=== PATIENT | female | born 1955 | race Caucasian/White ===

== ENCOUNTER → 2020-04-18 13:49 | Outpatient (BNVA) | payer MEDICAID, SELFPAY | PROVIDERS: PCP Internal Medicine Geriatric Medicine; Referring Provider Internal Medicine Geriatric Medicine; Visit Provider Nurse Practitioner | DX: Z76.89 Persons encountering health services in other specified circumstances (principal) ==

== ENCOUNTER 2020-09-25 16:34 | Emergency (ER) | payer MEDICAID, SELFPAY ==
--- NOTE | 2020-09-25 | ECG_ITS ---
Test Reason : CP Blood Pressure : / mmHG Vent. Rate : 057 BPM Atrial Rate : 057 BPM P-R Int : 170 ms QRS Dur : 088 ms QT Int : 450 ms P-R-T Axes : 049 022 041 degrees QTc Int : 438 ms Sinus bradycardia with Premature atrial complexes with Aberrant conduction vs PVC Otherwise normal ECG When compared with ECG of 22-MAY-2019 15:00, Aberrant conduction is now Present Referred By: Generic ED Physician Electronically Signed By:MARIA DE JESUS CORDOVA
--- NOTE | ~2020-09-25 | XR_ITS ---
EXAMINATION: XR CHEST CLINICAL INFORMATION: Right-sided chest pain COMPARISON: Chest x-ray 05/22/2019 TECHNIQUE: Frontal portable view of the chest was obtained. 11:14 PM FINDINGS: No significant abnormality is noted involving the heart, lungs, mediastinum, bony thorax or soft tissues. There are surgical clips over the left breast. XR/XR chest 1V IMPRESSION: Unremarkable examination.
--- NOTE | ~2020-09-25 | US_ITS ---
EXAMINATION: US VENOUS ULTRASOUND WITH DOPPLER LOWER EXTREMITY, BILATERAL CLINICAL INFORMATION: Bilateral calf pain. COMPARISON: None TECHNIQUE: Ultrasound of the deep veins is performed from the hip to the calf with compression sonography and color and pulse Doppler assessment. Spectral analysis with color-flow imaging is performed. FINDINGS: RIGHT: There is normal venous compression and respiratory variation and augmented flow. The visualized common femoral vein, superficial femoral vein, profunda femoral vein, popliteal vein, and the trifurcation region shows no evidence of deep venous thrombosis. There is no significant popliteal fossa cyst. LEFT: There is normal venous compression and respiratory variation and augmented flow. The visualized common femoral vein, superficial femoral vein, profunda femoral vein, popliteal vein, and the trifurcation region shows no evidence of deep venous thrombosis. There is no significant popliteal fossa cyst. A small Crowe's cyst is noted measuring 4.8 x 0.7 x 1.6 cm. If the patient's symptoms persist, followup ultrasound in 5 days 7 days might be of value to exclude proximal propagation from a non-visualized calf vein. US/US venous duplex LE BI IMPRESSION: No DVT demonstrated in the bilateral lower extremity. Small left Crowe's cyst is noted.
--- NOTE | ~2020-09-25 | CT_ITS ---
EXAMINATION: CT HEAD WITHOUT CONTRAST CLINICAL INFORMATION: Headache for one week. COMPARISON: CT brain 05/22/2019 TECHNIQUE: Contiguous axial imaging was performed from the skull base to vertex without intravenous administration of contrast. This CT examination was performed using dose optimization techniques as appropriate, variously including the following: *Automated exposure control *Adjustment of mA and/or kV according to patient size (this includes techniques or standardized protocols for targeted exams where dose is matched to indication/reason for exam; i.e. extremities or head) *Use of iterative reconstruction technique DLP: 589 mGy-cm FINDINGS: There is no evidence of acute intracranial hemorrhage or territorial infarction. No abnormal mass effect or midline shift is seen. Alejandra to white matter differentiation is well preserved. No extra-axial fluid collections are identified. The ventricles are normal in size. There is no abnormal attenuation within the brain parenchyma. The osseous structures and soft tissues are normal. The mastoid air cells and visualized portions of the paranasal sinuses are well aerated. CT/CT head/brain wo con IMPRESSION: No acute intracranial process seen. No change from previous study 05/22/2019
[2020-09-25 16:44] VITALS: BP 163/91; PULSE 64; RESP 18; TEMP 37.1; O2SAT 99; BMI 28.3
[2020-09-25 17:17] LABS: MANUAL DIFF FLAG NO
[2020-09-25 17:18] LABS: Basophils Percent Auto 0.1 % (0-2); Eosinophils Absolute Auto 0.1 X10*3/uL (0.0-0.4); Eosinophils Percent Auto 0.8 % (0-4); Hematocrit 39.1 % (37-47); Hemoglobin 12.7 g/dl (12.0-16.0); Imm Gran Abs Auto 0.01 X10*3/uL (0.00-0.03); Imm Gran Pct Auto 0.1 % (0.0-0.4); Lymphocytes Absolute Auto 2.3 X10*3/uL (1.2-4.9); Lymphocytes Percent Auto 31.1 % (20-40); Mean Corpuscular HGB Conc 32.5 g/dl (31.0-35.0); Mean Corpuscular Hemoglobin 31.9 pg (27.0-33.0); Mean Corpuscular Volume 98.2 fL (80-98); Mean Platelet Volume 10.8 fL (9.4-12.3); Monocytes Percent Auto 13.1 % (2-11); Neutrophils Percent Auto 54.8 % (45-73); Platelet Count 239 X10*3/uL (160-400); Red Blood Count 3.98 X10*6/uL (4.20-5.50); Red Cell Distribution Width 13.4 % (11.0-16.0); White Blood Count 7.3 X10*3/uL (4.8-10.8)
[2020-09-25 17:27] LABS: Glucose Urine UA NEG (NEG); Leukocyte Esterase Urine NEG (NEG); Nitrite Urine NEG (NEG); PH 7.5 (5.0-8.0); Specific Gravity - Urine 1.015 (1.005-1.025); Urine Blood NEG (NEG); Urine Ketones NEG (NEG); Urine Protein NEG (NEG-TRACE)
[2020-09-25 17:35] LABS: COVID-19 Test Negative (Negative); IDNOW Serial# 9DD0AD1C
[2020-09-25 17:42] LABS: RBC Urine 0-2 /HPF (0); Squamous Epithelial Cell Urine TRACE /LPF; WBC Urine 0-2 /HPF (0-4)
[2020-09-25 17:45] LABS: Appearance Urine CLEAR; Color Urine YELLOW
[2020-09-25 17:47] LABS: Anion Gap 14 (12-20); Blood Urea Nitrogen 10 mg/dL (9-16); Calcium 9.5 mg/dL (8.4-10.2); Carbon Dioxide 31 mmol/L (22-29); Chloride 100 mmol/L (96-108); Creatinine Clr Calc Pharmacy 58.8; Estimated Glomerular Filt Rate > 60; Glucose Random 109 mg/dL (60-115); Potassium 4.1 mmol/L (3.3-5.1); Sodium 141 mmol/L (135-145)
[2020-09-25 17:52] LABS: Troponin-I High Sensitivity 5.6 ng/L (<3.5-17.0)
--- NOTE | 2020-09-25 18:11 | ED.CHESTPAIN ---
HPI - Chest Pain General Chief Complaint: Chest Pain Stated Complaint: CP,RT ARM PAIN,HEADACHE Time Seen by Provider: 09/25/20 17:47 Source: patient Mode of arrival: ambulatory Limitations: no limitations History of Present Illness HPI narrative: Patient presents to ED for right-sided chest pain going down the arm, headache, and bilateral calf pain for 1 week. Patient denies any shortness of breath on inspiration or shortness of breath/chest pain on exertion. Patient denies any recent trauma, fever, chills. Patient denies any neck stiffness. Patient denies any swelling of legs or any recent trauma to the body. MD complaint: chest pain Related Data Home Medications Medication Instructions Recorded Confirmed dicyclomine 20 mg tablet 20 mg PO QID 04/18/20 04/18/20 docusate calcium 240 mg capsule 240 mg PO BEDTIME 04/18/20 04/18/20 simethicone 180 mg capsule 180 mg PO BID PRN 04/18/20 04/18/20 Allergies Allergy/AdvReac Type Severity Reaction Status Date / Time ciprofloxacin [Ciprofloxacin] Allergy Mild HIVES Unverified 02/29/20 16:16 lisinopril [LISINOPRIL] Allergy Unknown tongue Unverified 02/29/20 16:16 swelling ,itching gema ciproflaxcine Allergy Unknown Uncoded 12/22/18 00:00 clonezapam Allergy Unknown Uncoded 12/22/18 00:00 lisinopine Allergy Unknown Uncoded 12/22/18 00:00 Review of Systems Review of Systems: Yes all other systems are reviewed and are negative Constitutional: Constitutional: Reports as per HPI, Reports no additional constitutional complaints and Reports headache(s) Eyes: Eyes: Reports as per HPI and Reports no additional eye complaints ENT: Reports system reviewed and no additional complaints, except as documented, Reports as per HPI and Reports headache(s) Cardiovascular: Cardiovascular: Reports as per HPI, Reports no additional cardiovascular complaints and Reports chest pain (Right sided chest pain radiating down right arm) Respiratory: Respiratory: Reports as per HPI and Reports no additional respiratory complaints Gastrointestinal: Gastrointestinal: Reports as per HPI and Reports no additional gastrointestinal complaints Genitourinary: Genitourinary: Reports no additional female genitourinary complaints and Reports as per HPI Musculoskeletal: Musculoskeletal: Reports no additional musculoskeletal complaints and Reports as per HPI Neurologic: Reports system reviewed and no additional complaints, except as documented, Reports as per HPI and Reports headache(s) FOR[facility]LY [facility] Past Medical History Surgical History (Updated 04/18/20 @ 13:52 by Kym Palomino CMA) History of appendectomy History of colonoscopy History of hysterectomy Hx of endoscopy Family History Family History (Updated 04/18/20 @ 13:54 by Kym Palomino CMA) Father No problems noted. Mother No problems noted. Social History Social History (Updated 04/18/20 @ 13:54 by Kym Palomino CMA) Alcohol intake: never Smoking Status: Never smoker Use of substances other than those prescribed or required for medical reasons: No Advance Directives: No Advance Directives Information Provided: No Physical Exam Vital Signs: Vital Signs: Last Vital Signs Temp 98.8 F 09/25/20 16:44 Pulse 67 09/25/20 19:56 Resp 14 09/25/20 19:56 BP 137/80 09/25/20 19:56 Pulse Ox 98 09/25/20 19:56 Body Mass Index 28.3 Const: General: cooperative, healthy appearing, comfortable, no acute distress, well developed, alert and awake Orientation/consciousness: patient oriented x3 HENMT: Head: Yes normal to inspection, Yes No palpable skull fracture present, Yes normocephalic, Yes atraumatic, No abrasion, No Acrocyanosis present, No Gaona's sign, No contusion, No cranial bruits, No hematoma, No laceration, No occipital foramen tenderness, No palpable skull fracture, No raccoon eyes, No scalp lesion, No scalp tenderness, No Temporal artery tenderness present and No periorbital ecchymosis Eyes: General: appearance normal, both eyes and all related structures Neck: Neck: Yes normal visual inspection, Yes full ROM, Yes no lymphadenopathy, Yes no meningeal signs, Yes trachea midline, Yes supple and No tender Chest: Chest palpation & inspection: normal inspection of the chest and normal palpation of entire chest wall Resp: Effort & Inspection: normal respiratory effort and able to speak in complete sentences Auscultation: clear to auscultation bilaterally Cardio: Jugular venous distension: no JVD Heart sounds: S1 normal heart sound present and S2 normal heart sound present GI: Inspection: Yes normal to inspection Palpation (GI): Soft to palpation, not firm, nontender, no guarding and not rigid : General: No CVA tenderness and Yes no CVA tenderness Back/Spine/Pelvis: Back: no CVA tenderness, No CVA tenderness and No back tenderness Skin: General skin exam: no rashes or lesions noted and elasticity normal Neuro: General: patient oriented x3, no meningeal signs and CN's II-XI intact bilaterally Cranial nerves: Yes CN's II-XII intact bilaterally Extrem: Other: Lower extremities negative for swelling, pitting edema, or redness. Both lower extremity positive for calf tenderness on palpation. Pulses intact. Psych: Appearance: grossly normal, well kempt and not disheveled Course Course Course Narrative: PTH patient will have a cardiac evaluation. Also will be sent for lower extremity ultrasound to rule out DVT. Patient also be sent D-dimer to see if she is at risk of having a blood clot in the chest. Patient presently is asymptomatic. Reevaluation(s) Reevaluation #1: Negative for signs of neuro deficit. But will send patient for head CT due to her stating headache for 1 week. Patient's COVID swab came back negative. Chest x-ray negative for pneumonia. First troponin is negative. Patient's D-dimer negative wells score 0. Patient's liver enzymes came back negative. Patient feel relief after medical intervention. Reevaluation #2: Repeat troponin came back negative. Head CT is normal. Patient informe to follow-up PCP to see if referral need for cardiology for outpatient workup. But presently patient is not having heart attack or risk of PE. Wells score 0. Patient's symptoms may be anxiety related, but due to age her and daughter informed to follow-up with PCP. Currently patient is not having SC. patient negative risk for PE. Patient is not having a DVT lower extremities. Patient does not have pneumonia. Patient's COVID swab negative . Patient and daughter given copy of labs and imaging or follow-up with PCP. They are also given copy of EKG MDM - Chest Pain MDM Narrative Medical decision making narrative: Atypical chest Lab Data Result diagrams: 09/25/20 17:07 09/25/20 17:07 Labs: Lab Results 09/25/20 09/25/20 09/25/20 Range/Units 17:07 17:07 17:07 WBC 7.3 (4.8-10.8) X10*3/uL RBC 3.98 L (4.20-5.50) X10*6/uL Hgb 12.7 (12.0-16.0) g/dl Hct 39.1 (37-47) % MCV 98.2 H (80-98) fL MCH 31.9 (27.0-33.0) pg MCHC 32.5 (31.0-35.0) g/dl RDW 13.4 (11.0-16.0) % Plt Count 239 (160-400) X10*3/uL MPV 10.8 (9.4-12.3) fL Immature Gran % (Auto) 0.1 (0.0-0.4) % Neut % (Auto) 54.8 (45-73) % Lymph % (Auto) 31.1 (20-40) % Benson % (Auto) 13.1 H (2-11) % Eos % (Auto) 0.8 (0-4) % Baso % (Auto) 0.1 (0-2) % Lymph # (Auto) 2.3 (1.2-4.9) X10*3/uL Benson # (Auto) 1.0 (0.1-1.2) X10*3/uL Eos # (Auto) 0.1 (0.0-0.4) X10*3/uL Baso # (Auto) 0.0 (0.0-0.2) X10*3/uL Abs Immat Gran (auto) 0.01 (0.00-0.03) X10*3/uL Absolute Neuts (auto) 4.0 (2.0-8.3) X10*3/uL Absolute Nucleated RBC 0.000 (0.0-0.012) X10*3/uL Nucleated RBC % (auto) 0.0 (0.0-0.2) /100WBC PT 12.2 (10.8-13.0) SEC INR 1.0 (0.9-1.1) APTT 37.3 (24.1-38.0) SEC D-Dimer < 200 NG/ML Hold Blue Top SEE NOTE Sodium 141 (135-145) mmol/L Potassium 4.1 (3.3-5.1) mmol/L Chloride 100 (96-108) mmol/L Carbon Dioxide 31 H (22-29) mmol/L Anion Gap 14 (12-20) BUN 10 (9-16) mg/dL Creatinine 0.92 (0.5-1.4) mg/dL Estim Creat Clear Calc 58.8 Estimated GFR > 60 Random Glucose 109 (60-115) mg/dL Calcium 9.5 (8.4-10.2) mg/dL Total Bilirubin 0.6 (0.0-1.0) mg/dL Direct Bilirubin 0.2 (0.0-0.5) mg/dL AST 33 H (5-31) U/L ALT 14 (0-31) U/L Alkaline Phosphatase 61 (39-117) U/L Troponin I High Sens (<3.5-17.0) ng/L B-Natriuretic Peptide (<100) pg/mL Total Protein 7.2 (6.5-8.0) g/dL Albumin 4.6 (3.5-5.0) g/dL Lipase 46 (8-78) U/L Urine Color Urine Appearance Urine pH (5.0-8.0) Ur Specific [place] (1.005-1.025) Urine Protein (NEG-TRACE) MG/DL Urine Glucose (UA) (NEG) MG/DL Urine Ketones (NEG) MG/DL Urine Blood (NEG) Urine Nitrite (NEG) Ur Leukocyte Esterase (NEG) Urine RBC (0) /HPF Urine WBC (0-4) /HPF Ur Squamous Epith Cells /LPF Urine Bacteria /LPF COVID-19 (VAN) (Negative) COVID-19 Clin Com 09/25/20 09/25/20 09/25/20 Range/Units 17:07 17:07 17:13 WBC (4.8-10.8) X10*3/uL RBC (4.20-5.50) X10*6/uL Hgb (12.0-16.0) g/dl Hct (37-47) % MCV (80-98) fL MCH (27.0-33.0) pg MCHC (31.0-35.0) g/dl RDW (11.0-16.0) % Plt Count (160-400) X10*3/uL MPV (9.4-12.3) fL Immature Gran % (Auto) (0.0-0.4) % Neut % (Auto) (45-73) % Lymph % (Auto) (20-40) % Benson % (Auto) (2-11) % Eos % (Auto) (0-4) % Baso % (Auto) (0-2) % Lymph # (Auto) (1.2-4.9) X10*3/uL Benson # (Auto) (0.1-1.2) X10*3/uL Eos # (Auto) (0.0-0.4) X10*3/uL Baso # (Auto) (0.0-0.2) X10*3/uL Abs Immat Gran (auto) (0.00-0.03) X10*3/uL Absolute Neuts (auto) (2.0-8.3) X10*3/uL Absolute Nucleated RBC (0.0-0.012) X10*3/uL Nucleated RBC % (auto) (0.0-0.2) /100WBC PT (10.8-13.0) SEC INR (0.9-1.1) APTT (24.1-38.0) SEC D-Dimer NG/ML Hold Blue Top Sodium (135-145) mmol/L Potassium (3.3-5.1) mmol/L Chloride (96-108) mmol/L Carbon Dioxide (22-29) mmol/L Anion Gap (12-20) BUN (9-16) mg/dL Creatinine (0.5-1.4) mg/dL Estim Creat Clear Calc Estimated GFR Random Glucose (60-115) mg/dL Calcium (8.4-10.2) mg/dL Total Bilirubin (0.0-1.0) mg/dL Direct Bilirubin (0.0-0.5) mg/dL AST (5-31) U/L ALT (0-31) U/L Alkaline Phosphatase (39-117) U/L Troponin I High Sens 5.6 (<3.5-17.0) ng/L B-Natriuretic Peptide 163 H (<100) pg/mL Total Protein (6.5-8.0) g/dL Albumin (3.5-5.0) g/dL Lipase (8-78) U/L Urine Color YELLOW Urine Appearance CLEAR Urine pH 7.5 (5.0-8.0) Ur Specific [place] 1.015 (1.005-1.025) Urine Protein NEG (NEG-TRACE) MG/DL Urine Glucose (UA) NEG (NEG) MG/DL Urine Ketones NEG (NEG) MG/DL Urine Blood NEG (NEG) Urine Nitrite NEG (NEG) Ur Leukocyte Esterase NEG (NEG) Urine RBC 0-2 (0) /HPF Urine WBC 0-2 (0-4) /HPF Ur Squamous Epith Cells TRACE /LPF Urine Bacteria NONE /LPF COVID-19 (VAN) Negative (Negative) COVID-19 Clin Com See Note 09/25/20 Range/Units 20:02 WBC (4.8-10.8) X10*3/uL RBC (4.20-5.50) X10*6/uL Hgb (12.0-16.0) g/dl Hct (37-47) % MCV (80-98) fL MCH (27.0-33.0) pg MCHC (31.0-35.0) g/dl RDW (11.0-16.0) % Plt Count (160-400) X10*3/uL MPV (9.4-12.3) fL Immature Gran % (Auto) (0.0-0.4) % Neut % (Auto) (45-73) % Lymph % (Auto) (20-40) % Benson % (Auto) (2-11) % Eos % (Auto) (0-4) % Baso % (Auto) (0-2) % Lymph # (Auto) (1.2-4.9) X10*3/uL Benson # (Auto) (0.1-1.2) X10*3/uL Eos # (Auto) (0.0-0.4) X10*3/uL Baso # (Auto) (0.0-0.2) X10*3/uL Abs Immat Gran (auto) (0.00-0.03) X10*3/uL Absolute Neuts (auto) (2.0-8.3) X10*3/uL Absolute Nucleated RBC (0.0-0.012) X10*3/uL Nucleated RBC % (auto) (0.0-0.2) /100WBC PT (10.8-13.0) SEC INR (0.9-1.1) APTT (24.1-38.0) SEC D-Dimer NG/ML Hold Blue Top Sodium (135-145) mmol/L Potassium (3.3-5.1) mmol/L Chloride (96-108) mmol/L Carbon Dioxide (22-29) mmol/L Anion Gap (12-20) BUN (9-16) mg/dL Creatinine (0.5-1.4) mg/dL Estim Creat Clear Calc Estimated GFR Random Glucose (60-115) mg/dL Calcium (8.4-10.2) mg/dL Total Bilirubin (0.0-1.0) mg/dL Direct Bilirubin (0.0-0.5) mg/dL AST (5-31) U/L ALT (0-31) U/L Alkaline Phosphatase (39-117) U/L Troponin I High Sens 6.6 (<3.5-17.0) ng/L B-Natriuretic Peptide (<100) pg/mL Total Protein (6.5-8.0) g/dL Albumin (3.5-5.0) g/dL Lipase (8-78) U/L Urine Color Urine Appearance Urine pH (5.0-8.0) Ur Specific [place] (1.005-1.025) Urine Protein (NEG-TRACE) MG/DL Urine Glucose (UA) (NEG) MG/DL Urine Ketones (NEG) MG/DL Urine Blood (NEG) Urine Nitrite (NEG) Ur Leukocyte Esterase (NEG) Urine RBC (0) /HPF Urine WBC (0-4) /HPF Ur Squamous Epith Cells /LPF Urine Bacteria /LPF COVID-19 (VAN) (Negative) COVID-19 Clin Com ECG Data ECG #1: Interpretation: Sinus bradycardia with premature atrial complexes. Ventricular rate 57. VT interval 170. QRS 88. QTC 438. Negative STEMI. Discharge Plan Discharge Clinical Impression: Atypical chest pain Patient Disposition: Home, Self-Care Instructions: Chest Pain (ED) Additional Instructions: Regrese al servicio de urgencias si empeora el dolor en el pecho, falta de aire, hinchaz?n de las extremidades inferiores, dolor en la pantorrilla, tos con theodore, fiebre, escalofr?os, debilidad, dolor abdominal, n?useas, v?mitos, tos con theodore o cualquier otro s?ntoma preocupante. Prescriptions: No Action dicyclomine 20 mg tablet 20 mg PO QID RF: 0 simethicone [Gas Relief (simethicone)] 180 mg capsule 180 mg PO BID PRNRF: 0 docusate calcium 240 mg capsule 240 mg PO BEDTIME RF: 0 Referrals: Name,MD Teofilo [Primary Care Provider] - 2 days (Atypical right-sided chest pain. ) Interventions: ED Discharge Assessment Last Done: 09/26/20 00:44 Discharge Date/Time: 09/26/20 00:56 Print Language: Montserratian
[2020-09-25 18:29] LABS: Prothrombin Time 12.2 SEC (10.8-13.0)
[2020-09-25 18:32] LABS: D Dimer < 200 NG/ML; Partial Thromboplastin Time 37.3 SEC (24.1-38.0)
[2020-09-25 18:41] LABS: B Type Natriuretic Peptide 163 pg/mL (<100)
--- NOTE | 2020-09-25 19:47 | PC.NURSE ---
ASSUMED CARE OF PT. PT RESTING IN STRETCHER RETURNING FROM U/S. FAMILY UPDATE. PT REQUESTING PAIN MEDS FROM HEADACHE. PA AWARE. VS OBTAINED. PT EATING SANDWICH AND OJ. WILL CONTINUE TO MONITOR PT.
[2020-09-25 19:48] VITALS: BP 137/80; PULSE 68; RESP 16
[2020-09-25 19:56] VITALS: BP 137/80; PULSE 67; RESP 14; O2SAT 98
[2020-09-25] MEDS: Acetaminophen 325 MG TABLET 650 MG PO (20:03)
--- NOTE | 2020-09-25 20:06 | PC.NURSE ---
PT MEDICATED FOR HEAD PAIN.
[2020-09-25 20:43] LABS: Troponin-I High Sensitivity 6.6 ng/L (<3.5-17.0)
--- NOTE | 2020-09-25 21:12 | PC.NURSE ---
PT UP TO RESTROOM WITH STEADY GEOFFREY GAIT TO RESTROOM. PT DENIES COMPLAINTS AT THIS TIME AND REMAINS ON MONITOR.
[2020-09-25] MEDS: Lidocaine HCl Viscous 2 % 15 ML SOLUTION MUCOUS MEM (22:08)
[2020-09-25] MEDS: Magnesium Hydrox/Alum Hydrox 30 ML ORAL.SUSP PO (22:08)
[2020-09-25] MEDS: Famotidine 20 MG TABLET PO (22:08)
--- NOTE | 2020-09-25 23:24 | PC.NURSE ---
X-RAY IN ROOM FOR A PORTABLE CXR. DAUGHTER AT BEDSIDE C/O WAITING MORE FOR THE X-RAY .
[2020-09-25 23:40] LABS: Alanine Aminotransferase 14 U/L (0-31); Albumin Level 4.6 g/dL (3.5-5.0); Alkaline Phosphatase 61 U/L (39-117); Aspartate Amino Transferase 33 U/L (5-31); Bilirubin Direct 0.2 mg/dL (0.0-0.5); Bilirubin Total 0.6 mg/dL (0.0-1.0); Lipase 46 U/L (8-78); Total Protein 7.2 g/dL (6.5-8.0)
== END 2020-09-26 00:56 | disposition home or self-care (01) ==
PROVIDERS: Physician Assistant; Emergency Provider Emergency Medicine; PCP Internal Medicine Geriatric Medicine
DX: R07.89 Other chest pain (principal); R51.9 Headache, unspecified; M79.662 Pain in left lower leg; M79.661 Pain in right lower leg; Z20.822 Contact with and (suspected) exposure to COVID-19
CPT/HCPCS: 36415; 70450; 71045; 80048; 80076; 81001; 83690; 83880; 84484; 85025; 85379; 85610; 85730; 87635; 93005; 93970; 99284; 99285

== ENCOUNTER 2020-12-18 13:15 | Outpatient (REF) | payer MEDICAID, SELFPAY ==
--- NOTE | ~2020-12-18 | MM_ITS ---
EXAMINATION: MM SCREENING DIGITAL BREAST TOMOSYNTHESIS, BILATERAL CLINICAL INFORMATION: Left lumpectomy for breast cancer 2002. Due for yearly exam. COMPARISON: Mammography: 07/12/2018, 2017, 06/01/2016 TECHNIQUE: Digital breast tomosynthesis is performed in both the craniocaudal and mediolateral oblique views along with computer-aided detection (CAD). Synthesized 2D images are generated from the tomosynthesis. Additional left CC view is provided. FINDINGS: There are scattered areas of fibroglandular density (ACR BI-RADS breast composition Category b). Breast tissue composition borders on heterogeneously dense in the anterior breasts. There are post therapy changes left breast with mild reduced breast size, surgical clips, and old scarring. Neither breast shows interval mass or architectural abnormality or developing density. There are no abnormal calcifications. No significant changes. MM/MM tomosynthesis screening BI IMPRESSION: No significant changes from prior studies. ASSESSMENT: BI-RADS 2: Benign RECOMMENDATION: Routine annual mammography screening. This patient's information was entered into a reminder system with a target due date for their next mammogram.
== END 2020-12-18 13:16 | disposition home or self-care (01) ==
LOC: HO.MAMMO 13:15
PROVIDERS: PCP Internal Medicine Geriatric Medicine; Visit Provider Internal Medicine Geriatric Medicine
DX: Z12.31 Encounter for screening mammogram for malignant neoplasm of breast (principal)
CPT/HCPCS: 77063; 77067

== ENCOUNTER 2021-01-08 08:48 | Outpatient (REF) | payer MEDICAID, SELFPAY ==
--- NOTE | ~2021-01-08 | XR_ITS ---
EXAMINATION: XR RIGHT KNEE XR RIGHT SHOULDER CLINICAL INFORMATION: Pain COMPARISON: None TECHNIQUE: 4 views of the right knee and 4 views of the right shoulder FINDINGS: Right Knee: 4 views of the right knee do not demonstrate any evidence of acute fracture or dislocation. There is a small suprapatellar effusion present. There is prominent spurring about the patellofemoral joint. There is minimal spurring about the medial and lateral joint space compartments without significant narrowing. Right Shoulder: 4 views of the right shoulder do not demonstrate any evidence of acute fracture or dislocation. No calcific tendinitis identified. There is some narrowing of the acromioclavicular joint with some mild spurring. No widening of the coracoclavicular space is seen. XR/XR knee RT 4V IMPRESSION: Degenerative change of the right knee involving the patellofemoral joint with small effusion. No significant bony abnormality of the right shoulder identified.
--- NOTE | ~2021-01-08 | XR_ITS ---
EXAMINATION: XR RIGHT KNEE XR RIGHT SHOULDER CLINICAL INFORMATION: Pain COMPARISON: None TECHNIQUE: 4 views of the right knee and 4 views of the right shoulder FINDINGS: Right Knee: 4 views of the right knee do not demonstrate any evidence of acute fracture or dislocation. There is a small suprapatellar effusion present. There is prominent spurring about the patellofemoral joint. There is minimal spurring about the medial and lateral joint space compartments without significant narrowing. Right Shoulder: 4 views of the right shoulder do not demonstrate any evidence of acute fracture or dislocation. No calcific tendinitis identified. There is some narrowing of the acromioclavicular joint with some mild spurring. No widening of the coracoclavicular space is seen. XR/XR shoulder RT min 2V IMPRESSION: Degenerative change of the right knee involving the patellofemoral joint with small effusion. No significant bony abnormality of the right shoulder identified.
== END 2021-01-08 08:49 | disposition home or self-care (01) ==
LOC: HO.XRAY 08:48
PROVIDERS: PCP Internal Medicine Geriatric Medicine; Visit Provider Internal Medicine Geriatric Medicine
DX: M25.511 Pain in right shoulder (principal); M25.561 Pain in right knee
CPT/HCPCS: 73030; 73564

== ENCOUNTER → 2021-02-12 10:59 | Outpatient (BNVA) | payer MEDICAID, SELFPAY | PROVIDERS: PCP Internal Medicine Geriatric Medicine; Visit Provider Physician Assistant | DX: M17.11 Unilateral primary osteoarthritis, right knee (principal) | CPT/HCPCS: 20610; 99202; J1020 ==

== ENCOUNTER → 2021-02-27 10:15 | Outpatient (REF) | payer MEDICAID, SELFPAY ==
--- NOTE | ~2021-02-27 | NM_ITS ---
Lexiscan Myocardial perfusion study Indication: Chest pain, assess for coronary disease and ischemia Technique: The patient was brought in for a Lexiscan perfusion study on 02/27/2021 and was injected 0.4 mg of Lexiscan intravenously. Within a minute of this injection 35 mCi of sestamibi was given intravenously. Images were obtained using the SPECT gamma camera interlaced with the gating device. Images were obtained in supine position. Resting perfusion study was performed on 03/03/2021. Patient was administered 25 mCi of sestamibi intravenously at rest. Images were then obtained in supine position. Total DLP 84mGy-cm. Images were processed with the software and compared side to side in short axis, horizontal long axis and vertical long axis views. Findings: Raw acquisition was reviewed. The stress perfusion study showed no significant perfusion abnormality. Both uncorrected as well as CT attenuation corrected images were reviewed. The gated study shows normal LV systolic function with calculated LVEF of 51%. LV cavity is normal in size. The gated study shows normal wall thickening and contraction of segments. Resting study shows no significant perfusion abnormality. Gating at rest reveals normal wall motion with ejection fraction at 55%. The findings are consistent with no reversible or fixed perfusion abnormality. NM/NM carolynn perf SPECT rest & str Impression: 1. Myocardial perfusion imaging study shows likely normal myocardial perfusion. No evidence of any ischemia or infarction. 2. Gated LVEF is 51% during stress and 55% during rest. Correlate with echocardiogram. 3. Transient ischemic dilatation not present. EKG component of the test reported separately.
--- NOTE | 2021-02-27 10:20 | CA_ITS ---
Acquisition Time: 2021-02-27 10:41:20 Total Exercise Time: 00:02:00 Test Indications: Chest Pain Medications: SEE H Protocol: LEXISCAN Max HR: 085 BPM 54% of Pred: 156 BPM Max BP: 152/074 mmHG Max Work Load: 1.0 METS Pharmacological stress test with Lexiscan injection, while sitting and kicking her legs, without anginal symptoms, with isolated PVC and sinus arrythmia, with normotensive response to injection, with nondiagnostic EKG for ischemia. Nuclear images pending. Test reviewed with Dr Eckert. Referred By: Brian Dewitt Overread By: NATE CHAN
== END ==
LOC: HO.CARD 10:15
PROVIDERS: Visit Provider Internal Medicine Cardiovascular Disease
DX: R07.9 Chest pain, unspecified (principal)
CPT/HCPCS: 78452; 93017; A9500; J0280; J2785

== ENCOUNTER 2021-02-28 08:14 | Outpatient (REF) | payer MEDICAID, SELFPAY ==
--- NOTE | ~2021-02-28 | US_ITS ---
EXAMINATION: US ABDOMEN COMPLETE CLINICAL INFORMATION: Epigastric pain. Renal insufficiency. COMPARISON: Ultrasound abdomen 10/14/2016 and 08/28/2010. CT abdomen and pelvis 07/03/2013. TECHNIQUE: Real-time imaging of the abdominal viscera. FINDINGS: PANCREAS: The pancreas is obscured by overlying gas. ABDOMINAL AORTA: The proximal, mid, and distal segments are normal in caliber. INFERIOR VENA CAVA: Visualized portions are normal. LIVER: Normal. The liver is normal in size. The liver contour is normal. Parenchymal echogenicity is normal. No focal hepatic lesion. There is no intrahepatic biliary duct dilatation seen. GALLBLADDER: Normal. The gallbladder is physiologically distended without evidence of stones, sludge, polyps, wall thickening or pericholecystic fluid. COMMON BILE DUCT: Normal in caliber measuring 0.34 cm in diameter. RIGHT KIDNEY: No hydronephrosis. No renal calculi or focal parenchymal lesions. The kidney measures 9.8 cm in maximum dimension. There are prominent pyramid seen. LEFT KIDNEY: No hydronephrosis or renal calculi. The kidney measures 10.2 cm in maximum dimension. There is anechoic cyst in midpole measuring 1.6 x 1.6 x 1.5 cm SPLEEN: Normal. The spleen measures 7.0 cm in maximum dimension. FREE FLUID: None. US/US abdomen complete IMPRESSION: Prominent pyramid right kidney. Anechoic cyst upper pole left kidney. No caliectasis or hydronephrosis seen in either kidney. Rest of the abdominal ultrasound is unremarkable.
== END 2021-02-28 08:15 | disposition home or self-care (01) ==
LOC: HO.US 08:14
PROVIDERS: Visit Provider Family Medicine
DX: E11.65 Type 2 diabetes mellitus with hyperglycemia (principal); R10.13 Epigastric pain; E87.8 Other disorders of electrolyte and fluid balance, not elsewhere classified; N28.9 Disorder of kidney and ureter, unspecified
CPT/HCPCS: 76700

== ENCOUNTER → 2021-11-25 14:37 | Outpatient (BNVA) | payer OTHER, SELFPAY | PROVIDERS: PCP Internal Medicine Geriatric Medicine; Visit Provider Surgery Vascular Surgery | DX: I83.11 Varicose veins of right lower extremity with inflammation (principal) | CPT/HCPCS: 99202 ==

== ENCOUNTER → 2021-12-01 13:04 | Outpatient (BNVA) | payer OTHER, SELFPAY | PROVIDERS: PCP Internal Medicine Geriatric Medicine; Visit Provider Surgery | DX: K64.8 Other hemorrhoids (principal); K64.4 Residual hemorrhoidal skin tags | CPT/HCPCS: 46600; 99212 ==

== ENCOUNTER 2021-12-23 10:00 | Outpatient (REF) | payer OTHER, SELFPAY ==
--- NOTE | ~2021-12-23 | MM_ITS ---
EXAMINATION: MM SCREENING DIGITAL BREAST TOMOSYNTHESIS, BILATERAL CLINICAL INFORMATION: Screening. Asymptomatic. Left lumpectomy for breast cancer, 2002 COMPARISON: Mammography: 12/18/2020, 07/12/2018, 06/21/2017 TECHNIQUE: Digital breast tomosynthesis is performed in both the craniocaudal and mediolateral oblique views along with computer-aided detection (CAD). Synthesized 2D images are generated from the tomosynthesis. FINDINGS: The breasts are heterogeneously dense, which may obscure small masses (ACR BI-RADS breast composition Category c). Denser breast tissue composition is predominantly at the anterior breasts. The remainder of the breasts are average fibroglandular tissue composition. There is no interval mass or architectural abnormality or abnormal calcifications. Post therapy changes left breast are stable. There are surgical clips in mild reduced breast size and scarring as before. No significant changes either breast. MM/MM tomosynthesis screening BI IMPRESSION: No mammographic evidence of malignancy. ASSESSMENT: BI-RADS 2: Benign RECOMMENDATION: Routine annual mammography screening. This patient's information was entered into a reminder system with a target due date for their next mammogram.
== END 2021-12-23 10:01 | disposition home or self-care (01) ==
LOC: HO.MAMMO 10:00
PROVIDERS: PCP Internal Medicine Geriatric Medicine; Visit Provider Internal Medicine Geriatric Medicine
DX: Z12.31 Encounter for screening mammogram for malignant neoplasm of breast (principal)
CPT/HCPCS: 77063; 77067

== ENCOUNTER 2022-02-26 10:03 | Outpatient (REF) | payer OTHER, SELFPAY ==
--- NOTE | ~2022-02-26 | US_ITS ---
EXAMINATION: US LOWER EXTREMITY VENOUS (REFLUX EXAM), BILATERAL CLINICAL INDICATION: Chronic venous insufficiency with the lower extremity varicose veins COMPARISON: None. TECHNIQUE: Color flow triplex imaging and compression Doppler was performed to evaluate both the deep and the superficial systems bilaterally. To evaluate the superficial system, the examination was performed in the upright position. Color-flow Doppler ultrasound and compression ultrasound were utilized. In addition, maneuvers were utilized to demonstrate reflux. FINDINGS: 1. DEEP VENOUS ULTRASOUND OF THE RIGHT LOWER EXTREMITY: Common Femoral Vein: Compressible, normal respiratory variation and augmented flow. Femoral Vein: Compressible, normal color flow and augmentation. Popliteal Vein: Compressible, normal augmentation. Deep Reflux: There is no evidence of reflux in the deep system in either the common femoral vein or the popliteal vein. There is no evidence of a Crowe's cyst. 2. SUPERFICIAL ULTRASOUND WITH DOPPLER OF RIGHT LOWER EXTREMITY: GREAT SAPHENOUS VEIN: Saphenofemoral Junction: 0.6 cm; Reflux: 0 ms Proximal Thigh: 0.3 cm; Reflux: 0 ms Mid Thigh: 0.2 cm; Reflux: 0 ms Above Knee: 0.2 cm; Reflux: 0 ms At Knee: 0.1 cm; Reflux: 0 ms Below Knee: 0.1 cm; Reflux: 0 ms Mid Calf: 0.1 cm; Reflux: 0 ms Ankle: 0.2 cm; Reflux: 0 ms DUPLICATED MEDIAL GREAT SAPHENOUS VEIN: Diameter: None Imaged Reflux: NA DUPLICATED LATERAL GREAT SAPHENOUS VEIN: Diameter: 0.4 cm Reflux: None SMALL SAPHENOUS VEIN: Proximal: 0.4 cm; Reflux: 0 ms Distal: 0.1 cm; Reflux: 0 ms VEIN OF GIACOMINI: None Imaged. PERFORATORS: Location: None Imaged Size: NA Reflux: NA VARICOSITIES: Location: None Imaged Size: NA Reflux: NA 3. DEEP VENOUS ULTRASOUND OF THE LEFT LOWER EXTREMITY: Common Femoral Vein: Compressible, normal respiratory variation and augmented flow. Femoral Vein: Compressible, normal color flow and augmentation. Popliteal Vein: Compressible, normal augmentation. Deep Reflux: There is no evidence of reflux in the deep system in either the common femoral vein or the popliteal vein. There is no evidence of a Crowe's cyst. Incidental note is made of a subcutaneous lipoma within the right thigh measuring 2.4 x 1.0 cm 4. SUPERFICIAL ULTRASOUND WITH DOPPLER OF LEFT LOWER EXTREMITY: GREAT SAPHENOUS VEIN: Saphenofemoral Junction: 0.5 cm; Reflux: 0 ms Proximal Thigh: 0.3 cm; Reflux: 0 ms Mid Thigh: 0.1 cm; Reflux: 0 ms Above Knee: 0.1 cm; Reflux: 0 ms At Knee: 0.1 cm; Reflux: 0 ms Below Knee: 0.1 cm; Reflux: 0 ms Mid Calf: 0.2 cm; Reflux: 0 ms Ankle: 0.1 cm; Reflux: 0 ms DUPLICATED MEDIAL GREAT SAPHENOUS VEIN: Diameter: None Imaged Reflux: NA DUPLICATED LATERAL GREAT SAPHENOUS VEIN: Diameter: 0.6 cm Reflux: 880 ms in the mid segment SMALL SAPHENOUS VEIN: Proximal: 0.2 cm; Reflux: 0 ms Distal: 0.2 cm; Reflux: 0 ms VEIN OF GIACOMINI: None Imaged. PERFORATORS: Location: None Imaged Size: NA Reflux: NA VARICOSITIES: Location: None Imaged Size: NA Reflux: NA US/US venous duplex LE BI IMPRESSION: Right: No significant venous insufficiency or varicose veins Left: No significant venous insufficiency or varicose veins. There is one focal area of mild reflux in the lateral duplicated great saphenous vein in the mid thigh
== END 2022-02-26 10:04 | disposition home or self-care (01) ==
LOC: HO.US 10:03
PROVIDERS: Visit Provider Surgery Vascular Surgery
DX: I83.11 Varicose veins of right lower extremity with inflammation (principal); K64.4 Residual hemorrhoidal skin tags; K64.8 Other hemorrhoids
CPT/HCPCS: 93970; 99212

== ENCOUNTER → 2022-03-05 12:19 | Outpatient (BNVA) | payer OTHER, SELFPAY | PROVIDERS: PCP Internal Medicine Geriatric Medicine; Visit Provider Surgery Vascular Surgery | DX: I83.11 Varicose veins of right lower extremity with inflammation (principal) | CPT/HCPCS: 99212 ==

== ENCOUNTER 2022-06-09 14:13 | Outpatient (REF) | payer OTHER, SELFPAY ==
--- NOTE | ~2022-06-09 | MM_ITS ---
EXAMINATION: BONE DENSITOMETRY CLINICAL INDICATION: Menopause. COMPARISON: Previous BD dated 12/26/2009 and baseline BD dated 01/03/2008. TECHNIQUE: Using a [employer] DXA System (software version: 13.1) manufactured by [employer], dual-energy x-ray absorptiometry was performed of the lumbar spine and left hip. The images are of good technical quality. Summary results are attached. FINDINGS: AP SPINE L1-L4: Current: BMD 0.973 g/cm2, Z-score -0.1, T-score -1.7, osteopenia, 4.1% decrease from previous, 7.3% increase from baseline (<5% change is not significant). Prior: BMD 1.015 g/cm2. Baseline: BMD 0.907 g/cm2. LEFT FEMUR, NECK: Current: BMD 0.776 g/cm2, Z-score -0.4, T-score -1.9, osteopenia. Prior: BMD 0.838 g/cm2. Baseline: BMD 0.783 g/cm2. LEFT FEMUR, TOTAL: Current: BMD 0.827 g/cm2, Z-score 0.2, T-score -1.4, osteopenia, 5.7% decrease from previous, 0.5% decrease from baseline (<5% change is not significant). Prior: BMD 0.877 g/cm2. Baseline: BMD 0.831 g/cm2. IDENTIFIED RISK FACTORS: Bilateral oophorectomy, early menopause, height loss, hysterectomy, secondary osteoporosis. HISTORY OF FRACTURE: None listed. MEDICATIONS: Calcium. MM/XR DEXA axial skeleton IMPRESSION: 1. DIAGNOSIS: Osteopenia based on the lowest T-score value of -1.9 in the femoral neck applying World Health Organization criteria. 2. 10-YEAR FRACTURE RISK PREDICTION, FRAX: Major osteoporotic fracture (clinical spine, forearm, hip or shoulder) 5.9%. Hip fracture 0.9%. 3. Treatment Recommendations: NOF guidelines recommend consideration for treatment in postmenopausal women and men age 50 and older presenting with the following: -A hip or vertebral (clinical or morphometric) fracture. -T-score less than or equal to -2.5 at the femoral neck or spine after appropriate evaluation to exclude secondary causes. -Low bone mass at the hip or spine and a 10-year fracture probability by FRAX of greater than or equal to 3% for hip fracture or greater than or equal to 20% for major osteoporotic fracture based on the [place] adapted WHO algorithm. 4. Other Recommendations: All treatment decisions require clinical judgment and consideration of individual patient factors, including patient preferences, comorbidities, previous drug use, risk factors not captured in the FRAX model (e.g. frailty, falls, vitamin D deficiency, increased bone turnover, interval significant decline in bone density) and possible under or overestimation of fracture risk by FRAX. Additional medical evaluation for secondary cause of low bone mineral density may be appropriate. FUTURE SCAN RECOMMENDATION: People with diagnosed cases of osteoporosis or at high risk for fracture should have regular bone mineral density tests. For patients eligible for Medicare, routine testing is allowed once every 2 years. The testing frequency can be increased to one year for patients who have rapidly progressing disease, those who are receiving or discontinuing medical therapy to restore bone mass, or have additional risk factors.
== END 2022-06-09 14:14 | disposition home or self-care (01) ==
LOC: HO.MAMMO 14:13
PROVIDERS: PCP Internal Medicine Geriatric Medicine; Visit Provider Internal Medicine Geriatric Medicine
DX: Z13.820 Encounter for screening for osteoporosis (principal); Z78.0 Asymptomatic menopausal state
CPT/HCPCS: 77080

== ENCOUNTER 2023-01-04 12:11 | Outpatient (REF) | payer OTHER, SELFPAY ==
--- NOTE | ~2023-01-04 | XR_ITS ---
EXAMINATION: XR KNEE, RIGHT CLINICAL INFORMATION: Right knee pain for years (chronic pain). COMPARISON: 12/31/2020 TECHNIQUE: Four views of the right knee. FINDINGS: Bones have normal alignment. No fracture or subluxation. Small joint effusion is evident. There is tricompartmental osteophyte formation and chronic mild narrowing of medial tibiofemoral joint space. Also, there appears to be narrowing of the lateral patellofemoral joint space. Small 0.3 cm ossific body is present in the posterior knee joint. No significant change in the osteoarthritis compared to 01/08/2021. XR/XR knee RT 4V IMPRESSION: Tricompartmental osteoarthritis and small effusion of the right knee. The joint degeneration is mild at the lateral tibiofemoral compartment and moderate at the patellofemoral and medial tibial femoral compartments.
== END 2023-01-04 12:12 | disposition home or self-care (01) ==
LOC: HO.HHCX 12:11
PROVIDERS: Visit Provider Internal Medicine Geriatric Medicine
DX: M25.561 Pain in right knee (principal); G89.29 Other chronic pain
CPT/HCPCS: 73564

== ENCOUNTER 2023-01-04 12:40 | Outpatient (REF) | payer OTHER, SELFPAY ==
[2023-01-04 16:59] LABS: Creatinine Urine 131.06 mg/dL; Microalbum/Creatinine Ratio Ur 6.1 ug/mg cr
== END 2023-01-04 12:41 | disposition home or self-care (01) ==
LOC: HO.HHCL 12:40
PROVIDERS: Visit Provider Internal Medicine Geriatric Medicine
DX: E11.65 Type 2 diabetes mellitus with hyperglycemia (principal)
CPT/HCPCS: 82043

== ENCOUNTER 2023-01-04 14:47 | Outpatient (REF) | payer OTHER, SELFPAY ==
[2023-01-04 16:18] LABS: MANUAL DIFF FLAG NO
[2023-01-04 16:34] LABS: Basophils Percent Auto 0.3 % (0-2); Eosinophils Absolute Auto 0.1 X10*3/uL (0.0-0.4); Eosinophils Percent Auto 1.4 % (0-4); Hematocrit 42.4 % (37.0-47.0); Hemoglobin 13.7 g/dl (12.0-16.0); Imm Gran Abs Auto 0.01 X10*3/uL (0.00-0.03); Imm Gran Pct Auto 0.2 % (0.0-0.4); Lymphocytes Percent Auto 31.4 % (20-40); Mean Corpuscular HGB Conc 32.3 g/dl (31.0-35.0); Mean Corpuscular Hemoglobin 32.6 pg (27.0-33.0); Mean Platelet Volume 11.3 fL (9.4-12.3); Monocytes Absolute Auto 0.9 X10*3/uL (0.1-1.2); Monocytes Percent Auto 13.4 % (2-11); Neutrophils Absolute Auto 3.4 x10*3/uL (2.0-8.3); Neutrophils Percent Auto 53.3 % (45-73); Platelet Count 230 X10*3/uL (160-400); Red Cell Distribution Width 13.5 % (11.0-16.0); White Blood Count 6.3 X10*3/uL (4.8-10.8)
[2023-01-04 17:04] LABS: Alanine Aminotransferase 12 U/L (0-31); Albumin Level 4.5 g/dL (3.5-5.0); Alkaline Phosphatase 65 U/L (39-117); Anion Gap 12 (12-20); Aspartate Amino Transferase 31 U/L (5-31); Bilirubin Total 0.2 mg/dL (0.0-1.0); Blood Urea Nitrogen 20 mg/dL (9-16); Calcium 9.9 mg/dL (8.4-10.2); Carbon Dioxide 28 mmol/L (22-29); Chloride 104 mmol/L (96-108); Estimated Glomerular Filt Rate 55; Glucose Random 103 mg/dL (60-115); Potassium 4.8 mmol/L (3.3-5.1); Sodium 139 mmol/L (135-145); Total Protein 7.5 g/dL (6.5-8.0)
[2023-01-04 17:15] LABS: TSH reflex Free T4 3.33 uIU/mL (0.32-4.0)
== END 2023-01-04 14:48 | disposition home or self-care (01) ==
LOC: HO.HHCL 14:47
PROVIDERS: Visit Provider Family Medicine
DX: R10.32 Left lower quadrant pain (principal); K64.9 Unspecified hemorrhoids; E03.9 Hypothyroidism, unspecified
CPT/HCPCS: 36415; 80053; 84443; 85025

== ENCOUNTER 2023-01-18 11:13 | Outpatient (AMB) | payer OTHER, SELFPAY ==
[2023-01-18 11:31] VITALS: BP 144/73; PULSE 56; BMI 26.4
--- NOTE | 2023-01-18 11:31 | MHC.OFFVIS ---
Intake Vital Signs 01/18/23 11:31 Height 5 ft 3 in Weight 149 lb BMI 26.4 BP 144/73 H Blood Pressure Location Rt brachial Position Sitting Pulse 56 Intake Visit Reasons: hemorrhoids Intake Note: This patient presents for an assessment for hemorrhoids. Patient c/o; reports pain and rectal bleeding, reports having bleeding x3 times last week, denies constipation or diarrhea. Support Service Tech Required: Yes Support Service Tech Language: [employer] Sales Engineer Name: Mk Information Interpreted: non-clinical & clinical Accompanied by: Self / Same As Patient Allergies ciprofloxacin [Ciprofloxacin] Allergy (Mild, Verified 01/18/23 11:32) HIVES lisinopril [LISINOPRIL] Allergy (Unknown, Verified 01/18/23 11:32) tongue swelling ,itching gema ciproflaxcine Allergy (Unknown, Uncoded 01/18/23 11:32) Unknown clonezapam Allergy (Unknown, Uncoded 01/18/23 11:32) unk lisinopine Allergy (Unknown, Uncoded 01/18/23 11:32) unk HPI hemorrhoids HPI Details 67-year-old female with a long history of symptomatic hemorrhoids. She describes frequent prolapse along with pain and bleeding as well with bowel movements. She denies being chronically constipated She has been seen in the office previously for this and she feels that her symptoms have been worsening over the years. She says she has had this for more than 20 years and feels that these have become more painful. [facility] Surgical History History of appendectomy History of colonoscopy History of hysterectomy Hx of endoscopy Family History Father No problems noted. Mother No problems noted. Social History Alcohol intake: never Review of Systems Const Denies chills and Denies fever(s) Card Denies chest pain, Denies dyspnea and Denies dyspnea on exertion Resp Denies cough, Denies dyspnea and Denies dyspnea on exertion GI Reports hematochezia and Denies change in bowel habits Denies hematuria Musc Denies back pain and Denies limited range of motion Neuro Denies focal weakness and Denies convulsions Psych Denies depression and Denies mood swings Physical Exam Vital Signs: Last Vital Signs Pulse 56 01/18/23 11:31 BP 144/73 H 01/18/23 11:31 BMI result Body Mass Index 26.4 Const General: comfortable and no acute distress Orientation/consciousness: patient oriented x3 Neck Neck: Yes no lymphadenopathy Resp Auscultation: clear to auscultation bilaterally Cardio Rhythm: regular rhythm GI Other: External hemorrhoids, left, anoscopy as described Palpation (GI): Soft to palpation, nontender and no guarding Neuro General: patient oriented x3 Office Procedures Anoscopy She was in davina-knife position. The anoscope was gently inserted. A full examination of the anal canal was done. There was note of this mixed internal hemorrhoidal column, larger on the left, that seems to easily prolapse. There were no other lesions. There were smaller hemorrhoidal columns on the right. There was no fissure. There was no induration digital exam. There was no bleeding. [id number] Assessment & Plan Assessment & Plan (1) Internal and external bleeding hemorrhoids: Code(s): K64.4 - Residual hemorrhoidal skin tags; K64.8 - Other hemorrhoids Plan: She states that she continues to have periodic bleeding especially with bowel movements from her hemorrhoids. She also says that these often prolapse and causes a lot of pain after bowel movements. She wants to proceed with hemorrhoidectomy because of these symptoms. I explained to her the technique of the planned procedure. I reviewed the risks including but not limited to bleeding infections and postop pain, as well as the benefits and alternatives and she wants to proceed. She understands to expect postoperatively as well. Coding Level of Care Code New Pt Level 3 (40718) Diagnoses Internal and external bleeding hemorrhoids K64.4; K64.8 CPT Codes Details - CPT: 15563-[id number] ([id number])
== END 2023-01-18 11:56 | disposition home or self-care (01) ==
PROVIDERS: PCP Internal Medicine Geriatric Medicine; Referring Provider Family Medicine; Visit Provider Surgery
DX: K64.4 Residual hemorrhoidal skin tags (principal); K64.8 Other hemorrhoids
CPT/HCPCS: 46600; 99213; 99214

== ENCOUNTER → 2023-01-18 11:13 | Outpatient (BNVA) | payer OTHER, SELFPAY | PROVIDERS: PCP Internal Medicine Geriatric Medicine; Referring Provider Family Medicine; Visit Provider Surgery | DX: K64.4 Residual hemorrhoidal skin tags (principal); K64.8 Other hemorrhoids | CPT/HCPCS: 46600; 99212 ==

== ENCOUNTER 2023-01-20 11:12 | Outpatient (REF) | payer OTHER, SELFPAY ==
--- NOTE | ~2023-01-20 | MM_ITS ---
EXAMINATION: MM SCREENING DIGITAL BREAST TOMOSYNTHESIS, BILATERAL CLINICAL INFORMATION: Screening. Asymptomatic. Lumpectomy left breast for breast cancer in 2002. COMPARISON: Mammography: 12/23/2021, 12/18/2020, and studies dating back to 2009. TECHNIQUE: Digital breast tomosynthesis is performed in both the craniocaudal and mediolateral oblique views along with computer-aided detection (CAD). Synthesized 2D images are generated from the tomosynthesis. FINDINGS: There are scattered areas of fibroglandular density (ACR BI-RADS breast composition Category b). There are stable post therapy changes in the lower slightly inner left breast, posterior one third without significant change. No concerning developing abnormalities. Otherwise, stable parenchymal pattern without significant change. No developing mass, suspicious grouped calcifications, or areas of architectural distortion. Stable examination. MM/MM tomosynthesis screening BI IMPRESSION: No mammographic evidence of malignancy. Stable benign findings. ASSESSMENT: BI-RADS BI-RADS 2 - Benign Findings RECOMMENDATION: Routine annual mammography screening. 1 year F/U This examination should not preclude the clinical evaluation of a suspicious palpable abnormality. This patient's information was entered into a reminder system with a target due date for their next mammogram.
== END 2023-01-20 11:13 | disposition home or self-care (01) ==
LOC: HO.MAMMO 11:12
PROVIDERS: PCP Internal Medicine Geriatric Medicine; Visit Provider Internal Medicine Geriatric Medicine
DX: Z12.31 Encounter for screening mammogram for malignant neoplasm of breast (principal)
CPT/HCPCS: 77063; 77067

== ENCOUNTER → 2023-01-20 11:30 | Outpatient (BNV) | payer OTHER, SELFPAY | PROVIDERS: PCP Internal Medicine Geriatric Medicine; Visit Provider Radiology Diagnostic Radiology | DX: Z12.31 Encounter for screening mammogram for malignant neoplasm of breast (principal) | CPT/HCPCS: 77063; 77067 ==

== ENCOUNTER 2023-02-12 06:21 | Day surgery (SDC) | payer OTHER, SELFPAY ==
[2023-02-09 13:51] VITALS: BMI 26.4
--- NOTE | 2023-02-09 14:49 | HO.ANESPROP2 ---
Documented by User: Matilde Gerard NP 02/09/23 14:52 HPI - Anesthesia Eval Consult details Narrative: 67yo F for Exam Under Anesthesia, Hemorrhoidectomy Follows cardiology for hx htn, palps, CP, cardiomyopathy (EF 07/2022 45-50%). Last office visit 10/2022. All stable. [facility] Active Problems Active Problems: All Active Problems (Updated 02/09/23 @ 13:55 by Edelmira Dawn RN) Irritable bowel syndrome with both constipation and diarrhea (Acute) MINE (obstructive sleep apnea) (Acute) Hypertension affecting (Acute) High cholesterol (Acute) Sessile colonic polyp (Acute) Osteoarthritis of right knee (Acute) Varicose veins of right lower extremity with inflammation (Acute) Hypertension (Acute) IBS (irritable bowel syndrome) (Acute) MINE (obstructive sleep apnea) (Acute) Internal and external bleeding hemorrhoids (Acute) Past Medical History Medical History (Updated 02/09/23 @ 13:55 by Edelmira Dawn RN) Cardiomyopathy Chronic renal insufficiency Elevated cholesterol GERD (gastroesophageal reflux disease) HTN (hypertension) Hypothyroid IBS (irritable bowel syndrome) Sleep apnea Type 2 diabetes mellitus Family History Family History Father No problems noted. Mother No problems noted. Surgical History Surgical History (Updated 02/09/23 @ 13:49 by Edelmira Dawn RN) History of appendectomy History of colonoscopy History of hysterectomy Hx of endoscopy Hx of hemorrhoidectomy Social History Social History Alcohol intake: never Patient Tobacco Use Status: Never used Tobacco Use of substances other than those prescribed or required for medical reasons: No Are you DNR?: No Advance Directives: No Advance Directives Information Provided: Yes Meds Allergies Allergy/AdvReac Type Severity Reaction Status Date / Time clonazepam Allergy Intermediate GI pain Verified 02/09/23 13:50 lisinopril [LISINOPRIL] Allergy Intermediate tongue Verified 02/09/23 13:35 swelling, itching ciprofloxacin [Ciprofloxacin] Allergy Mild HIVES Verified 01/18/23 11:32 Home Medications Medication Instructions Recorded Confirmed Last Taken Type docusate calcium 240 mg capsule 240 mg PO BEDTIME 04/18/20 02/09/23 Unknown History simethicone 180 mg capsule (Gas 180 mg PO BID PRN Gastrointestinal 04/18/20 02/12/23 Unknown History Relief (simethicone)) Spasms Or Cramping amitriptyline 10 mg tablet 10 mg PO BEDTIME 11/25/21 02/09/23 Unknown History amlodipine 10 mg tablet 10 mg PO DAILY 11/25/21 02/09/23 Unknown History atorvastatin 40 mg tablet 40 mg PO DAILY 11/25/21 02/09/23 Unknown History blood sugar diagnostic (FreeStyle #10 ea 11/25/21 02/26/22 Unknown History Lite Strips) blood-glucose meter (FreeStyle #1 ea 11/25/21 02/26/22 Unknown History [place] Lite kit) carbamazepine 100 mg 100 mg PO Q12H 11/25/21 02/09/23 Unknown History tablet,extended release,12 hr dapagliflozin propanediol 10 mg 10 mg PO DAILY 11/25/21 02/09/23 Unknown History tablet (Far[place]) diclofenac sodium 1 % topical gel 2 g topical BID 11/25/21 02/09/23 Unknown History duloxetine 60 mg capsule,delayed 60 mg PO DAILY 11/25/21 02/09/23 Unknown History release furosemide 20 mg tablet 20 mg PO DAILY 11/25/21 02/09/23 Unknown History hydrochlorothiazide 25 mg tablet 25 mg PO QAM 11/25/21 02/09/23 Unknown History lancets 28 gauge (FreeStyle #100 ea 11/25/21 02/26/22 Unknown History Lancets) levothyroxine 50 mcg capsule 50 mcg PO DAILY 11/25/21 02/09/23 Unknown History metformin 500 mg tablet 500 mg PO BID 11/25/21 02/12/23 Unknown History methocarbamol 500 mg tablet 500 mg PO BID 11/25/21 02/09/23 Unknown History metoprolol tartrate 100 mg tablet 100 mg PO BID 11/25/21 02/09/23 02/12/23 History oxycodone-acetaminophen 5 mg-325 1 tab PO TID PRN Pain 11/25/21 02/09/23 Unknown History mg tablet sacubitril 49 mg-valsartan 51 mg 1 tab PO BID 11/25/21 02/09/23 Unknown History tablet (Entresto) zolpidem 10 mg tablet 10 mg PO BEDTIME 11/25/21 02/09/23 Unknown History omeprazole 20 mg capsule,delayed 20 mg PO QAM 01/18/23 02/09/23 Unknown History release hydroxyzine HCl 25 mg tablet 25 mg PO TID PRN Anxiety 02/09/23 02/09/23 Unknown History potassium chloride 20 mEq 20 meq PO DAILY 02/09/23 02/09/23 Unknown History tablet,extended release topiramate 50 mg capsule,extended 50 mg PO DAILY 02/09/23 02/09/23 Unknown History release 24 hr (Trokendi XR) Exam Exam Date and Time: February 09, 2023 1449 Height,Weight and Vital Signs: Height 5 ft 3 in Weight 67.585 kg Pertinent Lab Results Pertinent Lab Results: Laboratory Tests 01/04/23 01/04/23 14:52 14:52 WBC 6.3 Hgb 13.7 Hct 42.4 Plt Count 230 Sodium 139 Potassium 4.8 Chloride 104 Carbon Dioxide 28 BUN 20 H Creatinine 1.01 Narrative Narrative: ECHO 07/2022 Overall LV systolic funtion mildly impaired with EF 45-50% Indeterminate diastolic function NM carolynn perf SPECT rest & str 2020 Impression: ? 1.? Myocardial perfusion imaging study shows likely normal myocardial perfusion. No evidence of any ischemia or infarction. 2.? Gated LVEF is 51% during stress and 55% during rest. Correlate with echocardiogram. 3. Transient ischemic dilatation not present. ? EKG component of the test reported separately. Assessment and Plan Assessment Anesthesia Assessment: Chart Reviewed Documented by User: Matthew Valencia MD 02/12/23 09:34 [facility] Past Medical History Medical History (Updated 02/09/23 @ 13:55 by Edelmira Dawn RN) Cardiomyopathy Chronic renal insufficiency Elevated cholesterol GERD (gastroesophageal reflux disease) HTN (hypertension) Hypothyroid IBS (irritable bowel syndrome) Sleep apnea Type 2 diabetes mellitus Family History Family History Father No problems noted. Mother No problems noted. Family history of problems with anesthesia: No Surgical History Surgical History (Updated 02/09/23 @ 13:49 by Edelmira Dawn RN) History of appendectomy History of colonoscopy History of hysterectomy Hx of endoscopy Hx of hemorrhoidectomy History of Problems with Anesthesia: No Social History Social History Alcohol intake: never Patient Tobacco Use Status: Never used Tobacco Use of substances other than those prescribed or required for medical reasons: No Are you DNR?: No Advance Directives: No Advance Directives Information Provided: Yes Meds Allergies Allergy/AdvReac Type Severity Reaction Status Date / Time clonazepam Allergy Intermediate GI pain Verified 02/09/23 13:50 lisinopril [LISINOPRIL] Allergy Intermediate tongue Verified 02/09/23 13:35 swelling, itching ciprofloxacin [Ciprofloxacin] Allergy Mild HIVES Verified 01/18/23 11:32 Home Medications Medication Instructions Recorded Confirmed Last Taken Type docusate calcium 240 mg capsule 240 mg PO BEDTIME 04/18/20 02/09/23 Unknown History simethicone 180 mg capsule (Gas 180 mg PO BID PRN Gastrointestinal 04/18/20 02/12/23 Unknown History Relief (simethicone)) Spasms Or Cramping amitriptyline 10 mg tablet 10 mg PO BEDTIME 11/25/21 02/09/23 Unknown History amlodipine 10 mg tablet 10 mg PO DAILY 11/25/21 02/09/23 Unknown History atorvastatin 40 mg tablet 40 mg PO DAILY 11/25/21 02/09/23 Unknown History blood sugar diagnostic (FreeStyle #10 ea 11/25/21 02/26/22 Unknown History Lite Strips) blood-glucose meter (FreeStyle #1 ea 11/25/21 02/26/22 Unknown History [place] Lite kit) carbamazepine 100 mg 100 mg PO Q12H 11/25/21 02/09/23 Unknown History tablet,extended release,12 hr dapagliflozin propanediol 10 mg 10 mg PO DAILY 11/25/21 02/09/23 Unknown History tablet (Farxiga) diclofenac sodium 1 % topical gel 2 g topical BID 11/25/21 02/09/23 Unknown History duloxetine 60 mg capsule,delayed 60 mg PO DAILY 11/25/21 02/09/23 Unknown History release furosemide 20 mg tablet 20 mg PO DAILY 11/25/21 02/09/23 Unknown History hydrochlorothiazide 25 mg tablet 25 mg PO QAM 11/25/21 02/09/23 Unknown History lancets 28 gauge (FreeStyle #100 ea 11/25/21 02/26/22 Unknown History Lancets) levothyroxine 50 mcg capsule 50 mcg PO DAILY 11/25/21 02/09/23 Unknown History metformin 500 mg tablet 500 mg PO BID 11/25/21 02/12/23 Unknown History methocarbamol 500 mg tablet 500 mg PO BID 11/25/21 02/09/23 Unknown History metoprolol tartrate 100 mg tablet 100 mg PO BID 11/25/21 02/09/23 02/12/23 History oxycodone-acetaminophen 5 mg-325 1 tab PO TID PRN Pain 11/25/21 02/09/23 Unknown History mg tablet sacubitril 49 mg-valsartan 51 mg 1 tab PO BID 11/25/21 02/09/23 Unknown History tablet (Entresto) zolpidem 10 mg tablet 10 mg PO BEDTIME 11/25/21 02/09/23 Unknown History omeprazole 20 mg capsule,delayed 20 mg PO QAM 01/18/23 02/09/23 Unknown History release hydroxyzine HCl 25 mg tablet 25 mg PO TID PRN Anxiety 02/09/23 02/09/23 Unknown History potassium chloride 20 mEq 20 meq PO DAILY 02/09/23 02/09/23 Unknown History tablet,extended release topiramate 50 mg capsule,extended 50 mg PO DAILY 02/09/23 02/09/23 Unknown History release 24 hr (Trokendi XR) Exam Airway Mallampati Class: II TM Dist: <=3cm Neck ROM: Full Denture: Upper Heart: ok. see above. Lungs: ok Assessment and Plan Assessment Anesthesia Assessment: Anesthesia Plan Discussed and Chart Reviewed Final Anesthetic Review Family History of Problems with Anesthesia: No History of Problems with Anesthesia: No NPO: Yes ASA Class: III Final Preanesthetic Review: No Changes in Pt Med Stat, Meds/Allgs Chart Reviewed, Consent Obtained/Reviewed and Anes Risks/Benef Reviewed Patient Risk: High Procedure Risk: Intermediate Anesthetic Plan Anesthetic Plan: GA and Agree w/ Assess. and Plan Disposition: Standard PACU
[2023-02-12] VITALS (11 sets, daily range): BP systolic 152–187; BP diastolic 62–84; PULSE 52–64; RESP 12–20; TEMP 36.1–36.3; O2SAT 92–100; BMI 26.6
--- NOTE | 2023-02-12 | ECG_ITS ---
Test Reason : PREOP Blood Pressure : / mmHG Vent. Rate : 047 BPM Atrial Rate : 047 BPM P-R Int : 190 ms QRS Dur : 094 ms QT Int : 456 ms P-R-T Axes : 040 -04 038 degrees QTc Int : 403 ms Sinus bradycardia with marked sinus arrhythmia Left ventricular hypertrophy with repolarization abnormality ( R in aVL , Whitt[place]ore product , Romhilt-Acharya ) Abnormal ECG When compared with ECG of 25-SEP-2020 16:51, Aberrant conduction is no longer Present Referred By: Matilde Gerard Electronically Signed By:ALONZO DE
[2023-02-12 06:44] LABS: Glucose, Whole Blood 113 mg/dL (60-115)
[2023-02-12] MEDS: Lactated Ringers 1,000 ML 100 ML IVCONT (07:12)
--- NOTE | 2023-02-12 08:30 | MHC.SHP ---
Pre-Procedural Eval Section A Date of Service: 02/12/23 The patient is an INPATIENT: No Changes since office visit: No Cold of Flu in the past 2 weeks, No New Medical Problems, No Changes in Medication and No Patient answered all questions The History & Physical has been completed within 30 days and I have reviewed it.: Yes Section B Chief Complaint: Other hemorrhoids Allergies: Allergies Allergy/AdvReac Type Severity Reaction Status Date / Time clonazepam Allergy Intermediate GI pain Verified 02/09/23 13:50 lisinopril [LISINOPRIL] Allergy Intermediate tongue Verified 02/09/23 13:35 swelling, itching ciprofloxacin [Ciprofloxacin] Allergy Mild HIVES Verified 01/18/23 11:32 Plan I have reviewed the history and physical and performed a pertinent physical examination on my patient. No changes have occurred unless specified. Time Spent With Patient Time: Total time managing care of this patient today ____ minutes.
--- NOTE | 2023-02-12 09:43 | W.PM.OPN ---
Operative Note Operative Note Date of Service: 02/12/23 Narrative: Preop diagnosis: Internal external hemorrhoids with bleeding Postop diagnosis: The same Procedure: Exam under anesthesia, hemorrhoidectomy x1 column Surgeon: Petar Horowitz MD Outside Event Sales Specialist: KAEL Pederson student The patient is a 67 year female with hemorrhoids, with complaints of frequent bleeding. She wanted to proceed with hemorrhoidectomy. She understood the technique of the procedure as well as the risks, benefits, and alternatives. She was brought to the operating room placed in prone davina-knife position under general anesthesia via LMA. The buttocks were retracted with wide tape laterally. The perianal area was prepped and draped this was sterile fashion. A surgical time-out was done. The patient received Cefotan 2 g IV preoperatively I infiltrated the perianal area with lidocaine 1%. Examination of the anal orifice revealed the hemorrhoidal column on the left which was most external. I inserted a Tyrone Lopez retractor. I examined the anal canal circumferentially. There were no lesions seen. The hemorrhoidal column the left was a mix of internal external. I applied a Hines grasper on this hemorrhoidal column to retract this out in the field. I made a [id number] stitch at this pedicle using a chromic 3-0. I made an incision around this hemorrhoidal column to the perianal skin using blade 15. I excised this hemorrhoidal column above the plane of the sphincters along this incision using Metzenbaum scissors. I closed this incision with a running chromic 3-0 stitch. Additional [id number]-[id number] hemostatic sutures were placed for oozing areas Once hemostasis was confirmed, I infiltrated the perianal area with Marcaine 0.5% for postop WOODY. I placed a Gelfoam packing into the anal canal for further hemostasis The procedure was then completed. She tolerated procedure well. There were no immediate complications. Initial and final counts sponges and instruments were correct. Estimated blood loss was about 20 cc. She was extubated without difficulty and transferred to the recovery room with stable vital signs.
[2023-02-12] MEDS: Acetaminophen 325 MG TABLET 650 MG PO (10:11)
[2023-02-12] MEDS: fentaNYL citrate/PF 100 MCG/2 ML VIAL 50 MCG IVPUSH ×4 (10:11→10:31)
[2023-02-12] MEDS: oxyCODONE HCl Immed Release 5 MG TABLET PO (10:12)
== END 2023-02-12 11:17 | disposition home or self-care (01) ==
PROVIDERS: PCP Internal Medicine Geriatric Medicine; Visit Provider Surgery
PROC: (CPT 46255; principal; 2023-02-12 08:40)
PROC: (CPT 46255; 2023-02-12 08:40)
DX: K64.8 Other hemorrhoids (principal); K64.4 Residual hemorrhoidal skin tags; K58.2 Mixed irritable bowel syndrome; E11.22 Type 2 diabetes mellitus with diabetic chronic kidney disease; I12.9 Hypertensive chronic kidney disease with stage 1 through stage 4 chronic kidney disease, or unspecified chronic kidney disease; N18.30 Chronic kidney disease, stage 3 unspecified; I42.9 Cardiomyopathy, unspecified; E78.00 Pure hypercholesterolemia, unspecified; G47.33 Obstructive sleep apnea (adult) (pediatric); Z79.84 Long term (current) use of oral hypoglycemic drugs; Z79.899 Other long term (current) drug therapy; Z88.1 Allergy status to other antibiotic agents; Z88.8 Allergy status to other drugs, medicaments and biological substances; Z98.890 Other specified postprocedural states
CPT/HCPCS: 46255; 82947; 88304; 93005; J3010

== ENCOUNTER → 2023-02-12 06:21 | Outpatient (BNV) | payer OTHER, SELFPAY | PROVIDERS: PCP Internal Medicine Geriatric Medicine; Visit Provider Surgery | DX: K64.8 Other hemorrhoids (principal) | CPT/HCPCS: 45990; 46255 ==

== ENCOUNTER 2023-03-03 11:08 | Outpatient (AMB) | payer OTHER, SELFPAY ==
--- NOTE | 2023-03-03 11:20 | A.OFFVIS_ITS ---
Intake Vital Signs 03/03/23 11:27 Weight 148 lb Intake Visit Reasons: s/p hemorrhoidectomy Intake Note: This patient presents for a post-op assessment status post hemorrhoidectomy. Patient c/o; reports pain, reports hard stools, report taking Colace daily but is not effective. Completion Engineer Required: Yes Completion Engineer Language: Senior Research Consultant Name: Mk Information Interpreted: non-clinical & clinical Accompanied by: Self / Same As Patient Allergies clonazepam Allergy (Intermediate, Verified 03/03/23 11:28) GI pain lisinopril [LISINOPRIL] Allergy (Intermediate, Verified 03/03/23 11:28) tongue swelling, itching ciprofloxacin [Ciprofloxacin] Allergy (Mild, Verified 03/03/23 11:28) HIVES HPI s/p hemorrhoidectomy HPI Details She underwent hemorrhoidectomy last 02/12/2023. She tolerated procedure well. She currently denies significant complaints. He admits to pain on her incision but says that this is getting better. [facility] Medical History Hypothyroid GERD (gastroesophageal reflux disease) Type 2 diabetes mellitus Chronic renal insufficiency Cardiomyopathy IBS (irritable bowel syndrome) Elevated cholesterol HTN (hypertension) Sleep apnea Surgical History History of hemorrhoidectomy (~02/12/23) Hx of hemorrhoidectomy History of hysterectomy History of appendectomy Hx of endoscopy History of colonoscopy Family History Father No problems noted. Mother No problems noted. Social History Alcohol intake: never Patient Tobacco Use Status: Never used Tobacco Review of Systems Const Denies chills and Denies fever(s) Card Denies chest pain, Denies dyspnea and Denies dyspnea on exertion Resp Denies cough, Denies dyspnea and Denies dyspnea on exertion GI Denies hematochezia and Denies change in bowel habits Denies hematuria Musc Denies back pain and Denies limited range of motion Neuro Denies focal weakness and Denies convulsions Psych Denies depression and Denies mood swings Physical Exam Const General: comfortable and no acute distress GI Other: Rectal exam shows her hemorrhoidectomy site to be well healed, not infected, no discharge, no induration Assessment & Plan Assessment & Plan (1) Internal and external bleeding hemorrhoids: Code(s): K64.4 - Residual hemorrhoidal skin tags; K64.8 - Other hemorrhoids Plan: Status post hemorrhoidectomy. She says she is doing well. Her incision is well healing. She can follow up on a p.r.n. basis. She was advised on avoiding straining and constipation. Coding Level of Care Code Global (02547) Diagnoses Internal and external bleeding hemorrhoids K64.4; K64.8
== END 2023-03-03 11:42 | disposition home or self-care (01) ==
PROVIDERS: PCP Internal Medicine Geriatric Medicine; Visit Provider Surgery
DX: K64.4 Residual hemorrhoidal skin tags (principal); K64.8 Other hemorrhoids
CPT/HCPCS: 99024

== ENCOUNTER → 2023-03-03 11:08 | Outpatient (BNVA) | payer OTHER, SELFPAY | PROVIDERS: PCP Internal Medicine Geriatric Medicine; Visit Provider Surgery ==

== ENCOUNTER 2023-04-14 10:39 | Outpatient (REF) | payer OTHER, SELFPAY ==
[2023-04-14 11:55] LABS: Estimated Average Glucose 131 mg/dL; Hemoglobin A1c % 6.2 % (<6.0)
[2023-04-14 12:20] LABS: Anion Gap 13 (12-20); Blood Urea Nitrogen 20 mg/dL (9-16); Calcium 10.3 mg/dL (8.4-10.2); Carbon Dioxide 27 mmol/L (22-29); Chloride 106 mmol/L (96-108); Estimated Glomerular Filt Rate 59; Glucose Random 130 mg/dL (60-115); Potassium 3.8 mmol/L (3.3-5.1); Sodium 142 mmol/L (135-145)
[2023-04-14 12:57] LABS: Folate 14.9 ng/mL (> or = 4.0); Vitamin B12 512 pg/mL (200-900)
[2023-04-18 08:23] LABS: Methylmalonic Acid 148 nmol/L (87-318)
== END 2023-04-14 10:40 | disposition home or self-care (01) ==
LOC: HO.HHCL 10:39
PROVIDERS: Visit Provider Internal Medicine Geriatric Medicine
DX: D75.89 Other specified diseases of blood and blood-forming organs (principal); M79.2 Neuralgia and neuritis, unspecified; E11.69 Type 2 diabetes mellitus with other specified complication
CPT/HCPCS: 36415; 80048; 82607; 82746; 83036; 83921

== ENCOUNTER 2023-04-20 09:05 | Outpatient (REF) | payer OTHER, SELFPAY ==
[2023-04-22 16:28] LABS: Homocysteine 12.1 umol/L (<10.4)
== END 2023-04-20 09:06 | disposition home or self-care (01) ==
LOC: HO.LAB 09:05
PROVIDERS: PCP Internal Medicine Geriatric Medicine; Visit Provider Internal Medicine Geriatric Medicine
DX: D75.89 Other specified diseases of blood and blood-forming organs (principal); M79.2 Neuralgia and neuritis, unspecified
CPT/HCPCS: 36415; 83090

== ENCOUNTER 2023-05-05 14:57 | Outpatient (AMB) | payer OTHER, SELFPAY ==
--- NOTE | 2023-05-05 15:14 | A.OFFVIS_ITS ---
Intake Intake Visit Reasons: DJD right knee Intake Note: Beatriz morgan 67 year old female presents today for a follow up of right knee, last injection 02/19/21. Patient reports last injection provided her relief for about 3-4 months. She is requesting to repeat injection. Allergies clonazepam Allergy (Intermediate, Verified 05/05/23 15:22) GI pain lisinopril [LISINOPRIL] Allergy (Intermediate, Verified 05/05/23 15:22) tongue swelling, itching ciprofloxacin [Ciprofloxacin] Allergy (Mild, Verified 05/05/23 15:22) HIVES HPI DJD right knee HPI Details 67-year-old female who returns to the [facility] today with an editorial assistant for a follow-up of right knee pain. She continues to have pain in her right knee which makes her difficult to walk long distances and perform activities like daily chores and shopping. She also c/o her knee giving out and she had fell 3 times due to it. She had her last injection on 02/19/23 which provided her relief for more than 3 months. She is interested in repeating the injection. She has a history of diabetes. Her sugar level is well controlled. [facility] Medical History Hypothyroid GERD (gastroesophageal reflux disease) Type 2 diabetes mellitus Chronic renal insufficiency Cardiomyopathy IBS (irritable bowel syndrome) Elevated cholesterol HTN (hypertension) Sleep apnea Surgical History History of hemorrhoidectomy (~02/12/23) Hx of hemorrhoidectomy History of hysterectomy History of appendectomy Hx of endoscopy History of colonoscopy Family History Father No problems noted. Mother No problems noted. Alcohol intake: never Patient Tobacco Use Status: Never used Tobacco Review of Systems Const All systems reviewed & are unremarkable except as noted in HPI and below Physical Exam Extrem Other: Right knee: Skin intact, no erythema or joint effusion. Tenderness along the medial and lateral joint line. Full ROM with crepitus. Negative Faiza?s. No ligamentous laxity. NVI. Office Procedures Joint Injection/Drain Joint Injection/Drain Primary Site: right knee Prep: site was prepped using aseptic technique, ethochloride spray was applied and injection warnings given Injected: 40 mg of, DepoMedrol, with 8 mL of, 1% plain lidocaine and in the joint Approach Used: anterolateral Procedure: The patient tolerated the procedure well and there was some relief with the local anesthesia Coding 41484 - Glenohumeral/Tronchanteric Bursa/Intraarticular Procedure code (CPT) selection complete Assessment & Plan Assessment & Plan (1) Osteoarthritis of right knee: Code(s): M17.11 - Unilateral primary osteoarthritis, right knee Qualifiers: Osteoarthritis type: primary Qualified Code(s): M17.11 - Unilateral primary osteoarthritis, right knee Plan We discussed options today which include steroid injection. They did consent to move forward with the right knee injection, which was tolerated well. I recommended rest, ice and elevation and OTC anti-inflammatories PRN for discomfort. We also discussed their diabetes and the effect the steroid can have on their blood glucose levels; therefore, they will continue to monitor these very closely over the next 72 hours. If there are any concerns, they should report to the ED immediately. Orders: Orders XR knee RT 2V 05/05/23 M25.569 - Pain in unspecified knee XR knee standing BI 05/05/23 M25.561 - Pain in right knee, M25.562 - Pain in left knee Patient Instructions: Scribed for Kaleigh Lewis PA-C, by Kole Stokes medical photographer, on 05/05/2023 at 3:30 PM EST. Kaleigh Meeks PA-C, have personally reviewed and agree with the information entered by the scribe. Coding Level of Care Code Est Pt Level 3 (52222) Diagnoses Primary osteoarthritis of right knee M17.11 Osteoarthritis type: primary CPT Codes Coding - Joint 7: 49284 - Glenohumeral/Tronchanteric Bursa/Intraarticular ([id number])
== END 2023-05-05 15:55 | disposition home or self-care (01) ==
PROVIDERS: PCP Internal Medicine Geriatric Medicine; Visit Provider Physician Assistant
DX: M17.11 Unilateral primary osteoarthritis, right knee (principal)
CPT/HCPCS: 20610; 99213

== ENCOUNTER 2023-05-05 15:08 | Outpatient (REF) | payer OTHER, SELFPAY ==
--- NOTE | ~2023-05-05 | XR_ITS ---
EXAMINATION: XR KNEE, RIGHT XR KNEE STANDING, BILATERAL CLINICAL INFORMATION: Pain COMPARISON: Right knee radiograph from 12/31/2020 TECHNIQUE: Single view of the bilateral standing knees, 2 views of the right knee FINDINGS: No acute visible fracture or dislocation. Narrowing of the bilateral medial femorotibial compartment. Multicompartment arthritic changes of the right knee. Narrowing of the right knee lateral patellofemoral compartment. Periarticular aspect along the superior and inferior margins of the right patella. Joint space alignment are otherwise maintained. Small fabella posterior compartment of the right knee. Small right knee joint effusion. Joint space alignment are otherwise maintained. Soft tissues are unremarkable. XR/XR knee standing BI IMPRESSION: 1. No acute visible fracture or dislocation. 2. Multicompartment arthritic changes of the right knee. 3. Small right knee joint effusion.
--- NOTE | ~2023-05-05 | XR_ITS ---
EXAMINATION: XR KNEE, RIGHT XR KNEE STANDING, BILATERAL CLINICAL INFORMATION: Pain COMPARISON: Right knee radiograph from 12/31/2020 TECHNIQUE: Single view of the bilateral standing knees, 2 views of the right knee FINDINGS: No acute visible fracture or dislocation. Narrowing of the bilateral medial femorotibial compartment. Multicompartment arthritic changes of the right knee. Narrowing of the right knee lateral patellofemoral compartment. Periarticular aspect along the superior and inferior margins of the right patella. Joint space alignment are otherwise maintained. Small fabella posterior compartment of the right knee. Small right knee joint effusion. Joint space alignment are otherwise maintained. Soft tissues are unremarkable. XR/XR knee RT 2V IMPRESSION: 1. No acute visible fracture or dislocation. 2. Multicompartment arthritic changes of the right knee. 3. Small right knee joint effusion.
== END 2023-05-05 15:09 | disposition home or self-care (01) ==
LOC: HO.HOSX 15:08
PROVIDERS: Visit Provider Physician Assistant
DX: M17.11 Unilateral primary osteoarthritis, right knee (principal); M25.562 Pain in left knee
CPT/HCPCS: 20610; 73560; 73565; 99212; J1020

== ENCOUNTER 2023-06-21 12:44 | Outpatient (AMB) | payer OTHER, SELFPAY ==
--- NOTE | 2023-06-21 12:58 | MHC.OFFVIS ---
Intake Vital Signs 06/21/23 13:09 Height 5 ft 3 in Weight 147 lb 11.355 oz BMI 26.2 BP 122/82 Blood Pressure Location Lt brachial Position Sitting Intake Visit Reasons: Abscess LT axilla - HX breast CA Intake Note: Patient is seen in office for evaluation of an abscess LT axilla - HX breast CA. 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 Required: No Accompanied by: Self / Same As Patient Allergies clonazepam Allergy (Intermediate, Verified 06/21/23 13:03) GI pain lisinopril [LISINOPRIL] Allergy (Intermediate, Verified 06/21/23 13:03) tongue swelling, itching ciprofloxacin [Ciprofloxacin] Allergy (Mild, Verified 06/21/23 13:03) HIVES Medication List - Last Reconciled 06/21/23 by Julio Harrell MD amitriptyline 10 mg PO BEDTIME amlodipine 10 mg PO DAILY atorvastatin 40 mg PO DAILY blood sugar diagnostic (FreeStyle Lite Strips) As directed blood-glucose meter (FreeStyle Pace Lite kit) As directed carbamazepine ER 100 mg PO Q12H dapagliflozin propanediol (Farxiga) 10 mg PO DAILY diclofenac sodium 1% 2 grams topical BID docusate calcium 240 mg PO BEDTIME docusate sodium (Colace) 100 mg PO BID duloxetine 60 mg PO DAILY furosemide 20 mg PO DAILY hydrochlorothiazide 25 mg PO QAM hydrocortisone 2.5% 1 appl topical DAILY PRN hydrocortisone acetate (Anucort-HC) 25 mg [place] BID PRN hydrocortisone acetate (Anucort-HC) 25 mg [place] BID PRN hydroxyzine HCl 25 mg PO TID PRN ibuprofen 600 mg PO Q6H PRN lancets (FreeStyle Lancets) As directed levothyroxine 50 mcg PO DAILY menthol-zinc oxide 0.44-20.6 % (Calmoseptine) 1 appl topical QID PRN metformin 500 mg PO BID methocarbamol 500 mg PO BID metoprolol tartrate 100 mg PO BID omeprazole 20 mg PO QAM oxycodone-acetaminophen 5-325 mg (Percocet) 1 tab PO Q4-6H PRN potassium chloride ER 20 mEq PO DAILY psyllium husk (with sugar) 3 gram/7 gram (Metamucil (with sugar)) 1 tbsp PO BID sacubitril-valsartan 49-51 mg (Entresto) 1 tab PO BID simethicone (Gas Relief (simethicone)) 180 mg PO BID PRN topiramate (Trokendi XR) 50 mg PO DAILY zolpidem 10 mg PO BEDTIME HPI HPI Comments History of Present Illness Details Patient presents with a several-day history of left axillary swelling, pain, redness. She was seen by her medical physician who prescribed antibiotics and sent here for further evaluation of a left axillary abscess. She has never had these before. Chart was reviewed and patient evaluated [facility] Medical History Hypothyroid GERD (gastroesophageal reflux disease) Type 2 diabetes mellitus Chronic renal insufficiency Cardiomyopathy IBS (irritable bowel syndrome) Elevated cholesterol HTN (hypertension) Sleep apnea Surgical History History of hemorrhoidectomy (~02/12/23) Hx of hemorrhoidectomy History of hysterectomy History of appendectomy Hx of endoscopy History of colonoscopy Family History Father No problems noted. Mother No problems noted. Social History Alcohol intake: never Patient Tobacco Use Status: Never used Tobacco Physical Exam Vital Signs: Last Vital Signs BP 122/82 06/21/23 13:09 BMI result Body Mass Index 26.2 Extrem Other: Patient has approximately 3 x 2 cm left axillary infected sebaceous cyst abscess. Office Procedures I&D Drain Details: Risks, benefits, alternatives of incision and drainage of left complex axillary abscess were reviewed with the patient included but not limited to bleeding, infection, recurrence, numbness, pain, scarring the patient wished to proceed. All questions answered. After appropriate positioning, patient underwent 1% lidocaine and Betadine prep and uneventful incision and drainage of a large approximately 3 x 2 cm complex infected sebaceous cyst/abscess. Copious amount per material were retrieved. Cultures were obtained. Wounds irrigated, secured hemostasis, and excision of the cyst was actually accomplished and sent to pathology. Packing was placed. Dressing applied. Patient tolerated procedure well. [id number] of Skin Abscess, complex All charges added?: Procedure code (CPT) selection complete Assessment & Plan Assessment & Plan (1) Abscess of left axilla: Code(s): L02.412 - Cutaneous abscess of left axilla Plan: Patient has pain meds at home. She was prescribed antibiotics by her medical doctor. Patient will annual any office for wound packing changes q.o.d., and patient will see me as directed or p.r.n.. All questions answered. Orders: Orders AMB Incision & Drainage Today L02.412 - Cutaneous abscess of left axilla Coding Level of Care Code New Pt Level 5 (07811) Diagnoses Abscess of left axilla L02.412 CPT Codes I&D Drain - Drain 2: [id number] of Skin Abscess, complex ([id number])
[2023-06-21 13:09] VITALS: BP 122/82; BMI 26.2
== END 2023-06-21 13:22 | disposition home or self-care (01) ==
PROVIDERS: PCP Internal Medicine Geriatric Medicine; Referring Provider Emergency Medicine; Visit Provider Surgery
DX: L02.412 Cutaneous abscess of left axilla (principal)
CPT/HCPCS: 10061; 99203

== ENCOUNTER 2023-06-21 12:44 | Outpatient (REF) | payer OTHER, SELFPAY | END 2023-06-21 12:45 | disposition home or self-care (01) | LOC: HO.LNP 12:44 | PROVIDERS: PCP Internal Medicine Geriatric Medicine; Referring Provider Emergency Medicine; Visit Provider Surgery | DX: L02.412 Cutaneous abscess of left axilla (principal) | CPT/HCPCS: 10061; 87070; 87077; 87186; 87205; 88304; 88307; 99202 ==

== ENCOUNTER → 2023-06-22 12:33 | Outpatient (BNVA) | payer OTHER, SELFPAY | PROVIDERS: PCP Internal Medicine Geriatric Medicine; Visit Provider Surgery ==

== ENCOUNTER 2023-06-30 13:19 | Outpatient (AMB) | payer OTHER, SELFPAY ==
[2023-06-30 13:22] VITALS: BP 121/71; PULSE 148; BMI 26.2
--- NOTE | 2023-06-30 13:22 | MHC.OFFVIS ---
Intake Vital Signs 06/30/23 13:22 Height 5 ft 3 in Weight 148 lb BMI 26.2 BP 121/71 Blood Pressure Location Rt brachial Position Sitting Pulse 148 H Intake Visit Reasons: Follow Up Abscess LT axilla - HX breast CA Intake Note: Patient here to f/u abscess on Lt axilla. Finished abx. Patient c/o: lesion healing well. 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 She has had marked improvement of her symptoms. No wound issues. [facility] Medical History Hypothyroid GERD (gastroesophageal reflux disease) Type 2 diabetes mellitus Chronic renal insufficiency Cardiomyopathy IBS (irritable bowel syndrome) Elevated cholesterol HTN (hypertension) Sleep apnea Surgical History History of hemorrhoidectomy (~02/12/23) Hx of hemorrhoidectomy History of hysterectomy History of appendectomy Hx of endoscopy History of colonoscopy Family History Father No problems noted. Mother No problems noted. Social History Alcohol intake: never Patient Tobacco Use Status: Never used Tobacco Physical Exam Vital Signs: Last Vital Signs Pulse 148 H 06/30/23 13:22 BP 121/71 06/30/23 13:22 BMI result Body Mass Index 26.2 Extrem Other: Complete healing of left axillary abscess. Assessment & Plan Assessment & Plan (1) Abscess of left axilla: Code(s): L02.412 - Cutaneous abscess of left axilla Plan Patient has been given local instructions, and will follow-up p.r.n.. Should this process recur, she has been instructed to return to the office. All questions answered. Coding Level of Care Code Global (62309) Diagnoses Abscess of left axilla L02.412
== END 2023-06-30 13:28 | disposition home or self-care (01) ==
PROVIDERS: PCP Internal Medicine Geriatric Medicine; Visit Provider Surgery
DX: L02.412 Cutaneous abscess of left axilla (principal)
CPT/HCPCS: 99024

== ENCOUNTER → 2023-06-30 13:19 | Outpatient (BNVA) | payer OTHER, SELFPAY | PROVIDERS: PCP Internal Medicine Geriatric Medicine; Visit Provider Surgery | DX: L02.412 Cutaneous abscess of left axilla (principal); Z98.890 Other specified postprocedural states | CPT/HCPCS: 99212 ==

== ENCOUNTER 2023-07-07 14:43 | Outpatient (REF) | payer OTHER, SELFPAY ==
--- NOTE | ~2023-07-07 | US_ITS ---
EXAMINATION: MM DIAGNOSTIC DIGITAL BREAST TOMOSYNTHESIS, LEFT US BREAST LIMITED, LEFT MAMMOGRAPHY: CLINICAL INFORMATION: 68-year-old female with recent history of left axillary subcutaneous therapy, returns complaining of a palpable lump in the left axillary region, with mild tenderness. Patient has history of lumpectomy left breast for IDC 2002. COMPARISON: Mammography: 01/20/2023, 12/23/2021, 12/18/2020, 07/12/2018, and exams dating back to 2013. TECHNIQUE: Digital left breast tomosynthesis is performed in both the craniocaudal and mediolateral oblique views along with computer-aided detection (CAD). Synthesized 2D images are generated from the tomosynthesis. In addition a left exaggerated CC 3-D full-field view was obtained. FINDINGS: There are scattered areas of fibroglandular density (ACR BI-RADS breast composition Category b). There are stable post therapy changes in the lower slightly inner left breast, posterior one third, without significant change. No concerning developing abnormalities. Otherwise, stable parenchymal pattern without significant change. No developing mass, suspicious grouped calcifications, or areas of architectural distortion. In the area marked in the low left axilla, indicating the palpable foci, only 2 small subcentimeter reactive appearing lymph nodes are identified. Mild skin thickening is seen in the left high axilla. No masses or other abnormal opacities. ULTRASOUND: CLINICAL INFORMATION: As above. Palpable lump left low axilla, with mild tenderness. Recent left axillary abscess. COMPARISON: No prior. TECHNIQUE: Targeted sonographic evaluation left lower axilla in the region of palpable concern was performed using a high frequency linear transducer. Selected archived documentation. FINDINGS: LEFT AXILLA: In the low axilla, area of palpable concern, there is no abnormality detected. No mass, skin thickening, cystic abnormality, abnormal shadowing, or edema within the soft tissue planes. Only the edge of the pectoralis is noted. Slightly higher in the left axilla there is hazy very subtle focus of lentiform skin thickening measuring approximately 7 mm in diameter by 3 mm in thickness. This is likely the residua of the previously treated abscess. US/US breast LT limited mamm only IMPRESSION: There are no concerning findings in the left axilla to indicate recurrent abscess or infection. Palpable focus left low axilla shows no underlying abnormality or imaging correlate. Clinical management recommended. Stable benign post treatment related changes left breast. OVERALL ASSESSMENT: Mammography: BI-RADS 2 - Benign Findings Ultrasound: BI-RADS 2 - Benign Findings RECOMMENDATION: 1. Patient should be managed based on the clinical impression. 2. Otherwise, routine annual screening mammography. This patient's information was entered into a reminder system with a target due date for their next mammogram.
== END 2023-07-07 14:44 | disposition home or self-care (01) ==
LOC: HO.MAMMO 14:43
PROVIDERS: PCP Internal Medicine Geriatric Medicine; Visit Provider Emergency Medicine
DX: Z85.3 Personal history of malignant neoplasm of breast (principal); L02.412 Cutaneous abscess of left axilla
CPT/HCPCS: 76642; 77061; 77065

== ENCOUNTER → 2023-07-07 15:30 | Outpatient (BNV) | payer OTHER, SELFPAY | PROVIDERS: PCP Internal Medicine Geriatric Medicine; Visit Provider Radiology Diagnostic Radiology | DX: N63.20 Unspecified lump in the left breast, unspecified quadrant (principal) | CPT/HCPCS: 76642; 77061; 77065 ==

== ENCOUNTER 2023-11-12 10:37 | Outpatient (REF) | payer OTHER, SELFPAY ==
[2023-11-12 12:05] LABS: HBsAGNum1 0.31 S/CO (0.00-0.99); HIV AB/AG Nonreactive (Nonreactive); HIV Num 1 0.05 S/CO (0.00-0.99); Hepatitis B Surface Antigen Negative (Negative); ~HepC Num1 0.19 S/CO (0.00-0.79); ~Hepatitis C Antibody Nonreactive (Nonreactive)
== END 2023-11-12 10:38 | disposition home or self-care (01) ==
LOC: HO.HHCL 10:37
PROVIDERS: Visit Provider Internal Medicine Geriatric Medicine
DX: Z20.2 Contact with and (suspected) exposure to infections with a predominantly sexual mode of transmission (principal); F41.8 Other specified anxiety disorders
CPT/HCPCS: 36415; 86803; 87340; 87389

== ENCOUNTER 2024-01-26 10:44 | Outpatient (REF) | payer OTHER, SELFPAY ==
--- NOTE | ~2024-01-26 | MM_ITS ---
EXAMINATION: MM SCREENING DIGITAL BREAST TOMOSYNTHESIS, BILATERAL CLINICAL INFORMATION: Screening. Asymptomatic. The patient is status post breast conservation therapy for a left breast cancer diagnosed in 2002. COMPARISON: Mammography: This study is compared with prior exams dating back to 2020. TECHNIQUE: Digital breast tomosynthesis is performed in both the craniocaudal and mediolateral oblique views along with computer-aided detection (CAD). Synthesized 2D images are generated from the tomosynthesis. FINDINGS: There are scattered areas of fibroglandular density (ACR BI-RADS breast composition Category b). There are no significant masses, abnormal calcifications, or other abnormalities. There are postsurgical changes in the left breast. MM/MM tomosynthesis screening BI IMPRESSION: No mammographic evidence of malignancy. ASSESSMENT: BI-RADS BI-RADS 2 - Benign Findings RECOMMENDATION: Routine annual mammography screening. 1 year F/U This examination should not preclude the clinical evaluation of a suspicious palpable abnormality. This patient's information was entered into a reminder system with a target due date for their next mammogram.
== END 2024-01-26 10:45 | disposition home or self-care (01) ==
LOC: HO.MAMMO 10:44
PROVIDERS: PCP Internal Medicine Geriatric Medicine; Visit Provider Internal Medicine Geriatric Medicine
DX: Z12.31 Encounter for screening mammogram for malignant neoplasm of breast (principal)
CPT/HCPCS: 77063; 77067

== ENCOUNTER → 2024-01-26 11:30 | Outpatient (BNV) | payer OTHER, SELFPAY | PROVIDERS: PCP Internal Medicine Geriatric Medicine; Visit Provider Radiology Diagnostic Radiology | DX: Z12.31 Encounter for screening mammogram for malignant neoplasm of breast (principal) | CPT/HCPCS: 77063; 77067 ==

== ENCOUNTER 2024-03-06 10:06 | Emergency (ER) | payer OTHER, SELFPAY ==
--- NOTE | 2024-03-06 | ECG_ITS ---
Test Reason : CP/RAMONA Blood Pressure : / mmHG Vent. Rate : 044 BPM Atrial Rate : 044 BPM P-R Int : 166 ms QRS Dur : 092 ms QT Int : 464 ms P-R-T Axes : -06 006 044 degrees QTc Int : 396 ms Marked sinus bradycardia with sinus arrhythmia Moderate voltage criteria for LVH, may be normal variant ( R in aVL , [place] product ) Nonspecific ST and T wave abnormality Abnormal ECG When compared with ECG of 12-FEB-2023 06:48, No significant change was found Referred By: Generic ED Physician Electronically Signed By:ALONZO DE
--- NOTE | ~2024-03-06 | XR_ITS ---
EXAMINATION: XR CHEST CLINICAL INFORMATION: Chest pain COMPARISON: 09/25/2020 TECHNIQUE: 2 views of the chest were obtained. FINDINGS: The lungs are hypoexpanded. Heart size appears slightly larger when compared to prior but this may be secondary to expiratory technique. There is no evidence of CHF. Some mild atelectasis is seen at the left lung base. No gross consolidations, infiltrates or lung masses. Surgical clips are present in the left breast. XR/XR chest 2V IMPRESSION: Hypoexpanded lungs with left basilar atelectasis. Electronically signed by: Damion Lees MD 03/06/2024 02:46 PM EDT
[2024-03-06 10:10] VITALS: BP 137/84; BP 167/84; PULSE 48; PULSE 56; RESP 16; TEMP 36.8; O2SAT 99; BMI 28.1
[2024-03-06 10:51] LABS: Baso%MD 0.3 %; Eos%MD 1.1 %; Hematocrit 39.5 % (37.0-47.0); Hemoglobin 13.2 g/dl (12.0-16.0); IG%MD 0.3 %; Mean Corpuscular HGB Conc 33.4 g/dl (31.0-35.0); Mean Corpuscular Hemoglobin 33.4 pg (27.0-33.0); Mean Platelet Volume 10.6 fL (9.4-12.3); Mono%MD 13.4 %; Neut%MD 53.9 %; Platelet Count 219 X10*3/uL (160-400); Red Blood Count 3.95 X10*6/uL (4.20-5.50); Red Cell Distribution Width 13.3 % (11.0-16.0); White Blood Count 6.5 X10*3/uL (4.8-10.8)
[2024-03-06 11:00] VITALS: PULSE 46
[2024-03-06 11:02] LABS: Alanine Aminotransferase 12 U/L (0-31); Albumin Level 4.3 g/dL (3.5-5.0); Alkaline Phosphatase 54 U/L (39-117); Anion Gap 13 (12-20); Aspartate Amino Transferase 30 U/L (5-31); Bilirubin Total 0.3 mg/dL (0.0-1.0); Blood Urea Nitrogen 16 mg/dL (9-16); Calcium 9.4 mg/dL (8.4-10.2); Carbon Dioxide 27 mmol/L (22-29); Chloride 103 mmol/L (96-108); Creatinine Clr Calc Pharmacy 50.8; Estimated Glomerular Filt Rate 54; Glucose Random 125 mg/dL (60-115); Potassium 3.3 mmol/L (3.3-5.1); Sodium 140 mmol/L (135-145); Total Protein 7.1 g/dL (6.5-8.0)
[2024-03-06 11:12] LABS: Troponin-I High Sensitivity < 2.7 ng/L (<3.5-17.0)
--- NOTE | 2024-03-06 11:14 | PC.NURSE ---
Pt BIBA from walk-in clinic, reports substernal CP radiating to left arm X3 days along with intermittent dizziness. EMS gave ASA and 1 nitro with some relief. Alert and oriented, breathing even and unlabored. Skin warm and dry. Sinus ewelina on bedside cafeteria monitor. IV placed by EMS, 20G in left AC
[2024-03-06 11:26] LABS: Influenza A PCR NEGATIVE (Negative); Influenza B PCR NEGATIVE (Negative); Resp Syncy Virus RNA Qual PCR NEGATIVE (Negative); SARS COV2 PCR INHOUSE NEGATIVE (Negative)
[2024-03-06 11:44] LABS: Eosinophils Absolute Manual 0.1 X10*3/uL (0.0-0.4); Eosinophils Percent Manual 2 % (0-4); Lymphocytes Percent Manual 31 % (20-40); Monocytes Absolute Manual 0.3 X10*3/uL (0.1-1.2); Monocytes Percent Manual 5 % (2-11); Neutrophils Percent Manual 62 % (45-73)
[2024-03-06 11:48] LABS: Platelet Estimate NORMAL (NORMAL); RBC Morphology NORMAL
[2024-03-06 11:49] LABS: Large Platelet PRESENT; Platelet Morphology Comment NOTED
[2024-03-06 12:10] VITALS: BP 195/80; PULSE 47; RESP 13; TEMP 36.4; O2SAT 99
--- NOTE | 2024-03-06 12:14 | ED.CHESTPAIN ---
HPI - Chest Pain General Chief Complaint: Chest Pain Stated Complaint: CP,DIZZY,FROM URGENT CARE PER EMS Time Seen by Provider: 03/06/24 12:07 Source: patient Mode of arrival: ambulatory Limitations: no limitations History of Present Illness ED Provider: DR. Matthews HPI narrative: 68-year-old female with history of hypertension high cholesterol presented with 3 days of mid chest pain, pain is intermittent comes and goes with no clear aggravating or relieving factors patient can be sitting resting when the pain exacerbate, patient feel it like heaviness on the mid chest with no radiation, no other associated symptoms no nausea, no vomiting , no shortness of breath. no recent travel or prolonged immobilization, no lower extremity swelling or tenderness, no trauma to chest. Currently patient has no chest pain patient feels hungry and asking for food. Related Data Home Medications ?Medication ?Instructions ?Recorded ?Confirmed docusate calcium 240 mg capsule 240 mg PO BEDTIME 04/18/20 06/21/23 simethicone 180 mg capsule (Gas 180 mg PO BID PRN Gastrointestinal 04/18/20 02/12/23 Relief (simethicone)) Spasms Or Cramping amitriptyline 10 mg tablet 10 mg PO BEDTIME 11/25/21 06/21/23 amlodipine 10 mg tablet 10 mg PO DAILY 11/25/21 06/21/23 atorvastatin 40 mg tablet 40 mg PO DAILY 11/25/21 06/21/23 blood sugar diagnostic (FreeStyle #10 ea 11/25/21 02/26/22 Lite Strips) blood-glucose meter (FreeStyle #1 ea 11/25/21 02/26/22 Trona Lite kit) carbamazepine 100 mg 100 mg PO Q12H 11/25/21 06/21/23 tablet,extended release,12 hr dapagliflozin propanediol 10 mg 10 mg PO DAILY 11/25/21 02/09/23 tablet (Farxiga) diclofenac sodium 1 % topical gel 2 g topical BID 11/25/21 06/21/23 duloxetine 60 mg capsule,delayed 60 mg PO DAILY 11/25/21 06/21/23 release furosemide 20 mg tablet 20 mg PO DAILY 11/25/21 06/21/23 hydrochlorothiazide 25 mg tablet 25 mg PO QAM 11/25/21 06/21/23 lancets 28 gauge (FreeStyle #100 ea 11/25/21 02/26/22 Lancets) levothyroxine 50 mcg capsule 50 mcg PO DAILY 11/25/21 06/21/23 metformin 500 mg tablet 500 mg PO BID 11/25/21 02/12/23 methocarbamol 500 mg tablet 500 mg PO BID 11/25/21 02/09/23 metoprolol tartrate 100 mg tablet 100 mg PO BID 11/25/21 06/21/23 sacubitril 49 mg-valsartan 51 mg 1 tab PO BID 11/25/21 02/09/23 tablet (Entresto) zolpidem 10 mg tablet 10 mg PO BEDTIME 11/25/21 06/21/23 omeprazole 20 mg capsule,delayed 20 mg PO QAM 01/18/23 06/21/23 release hydroxyzine HCl 25 mg tablet 25 mg PO TID PRN Anxiety 02/09/23 06/21/23 potassium chloride 20 mEq 20 meq PO DAILY 02/09/23 02/09/23 tablet,extended release topiramate 50 mg capsule,extended 50 mg PO DAILY 02/09/23 02/09/23 release 24 hr (Trokendi XR) Previous Rx's ?Medication ?Instructions ?Recorded hydrocortisone acetate 25 mg 25 mg IA BID PRN hemorrhoid pain 12/01/21 rectal suppository (Anucort-HC) #24 ea psyllium husk (with sugar) 3 1 tbsp PO BID #798 grams 12/01/21 gram/7 gram oral powder (Metamucil (with sugar)) menthol 0.44 %-zinc oxide 20.6 % 1 appl topical QID PRN hemorroids 12/02/21 topical ointment (Calmoseptine) #113 grams hydrocortisone acetate 25 mg 25 mg IA BID PRN hemorrhoids #24 ea 02/26/22 rectal suppository (Anucort-HC) hydrocortisone 2.5 % topical cream 1 appl topical DAILY PRN 03/16/22 with perineal applicator hemorrhoids #30 grams docusate sodium 100 mg capsule 100 mg PO BID #60 caps 02/12/23 (Colace) oxycodone-acetaminophen 5 mg-325 1 tab PO Q4-6H PRN pain #30 tabs 02/12/23 mg tablet (Percocet) ibuprofen 600 mg tablet 600 mg PO Q6H PRN pain #30 tabs 03/09/23 Allergies Allergy/AdvReac Type Severity Reaction Status Date / Time clonazepam Allergy Intermediate GI pain Verified 03/06/24 10:17 lisinopril [LISINOPRIL] Allergy Intermediate tongue Verified 06/30/23 13:23 swelling, itching ciprofloxacin [Ciprofloxacin] Allergy Mild HIVES Verified 06/30/23 13:23 Review of Systems Review of Systems: All other systems are reviewed and are negative Constitutional: Reports as per HPI and Reports no additional constitutional complaints Eyes: Reports as per HPI and Reports no additional eye complaints Reports system reviewed and no additional complaints, except as documented Cardiovascular: Reports as per HPI and Reports no additional cardiovascular complaints Respiratory: Reports as per HPI and Reports no additional respiratory complaints Gastrointestinal: Reports as per HPI and Reports no additional gastrointestinal complaints Genitourinary: Reports no additional female genitourinary complaints Musculoskeletal: Reports no additional musculoskeletal complaints Skin/Breast: Reports system reviewed and no additional complaints, except as docu Psychiatric: Reports no additional psychiatric complaints Endocrine: Reports no additional endocrine complaints Hematologic/Lymphatic: Reports no additional hematologic/lymphatic complaints Allergic/Immunologic: Reports no additional allergic/immunologic complaints Reports system reviewed and no additional complaints, except as documented and Reports Abnormal speech present [facility] Past Medical History Medical History Hypothyroid GERD (gastroesophageal reflux disease) Type 2 diabetes mellitus Chronic renal insufficiency Cardiomyopathy IBS (irritable bowel syndrome) Elevated cholesterol HTN (hypertension) Sleep apnea Surgical History History of hemorrhoidectomy (~02/12/23) Hx of hemorrhoidectomy History of hysterectomy History of appendectomy Hx of endoscopy History of colonoscopy Family History Family History Father No problems noted. Mother No problems noted. Social History Social History Alcohol intake: never Patient Tobacco Use Status: Never used Tobacco Smoked in Last 30 Days: No Use of substances other than those prescribed or required for medical reasons: No Advance Directives: No Advance Directives Information Provided: Yes Physical Exam Vital Signs: Vital Signs: Last Vital Signs Temp 97.6 F 03/06/24 12:10 Pulse 50 03/06/24 12:40 Resp 16 03/06/24 12:40 BP 146/71 H 03/06/24 13:45 Pulse Ox 99 03/06/24 12:40 O2 Del Method Room Air 03/06/24 12:40 BMI result Body Mass Index 28.1 Vital signs have been reviewed and appear to be correct. Blood pressure elevated. Heart rate normal. Respiratory rate normal. Temperature normal. Oxygen saturation normal. Appearance: Alert. Oriented X3. No acute distress. Head: Normal external exam. Normocephalic. Atraumatic. No Gaona signs noted. No raccoon eyes noted Eyes: PERRLA. EOMI. Conjunctiva and sclera normal. Eyelids normal. ENT: TM's Normal. Pharynx normal. Uvula midline. Moist mucous membranes. No trismus noted. No drooling noted. No muffled voice noted. Neck: Normal inspection. Neck supple. FROM. No adenopathy. Thyroid Normal. No meningeal signs. No neck mass noted. CVS: Normal heart rate and rhythm. Heart sound normal. No murmurs noted. Pulses normal throughout. Respiratory: No respiratory distress. Painless inspiration. Breath sounds normal. No wheezes/rales/rhonchi noted. Chest nontender. No accessory muscle usage noted or decreased air movement noted. Abdomen: Soft and nontender. Bowel sounds normal in all 4 quadrants. No distention noted. No organomegaly noted. No visible injury noted. Back: No CVA tenderness. Full range of motion noted. Skin: Skin warm and dry. Normal skin color. Normal skin turgor. No rashes/lesions/lacerations noted. Extremities: No lower extremity edema. Extremities exhibit normal range of motion. Extremities nontender. Neuro: Oriented X 3. Cranial nerve exam: II-XII are grossly intact No motor deficit. No sensory deficit. Reflexes normal. Course Reevaluation(s) Reevaluation #1: Three days of chest pain pain not necessarily exertional, EKG is unchanged with sinus bradycardia which unchanged from previous, troponin is unremarkable x2, takes metoprolol 100 mg b.i.d. found to be bradycardic, will recommend to decrease metoprolol to 50 mg b.i.d. and follow-up with technician helper instrument for further evaluation. Time: 14:00 Medications Administered Discontinued Medications Generic Name Dose Route Start Last Admin Trade Name Domingoq PRN Reason Stop Dose Admin Amlodipine Besylate 5 mg 03/06/24 13:23 03/06/24 13:45 Amlodipine Besylate 5 Mg Tablet PO 03/06/24 13:24 5 mg ONCE ONE Administration Protocol Metoprolol Tartrate 25 mg 03/06/24 12:18 03/06/24 12:42 Metoprolol Tartrate 25 Mg Tablet PO 03/06/24 12:19 Not Given ONCE ONE Protocol Medical Decision Making Differential Diagnosis Differential Diagnoses: The differential diagnosis associated with the presentation includes ( ACS, pneumonia, pneumothorax, pleural effusion, pulmonary embolism, electrolyte derangement, severe anemia.) Admission/Observation Consideration of admission/observation: Escalation of care including admission/observation considered Lab Data MDM Lab Attestation statement: I reviewed the patient's lab results. 03/06/24 10:39 03/06/24 10:39 Labs: Lab Results 03/06/24 03/06/24 03/06/24 Range/Units 10:39 12:06 13:17 WBC 6.5 (4.8-10.8) X10*3/uL RBC 3.95 L (4.20-5.50) X10*6/uL Hgb 13.2 (12.0-16.0) g/dl Hct 39.5 (37.0-47.0) % MCV 100.0 H (80.0-98.0) fL MCH 33.4 H (27.0-33.0) pg MCHC 33.4 (31.0-35.0) g/dl RDW 13.3 (11.0-16.0) % Plt Count 219 (160-400) X10*3/uL MPV 10.6 (9.4-12.3) fL Absolute Nucleated RBC 0.000 (0.0-0.012) X10*3/uL Nucleated RBC % (auto) 0.0 (0.0-0.2) /100WBC Neutrophils % (Manual) 62 (45-73) % Band Neutrophils % 0 L (3-5) % Lymphocytes % (Manual) 31 (20-40) % Monocytes % (Manual) 5 (2-11) % Eosinophils % (Manual) 2 (0-4) % Abs Neuts (Manual) 4.0 (2.0-8.3) X10*3/uL Lymphocytes # (Manual) 2.0 (1.2-4.9) X10*3/uL Monocytes # (Manual) 0.3 (0.1-1.2) X10*3/uL Eosinophils # (Manual) 0.1 (0.0-0.4) X10*3/uL Platelet Estimate NORMAL (NORMAL) Large Platelets PRESENT Plt Morphology Comment NOTED RBC Morphology NORMAL D-Dimer High Sensitivty < 150 NG/ML Sodium 140 (135-145) mmol/L Potassium 3.3 (3.3-5.1) mmol/L Chloride 103 (96-108) mmol/L Carbon Dioxide 27 (22-29) mmol/L Anion Gap 13 (12-20) BUN 16 (9-16) mg/dL Creatinine 1.02 (0.5-1.4) mg/dL Estim Creat Clear Calc 50.8 Estimated GFR 54 Random Glucose 125 H (60-115) mg/dL Calcium 9.4 D (8.4-10.2) mg/dL Total Bilirubin 0.3 (0.0-1.0) mg/dL AST 30 (5-31) U/L ALT 12 (0-31) U/L Alkaline Phosphatase 54 (39-117) U/L Troponin I High Sens < 2.7 (<3.5-17.0) ng/L Total Protein 7.1 (6.5-8.0) g/dL Albumin 4.3 (3.5-5.0) g/dL Urine Color Yellow Urine Appearance Clear Urine pH 7.0 (5.0-9.0) Ur Specific [place] <= 1.005 (1.005-1.025) Urine Protein Negative (Neg-Trace) mg/dL Urine Glucose (UA) 500 H (Negative) mg/dL Urine Ketones Negative (Negative) mg/dL Urine Blood Negative (Negative) Urine Nitrite Negative (Negative) Ur Leukocyte Esterase Negative (Negative) Urine RBC 0-2 (0-2) /HPF Urine WBC 0-5 (0-5) /HPF Ur Squamous Epith Cells 0-2 (0-2) /HPF Urine Bacteria None Seen (None Seen) Hyaline Casts 0-2 (0-2) /LPF Influenza Type A (PCR) NEGATIVE (Negative) Influenza Type B (PCR) NEGATIVE (Negative) RSV RNA Qual (PCR) NEGATIVE (Negative) SARS-CoV-2 RNA (RT-PCR) NEGATIVE (Negative) Independent Interpretation I performed an independent interpretation of an: EKG ( Sinus bradycardia at 44 beats per minutes, LVH, no change from previous EKG.) and Plain X-Ray ( Chest: No acute intrathoracic pathology.) Radiology Impression Discussion of test interpretation with radiology: I have reviewed the radiologist's reading. External Record Review External record reviewed: Inpatient record Discharge Plan Discharge Clinical Impression: Chest pain, Bradycardia Patient Disposition: Home, Self-Care Instructions: Bradycardia (ED) Additional Instructions: A take metoprolol the medication for the blood pressure only once a day instead of twice a day because your heart rate is slow. Prescriptions: No Action hydrocortisone 2.5 % cream with perineal applicator 1 appl topical DAILY PRN (Reason: hemorrhoids) Qty: 30 1RF ibuprofen 600 mg tablet 600 mg PO Q6H PRN (Reason: pain) Qty: 30 0RF hydroxyzine HCl 25 mg Tablet 25 mg PO TID PRN (Reason: Anxiety) topiramate [Trokendi XR] 50 mg Capsule,Extended Release 24hr 50 mg PO DAILY potassium chloride 20 mEq Tablet Extended Release 20 meq PO DAILY docusate sodium [Colace] 100 mg capsule 100 mg PO BID Qty: 60 2RF oxycodone-acetaminophen [Percocet] 5-325 mg tablet 1 tab PO Q4-6H PRN (Reason: pain) Qty: 30 0RF Rx Instructions: Partial Fill upon patient request. simethicone [Gas Relief (simethicone)] 180 mg capsule 180 mg PO BID PRN (Reason: Gastrointestinal Spasms Or Cramping) docusate calcium 240 mg capsule 240 mg PO BEDTIME Farxiga 10 mg tablet 10 mg PO DAILY Entresto 49-51 mg tablet 1 tab PO BID furosemide 20 mg tablet 20 mg PO DAILY (DME) lancets [FreeStyle Lancets] 28 gauge misc See Rx Instructions topical TID-QID Qty: 100 Rx Instructions: As directed (DME) FreeStyle Lite Strips Strip See Rx Instructions Not Applicable .MEDSUPPLY Qty: 10 Rx Instructions: As directed zolpidem 10 mg tablet 10 mg PO BEDTIME duloxetine 60 mg capsule,delayed release(DR/EC) 60 mg PO DAILY hydrochlorothiazide 25 mg tablet 25 mg PO QAM metoprolol tartrate 100 mg tablet 100 mg PO BID carbamazepine 100 mg tablet extended release 12 hr 100 mg PO Q12H diclofenac sodium 1 % gel 2 g topical BID methocarbamol 500 mg tablet 500 mg PO BID levothyroxine 50 mcg capsule 50 mcg PO DAILY atorvastatin 40 mg tablet 40 mg PO DAILY amlodipine 10 mg tablet 10 mg PO DAILY metformin 500 mg tablet 500 mg PO BID amitriptyline 10 mg tablet 10 mg PO BEDTIME (DME) blood-glucose meter [[employer] Trona Lite] Kit See Rx Instructions .ROUTE TID-QID Qty: 1 Rx Instructions: As directed hydrocortisone acetate [Anucort-HC] 25 mg suppository 25 mg IA BID PRN (Reason: hemorrhoid pain) Qty: 24 3RF Metamucil (with sugar) 3 gram/7 gram powder 1 tbsp PO BID Qty: 798 2RF menthol-zinc oxide [Calmoseptine] 0.44-20.6 % ointment 1 appl topical QID PRN (Reason: hemorroids) Qty: 113 0RF hydrocortisone acetate [Anucort-HC] 25 mg suppository 25 mg IA BID PRN (Reason: hemorrhoids) Qty: 24 0RF omeprazole 20 mg capsule,delayed release(DR/EC) 20 mg PO QAM Referrals: Name,MD Teofilo [Primary Care Provider] - Doug Banuelos MD [Physician] - Print Language: Malawian
[2024-03-06 12:21] LABS: Appearance Urine Clear; Color Urine Yellow; Glucose Urine UA 500 mg/dL (Negative); Leukocyte Esterase Urine Negative (Negative); Nitrite Urine Negative (Negative); Specific Gravity - Urine <= 1.005 (1.005-1.025); Urine Blood Negative (Negative); Urine Ketones Negative (Negative); Urine Protein Negative (Neg-Trace)
[2024-03-06 12:40] VITALS: BP 174/73; PULSE 50; RESP 16; O2SAT 99
[2024-03-06 12:48] LABS: Bacteria Urine None Seen (None Seen); Hyaline Casts Urine 0-2 /LPF (0-2); RBC Urine 0-2 /HPF (0-2); Squamous Epithelial Cell Urine 0-2 /HPF (0-2); WBC Urine 0-5 /HPF (0-5)
[2024-03-06 12:50] LABS: Band Neutrophils Percent 0 % (3-5)
[2024-03-06 13:44] LABS: D Dimer High Sensitivity < 150 NG/ML
[2024-03-06 13:45] VITALS: BP 146/71
[2024-03-06] MEDS: amLODIPine Besylate 5 MG TABLET PO (13:45)
[2024-03-06 14:02] LABS: Troponin-I High Sensitivity < 2.7 ng/L (<3.5-17.0)
[2024-03-06 15:22] VITALS: BP 164/79; PULSE 55; RESP 16; TEMP 36.6; O2SAT 96
== END 2024-03-06 15:23 | disposition home or self-care (01) ==
PROVIDERS: Emergency Provider Emergency Medicine; PCP Internal Medicine Geriatric Medicine
DX: R07.9 Chest pain, unspecified (principal); R00.1 Bradycardia, unspecified; I10 Essential (primary) hypertension; Z03.818 Encounter for observation for suspected exposure to other biological agents ruled out; Z79.899 Other long term (current) drug therapy
CPT/HCPCS: 0241U; 36415; 71046; 80053; 81001; 84484; 85007; 85027; 85379; 93005; 99283; 99285

== ENCOUNTER 2024-07-17 11:18 | Outpatient (REF) | payer OTHER, SELFPAY ==
--- OUTSIDE RECORDS SUMMARY | 2024-07-17 12:34 | XMS_ITS | Encounter Summary ---
Author Organization [employer] Address [address] [place] [address] Care Team Providers Care Timber Girdler Name Role Phone Name, Teofilo WHALEN Primary Care Provider [phone] Reason for Visit * Reason Onset Date Comments Med Refill 05/10/2024 Encounter Details Date Type Department Care Team ([facility] st Contact Info) Description 05/10/2024 Telephone [facility] MEDICINE [address] [place], [place] [phone] Name, MD Teofilo [address] [place] [address] Med Refill Social History Tobacco Use Types Packs/Day Years Used Date Smoking Tobacco: Never Passive Smoke Exposure: Never Smokeless Tobacco: Never Alcohol Use Standard Drinks/Week Comments Never 0 (1 standard drink = 0.6 oz pur e alcohol) Alcohol Answer Date Recorded Frequency of Alcohol Consumption Not on file 11/12/2023 Average Number of Drinks Not on file 024 Frequency of Binge Drinking Not on file 10/14 Score 0 11/12/2023 Depression Answer Date Recorded Patient Health Questionnaire-9 Score 12 08/27/2023 Patient Health Questionnaire-9 Score 12 08/27/2023 Last PHQ-9: Questionnaire Data Not on file 0 08/27/2023 Housing Stability Answer Date Recorded What is your housing situation today? I have joaquim murguia 08/27/[address] you li ve. Do you have problems with any of the following? None of the above 08/27/2023 Food Insecurity Answer Date Recorded Within the past 12 months, y ou worried that your food would run out before you got money to buy more: Never True 08/27/2023 Within the past 12 months,th e food you bought just didn't last and you didn't have enough money to get more: Never True Transportation Answer Date Recorded In the past 12 months, has l ack of transportation kept you from medical appts, meetings, work or from getting things needed for daily living? No 08/27/2023 Utilities Answer Date Recorded In the past 12 months, has t he [employer], gas, oil or water company threatened to shut off services in your home? No 08/27/2023 Depression Answer Date Recorded Patient Health Questionnaire-2 Score 4 08/27/2023 Comments Unknown Sex and Gender Information Value Date Recorded Sex Assigned at Female 04/13/2022 10:14 AM EDT Legal Sex Female 10:14 AM EDT Gender Identity Female 04/13/2022 10:14 AM EDT Sexual Orientation Straight 04/13/2022 10 :14 AM EDT documented as of this encounter Miscellaneous Notes * Telephone Encounter - Macho Desai - 05/10/2024 9:16 AM EST TC from pt requesting medication refill. Medications needing refill : oxyCODONE-acetaminophen (Percocet) 5-325 MG tablet To be sent to: [facility]/pharmacy #[id number] documented in this encounter Plan of Treatment Upcoming Encounters Date Type Department Care Team (Late st Contact Info) Description 08/10/2024 9:15 AM EST Office Visit [facility] MEDICINE [address] [place] [phone] Name, MD Teofilo [address] [place] [id number] 09/12/2024 10:30 AM EDT Clinical Support [facility] MEDICINE [address] [place] [address] Aurora Sabillon RN 09/20/2024 10:00 AM EDT Office Visit [facility] OPTOMETRY [address] [place] [address] Elli Ortiz OD [address] [place] [address] documented as of this encounter Visit Diagnoses Not on filedocumented in this encounter Additional Health Concerns Assessment Noted Time PHQ-9 Depression Total Score: 12 08/26/ 024 9:22 AM EDT documented as of this encounter Care Teams Timber Girdler Relationship Specialty Start Date End Date Name, MD Teofilo [address] [place] [address] PCP - General Family Medicine 08/19/15 documented as of this encounter
--- OUTSIDE RECORDS SUMMARY | 2024-07-17 12:34 | XMS_ITS | Encounter Summary ---
Author Organization [employer] Address [address] [place] [address] Care Team Providers Care Senior Compensation Analyst Name Role Phone Name, Teofilo WHALEN Primary Care Provider [phone] Reason for Visit * Reason Comments Med Refill Encounter Details Date Type Department Care Team ([facility] st Contact Info) Description 06/24/2024 Refill [facility] WALK-IN CENTER [address] [place], [place] [phone] Name, MD Teofilo [address] [place] [address] Left lower quadrant abdominal pain Social History Tobacco Use Types Packs/Day Years [...] the past 12 months, has t he [employer], gas, oil or water company threatened to [...] AM EDT documented as of this encounter Plan of Treatment Upcoming Encounters Date Type Department Care Team (Late st Contact Info) Description 08/10/2024 9:15 AM EST Office Visit [facility] MEDICINE [address] [place] [address] Teofilo Dave MD [address] [place] [address] 09/12/2024 10:30 AM EDT Clinical Support [facility] MEDICINE [address] [place] [address] Aurora Sabillon, ALICIA 09/20/2024 10:00 AM EDT Office Visit [facility] OPTOMETRY [address] [place] [address] Elli Ortiz, OD [address] [place] [address] documented as of this encounter Visit Diagnoses Diagnosis Left lower quadrant abdominal pain documented in this encounter Additional Health Concerns Assessment Noted Time PHQ-9 Depression Total Score: 12 024 9:22 AM EDT documented as of this encounter Care Teams Senior Compensation Analyst Relationship Specialty Start Date End Date NameTeofilo MD [address] [place] [address] PCP - General Family Medicine 08/19/15 documented as of this encounter
--- OUTSIDE RECORDS SUMMARY | 2024-07-17 12:34 | XMS_ITS | Encounter Summary ---
Author Organization [employer] Address [address] [place] [address] Care Team Providers Care Laborer Name Role Phone Name, Teofilo WHALEN Primary Care Provider [phone] Reason for Visit * Reason Onset Date Comments Med Refill 07/04/2024 Encounter Details Date Type Department Care Team ([facility] st Contact Info) Description 07/04/2024 Telephone [facility] MEDICINE [address] [place], [place] [phone] Name, MD Teofilo [address] [place] [address] Med Refill Social History Tobacco Use Types [...] the past 12 months, has t he [employer], gas, oil or water company threatened to [...] encounter Miscellaneous Notes * Telephone Encounter - Heavenly Medina LPN - 07/04/2024 11:32 AM EST done * Telephone Encounter - Rosemary Clifford - 07/04/2024 11:18 AM EST TC from pt requesting medication refill. Medications needing refill : zolpidem (Ambien) 10 MG tablet To be sent to: [facility]/pharmacy #[address] [place] [address] documented in this encounter Plan of Treatment Upcoming Encounters Date Type Department Care Team (Late st Contact Info) Description 08/10/2024 9:15 AM EST Office Visit [facility] MEDICINE [address] [place], [place] [phone] Name, MD Teofilo [address] [place] [address] 09/12/2024 10:30 AM EDT Clinical Support [facility] MEDICINE [address] [place] [address] Aurora Sabillon, RN 09/20/2024 10:00 AM EDT Office Visit [facility] OPTOMETRY [address] [place] [address] Elli Ortiz, OD [address] [place] [address] documented as of this encounter Visit Diagnoses Not on filedocumented in this encounter Additional Health Concerns Assessment Noted Time PHQ-9 Depression Total Score: 12 08/26/ 024 9:22 AM EDT documented as of this encounter Care Teams Laborer Relationship Specialty Start Date End Date Name, MD Teofilo [address] [place] [address] PCP - General Family Medicine 08/19/15 documented as of this encounter
--- OUTSIDE RECORDS SUMMARY | 2024-07-17 12:34 | XMS_ITS | Encounter Summary ---
Author Organization [employer] Address [address] 7t [place] [address] Care Team Providers Care Tack Puller Machine Name Role Phone Name, Teofilo WHALEN Primary Care Provider [phone] Reason for Visit * Reason Onset Date Comments Med Refill 07/06/2024 Encounter Details Date Type Department Care Team ([facility] st Contact Info) Description 07/06/2024 Refill [facility] MED[facility]INE [address] [place], [place] [phone] Name, MD Teofilo 230 [place], [place] [phone] Chronic pain syndrome Social History Tobacco Use Types Packs/Day Years [...] housing situation today? I have joaquim murguia 07/06/[address] you li ve. Do you have problems with any of the following? Lead [place] or Pipes 07/06/2024 Food Insecurity Answer Date Recorded Within the past 12 months, y ou worried that your food would run out before you got money to buy more: Sometimes True 2024 Within the past 12 months,th e food you bought just didn't last and you didn't have enough money to get more: Sometimes True 07/06/2024 Transportation Answer Date Recorded In the past 12 months, has l ack of transportation kept you from medical appts, meetings, work or from getting things needed for daily living? No 08/27/2023 Utilities Answer Date Recorded In the past 12 months, has t he electric, gas, oil or water company threatened to shut off services in your home? No 08/27/2023 Depression Answer Date Recorded Patient Health Questionnaire-2 Score 4 08/27/2023 Internet Access Answer Date Recorded Internet Access Q1 Yes 07/06/2024 Internet Access Q2 Not on file 07/06/2024 Comments Unknown Sex and Gender Information Value [...] Description 08/10/2024 9:15 AM EST Office Visit [facility] MEDICINE [address] [place] [address] Name, MD Teofilo [address] [place] [address] 09/12/2024 10:30 AM EDT Clinical Support [facility] MEDICINE 230 [place] [address] Aurora Sabillon RN 09/20/2024 10:00 AM EDT Office Visit [facility] OPTOMETRY [address] [place], [place] [phone] Elli Ortiz, BINH 230 [place] [address] documented as of this encounter Visit Diagnoses Diagnosis Chronic pain syndrome documented in this encounter Additional Health Concerns Assessment Noted Time PHQ-9 Depression Total Score: 12 024 9:22 AM EDT documented as of this encounter Care Teams Tack Puller Machine Relationship Specialty Start Date End Date Name, MD Teofilo [address] [place] [address] PCP - General Family Medicine 08/19/15 documented as of this encounter
--- OUTSIDE RECORDS SUMMARY | 2024-07-17 12:34 | XMS_ITS | Encounter Summary ---
Author Organization [employer] Address [address] [place] [address] Care Team Providers Care Golf Cart Mechanic Name Role Phone Name, Teofilo WHALEN Primary Care Provider [phone] Reason for Visit * Reason Comments Med Refill Encounter Details Date Type Department Care Team ([facility] st Contact Info) Description 11/28/2023 Refill [facility] MEDICINE [address] [place], [place] [phone] Name, MD Teofilo 230 [place] [address] Fibromyositis Social History Tobacco Use Types Packs/Day Years [...] the past 12 months, has t he [employer], gas, oil or water company threatened to [...] Description 08/10/2024 9:15 AM EST Office Visit [facility] MEDICINE [address] [place] [address] Teofilo Dave MD 230 [place] [address] 09/12/2024 10:30 AM EDT Clinical Support [facility] MEDICINE [address] [place] [address] Aurora Sabillon, ALICIA 09/20/2024 10:00 AM EDT Office Visit [facility] OPTOMETRY [address] [place] [address] Elli Ortiz, OD 230 [place] [address] documented as of this encounter Visit Diagnoses Diagnosis Fibromyositis Unspecified myalgia and myositis documented in this encounter Additional Health Concerns Assessment Noted Time PHQ-9 Depression Total Score: 12 024 9:22 AM EDT documented as of this encounter Care Teams Golf Cart Mechanic Relationship Specialty Start Date End Date Teofilo Dave MD 230 [place] [address] PCP - General Family Medicine 08/19/15 documented as of this encounter
--- OUTSIDE RECORDS SUMMARY | 2024-07-17 12:34 | XMS_ITS | Encounter Summary ---
Author Organization [employer] Address [address] 7[address] [place] [address] Care Team Providers Care Artificial Stone Setter Name Role Phone Name, Teofilo WHALEN Primary Care Provider [phone] Encounter Details Date Type Department Care Team (Late st Contact Info) Description 11/25/2022 Abstract [facility] MEDICINE [address] [place], [place] [phone] Name, MD Teofilo 230 [place] [address] Social History Tobacco Use Types Packs/Day Years Used Date Smoking Tobacco: Never Passive Smoke Exposure: Never Smokeless Tobacco: Never PHQ-2 Answer Date Recorded Patient Health Questionnaire-2 Score 0 08/19/2022 Depression Answer Date Recorded Patient Health Questionnaire-9 Score 0 05/27/2022 Depression Answer Date Recorded Patient Health Questionnaire-2 Score 0 08/19/2022 Comments Unknown Sex and Gender Information Value Date Recorded Sex Assigned at Female 04/13/2022 10:14 AM EDT Legal Sex Female 10:14 AM EDT Gender Identity Female 04/13/2022 10:14 AM EDT Sexual Orientation Straight 04/13/2022 10 :14 AM EDT COVID-19 Exposure Response Date Recorded In the last 10 days, have yo u been in contact with someone who was confirmed or suspected to have Coronavirus/COVID-19? No / Unsure 11/25/2022 9:11 AM EDT documented as of this encounter Plan of Treatment Upcoming Encounters Date Type Department Care Team (Late st Contact Info) Description 08/10/2024 9:15 AM EST Office Visit [facility] MEDICINE 230 [place] [address] Name, MD Teofilo 230 [place] [address] 09/12/2024 10:30 AM EDT Clinical Support [facility] MED[facility] [address] [place] [address] Aurora Sabillon, RN 09/20/2024 10:00 AM EDT Office Visit [facility] OPTOMETRY [address] [place] [address] Angel, Elli, OD 230 [place] [address] documented as of this encounter Visit Diagnoses Not on filedocumented in this encounter Additional Health Concerns Assessment Noted Time PHQ-9 Depression Total Score: 0 05/27/20 22 10:40 AM EST documented as of this encounter Care Teams Artificial Stone Setter Relationship Specialty Start Date End Date Name, MD Teofilo [address] [place] [address] PCP - General Family Medicine 08/19/15 documented as of this encounter
--- OUTSIDE RECORDS SUMMARY | 2024-07-17 12:34 | XMS_ITS | Encounter Summary ---
Author Organization [employer] Address [address] [place] [address] Care Team Providers Care Brushing Operator Name Role Phone Name, Teofilo WHALEN Primary Care Provider Reason for Visit * Reason Onset Date Comments Med Refill 06/10/2023 Encounter Details Date Type Department Care Team ([facility] st Contact Info) Description 06/10/2023 Telephone [facility] MEDICINE 230 [place], [place] [phone] Name, MD Teofilo 230 [place], [place] [phone] Med Refill Social History Tobacco Use Types Packs/Day Years Used Date Smoking Tobacco: Never Passive Smoke Exposure: Never Smokeless Tobacco: Never Alcohol Use Standard Drinks/Week Comments Never 0 (1 standard drink = 0.6 oz pur e alcohol) PHQ-2 Answer Date Recorded Patient Health Questionnaire-2 Score 0 08/19/2022 Depression Answer Date Recorded Patient Health Questionnaire-9 Score 0 05/27/2022 Housing Stability Answer Date Recorded What is your housing situation today? I have joaquim murguia 03/29/[address] you li ve. Do you have problems with any of the following? None of the above 03/29/2023 Food Insecurity Answer Date Recorded Within the past 12 months, y ou worried that your food would run out before you got money to buy more: Never True 03/29/2023 Within the past 12 months,th e food you bought just didn't last and you didn't have enough money to get more: Never True 10/ Transportation Answer Date Recorded In the past 12 months, has l ack of transportation kept you from medical appts, meetings, work or from getting things needed for daily living? No 03/29/2023 Utilities Answer Date Recorded In the past 12 months, has t he electric, gas, oil or water company threatened to shut off services in your home? No 03/29/2023 Depression Answer Date Recorded Patient Health Questionnaire-2 Score 0 08/19/2022 Comments Unknown Sex and Gender Information Value Date Recorded Sex Assigned at Female 04/13/2022 10:14 AM EDT Legal Sex Female 10:14 AM EDT Gender Identity Female 04/13/2022 10:14 AM EDT Sexual Orientation Straight 04/13/2022 10 :14 AM EDT documented as of this encounter Miscellaneous Notes * Telephone Encounter - Marcelo Vega RN - 06/10/2023 10:35 AM EST Medication que for approval, PCP is not in office, [place] pat checked on 06/10/2023.Last time meds fill on 05/17/2023 for 28 days supply at [facility]. [place]. Please review. * Telephone Encounter - Lori Palomino - 06/10/2023 9:34 AM EST TC from pt requesting medication refill. Medications needing refill : oxyCODONE-acetaminophen (Percocet) 5-325 MG tablet To be sent to: [facility]/pharmacy #[id number] - [place], [place] - [address] documented in this encounter Plan of Treatment Upcoming Encounters Date Type Department Care Team (Late st Contact Info) Description 08/10/2024 9:15 AM EST Office Visit [facility] MEDICINE [address] [place] [address] Name, MD Teofilo [address] [place] [address] 09/12/2024 10:30 AM EDT Clinical Support [facility] MEDICINE 230 [place] [address] Aurora Sabillon, ALICIA 09/20/2024 10:00 AM EDT Office Visit [facility] OPTOMETRY [address] [place] [address] Elli Ortiz, OD 230 [place] [address] documented as of this encounter Visit Diagnoses Not on filedocumented in this encounter Additional Health Concerns Assessment Noted Time PHQ-9 Depression Total Score: 0 05/27/20 22 10:40 AM EST documented as of this encounter Care Teams Brushing Operator Relationship Specialty Start Date End Date Name, MD Teofilo 230 [place] [address] PCP - General Family Medicine 08/19/15 documented as of this encounter
--- OUTSIDE RECORDS SUMMARY | 2024-07-17 12:34 | XMS_ITS | Encounter Summary ---
Author Organization [employer] Address [address] 7t [place] [address] Care Team Providers Care Recruitment Internship Name Role Phone NameTeofilo MD Primary Care Provider [phone] Encounter Details Date Type Department Care Team (Latest Contact Info) Description 04/25/2021 Abstract [facility] CONVERSION[facility] Dental, Provider, DDS Social History Tobacco Use Types Packs/Day Years Used Date Smoking Tobacco: Never Assessed Comments Unknown Sex and Gender Information Value [...] Description 08/10/2024 9:15 AM EST Office Visit [facility] MEDICINE [address] [place] [address] Name, MD Teofilo 230 [place] [address] 09/12/2024 10:30 AM EDT Clinical Support [facility] MEDICINE [address] [place] [address] Aurora Sabillon, ALICIA 09/20/2024 10:00 AM EDT Office Visit [facility] OPTOMETRY [address] [place] [address] Elli Ortiz, OD 230 [place] [address] documented as of this encounter Visit Diagnoses Not on filedocumented in this encounter Care Teams Recruitment Internship Relationship Specialty Start Date End Date Name, MD Teofilo 230 [place] [address] PCP - General Family Medicine 08/19/15 documented as of this encounter
--- OUTSIDE RECORDS SUMMARY | 2024-07-17 12:34 | XMS_ITS | Encounter Summary ---
Author Organization [employer] Address [address] 7[address] [place] [address] Care Team Providers Care Clay Miller Name Role Phone Name, Teofilo WHALEN Primary Care Provider Reason for Visit * Reason Comments Med Change Request Encounter Details Date Type Department Care Team ([facility] st Contact Info) Description 06/05/2023 Refill [facility] 230 [place], [place] [phone] Name, MD Teofilo 230 [place] [address] Left lower quadrant abdominal pain Social History [...] Description 08/10/2024 9:15 AM EST Office Visit [facility] MEDICINE [address] [place] [address] Name, MD Teofilo 230 [place] [address] 09/12/2024 10:30 AM EDT Clinical Support [facility] MED[facility] [address] [place] [address] Aurora Sabillon, ALICIA 09/20/2024 10:00 AM EDT Office Visit [facility] OPTOMETRY [address] [place] [address] Angel, Elli, OD 230 [place] [address] documented as of this encounter Visit Diagnoses Diagnosis Left lower quadrant abdominal pain documented in this encounter Additional Health Concerns Assessment Noted Time PHQ-9 Depression Total Score: 0 05/27/20 22 10:40 AM EST documented as of this encounter Care Teams Clay Miller Relationship Specialty Start Date End Date Teofilo Dave MD [address] [place] [address] PCP - General Family Medicine 08/19/15 documented as of this encounter
--- OUTSIDE RECORDS SUMMARY | 2024-07-17 12:34 | XMS_ITS | Encounter Summary ---
Author Organization [employer] Address [address] [facility] 7t [place] [address] Care Team Providers Care Kettle Loader Name Role Phone Name, Teofilo WHALEN Primary Care Provider [phone] Reason for Visit * Reason Comments Med Refill Encounter Details Date Type Department Care Team (Late st Contact Info) Description 02/22/2023 Refill [facility] MEDICINE [address] [place] [address] Name, MD Teofilo [address] [place] [address] Chronic pain syndrome Social History Tobacco Use [...] Office Visit [facility] MEDICINE [address] [place] [address] Name, MD Teofilo 230 [place] [address] 09/12/2024 10:30 AM EDT Clinical Support [facility] MEDICINE 230 [place] [address] Aurora Sabillon, RN 09/20/2024 10:00 AM EDT Office Visit [facility] OPTOMETRY [address] [place] [address] Elli Ortiz, OD 230 [place] [address] documented as of this encounter Visit Diagnoses Diagnosis Chronic pain syndrome documented in this encounter Additional Health Concerns Assessment Noted Time PHQ-9 Depression Total Score: 0 05/27/20 22 10:40 AM EST documented as of this encounter Care Teams Kettle Loader Relationship Specialty Start Date End Date Name, MD Teofilo [address] [place] [address] PCP - General Family Medicine 08/19/15 documented as of this encounter
--- OUTSIDE RECORDS SUMMARY | 2024-07-17 12:34 | XMS_ITS | Encounter Summary ---
Author Organization [facility] [facility] Address [address] [facility] 7t [place] [address] Care Team Providers Care Director Of Direct Marketing Name Role Phone NameTeofilo MD Primary Care Provider [phone] Reason for Visit * Reason Comments Med Refill Encounter Details Date Type Department Care Team (Late st Contact Info) Description 11/20/2022 Refill [facility] MEDICINE [address] [place] [phone] Teofilo Dave MD [address] [place] [address] Fibromyositis Social History Tobacco Use Types Packs/Day [...] Description 08/10/2024 9:15 AM EST Office Visit [facility] MEDICINE [address] [place] [phone] Teofilo Dave MD [address] [place] [address] 09/12/2024 10:30 AM EDT Clinical Support [facility] MEDIC[facility] 230 [place] [address] Aurora Sabillon, RN 09/20/2024 10:00 AM EDT Office Visit [facility] OPTOMETRY [address] [place] [address] Elli Ortiz, OD 230 [place] [address] documented as of this encounter Visit Diagnoses Diagnosis Fibromyositis Unspecified myalgia and myositis documented in this encounter Additional Health Concerns Assessment Noted Time PHQ-9 Depression Total Score: 0 05/27/20 22 10:40 AM EST documented as of this encounter Care Teams Director Of Direct Marketing Relationship Specialty Start Date End Date Name, MD Teofilo 230 [place] [address] PCP - General Family Medicine 08/19/15 documented as of this encounter
--- OUTSIDE RECORDS SUMMARY | 2024-07-17 12:34 | XMS_ITS | Encounter Summary ---
Author Organization [employer] Address [address] 7t [place] [address] Care Team Providers Care Ferry Boat Captain Name Role Phone Name, Teofilo WHALEN Primary Care Provider [phone] Reason for Visit * Reason Comments Med Refill Encounter Details Date Type Department Care Team ([facility] st Contact Info) Description 03/19/2023 Refill [facility] 230 [place] [address] Zuri Thacker MD 230 [place] [address] Social History Tobacco Use Types Packs/Day Years [...] housing situation today? I have joaquim murguia 03/22/[address] you li ve. Do you have problems with any of the following? None of the above 03/22/2023 Food Insecurity Answer Date Recorded Within the past 12 months, y ou worried that your food would run out before you got money to buy more: Never True 03/22/2023 Within the past 12 months,th e food you bought just didn't last and you didn't have enough money to get more: Never True 02/2023 Transportation Answer Date Recorded In the past 12 months, has l ack of transportation kept you from medical appts, meetings, work or from getting things needed for daily living? No 03/22/2023 Utilities Answer Date Recorded In the past 12 months, has t he electric, gas, oil or water company threatened to shut off services in your home? No 03/22/2023 Depression Answer Date Recorded Patient Health Questionnaire-2 [...] Description 08/10/2024 9:15 AM EST Office Visit [facility] MEDICINE [address] [place] [address] Name, MD Teofilo 230 [place] [address] 09/12/2024 10:30 AM EDT Clinical Support [facility] MED[facility] 230 [place] [address] Aurora Sabillon, ALICIA 09/20/2024 10:00 AM EDT Office Visit [facility] OPTOMETRY [address] [place] [address] Angel, Elli, OD 230 [place] [address] documented as of this encounter Visit Diagnoses Not on filedocumented in this encounter Additional Health Concerns Assessment Noted Time PHQ-9 Depression Total Score: 0 05/27/20 22 10:40 AM EST documented as of this encounter Care Teams Ferry Boat Captain Relationship Specialty Start Date End Date NameTeofilo MD [address] [place] [address] PCP - General Family Medicine 08/19/15 documented as of this encounter
--- OUTSIDE RECORDS SUMMARY | 2024-07-17 12:34 | XMS_ITS | Encounter Summary ---
Author Organization [employer] Address [address] 7[address] [place] [address] Care Team Providers Care Front Office Specialist Name Role Phone Name, Teofilo WHALEN Primary Care Provider [phone] Reason for Visit * Reason Comments Pre-visit Planning SDOH screening posit karl and Tobacco screening negative Encounter Details Date Type Department Care Team ([facility] st Contact Info) Description 07/06/2024 Patient Outreach [facility] MEDICINE 230 [place] [address] Name, MD Teofilo 230 [place] [address] Pre-visit Planning (SDOH screening positive and Tobacco screening negative) Social History Tobacco Use Types Packs/Day Years [...] your housing situation today? I have joaquim sing 07/06/[address] you li ve. Do you have problems with any of the following? Lead [place] or Pipes 07/06/2024 Food Insecurity Answer Date [...] AM EDT documented as of this encounter Progress Notes * Hasmukh Allen - 07/06/2024 10:19 AM EST CC Hasmukh Cooper placed successful outbound call to patient for pre-visit planning. Patient name and confirmed. Patient confirms appt date and time, and has transportation arrangements. Biggest concern for appointment at this time is no concerns. Patient advised to bring to appointment a photo id and insurance card. Appropriate screenings completed in anticipation of appointment. SDOH positive. Patient looking for assistance with paint peeling on the craig and food insecurities. Referral will be placed. documented in this encounter Plan of Treatment Upcoming Encounters Date Type Department Care Team ([facility] st Contact Info) Description 08/10/2024 9:15 AM EST Office Visit [facility] MEDICINE [address] [place] [address] Name, MD Teofilo 230 [place] [address] 09/12/2024 10:30 AM EDT Clinical Support [facility] MEDICINE 230 [place] [address] Aurora Sabillon, RN 09/20/2024 10:00 AM EDT Office Visit [facility] OPTOMETRY [address] [place] [address] Elli Ortiz, OD 230 [place] [address] documented as of this encounter Visit Diagnoses Not on filedocumented in this encounter Additional Health Concerns Assessment Noted Time PHQ-9 Depression Total Score: 12 08/26/ 024 9:22 AM EDT documented as of this encounter Care Teams Front Office Specialist Relationship Specialty Start Date End Date Name, MD Teofilo 230 [place] [address] PCP - General Family Medicine 08/19/15 documented as of this encounter
--- OUTSIDE RECORDS SUMMARY | 2024-07-17 12:34 | XMS_ITS | Encounter Summary ---
Author Organization [employer] Address [address] [place] [address] Care Team Providers Care Naphtha Washing System Operator Name Role Phone Name, Teofilo WHALEN Primary Care Provider [phone] Reason for Visit * Reason Comments Follow-up Encounter Details Date Type Department Care Team ([facility] st Contact Info) Description 07/17/2024 11:00 AM EST Office Visit [facility] [address] [place], [place] [phone] Name, MD Teofilo [address] [place] [address] Hypothyroidism, unspecified type (Primary Dx); Essential hypertension; Type 2 diabetes mellitus with other specified complication, without long-term current use of insulin ([facility]); Vaccination refused by patient Social History Tobacco Use Types Packs/Day Years [...] problems with any of the following? Lead [place] or [place] 07/06/2024 Food Insecurity Answer Date [...] AM EDT documented as of this encounter Last Filed Vital Signs Vital Sign Reading Time Taken Comments Blood Pressure 135/79 07/17/2024 11:12 AM EST Pulse 51 07/17/2024 10:59 AM EST Temperature 35.6 ??C (96 ??F) 07/17/2024 10:59 AM EST Respiratory Rate 16 07/17/2024 10:59 AM EST Oxygen Saturation 96% 07/17/2024 10:59 AM EST Inhaled Oxygen Concentration - - Weight 64 kg (141 lb) 07/17/2024 10:59 AM EST Height 160 cm (5' 3 ) 07/17/2024 10:59 AM EST Body Mass Index 24.98 07/17/2024 10:59 AM EST documented in this encounter Progress Notes * Teofilo Dave, - 07/17/2024 11:00 AM EST Subjective Patient ID: Beatriz Roper Boris is a 69 y.o. female who presents for Follow-up. Patient comes for a follow-up visit. She feels well. She denies any chest pains, no shortness of breath, no dyspnea on exertion, no recent falls. Blood sugar is well-controlled based on the hemoglobin A1c. She is using her medications regularly. Today initial blood pressure was elevated but repeat was normal. She refuses any vaccination today. Review of Systems Constitutional: Negative for chills and fever. HENT: Negative for sore throat. Respiratory: Negative for cough, shortness of breath and wheezing. Cardiovascular: Negative for chest pain, palpitations and leg swelling. Gastrointestinal: Negative for abdominal pain. Visit Vitals BP 135/79 Pulse 51 Temp 96 ??F (35.6 ??C) (Temporal) Resp 16 Ht 5' 3 (1.6 m) Wt 141 lb (64 kg) SpO2 96% BMI 24.98 kg/m?? Smoking Status Never BSA 1.69 m?? Objective Physical Exam Constitutional: Appearance: Normal appearance. Cardiovascular: Rate and Rhythm: Normal rate and regular rhythm. Pulses: Dorsalis pedis pulses are 2+ on the right side and 2+ on the left side. Posterior tibial pulses are 2+ on the right side and 2+ on the left side. Heart sounds: No murmur heard. No gallop. Pulmonary: Effort: Pulmonary effort is normal. No respiratory distress. Breath sounds: Normal breath sounds. No wheezing. Musculoskeletal: Right lower leg: No edema. Left lower leg: No edema. Right foot: Normal range of motion. Left foot: Normal range of motion. Feet: Right foot: Protective Sensation: 5 sites tested. 5 sites sensed. Skin integrity: Skin integrity normal. Toenail Condition: Right toenails are normal. Left foot: Protective Sensation: 5 sites tested. 5 sites sensed. Skin integrity: Skin integrity normal. Toenail Condition: Left toenails are normal. Neurological: Mental Status: She is alert. 03/06/24 03/06/24 03/06/24 Range/Units 10:39 12:06 13:17 WBC 6.5 (4.8-10.8) X10*3/uL RBC 3.95 L (4.20-5.50) X10*6/uL Hgb 13.2 (12.0-16.0) g/dl Hct 39.5 (37.0-47.0) % MCV 100.0 H (80.0-98.0) fL MCH 33.4 H (27.0-33.0) pg MCHC 33.4 (31.0-35.0) g/dl RDW 13.3 (11.0-16.0) % Plt Count 219 (160-400) X10*3/uL MPV 10.6 (9.4-12.3) fL Absolute Nucleated RBC 0.000 (0.0-0.012) X10*3/uL Nucleated RBC % (auto) 0.0 (0.0-0.2) /100WBC Neutrophils % (Manual) 62 (45-73) % Band Neutrophils % 0 L (3-5) % Lymphocytes % (Manual) 31 (20-40) % Monocytes % (Manual) 5 (2-11) % Eosinophils % (Manual) 2 (0-4) % Abs Neuts (Manual) 4.0 (2.0-8.3) X10*3/uL Lymphocytes # (Manual) 2.0 (1.2-4.9) X10*3/uL Monocytes # (Manual) 0.3 (0.1-1.2) X10*3/uL Eosinophils # (Manual) 0.1 (0.0-0.4) X10*3/uL Platelet Estimate NORMAL (NORMAL) Large Platelets PRESENT Plt Morphology Comment NOTED RBC Morphology NORMAL D-Dimer High Sensitivty < 150 NG/ML Sodium 140 (135-145) mmol/L Potassium 3.3 (3.3-5.1) mmol/L Chloride 103 (96-108) mmol/L Carbon Dioxide 27 (22-29) mmol/L Anion Gap 13 (12-20) BUN 16 (9-16) mg/dL Creatinine 1.02 (0.5-1.4) mg/dL Estim Creat Clear Calc 50.8 Estimated GFR 54 Random Glucose 125 H (60-115) mg/dL Calcium 9.4 D (8.4-10.2) mg/dL Total Bilirubin 0.3 (0.0-1.0) mg/dL AST 30 (5-31) U/L ALT 12 (0-31) U/L Alkaline Phosphatase 54 (39-117) U/L Troponin I High Sens < 2.7 (<3.5-17.0) ng/L Total Protein 7.1 (6.5-8.0) g/dL Albumin 4.3 (3.5-5.0) g/dL Urine Color Yellow Urine Appearance Clear Urine pH 7.0 (5.0-9.0) Ur Specific Whick <= 1.005 (1.005-1.025) Urine Protein Negative (Neg-Trace) mg/dL Urine Glucose (UA) 500 H (Negative) mg/dL Urine Ketones Negative (Negative) mg/dL Urine Blood Negative (Negative) Urine Nitrite Negative (Negative) Ur Leukocyte Esterase Negative (Negative) Urine RBC 0-2 (0-2) /HPF Urine WBC 0-5 (0-5) /HPF Ur Squamous Epith Cells 0-2 (0-2) /HPF Urine Bacteria None Seen (None Seen) Hyaline Casts 0-2 (0-2) /LPF Influenza Type A (PCR) NEGATIVE (Negative) Influenza Type B (PCR) NEGATIVE (Negative) RSV RNA Qual (PCR) NEGATIVE (Negative) SARS-CoV-2 RNA (RT-PCR) NEGATIVE (Negative) Assessment/Plan Diagnoses and all orders for this visit: Hypothyroidism, unspecified type Comments: Continue levothyroxine, check TSH Orders: - TSH W/Reflex to FT4; Future Essential hypertension Comments: Repeat BP is better. Continue current meds Orders: - Basic Metabolic Panel; Future - Albumin, Random Urine W/Creatinine; Future Type 2 diabetes mellitus with other specified complication, without long-term current use of insulin ([facility]) Comments: Continue Farxiga for DM and CHF Orders: - POCT Glucose - POCT HGB A1C - Basic Metabolic Panel; Future - Albumin, Random Urine W/Creatinine; Future Vaccination refused by patient documented in this encounter Plan of Treatment Upcoming Encounters Date Type Department Care Team (Late st Contact Info) Description 08/10/2024 9:15 AM EST Office Visit [facility] [address] [place] [id number] Tenzin, MD Teofilo [address] [place] [address] 09/12/2024 10:30 AM EDT Clinical Support [facility] [address] [place] [address] Aurora Sabillon RN 09/20/2024 10:00 AM EDT Office Visit [facility] [address] [place] [address] Elli Ortiz, OD [address] [place] [address] Scheduled Orders Name Type Priority Associated Diagnoses Orde r Schedule Basic Metabolic Panel Lab Routine Essential hypertension Type 2 diabetes mellitus with other specified complication, without long-term current use of insulin ([facility]) Expected: 07/17/2024 (Approximate), Expires: 07/17/2025 Albumin, Random Urine W/Creatinine Lab Routine Essential hypertension Type 2 diabetes mellitus with other specified complication, without long-term current use of insulin (CMS/HCC) Expected: 07/17/2024 (Approximate), Expires: 07/17/2025 TSH W/Reflex to FT4 Lab Routine Hypothyroidism, unspecified type Expected: 07/17/2024 (Approximate), Expires: 07/17/2025 documented as of this encounter Procedures Procedure Name Priority Date/Time Associated Diagnosis Comments POCT GLUCOSE Routine 07/17/2024 11:04 AM EST Type 2 diabetes mellitus with other specified complication, without long-term current use of insulin ([facility]) POCT GLYCATED HEMOGLOBIN, TOTAL Routine 07/17/2024 11:03 AM EST Type 2 diabetes mellitus with other specified complication, without long-term current use of insulin ([facility]) documented in this encounter Results * POCT Glucose (07/17/2024 11:04 AM EST) Glucose Blood, POC 170 60 - 200 mg/dL QC Media Lot # [id number] Lot# Expiration Date Blood Capillary blood specimen / Unknown 07/17/2024 11:04 AM EST us Teofilo Dave MD POINT OF CARE TEST ENTER/EDIT OR DERABLES Final Result * (ABNORMAL) POCT HGB A1C (07/17/2024 11:03 AM EST) Hemoglobin A1C 6.3(A) 4.0 - 6.0 % QC Media Lot # [id number] Lot# Expiration Date Blood 07/17/2024 11:0 3 AM EST Teofilo Dave MD POINT OF CARE TEST ENTER/EDIT OR DERABLES Final Result documented in this encounter Visit Diagnoses Diagnosis Hypothyroidism, unspecified type- Primary Essential hypertension Unspecified essential hypertension Type 2 diabetes mellitus with other specified complication, without long-term current use of insulin ([facility]) Vaccination refused by patient documented in this encounter Additional Health Concerns Assessment Noted Time PHQ-9 Depression Total Score: 12 08/26/ 024 9:22 AM EDT documented as of this encounter Care Teams Naphtha Washing System Operator Relationship Specialty Start Date End Date Name, MD Teofilo [address] [place] [address] PCP - General Family Medicine 08/19/15 documented as of this encounter
--- OUTSIDE RECORDS SUMMARY | 2024-07-17 12:34 | XMS_ITS | Encounter Summary ---
Author Organization [employer] Address [address] [place] [address] Care Team Providers Care Purchasing Specialist Name Role Phone Name, Teofilo WHALEN Primary Care Provider [phone] Reason for Visit * Reason Onset Date Comments Med Refill 06/30/2024 Encounter Details Date Type Department Care Team ([facility] st Contact Info) Description 06/30/2024 Refill [facility] [address] [place], [place] [phone] Name, MD Teofilo [address] [place] [address] Social History Tobacco Use Types Packs/Day Years [...] the past 12 months, has t he [employer], gas, oil or water company threatened to [...] Description 08/10/2024 9:15 AM EST Office Visit [facility] [address] [place] [address] Teofilo Dave MD [address] [place] [address] 09/12/2024 10:30 AM EDT Clinical Support [facility] [address] [place] [address] Aurora Sabillon, ALICIA 09/20/2024 10:00 AM EDT Office Visit [facility] [address] [place] [address] Elli Ortiz, OD [address] [place] [address] documented as of this encounter Visit Diagnoses Not on filedocumented in this encounter Additional Health Concerns Assessment Noted Time PHQ-9 Depression Total Score: 12 024 9:22 AM EDT documented as of this encounter Care Teams Purchasing Specialist Relationship Specialty Start Date End Date Teofilo Dave MD [address] [place] [address] PCP - General Family Medicine 08/19/15 documented as of this encounter
--- OUTSIDE RECORDS SUMMARY | 2024-07-17 12:34 | XMS_ITS | Encounter Summary ---
Author Organization [employer] Address [address] [place] [address] Care Team Providers Care Certified Emergency Vehicle Technician Name Role Phone Name, Teofilo WHALEN Primary Care Provider [phone] Reason for Visit * Reason Comments Care Coordination CHW outreach SDOH pe st control & food - referral completed Encounter Details Date Type Department Care Team (Latest Contact Info) Description 07/06/2024 Patient Outreach [facility] [address] [place] [address] Name, MD Teofilo [address] [place] [address] Care Coordination (CHW outreach SDOH pest control & food - referral completed ) Social History Tobacco Use Types Packs/Day Years [...] problems with any of the following? Lead [place] or [place] 07/06/2024 Food Insecurity Answer Date [...] as of this encounter Progress Notes * Abdirashid Aparicio - 07/06/2024 1:35 PM EST CHW Abdirashid Aparicio, placed outbound call to patient for assistance with SDOH as a referral was received by the provider. Patient's name and were confirmed. Patient screened positive for the following SDOH pet's control & food insecurities. CHW referral patient to the local list of pantriesin the area for help and advice family to connect with [employer] and pet's control offices in [place] for more resources. Patient verbalizes understanding, and able to agree with plan to follow up. Patient educated on extended clinic hours on Mondays through Wednesdays, and Walk-In Urgent Care Located in [facility] of [facility]. Patient provided with after-hours line for [facility], , which offer night time triage service and option to transfer to recruiting consultant provider if needed. documented in this encounter Plan of Treatment Upcoming Encounters Date Type Department Care Team (Late st Contact Info) Description 08/10/2024 9:15 AM EST Office Visit [facility] [address] [place] [phone] Name, MD Teofilo [address] [place] [address] 09/12/2024 10:30 AM EDT Clinical Support [facility] [address] [place] [address] Aurora Sabillon, ALICIA 09/20/2024 10:00 AM EDT Office Visit [facility] [address] [place], [place] [phone] Elli Ortiz, OD [address] [place] [address] documented as of this encounter Visit Diagnoses Not on filedocumented in this encounter Additional Health Concerns Assessment Noted Time PHQ-9 Depression Total Score: 12 08/26/ 024 9:22 AM EDT documented as of this encounter Care Teams Certified Emergency Vehicle Technician Relationship Specialty Start Date End Date Name, MD Teofilo [address] [place] [address] PCP - General Family Medicine 08/19/15 documented as of this encounter
--- OUTSIDE RECORDS SUMMARY | 2024-07-17 12:34 | XMS_ITS | Encounter Summary ---
Author Organization [employer] Address [address] [place] [address] Care Team Providers Care Fur Puller Name Role Phone Name, Teofilo WHALEN Primary Care Provider [phone] Encounter Details Date Type Department Care Team ([facility] st Contact Info) Description 01/21/2024 Telephone [facility] [address] [place], [place] [phone] Name, MD Teofilo [address] [place] [address] Social History Tobacco Use Types Packs/Day Years [...] Description 08/10/2024 9:15 AM EST Office Visit [facility] [address] [place] [address] Name, MD Teofilo [address] [place] [address] 09/12/2024 10:30 AM EDT Clinical Support [facility] [address] [place] [address] Aurora Sabillon RN 09/20/2024 10:00 AM EDT Office Visit [facility] [address] [place] [address] Elli Ortiz, OD [address] [place] [address] documented as of this encounter Visit Diagnoses Not on filedocumented in this encounter Additional Health Concerns Assessment Noted Time PHQ-9 Depression Total Score: 12 024 9:22 AM EDT documented as of this encounter Care Teams Fur Puller Relationship Specialty Start Date End Date Name, MD Teofilo [address] [place] [address] PCP - General Family Medicine 08/19/15 documented as of this encounter
--- OUTSIDE RECORDS SUMMARY | 2024-07-17 12:34 | XMS_ITS | Encounter Summary ---
Author Organization [employer] Address [address] [place] [address] Care Team Providers Care Lobby Concierge Name Role Phone Name, Teofilo WHALEN Primary Care Provider [phone] Reason for Visit * Reason Onset Date Comments requesting call 08/18/2022 Encounter Details Date Type Department Care Team ([facility] st Contact Info) Description 08/18/2022 Telephone [facility] [address] [place], [place] [phone] Name, MD Teofilo [address] [place], [place] [phone] requesting call Social History Tobacco Use Types Packs/Day Years Used Date Smoking Tobacco: Never Smokeless Tobacco: Never PHQ-2 Answer Date [...] suspected to have Coronavirus/COVID-19? No / Unsure 08/19/2022 9:28 AM EST documented as of this encounter Miscellaneous Notes * Telephone Encounter - Josy Desai - 08/18/2022 10:33 AM EST TC to patient and patients daughter Iris and they are going to call back with information regardingof where current CPAP is from. * Telephone Encounter - Mally Paniagua - 08/18/2022 10:00 AM EST Tc from [facility] with [facility] requesting a call back regarding pt CPAP machine. Janneth explained that she got in contact with pt insurance and the insurance informed that pt already had an authorization for a CPAP machine from a different provider since May to September. Please contact Janneth at [phone] Ext: [phone] documented in this encounter Plan of Treatment Upcoming Encounters Date Type Department Care Team (Late st Contact Info) Description 08/10/2024 9:15 AM EST Office Visit [facility] [address] [place] [address] Name, MD Teofilo [address] [place] [address] 09/12/2024 10:30 AM EDT Clinical Support [facility] [address] [place] [address] Aurora Sabillon, ALICIA 09/20/2024 10:00 AM EDT Office Visit [facility] [address] [place] [address] Elli Ortiz, OD [address] [place] [address] documented as of this encounter Visit Diagnoses Not on filedocumented in this encounter Additional Health Concerns Assessment Noted Time PHQ-9 Depression Total Score: 0 05/27/20 22 10:40 AM EST documented as of this encounter Care Teams Lobby Concierge Relationship Specialty Start Date End Date NameTeofilo MD [address] [place] [address] PCP - General Family Medicine 08/19/15 documented as of this encounter
--- OUTSIDE RECORDS SUMMARY | 2024-07-17 12:34 | XMS_ITS | Encounter Summary ---
Author Organization [employer] Address [address] [place] [address] Care Team Providers Care Craft Demonstrator Name Role Phone Name, Teofilo WHALEN Primary Care Provider [phone] Reason for Visit * Reason Onset Date Comments Med Refill 04/03/2024 Encounter Details Date Type Department Care Team ([facility] st Contact Info) Description 04/03/2024 Refill [facility] [address] [place], [place] [phone] Name, MD Teofilo [address] [place] [address] Social History Tobacco Use Types Packs/Day Years [...] the past 12 months, has t he [employer], gas, oil or water company threatened to [...] Description 08/10/2024 9:15 AM EST Office Visit [facility] [address] [place] [address] Teofilo Dave MD [address] [place] [address] 09/12/2024 10:30 AM EDT Clinical Support [facility] [address] [place] [address] Aurora Sabillon, ALICIA 09/20/2024 10:00 AM EDT Office Visit [facility] [address] [place] [address] Elli Ortiz, OD [address] [place] [address] documented as of this encounter Visit Diagnoses Not on filedocumented in this encounter Additional Health Concerns Assessment Noted Time PHQ-9 Depression Total Score: 12 024 9:22 AM EDT documented as of this encounter Care Teams Craft Demonstrator Relationship Specialty Start Date End Date Teofilo Dave MD [address] [place] [address] PCP - General Family Medicine 08/19/15 documented as of this encounter
--- OUTSIDE RECORDS SUMMARY | 2024-07-17 12:34 | XMS_ITS | Clinical Summary ---
Author Organization [employer] Address [address] [place] [address] Care Team Providers Care Examination Supervisor Name Role Phone Name, Teofilo WHALEN Primary Care Provider [phone] Allergies Active Allergy Reactions Criticality Noted Date Comments Ciprofloxacin 11/26/2011 Other reaction(s): Rash Clonazepam 06/10/2010 Other reaction(s): stomach pain Lisinopril 08/19/2015 Trazodone Shortness of breath,Palpitations High 09/09/2023 Medications polyvinyl alcohol (Liquifilm Tears) 1.4 % ophthalmic solution one drop in both eyes 3 to 4 times per day. Refrigerate for comfort. 021 Active sacubitril-valsar sanchez (Entresto) 49-51 MG tablet Take 1 tablet by mouth in the morning and at bedtime. Active SUMAtriptan (Imitrex) 50 MG tablet Take 1 tablet by mouth if needed. Take 1 tablet by oral route after onset of migraine; may repeat after 2 hours if headache returns, not to exceed 200 mg in 24 hours 020 Active FreeStyle lancetsIndication s:Type 2 diabetes mellitus with hyperglycemia (CMS/HCC) CHECK BG 3-4 TIMES A DAY DIRECTED 100 each 5 023 Active Acetaminophen Extra Strength 500 MG tabletIndications :Benign hypertension TOME OVIDIO TABLETA CADA SEIS HORAS CUANDO SEA NECESARIO 60 tablet 1 023 Active naloxone (Narcan) 4 mg/0.1 mL nasal sprayIndications: Chronic pain syndrome Administer 1 spray (4 mg) into affected nostril(s) if needed for opioid reversal. [place] 0.1 mL by intranasal route in 1 nostril may repeat dose every 2-3 minutes as needed alternating nostrils with each dose. 2 each 2 023 Active docusate sodium (Colace) 100 MG capsule TOME OVIDIO C PSULA DOS VECES AL D A Active levothyroxine (Synthroid, Levoxyl) 50 MCG tabletIndications :Benign hypertension TAKE 1 TABLET BY MOUTH EVERY DAY 90 tablet 3 024 Active furosemide (Lasix) 20 MG tablet Take 20 mg by mouth in the morning. 024 Active metoprolol tartrate (Lopressor) 100 MG tabletIndications :Benign hypertension TAKE 1 TABLET BY MOUTH TWICE A DAY WITH MEALS 180 tablet 3 024 Active famotidine (Pepcid) 20 MG tablet Take 1 tablet (20 mg) by mouth 2 times daily. 60 tablet 11 024 2024 Active atorvastatin (Lipitor) 40 MG tabletIndications :Benign hypertension TOME OVIDIO TABLETA TODOS [place] GARAY 90 tablet 3 024 Active carBAMazepine XR (TEGretol XR) 100 MG 12 hr tabletIndications :Benign hypertension TOME OVIDIO TABLETA CADA 12 HORAS 180 tablet 3 024 Active lidocaine (Lidoderm) 5 % patch APPLY 1 PATCH ONCE DAILY. MAY WEAR UP TO 12 HOURS 30 patch 1 024 Active Farxiga 10 MG TOME OVIDIO TABLETA TODOS LOS GARAY EN LA MANANA 90 tablet 3 024 Active DULoxetine (Cymbalta) [address] capsuleIndication s:Fibromyositis TOME OVIDIO CAPSULA TODOS [place] 90 capsule 1 024 Active FREESTYLE LITE test stripIndications: Elevated blood sugar CHECK BLOOD SUGAR 3 TO 4 TIMES A DAY DIRECTED 100 strip 5 024 Active Diclofenac Sodium 1 % gelIndications:Os teoarthritis of right knee, unspecified osteoarthritis type APPLY 2 GRAMS TOPICALLY TO AFFECTED AREAS IN THE MORNING AND AT BEDTIME 100 g 3 024 Active simethicone (Gas Relief Extra Strength) 125 MG chewable tabletIndications :Left lower quadrant abdominal pain CHEW 1 TABLET BY MOUTH EVERY 8 HOURS NEEDED FOR GAS PAIN 90 tablet 1 025 Active zolpidem (Ambien) 10 MG tablet TAKE 1 TABLET BY MOUTH AT BEDTIME IF NEEDED FOR SLEEP 30 tablet 025 Active oxyCODONE-acetami nophen (Percocet) 5-325 MG tabletIndications :Chronic pain syndrome Take 1 tablet by mouth every 8 (eight) hours if needed for severe pain for up to 28 days. Do not start before July 09, 2024. 84 tablet 025 2024 Active simethicone (Gas Relief Extra Strength) 125 MG chewable tabletIndications :Left lower quadrant abdominal pain CHEW 1 TABLET BY MOUTH EVERY 8 HOURS NEEDED FOR GAS PAIN 90 tablet 1 024 2024 Discontinued zolpidem (Ambien) 10 MG tablet TAKE 1 TABLET BY MOUTH AT BEDTIME IF NEEDED FOR SLEEP 30 tablet 024 2024 Discontinued(R eorder (will not trigger notification to Pharmacy)) oxyCODONE-acetami nophen (Percocet) 5-325 MG tabletIndications :Chronic pain syndrome Take 1 tablet by mouth every 8 (eight) hours if needed for severe pain for up to 28 days. Do not start before June 11, 2024. 84 tablet 024 2024 Discontinued(R eorder (will not trigger notification to Pharmacy)) Active Problems Problem Noted Date Diagnosed Date Missing teeth, acquired 05/20/2023 Type 2 diabetes mellitus, [facility] long-term current use of insulin 04/14/2023 Dental calculus 11/25/2022 Minimal localized gingival recession 11/25/2022 Dermatitis 09/03/2022 Overview (09/03/2022): Trigger unknown. Short burst of prednisone giving followed by hydrocortisone cream for a week. RTC if symptoms worsen or do not improve. Assessment & Plan (09/03/2022 2:48 PM EDT): Trigger unknown. Short burst of prednisone giving followed by hydrocortisone cream for a week. RTC if symptoms worsen or do not improve. Osteopenia 08/19/2022 Overview (08/19/2022): [place] [facility] [place] Essential hypertension 05/27/2022 Adenomatous polyp of colon 05/18/2022 Cardiomyopathy 05/18/2022 Hemorrhoids 05/18/2022 Obstructive sleep apnea syndrome 05/18/2022 Stage 3 chronic kidney disease 05/18/2022 Vertigo 05/18/2022 Trigeminal neuralgia 09/17/2017 Injury of conjunctiva 12/08/2016 Irritable bowel syndrome 10/19/2016 Memory impairment 06/19/2016 Hypothyroidism 02/07/2016 Swelling of lower limb 12/09/2015 Chronic low back pain 08/19/2015 Chronic narcotic use 08/19/2015 Fibromyositis 08/19/2015 Hypercholesterolemia 08/19/2015 Migraine 08/19/2015 Vitamin D deficiency 08/19/2015 Abdominal pain 11/05/2011 Depressive disorder 11/05/2011 Disorder of skeletal muscle 11/04/2011 Localized osteoarthrosis 11/04/2011 Arthropathy 10/22/2011 Primary insomnia 10/05/2009 Benign hypertension 11/03/2008 Anxiety 10/06/2007 Resolved Problems Problem Noted Date Diagnosed Date Resolved Date Hypercalcemia 09/03/2022 04/14/2023 Systolic heart failure 05/18/202204/14 Diarrhea 05/06/2016 04/14/2023 Anal pain 12/09/2015 04/14/2023 Rectal hemorrhage 12/09/2015 04/14/2023 Encounters Date Type Department Care Team Description 07/17/2024 11:00 AM EST Office Visit [facility] [address] [place] [phone] Teofilo Dave MD Hypothyroidism, unspecified type (Primary Dx); Essential hypertension; Type 2 diabetes mellitus with other specified complication, without long-term current use of insulin ([facility]); Vaccination refused by patient 07/17/2024 Travel 07/06/2024 Patient Outreach [facility] [address] [place] [phone] Teofilo Dave MD Care Coordination ([facility] outreach [facility] pest control & food - referral completed ) 07/06/2024 Refill [facility] [address] [place] [address] Teofilo Dave MD Chronic pain syndrome 07/06/2024 Patient Outreach [facility] [address] [facility] [place] [address] NameTeofilo MD Pre-visit Planning (SDOH screening positive and Tobacco screening negative) 07/04/2024 Telephone [facility] [address] [facility] [place] [address] Teofilo Dave MD Med Refill 06/30/2024 Refill [facility] [address] [facility] [place] [address] Teofilo Dave MD 06/24/2024 Refill [facility] [address] [facility] [place] [address] Teofilo Dave MD Left lower quadrant abdominal pain 06/06/2024 Refill [facility] [address] [facility] [place] [address] Teofilo Dave MD Chronic pain syndrome 06/01/2024 Refill [facility] [address] [place], [place] [phone] [address] Teofilo Dave MD 05/18/2024 Telephone [facility] [address] [place] [phone] Shimon Rogers [place] july05/16/2024 10:00 AM EST Clinical Support [facility] [address] [place], [place] [phone] [address] Aurora Sabillon RN Chronic low back pain, unspecified back pain laterality, unspecified whether sciatica present (Primary Dx) 05/16/2024 Telephone [facility] [address] [place] [address] [place], [place] [phone] Aurora Sabillon RN [employer] Tier 3 05/16/2024 Travel 05/10/2024 Refill [facility] [address] [facility] [place] [address] Teofilo Dave MD Chronic pain syndrome 05/10/2024 Telephone [facility] [address] [place] [phone] Teofilo Dave MD Med Refill 05/03/2024 Refill [facility] [address] [place], [place] [phone] Teofilo Dave MD 05/02/2024 Refill [facility] [address] [place] [address] Name, MD Teofilo Left lower quadrant abdominal pain from Last 3 Months Immunizations Name Administration Dates Next Due Influenza High-dose Quadriva lent Preservative Free 04/14/2023 Influenza Injectable Quadriv alant Preservative Free IIV4 MDCK 02/28/2019,03/19/2017 Influenza injectable quadriv alent IIV4 with preservative 04/21/2018,05/25/2017,05/06/2016 Influenza injectable quadriv alent preservative free 04/21/2021,03/06/2020,03/26/2015 Influenza, IIV3, injectable 03/26/2014, 3,03/03/2012 Influenza, seasonal, injecta ble, preservative free 05/27/2022 Pfizer Covid-19 Vaccine 12+ 04/21/2021 Pneumococcal Conjugate PCV 13 10/17/2021 Tdap 09/14/2022,04/15/2012 Zoster, Recombinant 09/14/2022,02/26/2022 Social History Tobacco Use Types Packs/Day Years Used Date Smoking Tobacco: Never Passive Smoke Exposure: Never Smokeless Tobacco: Never Tobacco Cessation:Counseling Given: Not Answered Alcohol Use Standard Drinks/Week Comments Never 0 [...] your housing situation today? I have joaquim blade 07/06/[address] you li ve. Do you have problems with any of the following? Lead [place] or [place] 07/06/2024 Food Insecurity Answer Date [...] Orientation Straight 04/13/2022 10 :14 AM EDT Last Filed Vital Signs Vital Sign Reading [...] Mass Index 24.98 07/17/2024 10:59 AM EST Plan of Treatment Upcoming Encounters Date Type Department Care Team (Late st Contact Info) Description 08/10/2024 9:15 AM EST Office Visit [facility] [address] [place] [phone] Name, MD Teofilo [address] [place] [phone] 09/12/2024 10:30 AM EDT Clinical Support [facility] [address] [place] [phone] Aurora Sabillon RN 09/20/2024 10:00 AM EDT Office Visit [facility] [address] [place] [address] Elli Ortiz, OD [address] [place] [address] Health Maintenance Due Date Last Done Comments CT Colonography 1955 Dental X-Ray: Full Mouth 1955 FIT DNA/Cologuard 1955 FIT 1955 FOBT 1955 Sigmoidoscopy 1955 Pneumococcal Vaccine: 50+ Years (2 of 2 - PPSV23) 12/12/2021 10/17/2021 Dental Oral Exam 05/28/2023 11/25/2022 Dental Prophylaxis 05/28/2023 11/25/2022 Colonoscopy 06/03/2023 06/03/2018 Colorectal Cancer Screening 06/03/2023 Lipid Panel 08/20/2023 08/19/2022, 07/0 11/2021, 07/21/2021, Additional history exists Dental X-Ray: Bitewings 11/27/2023 11/25/2022, 09/16 Diabetes: Urine Protein Screening 01/05/2024 01/04/2023, 12/17/2021, 07/21/2021, Additional history exists COVID-19 Vaccine ( season) 2024 04/21/2021, 10/29/2020, 10/08/2020 Influenza Vaccine (#1) 2024 , 05/27/2022, 04/21/2021, Additional history exists Depression Monitoring (PHQ-9) 02/27/2024 08/27/2023, 08/27/2023 Diabetes: Foot Exam 04/14/2024 07/17/2024, 07/17/2024, 07/17/2024, Additional history exists Depression Screening 08/26/2024 08/27/2023, 08/27/19 Alcohol/Substance Use Screening 11/11/2024 11/12/2023 Diabetes: Hemoglobin A1C 01/14/202507/17/2 025, 03/06/2024, 11/12/2023, Additional history exists Eye Exam 04/12/2025 04/12/2023, 03/16, 04/12/2023, Additional history exists SDOH Screening 07/06/2025 07/06/2024 Tobacco Screening 07/17/2025 07/17/2024 Mammogram 01/25/2026 01/26/2024, 06/15, 07/07/2023, Additional history exists RSV Patients and Patients Aged 60 years or older (1 - 1-dose 75+ series) 2031 DTaP/Tdap/Td Vaccines (3 - Td or Tdap) 09/14/2032 09/14/2022, 04/15/2012 Zoster Vaccines Completed 09/14/2022, 02/26/2022 Hepatitis C Screening Completed 11/12/2023 HIB Vaccines Aged Out No longer eligi ble based on patient's age to complete this topic HPV Vaccines Aged Out No longer eligi ble based on patient's age to complete this topic Hepatitis A Vaccines Aged Out No long er eligible based on patient's age to complete this topic Hepatitis B Vaccines Aged Out No long er eligible based on patient's age to complete this topic IPV Vaccines Aged Out No longer eligi ble based on patient's age to complete this topic Meningococcal Vaccine Aged Out No navneet aster eligible based on patient's age to complete this topic RSV under 20 months Aged Out No longe r eligible based on patient's age to complete this topic Rotavirus Vaccines Aged Out No longer eligible based on patient's age to complete this topic Procedures Procedure Name Priority Date/Time Associated Diagnosis Comments POCT GLUCOSE Routine 07/17/2024 11:04 AM EST Type 2 diabetes mellitus with other specified complication, without long-term current use of insulin (CMS/HCC) POCT GLYCATED HEMOGLOBIN, TOTAL Routine 07/17/2024 11:03 AM EST Type 2 diabetes mellitus with other specified complication, without long-term current use of insulin (CMS/HCC) ECG 12-LEAD Routine 05/23/2024 7:12 AM EST Chest pain, unspecified type POCT SCOUT-14 URINE DRUG SCREEN Routine 05/16/2024 10:15 AM EST Chronic low back pain, unspecified back pain laterality, unspecified whether sciatica present BI MAMMOGRAM SCREENING TOMOSYNTHESIS BILATERAL Routine 01/26/2024 11:23 AM EDT HEPATITIS C AB W/REFL TO HCV RNA, QN, PCR Routine 11/12/2023 10:40 AM EDT Situational anxiety Possible exposure to STD ALBUMIN, RANDOM URINE W/CREATININE Routine 01/04/2023 12:58 PM EDT Type 2 diabetes mellitus with hyperglycemia, without long-term current use of insulin (CMS/HCC) PROPHYLAXIS - ADULT Routine 11/25/2022 1 0:00 AM EDT Dental calculus BITEWINGS - 3 RADIOGRAPHIC IMAGES Routine 11/25/2022 10:00 AM EDT Minimal localized gingival recession Dental calculus PERIODIC ORAL EVALUATION - ESTABLISHED PATIENT Routine 11/25/2022 10:00 AM EDT LIPID PANEL, STANDARD Routine 08/19/2022 9:17 AM EST Type 2 diabetes mellitus with hyperglycemia, without long-term current use of insulin (CMS/HCC) Cardiomyopathy, unspecified type (CMS/HCC) HM COLONOSCOPY Routine 06/03/2018 from Last 3 Months or Most Recently Relevant to Health Maintenance Results * POCT Glucose (07/17/2024 11:04 AM EST) Glucose Blood, POC 170 60 - 200 mg/dL QC Media Lot # [id number] Lot# Expiration Date 53 Blood Capillary blood specimen / Unknown 07/17/2024 11:04 AM EST us Teofilo Dave MD POINT OF CARE TEST ENTER/EDIT OR DERABLES Final Result * (ABNORMAL) POCT HGB A1C (07/17/2024 11:03 AM EST) Hemoglobin A1C 6.3(A) 4.0 - 6.0 % QC Media Lot # [id number] Lot# Expiration Date Blood 07/17/2024 11:0 3 AM EST us Teofilo Dave MD POINT OF CARE TEST ENTER/EDIT OR DERABLES Final Result * ECG 12 lead (05/23/2024 7:12 AM EST) Teofilo Fletcher MD - 05/23/2024 7:12 AM EST Sinus bradycardia, HR of 51, Generalized repolarization abnormality, possible ischemia vs LV overload. Patient was transferred to ER by ambulance due to chest pain symptoms and EKG changes. us Teofilo Dave MD ECG ORDERABLES Final Result * POCT SCOUT-14 Urine Drug Screen (05/16/2024 10:15 AM EST) Oxycodone Screen, Urine Positive Urine Urine specimen obtained by clean catch procedure / Unknown 05/16/2024 10:15 AM EST Narrative Aurora Sabillon RN - 05/16/2024 10:15 AM EST UTOX cup Lot#[id number] Exp. 01/31/26 Internal Pass Control us Teofilo Dave MD POINT OF CARE TEST ENTER/EDIT OR DERABLES Final Result * BI Mammogram Screening Tomosynthesis Bilateral (01/26/2024 11:23 AM EDT) Anatomical Region Laterality Modality Breast Bilateral Mammography 01/26/2024 11:2 3 AM EDT Narrative 01/28/2024 4:23 PM EDT ? [facility] ? [address] ?[place] [address] ? Mammography Report ? Signed ? Patient: Beatriz Talbot ?MR#: [id number] ?? [id number] ? : 1955 ?Acct:[id number] ? Age/Sex: 68 / F ?ADM Date: 08/14/24 ? Loc: HO.MAMMO ? Attending Dr: Teofilo Dave MD ? Ordering Physician: Teofilo Dave MD ?Results: 2Benign Fi ?? ndings ? Date of Service: 01/26/24 ?Follow Up: 1 Year From Orig ?? inal Mammogram ? Procedure(s): MM tomosynthesis screening BI ?? Accession Number(s): [id number] ? cc: Tenzin,Teofilo WHALEN ? EXAMINATION: ?? MM SCREENING DIGITAL BREAST TOMOSYNTHESIS, BILATERAL ? CLINICAL INFORMATION: ? Screening. Asymptomatic. ? The patient is status post breast conservation therapy for a left ?? breast cancer diagnosed in 2002. ? COMPARISON: ?? Mammography: This study is compared with prior exams dating back to ?? 2020. ? TECHNIQUE: ?? Digital breast tomosynthesis is performed in both the craniocaudal and ?? mediolateral oblique views along with computer-aided detection (CAD). ?? Synthesized 2D images are generated from the tomosynthesis. ? FINDINGS: ?? There are scattered areas of fibroglandular density (ACR BI-RADS breast ?? composition Category b). ? There are no significant masses, abnormal calcifications, or other ?? abnormalities. ? There are postsurgical changes in the left breast. ? MM/MM tomosynthesis screening BI ?? IMPRESSION: ?? No mammographic evidence of malignancy. ? ASSESSMENT: ? BI-RADS BI-RADS 2 - Benign Findings ? RECOMMENDATION: ?? Routine annual mammography screening. ? 1 year F/U ? This examination should not preclude the clinical evaluation of a ?? suspicious palpable abnormality. ? This patient's information was entered into a reminder system with a ?? target due date for their next mammogram. ? Dictated By: ?Farzana Kauffman MD ? Signed By: ?<Electronically signed by Farzana Kauffman MD in OV> ? 01/28/24 1619 ? DD/ 1123 ? TD/TT: ? Life Insurance Sales: ? Procedure Note Donkinjal, Image - 01/28/2024 [facility] [address] [place] [address] Mammography Report Signed Patient: Harsha TalbotnMR#: [id number] : 7Acct:[id number] Age/Sex: 68 / FADM Date: 01/26/24 Loc: HO.MAMMO Attending Dr: Teofilo Dave MD Ordering Physician: Teofilo Dave MDResults: 2Benign ndings Date of Service: 01/26/24Follow Up: 1 Year From Orig ina Mammogram Procedure(s): MM tomosynthesis screening BI Accession Number(s): [id number] cc: Teofilo Dave MD EXAMINATION: MM SCREENING DIGITAL BREAST TOMOSYNTHESIS, BILATERAL CLINICAL INFORMATION: Screening. Asymptomatic. The patient is status post breast conservation therapy for a left breast cancer diagnosed in 2002. COMPARISON: Mammography: This study is compared with prior exams dating back to 2020. TECHNIQUE: Digital breast tomosynthesis is performed in both the craniocaudal and mediolateral oblique views along with computer-aided detection (CAD). Synthesized 2D images are generated from the tomosynthesis. FINDINGS: There are scattered areas of fibroglandular density (ACR BI-RADS breast composition Category b). There are no significant masses, abnormal calcifications, or other abnormalities. There are postsurgical changes in the left breast. MM/MM tomosynthesis screening BI IMPRESSION: No mammographic evidence of malignancy. ASSESSMENT: BI-RADS BI-RADS 2 - Benign Findings RECOMMENDATION: Routine annual mammography screening. 1 year F/U This examination should not preclude the clinical evaluation of a suspicious palpable abnormality. This patient's information was entered into a reminder system with a target due date for their next mammogram. Dictated By: Farzana Kauffman MD Signed By: <Electronically signed by Farzana Kauffman MD in OV> 01/28/24 1619 DD/ 1123 TD/TT: Life Insurance Sales: us Teofilo Dave MD IMG BI PROCEDURES Final Result * Hepatitis C Antibody with Reflex to HCV, RNA, Quantitative, Real-Time PCR (11/12/2023 10:40 AM EDT) Hepatitis C Antibody Nonreactive Nonreactive [facility] Comment:Antibodies to HCV no t detected; does not exclude early acuteHCV infection. Blood Venous blood specimen / Unknown 11/12/2023 10:40 AM EDT 11/12/2023 11:12 AM EDT us Teofilo Dave MD LAB BLOOD ORDERABLES Final Resul t Performing Organization Address [facility] Co de Phone Number [facility] [address] [place] [address] [phone] * Albumin, Random Urine W/Creatinine (01/04/2023 12:58 PM EDT) Creatinine, Urine 131.06 mg/dL [facility] Microalbumin Urine 8.0 mg/L [facility] Microalbum Creatinine Ratio Ur 6.1 ug/mg cr [facility] Comment:Albumin/Creatinine R atio Reference Ranges: Normal: < 30 ug/mg creatinine Microalbuminuria: 30 - 300 ug/mg creatinineClinical Albuminuria: > 300 ug/mg creatinine 01/04/2023 12:5 8 PM EDT 01/04/2023 4:00 PM EDT us Teofilo Dave MD LAB URINE ORDERABLES Final Resul t Performing Organization Address [facility] Co de Phone Number [facility] [address] [place] [address] [phone] * Lipid Panel, Standard (08/19/2022 9:17 AM EST) Cholesterol, Total 180 <200 mg/dL [email or web address] HDL Cholesterol 61 > OR = 50 mg/dL [email or web address] Triglycerides 119 <150 mg/dL [email or web address] LDL Cholesterol 97 mg/dL (calc) [email or web address] Comment: Reference range: <100 Desirable range <100 mg/dL for primary prevention; ?? <70 mg/dL for patients with CHD or diabetic patients with > or = 2 CHD risk factors. LDL-C is now calculated using the Kwame calculation, which is a validated novel method providing better accuracy than the Friedewald equation in the estimation of LDL-C. Alexandre SS et al. AZUL. 2013;310(19): 4730-0229 (http://education.Target Software/faq/DXY965) Chol/HDLC Ratio 3.0 <5.0 (calc) [email or web address] Non-HDL Cholesterol 119 <130 mg/dL (calc) [email or web address] Comment: For patients with diabetes plus 1 major ASCVD risk factor, treating to a non-HDL-C goal of <100 mg/dL (LDL-C of <70 mg/dL) is considered a therapeutic option. Blood Venous blood specimen / Unknown 08/19/2022 9:17 AM EST 08/19/2022 9:18 AM EST Narrative [facility] - 08/19/2022 9:39 PM EST FASTING:YES FASTING: YES Teofilo Dave MD LAB BLOOD ORDERABLES Final Resul t [facility] [address] [facility], [facility], [place] [address] [email or web address] [address] [facility], ([address]) [place] [address] * Colonoscopy (06/03/2018) Colonoscopy performed Historical Provider HEALTH MAINTENANCE Final Result from Last 3 Months or Most Recently Relevant to Health Maintenance Insurance [facility] - [facility] [address] [place] [phone] Care Teams Examination Supervisor Relationship Specialty Start Date End Date Name, MD Teofilo [address] [place] [address] PCP - General Family Medicine 08/19/15
--- OUTSIDE RECORDS SUMMARY | 2024-07-17 12:34 | XMS_ITS | Encounter Summary ---
Author Organization [employer] Address [address] [facility] [address] [facility] [address] [facility] [address] [place] [address] Care Team Providers Care Snaker Driving Horses Name Role Phone Name, Teofilo WHALEN Primary Care Provider [phone] Reason for Visit * Reason Onset Date Comments new Apnea machine 07/31/2022 Encounter Details Date Type Department Care Team ([facility] st Contact Info) Description 07/31/2022 Telephone [facility] MEDICINE [address] [place], [place] [phone] Name, MD Teofilo [address] [place], [place] [phone] new Apnea machine Social History Tobacco Use Types Packs/Day Years Used Date Smoking Tobacco: Never Smokeless Tobacco: Never Depression Answer Date Recorded Patient Health Questionnaire-9 Score 0 05/27/2022 Comments Unknown Sex and Gender Information Value [...] suspected to have Coronavirus/COVID-19? No / Unsure 07/15/2022 8:31 AM EST documented as of this encounter Miscellaneous Notes * Telephone Encounter - Josy Desai - 07/31/2022 1:10 PM EST Script for Auto CPAP as recommended on sleep study generated for providers signature * Telephone Encounter - Inge Hernandez - 07/31/2022 12:21 PM EST Tc from Griselda from [facility] requesting a new apnea machine. States pt old one broke . Best contact # [phone] documented in this encounter Plan of Treatment Upcoming Encounters Date Type Department Care Team (Late st Contact Info) Description 08/10/2024 9:15 AM EST Office Visit [facility] MEDICINE [address] [place] [address] Name, MD Teofilo [address] [place] [address] 09/12/2024 10:30 AM EDT Clinical Support [facility] MEDICINE [address] [place] [address] Aurora Sabillon, RN 09/20/2024 10:00 AM EDT Office Visit [facility] OPTOMETRY [address] [place] [address] Elli Ortiz, OD [address] [place] [address] documented as of this encounter Visit Diagnoses Not on filedocumented in this encounter Additional Health Concerns Assessment Noted Time PHQ-9 Depression Total Score: 0 05/27/20 22 10:40 AM EST documented as of this encounter Care Teams Snaker Driving Horses Relationship Specialty Start Date End Date Teofilo Dave MD [address] [place] [address] PCP - General Family Medicine 08/19/15 documented as of this encounter
--- OUTSIDE RECORDS SUMMARY | 2024-07-17 12:34 | XMS_ITS | Encounter Summary ---
Author Organization [employer] Address [address] [place] [address] Care Team Providers Care Central Supply Aide Name Role Phone Name, Teofilo WHALEN Primary Care Provider [phone] Reason for Visit * Reason Comments Med Refill Encounter Details Date Type Department Care Team ([facility] st Contact Info) Description 06/12/2022 Refill [facility] [address] [place], [place] [phone] Name, MD Teofilo [address] [place] [address] Chronic pain syndrome Social History Tobacco Use [...] suspected to have Coronavirus/COVID-19? No / Unsure 05/27/2022 10:06 AM EST documented as of this encounter Miscellaneous Notes * Telephone Encounter - Aurora Sabillon RN - 06/16/2022 2:53 PM EST Duplicate request, Ambien was filled on 06/14/22 documented in this encounter Plan of Treatment Upcoming Encounters Date Type Department Care Team (Late st Contact Info) Description 08/10/2024 9:15 AM EST Office Visit [facility] MEDICINE [address] [place] [address] NameTeofilo MD [address] [place] [address] 09/12/2024 10:30 AM EDT Clinical Support [facility] MEDICINE [address] [place] [address] Aurora Sabillon, ALICIA 09/20/2024 10:00 AM EDT Office Visit [facility] OPTOMETRY [address] [place] [address] Angel, Elli, OD [address] [place] [address] documented as of this encounter Visit Diagnoses Diagnosis Chronic pain syndrome documented in this encounter Additional Health Concerns Assessment Noted Time PHQ-9 Depression Total Score: 0 05/27/20 22 10:40 AM EST documented as of this encounter Care Teams Central Supply Aide Relationship Specialty Start Date End Date Teofilo Dave MD [address] [place] [address] PCP - General Family Medicine 08/19/15 documented as of this encounter
--- OUTSIDE RECORDS SUMMARY | 2024-07-17 12:34 | XMS_ITS | Encounter Summary ---
Author Organization [employer] Address [address] [facility] [address] [place] [address] Care Team Providers Care Inspector Plug Seam Name Role Phone Name, Teofilo WHALEN Primary Care Provider [phone] Reason for Visit * Reason Onset Date Comments new script 08/21/2022 Encounter Details Date Type Department Care Team ([facility] st Contact Info) Description 08/21/2022 Telephone [facility] MEDICINE [address] [place], [place] [phone] Name, MD Teofilo [address] [place] [address] new script Social History Tobacco Use Types Packs/Day Years [...] encounter Miscellaneous Notes * Telephone Encounter - Janneth Huerta - 08/21/2022 11:12 AM EST TC from pt stated Lidocaine 4% cream its not covered due to is a OTC med. Pt requesting a alternatemed and please to be sent to [facility]. PCP Dr. Dave documented in this encounter Plan of Treatment Upcoming Encounters Date Type Department Care Team (Late st Contact Info) Description 08/10/2024 9:15 AM EST Office Visit [facility] MEDICINE [address] [place] [address] Name, MD Teofilo [address] [place] [address] 09/12/2024 10:30 AM EDT Clinical Support [facility] MEDICINE [address] [place], [place] [phone] Aurora Sabillon, RN 09/20/2024 10:00 AM EDT Office Visit [facility] OPTOMETRY [address] [place] [address] Angel, Elli, OD [address] [place] [address] documented as of this encounter Visit Diagnoses Not on filedocumented in this encounter Additional Health Concerns Assessment Noted Time PHQ-9 Depression Total Score: 0 05/27/20 22 10:40 AM EST documented as of this encounter Care Teams Inspector Plug Seam Relationship Specialty Start Date End Date Teofilo Dave MD [address] [place] [address] PCP - General Family Medicine 08/19/15 documented as of this encounter
--- OUTSIDE RECORDS SUMMARY | 2024-07-17 12:34 | XMS_ITS | Encounter Summary ---
Author Organization [employer] Address [address] [place] [address] Care Team Providers Care Spinning Frame Cleaner Name Role Phone Name, Teofilo WHALEN Primary Care Provider [phone] Reason for Visit * Reason Comments Med Refill Encounter Details Date Type Department Care Team ([facility] st Contact Info) Description 03/19/2023 Refill [facility] MEDICINE [address] [place] [address] Susan Brown, ROSELYN [address] [place] [address] Chronic pain syndrome Social History Tobacco Use [...] Description 08/10/2024 9:15 AM EST Office Visit [facility] MEDICINE [address] [place] [address] Name, MD Teofilo [address] [place] [address] 09/12/2024 10:30 AM EDT Clinical Support [facility] MEDICINE [address] [place] [address] Aurora Sabillon, ALICIA 09/20/2024 10:00 AM EDT Office Visit [facility] OPTOMETRY [address] [place] [address] Angel, Elli, OD [address] [place] [address] documented as of this encounter Visit Diagnoses Diagnosis Chronic pain syndrome documented in this encounter Additional Health Concerns Assessment Noted Time PHQ-9 Depression Total Score: 0 05/27/20 22 10:40 AM EST documented as of this encounter Care Teams Spinning Frame Cleaner Relationship Specialty Start Date End Date Teofilo Dave MD [address] [place] [address] PCP - General Family Medicine 08/19/15 documented as of this encounter
--- OUTSIDE RECORDS SUMMARY | 2024-07-17 12:34 | XMS_ITS | Encounter Summary ---
Author Organization [employer] Address [address] [place] [address] Care Team Providers Care Commercial Portfolio Manager Name Role Phone Name, Teofilo WHALEN Primary Care Provider [phone] Encounter Details Date Type Department Care Team (Latest Contact Info) Description 07/17/2024 Travel Social History Tobacco Use Types Packs/Day Years [...] problems with any of the following? Lead [place] or P[employer] 07/06/2024 Food Insecurity Answer Date [...] Description 08/10/2024 9:15 AM EST Office Visit [facility] MEDICINE [address] [place] [address] NameTeofilo MD [address] [place] [address] 09/12/2024 10:30 AM EDT Clinical Support [facility] MEDICINE [address] [place] [address] Aurora Sabillon, RN 09/20/2024 10:00 AM EDT Office Visit [facility] OPTOMETRY [address] [place] [address] Elli Ortiz, OD [address] [place] [address] documented as of this encounter Visit Diagnoses Not on filedocumented in this encounter Additional Health Concerns Assessment Noted Time PHQ-9 Depression Total Score: 12 024 9:22 AM EDT documented as of this encounter Care Teams Commercial Portfolio Manager Relationship Specialty Start Date End Date Teofilo Dave MD [address] [place] [address] PCP - General Family Medicine 08/19/15 documented as of this encounter
--- OUTSIDE RECORDS SUMMARY | 2024-07-17 12:35 | XMS_ITS | Encounter Summary ---
Author Organization [employer] Address [address] [place] [address] Care Team Providers Care Fabrication And Layout Craftsman Name Role Phone Name, Teofilo WHALEN Primary Care Provider [phone] Reason for Visit * Reason Onset Date Comments Back Pain 05/18/2022 Encounter Details Date Type Department Care Team ([facility] st Contact Info) Description 05/18/2022 Telephone [facility] MEDICINE [address] [place], [place] [phone] Name, MD Teofilo [address] [place], [place] [phone] Back Pain Social History Tobacco Use Types Packs/Day Years Used Date Smoking Tobacco: Never Assessed Comments Unknown Sex and Gender Information Value Date Recorded Sex Assigned at Female 04/13/2022 10:14 AM EDT Legal Sex Female 10:14 AM EDT Gender Identity Female 04/13/2022 10:14 AM EDT Sexual Orientation Straight 04/13/2022 10 :14 AM EDT documented as of this encounter Miscellaneous Notes * Telephone Encounter - Zully Cameron RN - 05/18/2022 3:08 PM EST Call returned, pt reports had a fall 1 week ago at home. Per pt was going down the stairs, missed stepped and landed on right side. Per pt since then has had low back pain and right leg pain. Per pt did not seek ER or UC. Pt is walking with a limp. No bruising currently. Pt advised of disposition, agrees to visit tomorrow with PCP for evaluation. Dr. Dave 05/19 at 1:15pm . Pt advised to seek ER ifsevere pain, difficulty walking. Pt agrees. Protocol Used: Back Injury (Adult) Protocol-Based Disposition: See in Office or Video Visit within 3 Days Video visit offer not recorded Positive Triage Question: * Injury and pain has not improved after 3 days * All higher-acuity triage questions were negative Care Advice Discussed: * Reassurance and Education - Direct Blow (Contusion, Bruise) * Use a Cold Pack for Pain, Swelling, or Bruising * Use Heat on Area After 48 Hours * Avoid Heavy Lifting and Sports * Reasons To Call Back - Severe pain lasts over 2 hours after pain medicine and ice - You become worse * Telephone Encounter - Judith Dior - 05/18/2022 1:49 PM EST Symptom: Back Pain - Not From Injury Outcome: Schedule an appointment to be seen within 3 days Reason: No high acuity concerns reported by caller The caller accepted this outcome Please contact in Japanese at [phone] * Telephone Encounter - Inge Hernandez - 05/18/2022 9:32 AM EST Tc from pt request med refill on medication Ambien and Percocet . documented in this encounter Plan of Treatment Upcoming Encounters Date Type Department Care Team (Late st Contact Info) Description 08/10/2024 9:15 AM EST Office Visit [facility] MEDICINE [address] [place] [address] Name, MD Teofilo [address] [place] [address] 09/12/2024 10:30 AM EDT Clinical Support [facility] MEDICINE [address] [place] [address] Aurora Sabillon, ALICIA 09/20/2024 10:00 AM EDT Office Visit [facility] OPTOMETRY [address] [place] [address] Elli Ortiz, OD [address] [place] [address] documented as of this encounter Visit Diagnoses Not on filedocumented in this encounter Care Teams Fabrication And Layout Craftsman Relationship Specialty Start Date End Date Name, MD Teofilo [address] [place] [address] PCP - General Family Medicine 08/19/15 documented as of this encounter
--- OUTSIDE RECORDS SUMMARY | 2024-07-17 12:35 | XMS_ITS | Encounter Summary ---
Author Organization [employer] Address [address] [facility] [address] [place] [address] Care Team Providers Care Behavioral Health Associate Name Role Phone Name, Teofilo WHALEN Primary Care Provider [phone] Encounter Details Date Type Department Care Team ([facility] st Contact Info) Description 07/16/2023 Abstract [facility] MEDICINE [address] [place], [place] [phone] Name, MD Teofilo [address] [place] [address] Social History Tobacco Use Types Packs/Day Years [...] Description 08/10/2024 9:15 AM EST Office Visit [facility] MEDICINE [address] [place] [address] Name, MD Teofilo [address] [place] [address] 09/12/2024 10:30 AM EDT Clinical Support [facility] MEDICINE [address] [place] [address] Aurora Sabillon, ALICIA 09/20/2024 10:00 AM EDT Office Visit [facility] OPTOMETRY [address] [place] [address] Angel, Elli, OD [address] [place] [address] documented as of this encounter Visit Diagnoses Not on filedocumented in this encounter Additional Health Concerns Assessment Noted Time PHQ-9 Depression Total Score: 0 05/27/20 22 10:40 AM EST documented as of this encounter Care Teams Behavioral Health Associate Relationship Specialty Start Date End Date Name, MD Teofilo [address] [place] [address] PCP - General Family Medicine 08/19/15 documented as of this encounter
[2024-07-17 14:51] LABS: Anion Gap 12 (12-20); Blood Urea Nitrogen 13 mg/dL (9-16); Carbon Dioxide 27 mmol/L (22-29); Chloride 107 mmol/L (96-108); Cholesterol 178 mg/dL (<200); Estimated Glomerular Filt Rate 52; Glucose Random 148 mg/dL (60-115); HDL Cholesterol 57 mg/dL (>40); LDL Cholesterol Calculated 102 mg/dL (<100); Potassium 4.1 mmol/L (3.3-5.1); Sodium 142 mmol/L (135-145); TSH reflex Free T4 5.22 uIU/mL (0.32-4.0); Triglycerides 99 mg/dL (<150)
[2024-07-17 15:16] LABS: Creatinine Urine 218.42 mg/dL; Microalbum/Creatinine Ratio Ur 9.1 ug/mg cr (<30)
[2024-07-17 16:00] LABS: Free T4 (Free Thyroxine) 0.77 ng/dL (0.71-1.85)
== END 2024-07-17 11:19 | disposition home or self-care (01) ==
LOC: HO.HHCL 11:18
PROVIDERS: Visit Provider Internal Medicine Geriatric Medicine
DX: I10 Essential (primary) hypertension (principal); E11.69 Type 2 diabetes mellitus with other specified complication; E78.00 Pure hypercholesterolemia, unspecified; E03.9 Hypothyroidism, unspecified; M17.11 Unilateral primary osteoarthritis, right knee
CPT/HCPCS: 36415; 80048; 80061; 82043; 82570; 84439; 84443

== ENCOUNTER 2025-01-31 10:45 | Outpatient (REF) | payer OTHER, SELFPAY ==
--- NOTE | ~2025-01-31 | MM_ITS ---
EXAMINATION: MM SCREENING DIGITAL BREAST TOMOSYNTHESIS, BILATERAL CLINICAL INFORMATION: Screening. Asymptomatic. History of left breast cancer post lumpectomy 2002. COMPARISON: Mammography: Comparison is made with available priors TECHNIQUE: Digital breast mammography with tomosynthesis is performed in both the craniocaudal and mediolateral oblique views along with computer-aided detection (CAD). FINDINGS: There are scattered areas of fibroglandular density (ACR BI-RADS breast composition Category b). Left lumpectomy changes are stable. There are no significant masses, abnormal calcifications, or other abnormalities. MM/MM tomosynthesis screening BI IMPRESSION: No mammographic evidence of malignancy. ASSESSMENT: BI-RADS BI-RADS 2 - Benign Findings RECOMMENDATION: Routine annual mammography screening. 1 year F/U This examination should not preclude the clinical evaluation of a suspicious palpable abnormality. This patient's information was entered into a reminder system with a target due date for their next mammogram. Electronically signed by: Ernestina Lewis DO 02/01/2025 04:55 PM EDT
== END 2025-01-31 10:46 | disposition home or self-care (01) ==
LOC: HO.MAMMO 10:45
PROVIDERS: PCP Internal Medicine Geriatric Medicine; Visit Provider Internal Medicine Geriatric Medicine
DX: Z12.31 Encounter for screening mammogram for malignant neoplasm of breast (principal)
CPT/HCPCS: 77063; 77067

== ENCOUNTER → 2025-01-31 11:15 | Outpatient (BNV) | payer OTHER, SELFPAY | PROVIDERS: PCP Internal Medicine Geriatric Medicine; Visit Provider Internal Medicine | DX: Z12.31 Encounter for screening mammogram for malignant neoplasm of breast (principal) | CPT/HCPCS: 77063; 77067 ==

== ENCOUNTER 2025-02-22 02:10 | Emergency (ER) | payer OTHER, SELFPAY ==
--- NOTE | ~2025-02-22 | CT_ITS ---
CLINICAL HISTORY: episode of AMS, ? seizure. Also CEJA CT head without contrast Comparison: None provided. Findings: No intracranial mass, midline shift, hydrocephalus, or acute hemorrhage. Mild nonspecific periventricular and subcortical white matter changes are identified, which may be seen in the setting of chronic small vessel ischemic disease. Visualized paranasal sinuses and mastoid air cells appear clear. No acute skull fracture. Impression: 1. No acute intracranial abnormality. No acute intracranial hemorrhage. This document has been electronically signed by: Jc Barker MD on 02/22/2025 04:44:48
[2025-02-22 02:18] VITALS: BP 108/54; BP 96/58; PULSE 67; PULSE 75; RESP 14; TEMP 36.4; O2SAT 95; O2SAT 96; BMI 24.3
--- NOTE | 2025-02-22 02:27 | ECG_ITS ---
Test Reason : WEAKNESS Blood Pressure : */* mmHG Vent. Rate : 63 BPM Atrial Rate : 63 BPM P-R Int : 176 ms QRS Dur : 90 ms QT Int : 472 ms P-R-T Axes : 62 19 58 degrees QTcB Int : 483 ms Normal sinus rhythm Normal ECG When compared with ECG of 06-Mar-2024 10:18, QT has lengthened Referred By: Generic ED Physician Electronically Signed By: FREDO KENNEDY MD
--- NOTE | 2025-02-22 02:32 | ED.GENADULT ---
HPI - General Adult General Chief complaint: Weakness Stated complaint: Dizziness Time Seen by Provider: 02/22/25 02:32 History of Present Illness ED Provider: Pati CODY narrative: The patient is a 69-year-old female. She has a history of hypertension high cholesterol. She lives alone in her own house. The patient says that her grandson was going to stay at her house tonight because he got off late from work. She says that she sleeps on the 2nd floor. She says that she was in bed when she hurt her grandson come home tonight. She woke up and thought she would get up and go to the bathroom to urinate. She got up and made it to the head of the stairs. According to the grandson who had just come home he saw her at the top of the stairs when suddenly she seemed somewhat dazed. She apparently sat down and slumped against the railing of the stairs. She urinated. She seemed confused. The grandson called his sister who called 911. According to the grandson when paramedics arrived the patient was still at the top of the stairs. She was apparently still dazed and confused and was not really able to give the paramedics any history. By the time she arrived here she was more alert. The patient tells me she has not felt well for about 2 days. She has had episodes of chest pain. She has a bit of a headache. Also nausea. She also says that she has had some burning with urination. No tongue biting. I called the patient's daughter. The daughter tells me that the patient takes Ambien at bedtime. Related Data Home Medications ?Medication ?Instructions ?Recorded ?Confirmed docusate calcium 240 mg capsule 240 mg PO BEDTIME 04/18/20 06/21/23 simethicone 180 mg capsule (Gas 180 mg PO BID PRN Gastrointestinal 04/18/20 02/12/23 Relief (simethicone)) Spasms Or Cramping amitriptyline 10 mg tablet 10 mg PO BEDTIME 11/25/21 06/21/23 amlodipine 10 mg tablet 10 mg PO DAILY 11/25/21 06/21/23 atorvastatin 40 mg tablet 40 mg PO DAILY 11/25/21 06/21/23 blood sugar diagnostic ([place]ory #10 ea 11/25/21 02/26/22 Lite Strips) blood-glucose meter (FreeStyle #1 ea 11/25/21 02/26/22 [place] Lite kit) carbamazepine 100 mg 100 mg PO Q12H 11/25/21 06/21/23 tablet,extended release,12 hr dapagliflozin propanediol 10 mg 10 mg PO DAILY 11/25/21 02/09/23 tablet (Farxiga) diclofenac sodium 1 % topical gel 2 g topical BID 11/25/21 06/21/23 duloxetine 60 mg capsule,delayed 60 mg PO DAILY 11/25/21 06/21/23 release furosemide 20 mg tablet 20 mg PO DAILY 11/25/21 06/21/23 hydrochlorothiazide 25 mg tablet 25 mg PO QAM 11/25/21 06/21/23 lancets 28 gauge (FreeStyle #100 ea 11/25/21 02/26/22 Lancets) levothyroxine 50 mcg capsule 50 mcg PO DAILY 11/25/21 06/21/23 metformin 500 mg tablet 500 mg PO BID 11/25/21 02/12/23 methocarbamol 500 mg tablet 500 mg PO BID 11/25/21 02/09/23 metoprolol tartrate 100 mg tablet 100 mg PO BID 11/25/21 06/21/23 sacubitril 49 mg-valsartan 51 mg 1 tab PO BID 11/25/21 02/09/23 tablet (Entresto) zolpidem 10 mg tablet 10 mg PO BEDTIME 11/25/21 06/21/23 omeprazole 20 mg capsule,delayed 20 mg PO QAM 01/18/23 06/21/23 release hydroxyzine HCl 25 mg tablet 25 mg PO TID PRN Anxiety 02/09/23 06/21/23 potassium chloride 20 mEq 20 meq PO DAILY 02/09/23 02/09/23 tablet,extended release topiramate 50 mg capsule,extended 50 mg PO DAILY 02/09/23 02/09/23 release 24 hr (Trokendi XR) Previous Rx's ?Medication ?Instructions ?Recorded hydrocortisone acetate 25 mg 25 mg CO BID PRN hemorrhoid pain 12/01/21 rectal suppository (Anucort-HC) #24 ea psyllium husk (with sugar) 3 1 tbsp PO BID #798 grams 12/01/21 gram/7 gram oral powder (Metamucil (with sugar)) menthol 0.44 %-zinc oxide 20.6 % 1 appl topical QID PRN hemorroids 12/02/21 topical ointment (Calmoseptine) #113 grams hydrocortisone acetate 25 mg 25 mg CO BID PRN hemorrhoids #24 ea 02/26/22 rectal suppository (Anucort-HC) hydrocortisone 2.5 % topical cream 1 appl topical DAILY PRN 03/16/22 with perineal applicator hemorrhoids #30 grams docusate sodium 100 mg capsule 100 mg PO BID #60 caps 02/12/23 (Colace) oxycodone-acetaminophen 5 mg-325 1 tab PO Q4-6H PRN pain #30 tabs 02/12/23 mg tablet (Percocet) ibuprofen 600 mg tablet 600 mg PO Q6H PRN pain #30 tabs 03/09/23 Allergies Allergy/AdvReac Type Severity Reaction Status Date / Time clonazepam Allergy Intermediate GI pain Verified 02/22/25 02:27 lisinopril (LISINOPRIL) Allergy Intermediate tongue Verified 02/22/25 02:27 swelling, itching ciprofloxacin (Ciprofloxacin) Allergy Mild HIVES Verified 02/22/25 02:27 Review of Systems Review of Systems: Yes all other systems are reviewed and are negative PMFSH Past Medical History Medical History Hypothyroid GERD (gastroesophageal reflux disease) Type 2 diabetes mellitus Chronic renal insufficiency Cardiomyopathy IBS (irritable bowel syndrome) Elevated cholesterol HTN (hypertension) Sleep apnea Surgical History History of hemorrhoidectomy (~02/12/23) Hx of hemorrhoidectomy History of hysterectomy History of appendectomy Hx of endoscopy History of colonoscopy Family History Family History Father No problems noted. Mother No problems noted. Social History Social History Alcohol intake: never Patient Tobacco Use Status: Never used Tobacco Advance Directives: No Advance Directives Information Provided: Yes Do you have a plan to hurt others: No Plan Physical Exam ED Vital Signs: Vital Signs - 24 hr 02/22/25 02:18 02/22/25 04:32 02/22/25 05:22 Temperature 97.6 F 97.6 F Pulse Rate 67 70 67 Respiratory Rate 14 16 16 Blood Pressure 108/54 L 120/64 145/71 H Pulse Oximetry 95 99 99 Oxygen Delivery Method Room Air Room Air Room Air 02/22/25 07:11 02/22/25 07:11 Temperature 97.5 F 97.5 F Pulse Rate 69 69 Respiratory Rate 18 18 Blood Pressure 129/62 129/62 Pulse Oximetry 99 99 Oxygen Delivery Method Room Air Room Air BMI result Body Mass Index 24.3 Const Other: The patient is a 69-year-old woman who was awake and alert, pleasant and cooperative. She does not appear in obvious distress. HENMT Other: Face is symmetrical. Mucous membranes moist. Eyes Other: Pupils are round equal, conjunctivae are clear, extraocular movements intact Neck Other: No posterior midline C-spine tenderness. She moves her neck easily without pain. C-spine is clinically clear. No JVD. Resp Effort & Inspection: normal respiratory effort Auscultation: clear to auscultation bilaterally Cardio Rate: regular rate Rhythm: regular rhythm Heart sounds: S1 normal heart sound present and S2 normal heart sound present GI Other: Abdomen is soft and nontender Skin Other: The skin is dry and unremarkable General skin exam: no rashes or lesions noted Neuro Other: The patient is awake and alert with a normal mental status. Cranial nerves 2-12 are intact. She moves her extremities symmetrically and appropriately. She seems grossly neurologically intact. Extrem Other: No peripheral edema. No calf swelling or tenderness. Medications Administered Discontinued Medications Generic Name Dose Route Start Last Admin Trade Name Domingoq PRN Reason Stop Dose Admin Sodium Chloride 1,000 mls @ 999 mls/hr 02/22/25 03:30 02/22/25 05:20 Ns IV 02/22/25 04:30 Infused .Q1H1M AMAN Infusion Acetaminophen 1,000 mg in 100 mls @ 400 mls/hr 02/22/25 03:30 02/22/25 04:32 Ofirmev IV 02/22/25 03:44 Infused ONCE ONE Infusion Metoclopramide HCl 10 mg 02/22/25 02:59 02/22/25 03:35 Metoclopramide Hcl 10 Mg/2 Ml Vial IVPUSH 02/22/25 03:00 10 mg ONCE ONE Administration Medical Decision Making Medical Decision Making [facility] Narrative: The patient is a 69-year-old woman who was brought to the hospital after she had some kind of an episode at home. She had awoken when her grandson came home. She had felt an urge to urinate and had gotten out of bed to go to the bathroom. She then walked to the head of some stairs where she felt weak and sat down and was incontinent of urine. As far as I can tell she was never truly unconscious. I do not think she sustained any significant trauma as a result of this episode. The episode is unusual and somewhat puzzling however. She takes Ambien at bedtime and she had taken Ambien earlier in the evening. Perhaps this was some kind of an orthostatic episode prompted by getting out of bed with a need to urinate and being under the influence of Ambien. She did not bite her tongue. There was no description of seizure activity. My suspicion for a seizure is not very high. She had a negative head CT. She has a normal white count of 6.4 with an unremarkable differential. Her EKG was unremarkable. She has flat troponins. Her CRP is normal. Her urinalysis shows glucosuria but no sign of infection. No ketones. Normal specific gravity. The patient's CBC showed a hemoglobin of 11.1. This is a 2 point drop from when her last CBC was done almost exactly 1 year ago in February of 2024. Also her BUN was slightly higher than previous. This raised the consideration of a possible GI bleed. However the patient denies any black stools. I repeated her CBC and in fact her repeat hemoglobin was 12.3. Also, when I went to perform a rectal exam, there was some stool at the rectum that was pale brown and non melenic and my bedside Hemoccult testing was negative. The patient was treated symptomatically with IV metoclopramide and IV acetaminophen. She was given IV fluids. Her nausea resolved, all of her symptoms resolved and she felt considerably better. She seemed eager to go home. I contacted her daughter on the phone. I also contacted her grandson who will be coming to pick her up. Lab Data 02/22/25 05:22 02/22/25 02:39 Labs: Lab Results 02/22/25 02/22/25 Range/Units 02:39 05:22 WBC 6.4 6.9 (4.8-10.8) X10*3/uL RBC 3.33 L 3.74 L (4.20-5.50) X10*6/uL Hgb 11.1 L 12.3 (12.0-16.0) g/dl Hct 31.9 L 36.4 L (37.0-47.0) % MCV 95.8 97.3 (80.0-98.0) fL MCH 33.3 H 32.9 (27.0-33.0) pg MCHC 34.8 33.8 (31.0-35.0) g/dl RDW 13.5 13.4 (11.0-16.0) % Plt Count 198 193 (160-400) X10*3/uL MPV 10.6 10.2 (9.4-12.3) fL Immature Gran % (Auto) 0.3 (0.0-0.4) % Neut % (Auto) 52.5 (45-73) % Lymph % (Auto) 34.4 (20-40) % [place] % (Auto) 11.7 H (2-11) % Eos % (Auto) 0.9 (0-4) % Baso % (Auto) 0.2 (0-2) % Lymph # (Auto) 2.2 (1.2-4.9) X10*3/uL [place] # (Auto) 0.8 (0.1-1.2) X10*3/uL Eos # (Auto) 0.1 (0.0-0.4) X10*3/uL Baso # (Auto) 0.0 (0.0-0.2) X10*3/uL Abs Immat Gran (auto) 0.02 (0.00-0.03) X10*3/uL Absolute Neuts (auto) 3.4 (2.0-8.3) x10*3/uL Absolute Nucleated RBC 0.000 0.000 (0.0-0.012) X10*3/uL Nucleated RBC % (auto) 0.0 0.0 (0.0-0.2) /100WBC Sodium 139 (135-145) mmol/L Potassium 4.0 (3.3-5.1) mmol/L Chloride 106 (96-108) mmol/L Carbon Dioxide 23 (22-29) mmol/L Anion Gap 14 (12-20) BUN 24 H (9-16) mg/dL Creatinine 0.94 (0.5-1.4) mg/dL Estim Creat Clear Calc 49.4 Estimated GFR 59 Random Glucose 164 H (60-115) mg/dL Calcium 8.7 D (8.4-10.2) mg/dL Magnesium 2.3 (1.6-2.6) mg/dL Total Bilirubin 0.2 (0.0-1.0) mg/dL AST 51 H (5-31) U/L ALT 11 (0-31) U/L Alkaline Phosphatase 51 (39-117) U/L Troponin I High Sens 15.7 D 15.2 (<3.5-17.0) ng/L C-Reactive Protein 0.30 (< or = 0.50) mg/dL B-Natriuretic Peptide 42 (<100) pg/mL Total Protein 6.3 L (6.5-8.0) g/dL Albumin 3.7 (3.5-5.0) g/dL Lipase 30 (8-78) U/L Urine Color Yellow Urine Appearance Clear Urine pH 6.5 (5.0-9.0) Ur Specific [place] 1.015 (1.005-1.025) Urine Protein Negative (Neg-Trace) mg/dL Urine Glucose (UA) >=1000 H (Negative) mg/dL Urine Ketones Negative (Negative) mg/dL Urine Blood Negative (Negative) Urine Nitrite Negative (Negative) Ur Leukocyte Esterase Negative (Negative) Urine RBC 0-2 (0-2) /HPF Urine WBC 0-5 (0-5) /HPF Ur Squamous Epith Cells 0-2 (0-2) /HPF Urine Bacteria None Seen (None Seen) Hyaline Casts 0-2 (0-2) /LPF COVID-19 (VAN) Negative (Negative) COVID-19 Clin Com See Note Influenza Type A (DREW) Negative (Negative) Influenza Type B (DREW) Negative (Negative) Influenza A & B Note See Note Independent Interpretation I performed an independent interpretation of an: EKG Interpretation: EKG at 02:28 shows normal sinus rhythm at 63 beats per minute. No acute ischemic changes. Discharge Plan Discharge Clinical Impression: Near syncope Patient Disposition: Home, Self-Care Additional Instructions: Please rest and take it easy today. Please continue your regular medications. Please contact your regular doctor's office today to make a follow up appointment soon to discuss this episode further. Return to the emergency room if significantly worse. Prescriptions: No Action hydrocortisone 2.5 % cream with perineal applicator 1 appl topical DAILY PRN (Reason: hemorrhoids) Qty: 30 1RF ibuprofen 600 mg tablet 600 mg PO Q6H PRN (Reason: pain) Qty: 30 0RF hydroxyzine HCl 25 mg Tablet 25 mg PO TID PRN (Reason: Anxiety) topiramate [Trokendi XR] 50 mg Capsule,Extended Release 24hr 50 mg PO DAILY potassium chloride 20 mEq Tablet Extended Release 20 meq PO DAILY docusate sodium [Colace] 100 mg capsule 100 mg PO BID Qty: 60 2RF oxycodone-acetaminophen [Percocet] 5-325 mg tablet 1 tab PO Q4-6H PRN (Reason: pain) Qty: 30 0RF Rx Instructions: Partial Fill upon patient request. simethicone [Gas Relief (simethicone)] 180 mg capsule 180 mg PO BID PRN (Reason: Gastrointestinal Spasms Or Cramping) docusate calcium 240 mg capsule 240 mg PO BEDTIME Farxiga 10 mg tablet 10 mg PO DAILY Entresto 49-51 mg tablet 1 tab PO BID furosemide 20 mg tablet 20 mg PO DAILY (DME) lancets [FreeStyle Lancets] 28 gauge misc See Rx Instructions topical TID-QID Qty: 100 Rx Instructions: As directed (DME) FreeStyle Lite Strips Strip See Rx Instructions Not Applicable .MEDSUPPLY Qty: 10 Rx Instructions: As directed zolpidem 10 mg tablet 10 mg PO BEDTIME duloxetine 60 mg capsule,delayed release(DR/EC) 60 mg PO DAILY hydrochlorothiazide 25 mg tablet 25 mg PO QAM metoprolol tartrate 100 mg tablet 100 mg PO BID carbamazepine 100 mg tablet extended release 12 hr 100 mg PO Q12H diclofenac sodium 1 % gel 2 g topical BID methocarbamol 500 mg tablet 500 mg PO BID levothyroxine 50 mcg capsule 50 mcg PO DAILY atorvastatin 40 mg tablet 40 mg PO DAILY amlodipine 10 mg tablet 10 mg PO DAILY metformin 500 mg tablet 500 mg PO BID amitriptyline 10 mg tablet 10 mg PO BEDTIME (DME) blood-glucose meter [FreeStyle [place] Lite] Kit See Rx Instructions .ROUTE TID-QID Qty: 1 Rx Instructions: As directed hydrocortisone acetate [Anucort-HC] 25 mg suppository 25 mg CO BID PRN (Reason: hemorrhoid pain) Qty: 24 3RF Metamucil (with sugar) 3 gram/7 gram powder 1 tbsp PO BID Qty: 798 2RF menthol-zinc oxide [Calmoseptine] 0.44-20.6 % ointment 1 appl topical QID PRN (Reason: hemorroids) Qty: 113 0RF hydrocortisone acetate [Anucort-HC] 25 mg suppository 25 mg CO BID PRN (Reason: hemorrhoids) Qty: 24 0RF omeprazole 20 mg capsule,delayed release(DR/EC) 20 mg PO QAM Referrals: Teofilo Dave MD [Physician, Internal Medicine] Interventions: ED Discharge Assessment Last Done: 02/22/25 07:11 Discharge Date/Time: 02/22/25 07:14 Print Language: Djiboutian
[2025-02-22 02:45] LABS: MANUAL DIFF FLAG NO
[2025-02-22 02:48] LABS: Hematocrit 31.9 % (37.0-47.0); Hemoglobin 11.1 g/dl (12.0-16.0); Imm Gran Abs Auto 0.02 X10*3/uL (0.00-0.03); Imm Gran Pct Auto 0.3 % (0.0-0.4); Lymphocytes Absolute Auto 2.2 X10*3/uL (1.2-4.9); Mean Corpuscular HGB Conc 34.8 g/dl (31.0-35.0); Mean Corpuscular Hemoglobin 33.3 pg (27.0-33.0); Mean Corpuscular Volume 95.8 fL (80.0-98.0); NRBC Abs Auto 0.000 X10*3/uL (0.0-0.012); NRBC Pct Auto 0.0 /100WBC (0.0-0.2); Platelet Count 198 X10*3/uL (160-400); Red Blood Count 3.33 X10*6/uL (4.20-5.50); White Blood Count 6.4 X10*3/uL (4.8-10.8)
[2025-02-22 03:04] LABS: Anion Gap 14 (12-20); COVID-19 Test Negative (Negative); IDNOW Serial# 58CA691E
[2025-02-22 03:07] LABS: Alanine Aminotransferase 11 U/L (0-31); Albumin Level 3.7 g/dL (3.5-5.0); Alkaline Phosphatase 51 U/L (39-117); Aspartate Amino Transferase 51 U/L (5-31); Blood Urea Nitrogen 24 mg/dL (9-16); Calcium 8.7 mg/dL (8.4-10.2); Carbon Dioxide 23 mmol/L (22-29); Chloride 106 mmol/L (96-108); Creatinine Clr Calc Pharmacy 49.4; Estimated Glomerular Filt Rate 59; Lipase 30 U/L (8-78); Magnesium 2.3 mg/dL (1.6-2.6); Potassium 4.0 mmol/L (3.3-5.1); Sodium 139 mmol/L (135-145); Total Protein 6.3 g/dL (6.5-8.0)
[2025-02-22 03:08] LABS: B Type Natriuretic Peptide 42 pg/mL (<100)
--- OUTSIDE RECORDS SUMMARY | 2025-02-22 03:08 | XMS_ITS | Encounter Summary ---
Author Organization [employer] Address [address] [facility] [address] [place] [address] Care Team Providers Care Rodeo Clown Name Role Phone Name, Teofilo WHALEN Primary Care Provider [phone] Reason for Visit * Reason Comments Med Refill Encounter Details Date Type Department Care Team ([facility] st Contact Info) Description 11/28/2023 Refill [facility] [address] [place], [place] [phone] Name, MD Teofilo [address] [place] [address] Fibromyositis Social History Tobacco Use Types Packs/Day [...] Care Team (Late st Contact Info) Description 05/28/2025 9:00 AM EST Clinical Support [facility] [address] [place] [address] Aurora Sabillon RN 07/31/2025 10:00 AM EST Office Visit [facility] ADULT DENTAL [address] [place] [address] Kadi Heaton [address] [place] [address] documented as of this encounter Visit Diagnoses Diagnosis Fibromyositis Unspecified myalgia and myositis documented in this encounter Additional Health Concerns Assessment Noted Time PHQ-9 Depression Total Score: 12 024 9:22 AM EDT documented as of this encounter Care Teams Rodeo Clown Relationship Specialty Start Date End Date Name, MD Teofilo [address] [place] [address] PCP - General Family Medicine 08/19/15 documented as of this encounter
--- OUTSIDE RECORDS SUMMARY | 2025-02-22 03:08 | XMS_ITS | Encounter Summary ---
Author Organization [employer] Address [address] [facility] [address] [place] [address] Care Team Providers Care Pigment Grinder Name Role Phone Name, Teofilo WHALEN Primary Care Provider [phone] Reason for Visit * Reason Onset Date Comments new Apnea machine 07/31/2022 Encounter Details Date Type Department Care Team ([facility] st Contact Info) Description 07/31/2022 Telephone [facility] [address] [place] [address] Name, MD Teofilo [address] [place] [address] new Apnea machine Social History Tobacco Use [...] 12:21 PM EST Tc from Griselda from [facility] requesting a new apnea machine. States pt old one broke . Best contact # [phone] documented in this encounter Plan of Treatment Upcoming Encounters Date Type Department Care Team (Late st Contact Info) Description 05/28/2025 9:00 AM EST Clinical Support [facility] [address] [place] [address] Aurora Sabillon RN 07/31/2025 10:00 AM EST Office Visit [facility] ADULT [facility]ENT[facility] [address] [place] [address] Kadi Heaton [address] [place] [address] documented as of this encounter Visit Diagnoses Not on filedocumented in this encounter Additional Health Concerns Assessment Noted Time PHQ-9 Depression Total Score: 0 05/27/20 22 10:40 AM EST documented as of this encounter Care Teams Pigment Grinder Relationship Specialty Start Date End Date Name, MD Teofilo [address] [place] [address] PCP - General Family Medicine 08/19/15 documented as of this encounter
--- OUTSIDE RECORDS SUMMARY | 2025-02-22 03:08 | XMS_ITS | Encounter Summary ---
Author Organization [employer] Address [address] [facility] [address] [place] [address] Care Team Providers Care Granite Polisher Apprentice Name Role Phone Name, Teofilo WHALEN Primary Care Provider [phone] Reason for Visit * Reason Comments Med Refill Encounter Details Date Type Department Care Team ([facility] st Contact Info) Description 10/29/2024 Refill [facility] MED[facility]INE [address] [place], [place] [phone] Name, MD Teofilo [address] [place] [address] Fibromyositis Social History Tobacco Use Types Packs/Day [...] Answer Date Recorded Patient Health Questionnaire-9 Score 9 08/10/2024 Patient Health Questionnaire-9 Score 9 08/10/2024 Last PHQ-9: Questionnaire Data Not on file 0 08/10/2024 Housing Stability Answer Date Recorded What is your housing situation today? I have joaquim murguia 07/06/[address] you li ve. Do you have problems with any of the following? [employer] 07/06/2024 Food Insecurity Answer Date [...] Answer Date Recorded Patient Health Questionnaire-2 Score 2 08/10/2024 Internet Access Answer Date Recorded Internet Access [...] Description 05/28/2025 9:00 AM EST Clinical Support [facility] MED[facility]INE [address] [place] [address] Aurora Sabillon RN 07/31/2025 10:00 AM EST Office Visit [facility] ADULT DENTAL [address] [place] [address] Kadi Heaton [address] [place] [address] documented as of this encounter Visit Diagnoses Diagnosis Fibromyositis Unspecified myalgia and myositis documented in this encounter Additional Health Concerns Assessment Noted Time PHQ-9 Depression Total Score: 9 08/10/19 25 10:01 AM EST documented as of this encounter Care Teams Granite Polisher Apprentice Relationship Specialty Start Date End Date Name, MD Teofilo [address] [place] [address] PCP - General Family Medicine 08/19/15 documented as of this encounter
--- OUTSIDE RECORDS SUMMARY | 2025-02-22 03:08 | XMS_ITS | Encounter Summary ---
Author Organization [employer] Address [address] [facility] [address] [place] [address] Care Team Providers Care Outpatient Coder Name Role Phone Name, Teofilo WHALEN Primary Care Provider [phone] Reason for Visit * Reason Comments Med Refill Encounter Details Date Type Department Care Team ([facility] st Contact Info) Description 06/12/2022 Refill [facility] [address] [place] [address] Name, MD Teofilo [address] [place] [address] Chronic pain syndrome Social History Tobacco Use [...] Description 05/28/2025 9:00 AM EST Clinical Support [facility] [address] [place] [address] Aurora Sabillon RN 07/31/2025 10:00 AM EST Office Visit [facility] [address] [place] [address] Kadi Heaton [address] [place] [address] documented as of this encounter Visit Diagnoses Diagnosis Chronic pain syndrome documented in this encounter Additional Health Concerns Assessment Noted Time PHQ-9 Depression Total Score: 0 05/27/20 22 10:40 AM EST documented as of this encounter Care Teams Outpatient Coder Relationship Specialty Start Date End Date Name, MD Teofilo [address] [place] [id number] PCP - General Family Medicine 08/19/15 documented as of this encounter
--- OUTSIDE RECORDS SUMMARY | 2025-02-22 03:08 | XMS_ITS | Encounter Summary ---
Author Organization [employer] Address [address] [facility] [address] [place] [address] Care Team Providers Care Press Box Custodian Name Role Phone Name, Teofilo WHALEN Primary Care Provider Encounter Details Date Type Department Care Team (Late st Contact Info) Description 11/25/[address] [facility] MEDICINE [address] [place] [address] Name, MD Teofilo [address] [place] [address] Social History Tobacco Use Types Packs/Day Years [...] Description 05/28/2025 9:00 AM EST Clinical Support [facility] [address] [place] [address] Aurora Sabillon, RN 07/31/2025 10:00 AM EST Office Visit [facility] ADULT DENTAL [address] [place] [address] Kadi Heaton [address] [place] [address] documented as of this encounter Visit Diagnoses Not on filedocumented in this encounter Additional Health Concerns Assessment Noted Time PHQ-9 Depression Total Score: 0 05/27/20 10:40 AM EST documented as of this encounter Care Teams Press Box Custodian Relationship Specialty Start Date End Date Name, MD Teofilo [address] [place] [address] PCP - General Family Medicine 08/19/15 documented as of this encounter
--- OUTSIDE RECORDS SUMMARY | 2025-02-22 03:08 | XMS_ITS | Encounter Summary ---
Author Organization [employer] Address [address] [facility] [address] [place] [address] Care Team Providers Care Underground Repairer Name Role Phone Name, Teofilo WHALEN Primary Care Provider Reason for Visit * Reason Onset Date Comments Back Pain 05/18/2022 Encounter Details Date Type Department Care Team ([facility] st Contact Info) Description 05/18/2022 Telephone [facility] [address] [place] [address] Name, MD Teofilo [address] [place] [address] Back Pain Social History Tobacco Use Types [...] caller accepted this outcome Please contact in [place] at [phone] * Telephone Encounter - Inge Hernandez - 05/18/2022 9:32 AM EST Tc from pt request med refill on medication Ambien and Percocet . documented in this encounter Plan of Treatment Upcoming Encounters Date Type Department Care Team (Late st Contact Info) Description 05/28/2025 9:00 AM EST Clinical Support [facility] [address] [place] [address] Aurora Sabillon, ALICIA 07/31/2025 10:00 AM EST Office Visit [facility] ADULT D[facility] [address] [place] [address] Kadi Heaton [address] [place] [address] documented as of this encounter Visit Diagnoses Not on filedocumented in this encounter Care Teams Underground Repairer Relationship Specialty Start Date End Date Name, MD Teofilo [address] [place] [address] PCP - General Family Medicine 08/19/15 documented as of this encounter
--- OUTSIDE RECORDS SUMMARY | 2025-02-22 03:08 | XMS_ITS | Encounter Summary ---
Author Organization [employer] Address [address] [facility] [place] [address] Care Team Providers Care Sheriff Deputy Name Role Phone Name, Teofilo WHALEN Primary Care Provider [phone] Reason for Visit * Reason Comments Med Refill Encounter Details Date Type Department Care Team (Late st Contact Info) Description 11/20/2022 Refill [facility] [address] [place] [address] Name, MD Teofilo [address] [place] [phone] Fibromyositis Social History Tobacco Use Types Packs/Day [...] Description 05/28/2025 9:00 AM EST Clinical Support [facility] [address] [place] [address] Aurora Sabillon RN 07/31/2025 10:00 AM EST Office Visit [facility] [address] [place] [address] Kadi Heaton [address] [place] [address] documented as of this encounter Visit Diagnoses Diagnosis Fibromyositis Unspecified myalgia and myositis documented in this encounter Additional Health Concerns Assessment Noted Time PHQ-9 Depression Total Score: 0 05/27/20 10:40 AM EST documented as of this encounter Care Teams Sheriff Deputy Relationship Specialty Start Date End Date Name, MD Teofilo [address] [place] [address] PCP - General Family Medicine 08/19/15 documented as of this encounter
--- OUTSIDE RECORDS SUMMARY | 2025-02-22 03:08 | XMS_ITS | Encounter Summary ---
Author Organization [employer] Address [address] [facility] [address] [place] [address] Care Team Providers Care Glass Pulverizer Equipment Operator Name Role Phone NameTeofilo MD Primary Care Provider [phone] Reason for Visit * Reason Comments Med Change Request Encounter Details Date Type Department Care Team ([facility] st Contact Info) Description 06/05/2023 Refill [facility] [address] [place], [place] [phone] Name, MD Teofilo [address] [place] [address] Left lower quadrant abdominal pain Social History [...] Description 05/28/2025 9:00 AM EST Clinical Support [facility] [address] [place] [address] Aurora Sabillon RN 07/31/2025 10:00 AM EST Office Visit [facility] ADULT D[facility] [address] [place] [address] Kadi Heaton [address] [place] [address] documented as of this encounter Visit Diagnoses Diagnosis Left lower quadrant abdominal pain documented in this encounter Additional Health Concerns Assessment Noted Time PHQ-9 Depression Total Score: 0 05/27/20 22 10:40 AM EST documented as of this encounter Care Teams Glass Pulverizer Equipment Operator Relationship Specialty Start Date End Date Name, MD Teofilo [address] [place] [address] PCP - General Family Medicine 08/19/15 documented as of this encounter
--- OUTSIDE RECORDS SUMMARY | 2025-02-22 03:08 | XMS_ITS | Clinical Summary ---
Author Organization [employer] Address [address] [facility] 7t [place] [address] Care Team Providers Care Stained Glass Window Designer Name Role Phone Name, Teofilo WHALEN Primary Care Provider [phone] Allergies Active Allergy Reactions Criticality Noted Date [...] affected nostril(s) if needed for opioid reversal. [place] 0.1 mL by intranasal route in 1 nostril may repeat dose every 2-3 minutes as needed alternating nostrils with each dose. 2 each 2 023 Active docusate sodium (Colace) 100 MG capsule TOME OVIDIO C PSULA DOS VECES AL D A 023 Active furosemide (Lasix) 20 MG tablet Take 20 mg by mouth in the morning. 024 Active metoprolol tartrate (Lopressor) 100 MG tabletIndications :Benign hypertension TAKE 1 TABLET BY MOUTH TWICE A DAY WITH MEALS 180 tablet 3 024 Active famotidine (Pepcid) 20 MG tablet TOME 1 TABLETA POR VIA ORAL DOS VECES AL KAVEH 180 tablet 3 025 Active carBAMazepine XR (TEGretol XR) 100 MG 12 hr tabletIndications :Benign hypertension TOME 1 TABLETA POR VIA ORAL CADA 12 HORAS 180 tablet 3 025 Active lidocaine (Lidoderm) 5 % patch APPLY 1 PATCH ONCE DAILY. MAY WEAR UP TO 12 HOURS 30 patch 1 025 Active atorvastatin (Lipitor) 40 MG tabletIndications :Benign hypertension TAKE 1 TABLET BY MOUTH EVERY DAY 90 tablet 3 025 Active dapagliflozin (Farxiga) 10 MG TAKE 1 TABLET BY MOUTH EVERY MORNING 90 tablet 3 025 Active prazosin (Minipress) 5 MG capsule Take 5 mg by mouth in the morning. Dr Dewitt 025 Active zolpidem (Ambien) 10 MG tablet TAKE 1 TABLET BY MOUTH AT BEDTIME IF NEEDED FOR SLEEP 30 tablet 025 Active glucose blood (FREESTYLE LITE) test stripIndications: Elevated blood sugar Check blood sugar 3 to 4 times a day as directed 100 strip 5 025 Active levothyroxine (Synthroid, Levoxyl) 50 MCG tabletIndications :Benign hypertension TAKE 1 TABLET BY MOUTH EVERY DAY 90 tablet 025 Active DULoxetine (Cymbalta) [address] capsuleIndication s:Fibromyositis TAKE 1 CAPSULE BY MOUTH EVERY DAY 90 capsule 1 025 Active simethicone (Gas Relief Extra Strength) 125 MG chewable tabletIndications :Left lower quadrant abdominal pain CHEW 1 TABLET BY MOUTH EVERY 8 HOURS NEEDED FOR GAS PAIN 90 tablet 1 025 Active Diclofenac Sodium 1 % gelIndications:Os teoarthritis of right knee, unspecified osteoarthritis type APPLY 2 GRAMS TOPICALLY TO AFFECTED AREAS IN THE MORNING AND AT BEDTIME 100 g 3 025 Active oxyCODONE-acetami nophen (Percocet) 5-325 MG tabletIndications :Chronic pain syndrome Take 1 tablet by mouth every 8 (eight) hours if needed for severe pain for up to 28 days. Do not start before February 18, 2025. 84 tablet 025 2024 Active DULoxetine (Cymbalta) [address] capsuleIndication s:Fibromyositis TOME 1 CAPSULA POR VIA ORAL [place] 90 capsule 1 025 2024 Discontinued(R eorder (will not trigger notification to Pharmacy)) Diclofenac Sodium 1 % gelIndications:Os teoarthritis of right knee, unspecified osteoarthritis type APPLY 2 GRAMS TOPICALLY TO AFFECTED AREAS IN THE MORNING AND AT BEDTIME 100 g 3 025 2024 Discontinued levothyroxine (Synthroid, Levoxyl) 50 MCG tabletIndications :Benign hypertension TAKE 1 TABLET BY MOUTH EVERY DAY 90 tablet 025 2024 Discontinued simethicone (Gas Relief Extra Strength) 125 MG chewable tabletIndications :Left lower quadrant abdominal pain CHEW 1 TABLET BY MOUTH EVERY 8 HOURS NEEDED FOR GAS PAIN 90 tablet 1 025 2024 Discontinued oxyCODONE-acetami nophen (Percocet) 5-325 MG tabletIndications :Chronic pain syndrome Take 1 tablet by mouth every 8 (eight) hours if needed for severe pain for up to 28 days. Do not start before January 21, 2025. 84 tablet 025 2024 Discontinued(R eorder (will not trigger notification to Pharmacy)) Active Problems Problem Noted Date Diagnosed Date Long-term current use of opiate analgesic 2024 Ill-fitting dentures 10/25/2024 Oral frictional keratosis 08/09/2024 Missing teeth, acquired 05/20/2023 Type 2 diabetes mellitus, wi thout long-term current use of insulin 04/14/2023 Dental [...] Overview (08/19/2022): Last bone density test at [facility] 05/2022 Essential hypertension 05/27/2022 Adenomatous polyp of [...] Encounters Date Type Department Care Team Description 02/15/2025 Refill [facility] [address] [place] [address] Teofilo Dave MD Chronic pain syndrome 02/10/2025 Refill [facility] [address] [place] [address] Teofilo Dave MD Left lower quadrant abdominal pain; Osteoarthritis of right knee, unspecified osteoarthritis type 02/08/2025 Refill [facility] [address] [place] [address] Teofilo Dave MD 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 Orders Only [facility] [address] [place] [address] Teofilo Dave MD 01/26/2025 Refill [facility] [address] [place] [address] Teofilo Dave MD Benign hypertension 01/23/2025 3:00 PM EDT Office Visit [facility] [address] [place] [address] Florina, Kadi Missing teeth, acquired (Primary Dx); Dental plaque; Dental calculus 01/19/2025 Refill [facility] [address] [place] [address] Teofilo Dave MD Chronic pain syndrome 01/19/2025 Refill [facility] [address] [place] [address] Teofilo Dave MD Elevated blood sugar 01/01/2025 Refill [facility] [address] [place] [address] Teofilo Dave MD 12/25/2024 Telephone [facility] [address] [place] [address] Mery Madden [place] CHARTRPREP 12/21/2024 Refill [facility] [address] [place] [address] Teofilo Dave MD Chronic pain syndrome 12/21/2024 Telephone [facility] [address] [place] [address] Teofilo Dave MD Med Refill 12/17/2024 Refill [facility] [address] [place] [address] Teofilo Dave MD Left lower quadrant abdominal pain 12/14/2024 10:00 AM EDT Clinical Support [address] [address] Aurora Sabillon, RN Long-term current use of opiate analgesic (Primary Dx) 12/14/[address] [address] Aurora Sabillon, RN STRAP BUCKLER Renewal today 12/14/2024 Travel 11/29/[address] [address] Teofilo Dave MD Med Refill 11/28/[address] [address] NameTeofilo MD 11/26/2024 Refill [facility] [address] [place] [address] NameTeofilo MD 11/23/[address] [address] NameTeofilo MD Chronic pain syndrome 11/23/[address] [address] Teofilo Dave MD Med Refill from Last 3 Months Immunizations Immunization Administration Dates Next Due Influenza High-dose Quadriva lent Preservative Free 04/14/2023 Influenza Injectable Quadriv alant Preservative Free IIV4 MDCK 02/28/2019,03/19/2017 Influenza injectable quadriv alent IIV4 with preservative 04/21/2018,05/25/2017,05/06/2016 Influenza injectable quadriv alent preservative free 04/21/2021,03/06/2020,03/26/2015 Influenza, IIV3, injectable 03/26/2014, 3,03/03/2012 Influenza, seasonal, injecta ble, preservative free 08/10/2024,05/27/2022 Pfizer Covid-19 Vaccine 12+ 04/21/2021 Pneumococcal Conjugate PCV 13 10/17/2021 Pneumococcal Conjugate PCV 20 08/10/2024 Tdap 09/14/2022,04/15/2012 Zoster, Recombinant 09/14/2022,02/26/2022 Social History [...] problems with any of the following? Lead [place] or [place] 07/06/2024 Food Insecurity Answer Date [...] Sign Reading Time Taken Comments Blood Pressure 142/80 01/23/2025 3:04 PM EDT Pulse 66 10/25/2024 8:55 AM EDT Temperature 36.7 C (98 F) 08/10/2024 9:35 AM EST Respiratory Rate 15 08/10/2024 9:35 AM EST Oxygen Saturation 98% 08/10/2024 9:35 AM EST Inhaled Oxygen Concentration - - Weight 63.3 kg (139 lb 9.6 oz) 08/10/2024 9:35 A M EST Height 160 cm (5' 3 ) 08/10/2024 9:35 AM EST Body Mass Index 24.73 08/10/2024 9:35 AM EST Plan of Treatment Upcoming Encounters Date Type Department Care Team (Late st Contact Info) Description 05/28/2025 9:00 AM EST Clinical Support [facility] [address] [place] [address] Aurora Sabillon RN 07/31/2025 10:00 AM EST Office Visit [facility] [address] [place], [place] [phone] Kadi Heaton [address] [place] [address] Health Maintenance Due Date Last Done Comments CT Colonography 1955 FIT DNA/Cologuard 1955 FIT 1955 FOBT 1955 Sigmoidoscopy 1955 Alcohol/Substance Use Screening 1968 Colonoscopy 06/03/2023 06/03/2018 Colorectal Cancer Screening 06/03/2023 Diabetes: Hemoglobin A1C 01/14/2025 025, 03/06/2024, 11/12/2023, Additional history exists Dental Oral Exam 02/07/2025 08/09/2024, 11/25/2022 Depression Monitoring 02/07/2025 08/10/2024, 025 COVID-19 Vaccine ( season) 2025 04/21/2021, 10/29/2020, 10/08/2020 Influenza Vaccine (#1) 2025 , 04/14/2023, 05/27/2022, Additional history exists SDOH Screening 07/06/2025 07/06/2024 Diabetes: Foot Exam 07/17/2025 07/17/2024, 07/17/2024, 07/17/2024, Additional history exists Diabetes: Urine Protein Screening 07/17/2025 07/17/2024, 01/04/2023, 12/17/2021, Additional history exists Lipid Panel 07/17/2025 07/17/2024, 03/0 01/2023, 12/17/2021, Additional history exists Dental Prophylaxis 07/27/2025 01/23/2025, 11/25/2022 Dental X-Ray: Bitewings 08/10/2025 08/09/19, 11/25/2022, 09/16/2022 Tobacco Screening 01/23/2026 01/23/2025 Eye Exam 09/20/2026 09/20/2024, 040 02/2025, 09/20/2024, Additional history exists Mammogram 01/31/2027 01/31/2025, 01/12, 07/07/2023, Additional history exists Dental X-Ray: Full Mouth 08/10/2027 08/09/2024, 04/14 RSV Patients and Patients Aged 60 years or older (1 - 1-dose 75+ series) 2031 DTaP/Tdap/Td Vaccines (3 - Td or Tdap) 09/14/2032 09/14/2022, 04/15/2012 Zoster Vaccines Completed 09/14/2022, 02/26/2022 Hepatitis C Screening Completed 11/12/2023 Pneumococcal Vaccine: 50+ Years Completed 08/10/2024, 10/17/2021 HIB Vaccines Aged Out No longer eligi [...] patient's age to complete this topic Meningococcal B Vaccine Aged Out No l onger eligible based on patient's age to complete [...] Procedure Name Priority Date/Time Associated Diagnosis Comments BI MAMMOGRAM SCREENING TOMOSYNTHESIS BILATERAL Routine 01/31/2025 11:10 AM EDT TOPICAL APPLICATION OF FLUORIDE VARNISH Routine 01/23/2025 3:00 PM EDT Missing teeth, acquired Dental plaque Dental calculus CASE PRESENTATION, DETAILED AND EXTENSIVE TREATMENT PLANNING Routine 01/23/2025 3:00 PM EDT Missing teeth, acquired Dental plaque Dental calculus ORAL HYGIENE INSTRUCTIONS Routine 01/23/2025 3:00 PM EDT Missing teeth, acquired Dental plaque Dental calculus PROPHYLAXIS - ADULT Routine 01/23/2025 3 :00 PM EDT Missing teeth, acquired Dental plaque Dental calculus POCT SCOUT-14 URINE DRUG SCREEN Routine 12/14/2024 9:44 AM EDT Long-term current use of opiate analgesic INTRAORAL - COMPLETE SERIES OF RADIOGRAPHIC IMAGES Routine 08/09/2024 9:00 AM EST PERIODIC ORAL EVALUATION - ESTABLISHED PATIENT Routine 08/09/2024 9:00 AM EST ALBUMIN, RANDOM URINE W/CREATININE Routine 07/17/2024 11:20 AM EST Essential hypertension Type 2 diabetes mellitus with other specified complication, without long-term current use of insulin (CMS/HCC) LIPID PANEL, STANDARD Routine 07/17/2024 11:20 AM EST Type 2 diabetes mellitus with other specified complication, without long-term current use of insulin (CMS/HCC) Osteoarthritis of right knee, unspecified osteoarthritis type High cholesterol Hypothyroidism, unspecified type POCT GLYCATED HEMOGLOBIN, TOTAL Routine 07/17/2024 11:03 AM EST Type 2 diabetes mellitus with other specified complication, without long-term current use of insulin (CMS/HCC) HEPATITIS C AB W/REFL TO HCV RNA, QN, PCR Routine 11/12/2023 10:40 AM EDT Situational anxiety Possible exposure to STD HM COLONOSCOPY Routine 06/03/2018 from Last 3 Months or Most Recently Relevant to Health Maintenance Results * BI Mammogram Screening Tomosynthesis Bilateral (01/31/2025 11:10 AM EDT) Anatomical Region Laterality Modality Breast Bilateral Mammography 01/31/2025 11:1 0 AM EDT Narrative 02/01/2025 4:59 PM EDT [facility]'s [address] [place] [address] Mammography Report Signed Patient: Beatriz Talbot MR#: [id number] : 1955 Acct:[id number] Age/Sex: 69 / F ADM Date: 01/31/25 Loc: HO.MAMMO Attending Dr: Teofilo Dave MD Ordering Physician: Teofilo Dave MD Results: 2Benign Fi ndings Date of Service: 01/31/25 Follow Up: 1 Year From [facility] Mammogram Procedure(s): MM tomosynthesis screening BI Accession Number(s): [id number] cc: Teofilo Dave MD EXAMINATION: MM SCREENING DIGITAL BREAST TOMOSYNTHESIS, BILATERAL CLINICAL INFORMATION: Screening. Asymptomatic. History of left breast cancer post lumpectomy 2002. COMPARISON: Mammography: Comparison is made with available priors TECHNIQUE: Digital breast mammography with tomosynthesis is performed in both the craniocaudal and mediolateral oblique views along with computer-aided detection (CAD). FINDINGS: There are scattered areas of fibroglandular density (ACR BI-RADS breast composition Category b). Left lumpectomy changes are stable. There are no significant masses, abnormal calcifications, or other abnormalities. MM/MM tomosynthesis screening BI IMPRESSION: No mammographic evidence of malignancy. ASSESSMENT: BI-RADS BI-RADS 2 - Benign Findings RECOMMENDATION: Routine annual mammography screening. 1 year F/U This examination should not preclude the clinical evaluation of a suspicious palpable abnormality. This patient's information was entered into a reminder system with a target due date for their next mammogram. Electronically signed by: Ernestina Lewis DO 02/01/2025 04:55 PM EDT Dictated By: Ernestina Lewis DO Signed By: <Electronically signed by Ernestina eLwis DO in OV> 02/01/25 1655 DD/ 1110 TD/TT: 01/31/25 1128 Manager Integration: Procedure Note Donotjoninterpreter, Image - 02/01/2025 [facility] [address] [place] [address] Mammography Report Signed Patient: Terence Talbot#: [id number] : 1955cct:[id number] Age/Sex: 69 / FADM Date: 01/31/25 Loc: HO.MAMMO Attending Dr: Teofilo Dave MD Ordering Physician: Teofilo Dave MDResults: 2Benign Fi ndings Date of Service: 01/31/25Follow Up: 1 Year From Orig inal Mammogram Procedure(s): MM tomosynthesis screening BI Accession Number(s): [id number] cc: Teofilo Dave MD EXAMINATION: MM SCREENING DIGITAL BREAST TOMOSYNTHESIS, BILATERAL CLINICAL INFORMATION: Screening. Asymptomatic. History of left breast cancer post lumpectomy 2002. COMPARISON: Mammography: Comparison is made with available priors TECHNIQUE: Digital breast mammography with tomosynthesis is performed in both the craniocaudal and mediolateral oblique views along with computer-aided detection (CAD). FINDINGS: There are scattered areas of fibroglandular density (ACR BI-RADS breast composition Category b). Left lumpectomy changes are stable. There are no significant masses, abnormal calcifications, or other abnormalities. MM/MM tomosynthesis screening BI IMPRESSION: No mammographic evidence of malignancy. ASSESSMENT: BI-RADS BI-RADS 2 - Benign Findings RECOMMENDATION: Routine annual mammography screening. 1 year F/U This examination should not preclude the clinical evaluation of a suspicious palpable abnormality. This patient's information was entered into a reminder system with a target due date for their next mammogram. Electronically signed by: Ernestina Lewis DO 02/01/2025 04:55 PM EDT Dictated By: Ernestina Lewis DO Signed By: <Electronically signed by Ernestina Lewis DO in OV> 02/01/25 1655 DD/ 1110 TD/TT: 01/31/25 1128 Manager Integration: us Teofilo Dave MD IMG BI PROCEDURES Final Result * POCT SCOUT-14 Urine Drug Screen (12/14/2024 9:44 AM EDT) THC Negative Negative Cocaine Screen, Urine Negative Negative Opiate Screen, Urine Negative Negative Methamphetamine Screen Urine Negative Negative Amphetamine Screen, Urine Negative Negative Benzodiazepines Screen, Urine Negative Negative Barbiturate Screen, Urine Negative Negative Methadone Screen, Urine Negative Negative Buprenophine Screen, Urine Negative Negative TCA, Urine Negative Negative MDMA Urine Negative Negative ng/mL Oxycodone Screen, Urine Positive Negative Phencyclidine (PCP), Urine Negative Negative Propoxyphene, Urine Negative Negative Fentanyl, Urine Negative Negative Urine Urine specimen obtained by clean catch procedure / Unknown 12/14/2024 9:44 AM EDT Aurora Hilario RN - 12/14/2024 9:44 AM EDT UTOX cup Lot#[id number] Exp. 03/20/26 Internal Pass Control us Teofilo Dave MD POINT OF CARE TEST ENTER/EDIT OR DERABLES Final Result * Albumin, Random Urine W/Creatinine (07/17/2024 11:20 AM EST) Creatinine, Urine 218.42 mg/dL [facility] Microalbumin Urine 20.0 mg/L [facility] Microalbum Creatinine Ratio Ur 9.1 <30 ug/mg cr [facility] Comment:Albumin/Creatinine R atio Reference Ranges: Normal: < 30 ug/mg creatinine Microalbuminuria: 30 - 300 ug/mg creatinineClinical Albuminuria: > 300 ug/mg creatinine Urine (Urine, Random) 07/17/2024 11:20 AM EST 07/17/2024 1:10 PM EST us Teofilo Dave MD LAB URINE ORDERABLES Final Resul t [facility] [address] [place] [phone] * (ABNORMAL) Lipid Panel, Standard (07/17/2024 11:20 AM EST) Triglycerides 99 <150 mg/dL [facility] Comment:Desirable Triglyceri de: less than 150 mg/dLBorderline High Triglyceride 150-199 mg/dLHigh Triglyceride: 200-499 mg/dLVery High Triglyceride: greater than or equal to 5OO mg/dL Cholesterol 178 <200 mg/dL [facility] Comment:Desirable Cholestero l: less than 200 mg/dLBorderline High Cholesterol: 200-239 mg/dLHigh Cholesterol: greater than 239 mg/dL LDL Cholesterol Calculated 102(H) <100 mg/dL [facility] Comment:Desirable LDL: less than 100 mg/dLNear Optimal/Above Optimal LDL: 110- 129 mg/dLBorderline High LDL: 130-159 mg/dLHigh LDL: 160-189 mg/dLVery High LDL: greater than or equal to 190 mg/dL HDL Cholesterol 57 >40 mg/dL [facility] Comment:Desirable HDL: great er than 40 mg/dL Note: This HDL assay may give artificially low results in patients with liver disease. Blood Venous blood specimen / Unknown 07/17/2024 11:20 AM EST 07/17/2024 1:10 PM EST us Teofilo Dave MD LAB BLOOD ORDERABLES Final Resul t Performing Organization Address [facility] [[email or web address]] Co de Phone Number [facility] [address] [place] [phone] * (ABNORMAL) POCT HGB A1C (07/17/2024 11:03 AM EST) Hemoglobin A1C 6.3(A) 4.0 - 6.0 % QC Media Lot # [id number] Lot# Expiration Date Blood 07/17/2024 11:0 3 AM EST us Teofilo Name POINT OF CARE TEST ENTER/EDIT OR DERABLES Final Result * Hepatitis C Antibody with Reflex to HCV, RNA, Quantitative, Real-Time PCR (11/12/2023 10:40 AM EDT) Hepatitis C Antibody Nonreactive Nonreactive [facility] Comment:Antibodies to HCV no t detected; does not exclude early acuteHCV infection. Blood Venous blood specimen / Unknown 11/12/2023 10:40 AM EDT 11/12/2023 11:12 AM EDT us Teofilo Name LAB BLOOD ORDERABLES Final Resul t [facility] [address] [place] [address] [phone] * Colonoscopy (06/03/2018) Colonoscopy performed [facility] Provider HEALTH MAINTENANCE Final Result from Last 3 Months or Most Recently Relevant to Health Maintenance Insurance [facility] CUSTODIAL OPTIONS (O D-SNP) [place] [id number] [facility] Care Teams Stained Glass Window Designer Relationship Specialty Start Date End Date Name, MD Teofilo [address] [place] [phone] PCP - General Family Medicine 08/19/15
--- OUTSIDE RECORDS SUMMARY | 2025-02-22 03:08 | XMS_ITS | Encounter Summary ---
Author Organization [employer] Address [address] [facility] [address] [place] [address] Care Team Providers Care Collection Systems Administrator Name Role Phone Name, Teofilo WHALEN Primary Care Provider [phone] Reason for Visit * Reason Comments Med Refill Encounter Details Date Type Department Care Team (Late st Contact Info) Description 03/19/2023 Refill [facility] [address] [place] [address] Susan Brown, ROSELYN [address] [place] [address] Chronic pain syndrome Social History Tobacco Use [...] Description 05/28/2025 9:00 AM EST Clinical Support [facility] [address] [place] [address] Aurora Sabillon RN 07/31/2025 10:00 AM EST Office Visit [facility] [address] [place] [address] Kadi Heaton [address] [place] [address] documented as of this encounter Visit Diagnoses Diagnosis Chronic pain syndrome documented in this encounter Additional Health Concerns Assessment Noted Time PHQ-9 Depression Total Score: 0 05/27/20 22 10:40 AM EST documented as of this encounter Care Teams Collection Systems Administrator Relationship Specialty Start Date End Date Name, MD Teofilo [address] [place] [address] PCP - General Family Medicine 08/19/15 documented as of this encounter
--- OUTSIDE RECORDS SUMMARY | 2025-02-22 03:08 | XMS_ITS | Encounter Summary ---
Author Organization [employer] Address 75 [facility] 7t [place] [address] Care Team Providers Care Director Of Family Service Center Name Role Phone Name, Teofilo WHALEN Primary Care Provider [phone] Encounter Details Date Type Department Care Team ([facility] st Contact Info) Description 07/16/2023 Abstract [facility] MEDICINE [address] [place], [place] [phone] Name, MD Teofilo [address] [place] [address] Social History Tobacco Use Types Packs/Day Years [...] Description 05/28/2025 9:00 AM EST Clinical Support [facility] MEDICINE [address] [place] [address] Aurora Sabillon RN 07/31/2025 10:00 AM EST Office Visit [facility] ADULT DENTAL [address] [place] [address] Kadi Heaton [address] [place] [address] documented as of this encounter Visit Diagnoses Not on filedocumented in this encounter Additional Health Concerns Assessment Noted Time PHQ-9 Depression Total Score: 0 05/27/20 22 10:40 AM EST documented as of this encounter Care Teams Director Of Family Service Center Relationship Specialty Start Date End Date Name, MD Teofilo [address] [place] [address] PCP - General Family Medicine 08/19/15 documented as of this encounter
--- OUTSIDE RECORDS SUMMARY | 2025-02-22 03:08 | XMS_ITS | Encounter Summary ---
Author Organization [employer] Address 75 [facility] 7 [place] [address] Care Team Providers Care Fagoting Machine Operator Name Role Phone Name, Teofilo WHALEN Primary Care Provider Reason for Visit * Reason Onset Date Comments Med Refill 04/03/2024 Encounter Details Date Type Department Care Team ([facility] st Contact Info) Description 04/03/2024 Refill [facility] MEDICINE 230 [place] [address] Name, MD Teofilo [address] [place] [address] Social History Tobacco Use Types Packs/Day Years [...] Description 05/28/2025 9:00 AM EST Clinical Support [facility] MEDICINE [address] [place] [address] Aurora Sabillon RN 07/31/2025 10:00 AM EST Office Visit [facility] ADULT DENTAL [address] [place] [address] Kadi Heaton [address] [place] [address] documented as of this encounter Visit Diagnoses Not on filedocumented in this encounter Additional Health Concerns Assessment Noted Time PHQ-9 Depression Total Score: 12 024 9:22 AM EDT documented as of this encounter Care Teams Fagoting Machine Operator Relationship Specialty Start Date End Date Name, MD Teofilo [address] [place] [address] PCP - General Family Medicine 08/19/15 documented as of this encounter
--- OUTSIDE RECORDS SUMMARY | 2025-02-22 03:08 | XMS_ITS | Encounter Summary ---
Author Organization [employer] Address 75 [facility] [address] [address] Care Team Providers Care Exploration Manager Name Role Phone Name, Teofilo WHALEN Primary Care Provider [phone] Reason for Visit * Reason Comments Med Refill Encounter Details Date Type Department Care Team (Late st Contact Info) Description 02/22/[address] [facility] MEDICINE [address] [place] [address] Name, MD Teofilo [address] [place] [address] Chronic pain syndrome Social History Tobacco Use [...] Description 05/28/2025 9:00 AM EST Clinical Support [facility] MEDICINE [address] [place] [address] Aurora Sabillon RN 07/31/2025 10:00 AM EST Office Visit [facility] ADULT DENTAL [address] [place] [address] Kadi Heaton [address] [place] [address] documented as of this encounter Visit Diagnoses Diagnosis Chronic pain syndrome documented in this encounter Additional Health Concerns Assessment Noted Time PHQ-9 Depression Total Score: 0 05/27/20 10:40 AM EST documented as of this encounter Care Teams Exploration Manager Relationship Specialty Start Date End Date Name, MD Teofilo 230 [place] [address] PCP - General Family Medicine 08/19/15 documented as of this encounter
--- OUTSIDE RECORDS SUMMARY | 2025-02-22 03:08 | XMS_ITS | Encounter Summary ---
Author Organization [employer] Address 75 [facility] 7 [place] [address] Care Team Providers Care Lawn Service Worker Name Role Phone Name, Teofilo WHALEN Primary Care Provider [phone] Reason for Visit * Reason Onset Date Comments new script 08/21/2022 Encounter Details Date Type Department Care Team ([facility] st Contact Info) Description 08/21/2022 Telephone [facility] MEDICINE [address] [place] [address] Name, MD Teofilo [address] [place] [address] new script Social History Tobacco Use Types [...] alternatemed and please to be sent to [facility] Pharmacy. PCP Name documented in this encounter Plan of Treatment Upcoming Encounters Date Type Department Care Team (Late st Contact Info) Description 05/28/2025 9:00 AM EST Clinical Support [facility] MEDICINE [address] [place] [address] Aurora Sabillon RN 07/31/2025 10:00 AM EST Office Visit [facility] ADULT DENTAL 230 [place] [address] Kadi Heaton [address] [place] [address] documented as of this encounter Visit Diagnoses Not on filedocumented in this encounter Additional Health Concerns Assessment Noted Time PHQ-9 Depression Total Score: 0 05/27/20 22 10:40 AM EST documented as of this encounter Care Teams Lawn Service Worker Relationship Specialty Start Date End Date Name, MD Teofilo [address] [place] [address] PCP - General Family Medicine 08/19/15 documented as of this encounter
--- OUTSIDE RECORDS SUMMARY | 2025-02-22 03:08 | XMS_ITS | Encounter Summary ---
Author Organization [employer] Address 75 [facility] 7t [place] [address] Care Team Providers Care Ceramic Tile Mechanic Name Role Phone Name, Teofilo WHALEN Primary Care Provider [phone] Reason for Visit * Reason Onset Date Comments Med Refill 12/21/2024 Encounter Details Date Type Department Care Team ([facility] st Contact Info) Description 12/21/2024 Telephone [facility] MEDICINE 230 [place] [address] Name, MD Teofilo [address] [place] [address] Med Refill Social History Tobacco Use Types [...] problems with any of the following? Lead [place] or [employer] 07/06/2024 Food Insecurity Answer Date [...] encounter Miscellaneous Notes * Telephone Encounter - Dixie Dietrich LPN - 12/21/2024 9:44 AM EDT DIRECTOR TRANSLATION checked on 12/21/24 Ambien last sold on 12/01/24 #30 to soon for refill. * Telephone Encounter - Teofilo Francis - 12/21/2024 9:27 AM EDT TC from pt requesting medication refill. Medications needing refill : zolpidem (Ambien) 10 MG tablet To be sent to: [facility]/pharmacy #[id number] [place], [place] - [address] [place] [address] documented in this encounter Plan of Treatment Upcoming Encounters Date Type Department Care Team (Late st Contact Info) Description 05/28/2025 9:00 AM EST Clinical Support [facility] MEDICINE [address] [place] [address] Aurora Sabillon RN 07/31/2025 10:00 AM EST Office Visit [facility] ADULT DENTAL [address] [place] [address] Kadi Heaton [address] [place] [address] documented as of this encounter Visit Diagnoses Not on filedocumented in this encounter Additional Health Concerns Assessment Noted Time PHQ-9 Depression Total Score: 9 08/10/19 25 10:01 AM EST documented as of this encounter Care Teams Ceramic Tile Mechanic Relationship Specialty Start Date End Date Name, MD Teofilo [address] [place] [address] PCP - General Family Medicine 08/19/15 documented as of this encounter
--- OUTSIDE RECORDS SUMMARY | 2025-02-22 03:08 | XMS_ITS | Encounter Summary ---
Author Organization [employer] Address 75 [facility] 7t [place] [address] Care Team Providers Care Veneer Lathe Operator Name Role Phone Name, Teofilo WHALEN Primary Care Provider [phone] Reason for Visit * Reason Comments Med Refill Encounter Details Date Type Department Care Team ([facility] st Contact Info) Description 03/19/[address] [facility] [address] [place] [address] Zuri Thacker MD 230 [place] [address] Social History Tobacco Use Types Packs/Day Years [...] Description 05/28/2025 9:00 AM EST Clinical Support [facility] MEDICINE [address] [place] [address] Aurora Sabillon RN 07/31/2025 10:00 AM EST Office Visit [facility] ADULT DENTAL [address] [place] [address] Kadi Heaton [address] [place] [address] documented as of this encounter Visit Diagnoses Not on filedocumented in this encounter Additional Health Concerns Assessment Noted Time PHQ-9 Depression Total Score: 0 05/27/20 22 10:40 AM EST documented as of this encounter Care Teams Veneer Lathe Operator Relationship Specialty Start Date End Date Name, MD Teofilo [address] [place] [address] PCP - General Family Medicine 08/19/15 documented as of this encounter
--- OUTSIDE RECORDS SUMMARY | 2025-02-22 03:08 | XMS_ITS | Encounter Summary ---
Author Organization [employer] Address 75 [facility] 7t [place] [address] Care Team Providers Care Office Copy Selector Name Role Phone Name, Teofilo WHALEN Primary Care Provider [phone] Reason for Visit * Reason Onset Date Comments Med Refill 05/10/2024 Encounter Details Date Type Department Care Team ([facility] st Contact Info) Description 05/10/2024 Telephone [facility] MEDICINE [address] [place] [address] Name, MD Teofilo [address] [place] [address] Med Refill Social History Tobacco Use Types [...] the past 12 months, has t he Message [employer], gas, oil or water company threatened to [...] 5-325 MG tablet To be sent to: [facility]/pharmacy #[id number] documented in this encounter Plan of Treatment Upcoming Encounters Date Type Department Care Team (Late st Contact Info) Description 05/28/2025 9:00 AM EST Clinical Support [facility] MEDICINE [address] [place] [address] Aurora Sabillon RN 07/31/2025 10:00 AM EST Office Visit [facility] ADULT DENTAL [address] [place] [address] Kadi Heaton [address] [place] [address] documented as of this encounter Visit Diagnoses Not on filedocumented in this encounter Additional Health Concerns Assessment Noted Time PHQ-9 Depression Total Score: 12 024 9:22 AM EDT documented as of this encounter Care Teams Office Copy Selector Relationship Specialty Start Date End Date Name, MD Teofilo [address] [place] [address] PCP - General Family Medicine 08/19/15 documented as of this encounter
--- OUTSIDE RECORDS SUMMARY | 2025-02-22 03:08 | XMS_ITS | Encounter Summary ---
Author Organization [employer] Address 75 [facility] 7t [place] [address] Care Team Providers Care Cardiopulmonary Technician Name Role Phone Name, Teofilo WHALEN Primary Care Provider [phone] Reason for Visit * Reason Comments Med Refill Encounter Details Date Type Department Care Team ([facility] st Contact Info) Description 09/03/2024 Refill [facility] MEDICINE 230 [place] [address] Emily Elizalde MD [address] [place] [address] Benign hypertension Social History Tobacco Use Types Packs/Day Years [...] problems with any of the following? Lead [place] or [place] 07/06/2024 Food Insecurity Answer Date [...] Description 05/28/2025 9:00 AM EST Clinical Support [facility] MEDICINE 230 [place] [address] Aurora Sabillon RN 07/31/2025 10:00 AM EST Office Visit [facility] ADULT DENTAL 230 [place] [address] Kadi Heaton 230 [place] [address] documented as of this encounter Visit Diagnoses Diagnosis Benign hypertension Essential hypertension, benign documented in this encounter Additional Health Concerns Assessment Noted Time PHQ-9 Depression Total Score: 9 08/10/19 25 10:01 AM EST documented as of this encounter Care Teams Cardiopulmonary Technician Relationship Specialty Start Date End Date Name, MD Teofilo [address] [place] [address] PCP - General Family Medicine 08/19/15 documented as of this encounter
--- OUTSIDE RECORDS SUMMARY | 2025-02-22 03:08 | XMS_ITS | Encounter Summary ---
Author Organization [employer] Address 75 [facility] 7[address] [place] [address] Care Team Providers Care Shipwright Helper Name Role Phone Name, Teofilo WHALEN Primary Care Provider Reason for Visit * Reason Onset Date Comments Med Refill 06/10/2023 Encounter Details Date Type Department Care Team ([facility] st Contact Info) Description 06/10/2023 Telephone [facility] MEDICINE [address] [place], [place] [phone] Name, MD Teofilo [address] [place] [address] Med Refill Social History Tobacco Use Types [...] on 05/17/2023 for 28 days supply at [facility]. [place]. Please review. * Telephone Encounter - Lori Palomino - 06/10/2023 9:34 AM EST TC from pt requesting medication refill. Medications needing refill : oxyCODONE-acetaminophen (Percocet) 5-325 MG tablet To be sent to: [facility]/pharmacy #[id number] - [place], [place] - [address] [place] [address] documented in this encounter Plan of Treatment Upcoming Encounters Date Type Department Care Team (Late st Contact Info) Description 05/28/2025 9:00 AM EST Clinical Support [facility] MEDICINE [address] [place] [address] Aurora Sabillon RN 07/31/2025 10:00 AM EST Office Visit [facility] ADULT DENTAL [address] [place] [address] Kadi Heaton [address] [place] [address] documented as of this encounter Visit Diagnoses Not on filedocumented in this encounter Additional Health Concerns Assessment Noted Time PHQ-9 Depression Total Score: 0 05/27/20 22 10:40 AM EST documented as of this encounter Care Teams Shipwright Helper Relationship Specialty Start Date End Date Name, MD Teofilo [address] [place] [address] PCP - General Family Medicine 08/19/15 documented as of this encounter
--- OUTSIDE RECORDS SUMMARY | 2025-02-22 03:08 | XMS_ITS | Encounter Summary ---
Author Organization [employer] Address 75 [facility] 7 [place] [address] Care Team Providers Care Financial Secretary Name Role Phone Name, Teofilo WHALEN Primary Care Provider [phone] Encounter Details Date Type Department Care Team (Latest Contact Info) Description 04/25/2021 Abstract [facility] CONVERSIONS Dental, Provider, DDS Social History [...] 9:00 AM EST Clinical Support [facility] MEDICINE [address] [place] [address] Aurora Sabillon RN 07/31/2025 10:00 AM EST Office Visit [facility] ADULT DENTAL [address] [place] [address] Kadi Heaton [address] [place] [address] documented as of this encounter Visit Diagnoses Not on filedocumented in this encounter Care Teams Financial Secretary Relationship Specialty Start Date End Date Name, MD Teofilo 230 [place] [address] PCP - General Family Medicine 08/19/15 documented as of this encounter
--- OUTSIDE RECORDS SUMMARY | 2025-02-22 03:08 | XMS_ITS | Encounter Summary ---
Author Organization [employer] Address 75 [facility] 7 [place] [address] Care Team Providers Care Anglesmith Name Role Phone NameTeofilo MD Primary Care Provider Reason for Visit * Reason Onset Date Comments requesting call 08/18/2022 Encounter Details Date Type Department Care Team ([facility] st Contact Info) Description 08/18/2022 Telephone [facility] MEDICINE 230 [place], [place] [phone] Name, MD Teofilo [address] [place] [address] requesting call Social History Tobacco Use Types [...] AM EST documented as of this encounter Functional Status * Over the past 2 weeks, how often have you been bothered by any of the following problems? Question Answer Date of Assessment Author Little interest or pleasure in doing things Not at all 08/19/2022 9:43 AM EST Bridget Magana MA Feeling down, depressed, or hopeless Not at all 08/19/2022 9:43 AM EST Bridget Magana MA Patient Health Questionnaire -2 Score 0 08/19/2022 9:43 AM EST Bridget Magana MA documented as of this encounter Miscellaneous Notes * Telephone Encounter - Josy Desai - 08/18/2022 10:33 AM EST TC to patient and patients daughter Iris and they are going to call back with information regardingof where current CPAP is from. * Telephone Encounter - Mally Paniagua - 08/18/2022 10:00 AM EST [facility]. Janneth explained that she got in contact with pt insurance and the insurance informed that pt already had an authorization for a CPAP machine from a different provider since May to September. Please contact Janneth at [phone] Ext: [phone] documented in this encounter Plan of Treatment Upcoming Encounters Date Type Department Care Team (Late st Contact Info) Description 05/28/2025 9:00 AM EST Clinical Support [facility] MEDICINE [address] [place] [address] uArora Sabillon RN 07/31/2025 10:00 AM EST Office Visit [facility] ADULT DENTAL [address] [place] [address] Kadi Heaton [address] [place] [address] documented as of this encounter Visit Diagnoses Not on filedocumented in this encounter Additional Health Concerns Assessment Noted Time PHQ-9 Depression Total Score: 0 05/27/20 22 10:40 AM EST documented as of this encounter Care Teams Anglesmith Relationship Specialty Start Date End Date Name, MD Teofilo [address] [place] [address] PCP - General Family Medicine 08/19/15 documented as of this encounter
--- OUTSIDE RECORDS SUMMARY | 2025-02-22 03:08 | XMS_ITS | Encounter Summary ---
Author Organization [employer] Address [address] [facility] [address] 7t [place] [address] Care Team Providers Care Gift Shop Manager Name Role Phone Name, Teofilo WHALEN Primary Care Provider [phone] Encounter Details Date Type Department Care Team ([facility] st Contact Info) Description 01/21/2024 Telephone [facility] MEDICINE [address] [place], [place] [phone] Name, MD Teofilo [address] [place] [address] Social History Tobacco Use Types Packs/Day Years [...] 9:00 AM EST Clinical Support [facility] MEDICINE [address] [place] [address] Aurora Sabillon RN 07/31/2025 10:00 AM EST Office Visit [facility] ADULT DENTAL [address] [place] [address] Chico Heatonaris [address] [place] [address] documented as of this encounter Visit Diagnoses Not on filedocumented in this encounter Additional Health Concerns Assessment Noted Time PHQ-9 Depression Total Score: 12 024 9:22 AM EDT documented as of this encounter Care Teams Gift Shop Manager Relationship Specialty Start Date End Date Name, MD Teofilo [address] [place] [address] PCP - General Family Medicine 08/19/15 documented as of this encounter
[2025-02-22 03:09] LABS: Troponin-I High Sensitivity 15.7 ng/L (<3.5-17.0)
--- NOTE | 2025-02-22 03:09 | PC.NURSE ---
hunter arrived to bedside. noted pt did become unresponsive while ambulating to bathroom with +HS. -thinners. MD aware of this. CT scan ordered. pt remains in c-collar. on arrival 20g IV accessed to L. forearm.
[2025-02-22 03:12] LABS: IDNOW Serial# 55D5AD1C; Influenza B2 Negative (Negative)
[2025-02-22 04:32] VITALS: BP 120/64; PULSE 70; RESP 16; TEMP 36.4; O2SAT 99
[2025-02-22 05:22] VITALS: BP 145/71; PULSE 67; RESP 16; O2SAT 99
--- NOTE | 2025-02-22 05:26 | MHC.EDTECH ---
pt ambulated to bathroom with steady gait, urine sample collected and sent to lab.
[2025-02-22 05:31] LABS: Hematocrit 36.4 % (37.0-47.0); Hemoglobin 12.3 g/dl (12.0-16.0); Mean Corpuscular HGB Conc 33.8 g/dl (31.0-35.0); Mean Corpuscular Hemoglobin 32.9 pg (27.0-33.0); Mean Corpuscular Volume 97.3 fL (80.0-98.0); NRBC Abs Auto 0.000 X10*3/uL (0.0-0.012); NRBC Pct Auto 0.0 /100WBC (0.0-0.2); Platelet Count 193 X10*3/uL (160-400); Red Blood Count 3.74 X10*6/uL (4.20-5.50); White Blood Count 6.9 X10*3/uL (4.8-10.8)
[2025-02-22 05:32] LABS: Appearance Urine Clear; Glucose Urine UA >=1000 mg/dL (Negative); PH 6.5 (5.0-9.0); Specific Gravity - Urine 1.015 (1.005-1.025); UMIC TRIGGER UACC YES
[2025-02-22 05:54] LABS: Troponin-I High Sensitivity 15.2 ng/L (<3.5-17.0)
[2025-02-22 07:11] VITALS: BP 129/62; PULSE 69; RESP 18; TEMP 36.4; O2SAT 99
== END 2025-02-22 07:14 | disposition home or self-care (01) ==
PROVIDERS: Emergency Provider Emergency Medicine
DX: R55 Syncope and collapse (principal); I10 Essential (primary) hypertension; R51.9 Headache, unspecified; Z86.79 Personal history of other diseases of the circulatory system; Z79.899 Other long term (current) drug therapy; Z87.19 Personal history of other diseases of the digestive system
CPT/HCPCS: 36415; 70450; 80053; 81001; 83690; 83735; 83880; 84484; 85025; 85027; 86140; 87502; 87635; 93005; 96361; 96374; 96375; 99284; J0131; J2765

== ENCOUNTER → 2025-02-22 02:27 | Outpatient (BNV) | payer OTHER, SELFPAY | PROVIDERS: Emergency Provider Emergency Medicine; Visit Provider Internal Medicine Cardiovascular Disease | DX: R53.1 Weakness (principal) | CPT/HCPCS: 93010 ==

== ENCOUNTER → 2025-02-22 03:00 | Outpatient (BNV) | payer OTHER, SELFPAY | PROVIDERS: Emergency Provider Emergency Medicine; Visit Provider Radiology Diagnostic Radiology | DX: R51.9 Headache, unspecified (principal) | CPT/HCPCS: 70450 ==

== ENCOUNTER 2025-04-03 16:48 | Outpatient (REF) | payer OTHER, SELFPAY ==
--- OUTSIDE RECORDS SUMMARY | 2025-04-03 15:15 | XMS_ITS | Encounter Summary ---
Author Organization [facility] Address [address] [facility] [address] [place] [address] Care Team Providers Care Ice House Supervisor Name Role Phone Name, Teofilo WHALEN Primary Care Provider [phone] Reason for Visit * Reason Comments Follow-up Encounter Details Date Type Department Care Team ([facility] st Contact Info) Description 04/03/2025 3:15 PM EDT Office Visit [facility] [address] [place] [address] Anum Mckinley NP [address] [place] [address] Urinary incontinence, unspecified type (Primary Dx); Full incontinence of feces; Diarrhea of presumed infectious origin; Mixed stress and urge urinary incontinence Social History Tobacco Use Types Packs/Day Years [...] Answer Date Recorded Patient Health Questionnaire-9 Score 13 04/03/2025 Patient Health Questionnaire-9 Score 13 04/03/2025 Last PHQ-9: Questionnaire Data Not on file 1 Housing Stability Answer Date Recorded What is your housing situation today? I have joaquim murguia 07/06/[address] you li ve. Do you have problems with any of the following? Lead Cataract or Pipes 07/06/2024 Food Insecurity Answer Date [...] Answer Date Recorded Patient Health Questionnaire-2 Score 1 04/03/2025 Internet Access Answer Date Recorded Internet Access [...] Sign Reading Time Taken Comments Blood Pressure 140/90 04/03/2025 3:11 PM EDT Pulse 98 04/03/2025 3:11 PM EDT Temperature 36.7 C (98.1 F) 04/03/2025 3:11 PM EDT Respiratory Rate 25 04/03/2025 3:11 PM EDT Oxygen Saturation 99% 04/03/2025 3:11 PM EDT Inhaled Oxygen Concentration - - Weight 62 kg (136 lb 9.6 oz) 04/03/2025 3:11 PM EDT Height 160 cm (5' 3 ) 04/03/2025 3:11 PM EDT Body Mass Index 24.2 04/03/2025 3:11 PM EDT documented in this encounter Functional Status * Over the past 2 weeks, how often have you been bothered by any of the following problems? Question Answer Date of Assessment Author Patient Health Questionnaire -2 Score 1 04/03/2025 3:44 PM EDT Mery Madden MA * Little interest or pleasure in doing things Answer Date of Assessment Author Several days 04/03/2025 3:44 PM EDT Mery Madden MA * Feeling down, depressed, or hopeless Answer Date of Assessment Author Not at all 04/03/2025 3:44 PM EDT Mery Madden MA * Trouble falling or staying asleep, or sleeping too much Answer Date of Assessment Author Several days 04/03/2025 3:44 PM EDT Mery Madden MA * Feeling tired or having little energy Answer Date of Assessment Author More than half the days 04/03/2025 3:44 PM EDT Mery Crocker MA * Poor appetite or overeating Answer Date of Assessment Author More than half the days 04/03/2025 3:44 PM EDT Mery Crocker MA * Feeling bad about yourself - or that you are a failure or have let yourself or your family down Answer Date of Assessment Author More than half the days 04/03/2025 3:44 PM EDT Mery Crocker MA * Trouble concentrating on things, such as reading the newspaper or watching television Answer Date of Assessment Author More than half the days 04/03/2025 3:44 PM EDT Mery Crocker MA * Moving or speaking so slowly that other people could have noticed? Or the opposite - being so fidgety or restless that you have been moving around a lot more than usual. Answer Date of Assessment Author Nearly every day 04/03/2025 3:44 PM EDT Mery Madden MA * Thoughts that you would be better off or hurting yourself in some way Answer Date of Assessment Author Not at all 04/03/2025 3:44 PM EDT Mery Madden MA * Patient Health Questionnaire-9 Score Answer Date of Assessment Author 13 04/03/2025 3:44 PM EDT Mery Madden MA * How difficult have these problems made it for you to do your work, take care of things at home, or get along with other people? Answer Date of Assessment Author Somewhat difficult 04/03/2025 3:44 PM EDT Mery Aguilar MA * Over the last 2 weeks, how often have you been bothered by any of the following problems? Question Answer Date of Assessment Author Feeling nervous, anxious, or on edge 2 04/03/2025 3:45 PM EDT Mery Madden MA Not being able to stop or co ntrol worrying 3 04/03/2025 3:45 PM EDT Mery Madden MA Worrying too much about diff erent things 3 04/03/2025 3:45 PM EDT Mery Madden MA Trouble relaxing 2 04/03/2025 3:45 PM EDT Mery Crocker MA Being so restless that it is hard to sit still 3 04/03/2025 3:45 PM EDT Mery Madden MA Becoming easily annoyed or irritable 2 04/03/2025 3:45 PM EDT Mery Madden MA Feeling afraid as if somethi ng awful might happen 3 04/03/2025 3:45 PM EDT Mery Madden MA YOVANI-7 Total Score 18 04/03/2025 3:45 PM EDT Mery Madden MA documented as of this encounter Progress Notes * Anum Mckinley NP - 04/03/2025 3:15 PM EDT Beatriz Escalante is a 69 y.o. female who presents to the office for Chief Complaint Patient presents with Follow-up Problem List[1] Medical History[2] Allergies[3] Beatriz Escalante, 69-year-old female - Urinary incontinence occurring all the time for more than one month - Burning sensation during urination - New onset low back pain - Numbness in legs and hands, duration not specified - Diarrhea described as watery, occurring before and after eating, started about one month ago - Denies blood in urine and stool - Denies fever - Denies new sexual partners - No recent antibiotic use in the past month - No prior illness before onset of current symptoms - History of chronic low back pain - Reports diabetes, glucose described as fantastic Review of Systems Constitutional: Negative for appetite change and fever. Gastrointestinal: Positive for diarrhea. Negative for nausea. Genitourinary: Positive for dysuria, enuresis and urgency. Musculoskeletal: Positive for back pain. BP (!) 140/90 (BP Location: Right arm, Patient Position: Sitting, BP Cuff Size: Adult) Pulse 98 Temp 98.1 ??F (36.7 ??C) (Oral) Resp 25 Ht 5' 3 (1.6 m) Wt 136 lb 9.6 oz (62 kg) SpO2 99% BMI 24.20 kg/m?? Physical Exam Vitals reviewed. HENT: Head: Normocephalic and atraumatic. Nose: Nose normal. Eyes: Conjunctiva/sclera: Conjunctivae normal. Cardiovascular: Rate and Rhythm: Normal rate. Pulmonary: Effort: Pulmonary effort is normal. Breath sounds: Normal breath sounds. Abdominal: General: Bowel sounds are normal. Palpations: Abdomen is soft. There is no mass. Tenderness: There is abdominal tenderness. There is no right CVA tenderness, left CVA tenderness orrebound. Musculoskeletal: Cervical back: Normal range of motion and neck supple. Neurological: General: No focal deficit present. Mental Status: She is alert. - GENITOURINARY: Examination for urinary incontinence and dysuria. Results: Office Visit on 04/03/2025 Component Date Value Ref Range Status Glucose Blood, POC 04/03/2025 109 60 - 200 mg/dL Final QC Media Lot # 04/03/2025 [id number] Final Lot# Expiration Date 04/03/2025 31,126 Final Color, UA 04/03/2025 Yellow Final Clarity, UA 04/03/2025 Clear Final Glucose, UA 04/03/2025 Trace Final 500mg/dL Bilirubin, UA 04/03/2025 Negative Final Ketones, UA 04/03/2025 Negative Final Spec Grav, UA 04/03/2025 1.025 Final Blood, UA 04/03/2025 Positive (A) Negative, None Detected Final trace-lysed pH, UA 04/03/2025 5.5 Final Protein, UA 04/03/2025 Negative Final Urobilinogen, UA 04/03/2025 0.2 Final Leukocytes, UA 04/03/2025 Negative Negative, Rare, Trace Final Nitrite, UA 04/03/2025 Negative Negative, None Detected Final Appearance, UA 04/03/2025 clear Final QC Media Lot # 04/03/2025 [id number] Final Lot# Expiration Date 04/03/2025 33,126 Final Assessment & Plan Urinary incontinence, unspecified type Orders: Culture, Urine, Routine; Future POCT Glucose POCT Urinalysis Full incontinence of feces Orders: Stool culture; Future Comprehensive Metabolic Panel; Future CBC auto differential; Future Sed Rate by Modified Westergren; Future C-reactive Protein; Future Diarrhea of presumed infectious origin Orders: Stool culture; Future Fecal Globin By Immunochemistry; Future Clostridium difficile Toxin B, Qualitative, Real-Time PCR; Future Comprehensive Metabolic Panel; Future CBC auto differential; Future Sed Rate by Modified Westergren; Future C-reactive Protein; Future Mixed stress and urge urinary incontinence Urinary incontinence, unspecified type: - Urinary incontinence with dysuria and new onset low back pain. Possible urinary tract infection. - Ordered urine culture. Initiated empiric antibiotic therapy for urinary tract infection. Will adjust treatment based on culture results. Full incontinence of feces: - Fecal incontinence present. Associated with diarrhea. - Ordered stool culture for infection. Referred to gastroenterology for further evaluation. Diarrhea of presumed infectious origin: - Diarrhea of presumed infectious origin. Differential includes infectious etiology. - Ordered stool culture for infection. Advised to collect stool sample at home and bring to lab. Current Medications[4] Based on our discussion, I have outlined the following instructions for you: - A urine test has been ordered. You do not need to do anything extra for this right now. - You have started antibiotics for a possible urinary tract infection. Your treatment may change depending on your test results. - Collect a stool sample at home and bring it to the lab so it can be tested for infection. - pelvic floor physical therapy is an option, (pt declined) but willing to do exercises at home Thank you again for your visit, and we look forward to supporting you in your journey to better health. This note was drafted using Ambient (AI) technology. The patient/patient's guardian has been informed and has consented to the use of this technology: Yes Visit Conducted in: [employer] Translation by: Patient is bilingual and declines translation services [1] Patient Active Problem List Diagnosis Abdominal pain Adenomatous polyp of colon Anxiety Arthropathy Cardiomyopathy (HCC) Chronic low back pain Chronic narcotic use Depressive disorder Disorder of skeletal muscle Benign hypertension Fibromyositis Hemorrhoids Hypercholesterolemia Hypothyroidism Injury of conjunctiva Primary insomnia Irritable bowel syndrome Localized osteoarthrosis Memory impairment Migraine Obstructive sleep apnea syndrome Stage 3 chronic kidney disease (CMS/HCC) ([facility]) Swelling of lower limb Vitamin D deficiency Vertigo Trigeminal neuralgia Essential hypertension Osteopenia Dermatitis Dental calculus Minimal localized gingival recession Type 2 diabetes mellitus, without long-term current use of insulin ([facility]) Missing teeth, acquired Oral frictional keratosis Ill-fitting dentures Long-term current use of opiate analgesic Follow-up exam Urinary incontinence Full incontinence of feces Diarrhea of presumed infectious origin [2] Past Medical History: Diagnosis Date Anxiety Arthritis Bleeding gums Diabetes mellitus (CMS/HCC) Disease of thyroid gland GERD (gastroesophageal reflux disease) History of COVID-19 01/2022 HLD (hyperlipidemia) Hypertension Migraine Pain, dental Pt has been in pain for one week on UL, UR, LL quads [3] Allergies Allergen Reactions Trazodone Shortness of breath and Palpitations Ciprofloxacin Other reaction(s): Rash Clonazepam Other reaction(s): stomach pain Lisinopril [4] Current Outpatient Medications: Acetaminophen Extra Strength 500 MG tablet, TOME OVIDIO TABLETA CADA SEIS HORAS CUANDO SEA NECESARIO, Disp: 60 tablet, Rfl: 1 atorvastatin (Lipitor) 40 MG tablet, TAKE 1 TABLET BY MOUTH EVERY DAY, Disp: 90 tablet, Rfl: 3 carBAMazepine XR (TEGretol XR) 100 MG 12 hr tablet, TOME 1 TABLETA POR VIA ORAL CADA 12 HORAS, Disp: 180 tablet, Rfl: 3 dapagliflozin (Farxiga) 10 MG, TAKE 1 TABLET BY MOUTH EVERY MORNING, Disp: 90 tablet, Rfl: 3 Diclofenac Sodium 1 % gel, APPLY 2 GRAMS TOPICALLY TO AFFECTED AREAS IN THE MORNING AND AT BEDTIME,Disp: 100 g, Rfl: 3 docusate sodium (Colace) 100 MG capsule, TOME OVIDIO C PSULA DOS VECES AL D A, Disp: , Rfl: DULoxetine (Cymbalta) [address] capsule, TAKE 1 CAPSULE BY MOUTH EVERY DAY, Disp: 90 capsule, Rfl: 1 famotidine (Pepcid) 20 MG tablet, TOME 1 TABLETA POR VIA ORAL DOS VECES AL KAVEH, Disp: 180 tablet, Rfl: 3 fluconazole (Diflucan) 150 MG tablet, Take 1 tablet (150 mg) by mouth 1 (one) time per week for 14 days., Disp: 2 tablet, Rfl: 0 FreeStyle lancets, CHECK BG 3-4 TIMES A DAY DIRECTED, Disp: 100 each, Rfl: 5 furosemide (Lasix) 20 MG tablet, Take 20 mg by mouth in the morning., Disp: , Rfl: glucose blood (FREESTYLE LITE) test strip, Check blood sugar 3 to 4 times a day as directed, Disp: 100 strip, Rfl: 5 levothyroxine (Synthroid, Levoxyl) 50 MCG tablet, TAKE 1 TABLET BY MOUTH EVERY DAY, Disp: 90 tablet, Rfl: 0 lidocaine (Lidoderm) 5 % patch, APPLY 1 PATCH ONCE DAILY. MAY WEAR UP TO 12 HOURS, Disp: 30 patch, Rfl: 1 metoprolol tartrate (Lopressor) 100 MG tablet, TAKE 1 TABLET BY MOUTH TWICE A DAY WITH MEALS, Disp:180 tablet, Rfl: 3 naloxone (Narcan) 4 mg/0.1 mL nasal spray, Administer 1 spray (4 mg) into affected nostril(s) if needed for opioid reversal. Talent 0.1 mL by intranasal route in 1 nostril may repeat dose every 2-3 minutes as needed alternating nostrils with each dose., Disp: 2 each, Rfl: 2 oxyCODONE-acetaminophen (Percocet) 5-325 MG tablet, Take 1 tablet by mouth every 8 (eight) hours ifneeded for severe pain for up to 28 days. Do not start before March 18, 2025., Disp: 84 tablet, Rfl: 0 polyvinyl alcohol (Liquifilm Tears) 1.4 % ophthalmic solution, one drop in both eyes 3 to 4 times per day. Refrigerate for comfort., Disp: , Rfl: prazosin (Minipress) 5 MG capsule, Take 5 mg by mouth in the morning. Dr Dewitt, Disp: , Rfl: sacubitril-valsartan (Entresto) 49-51 MG tablet, Take 1 tablet by mouth in the morning and at bedtime., Disp: , Rfl: simethicone (Gas Relief Extra Strength) 125 MG chewable tablet, CHEW 1 TABLET BY MOUTH EVERY 8 HOURS NEEDED FOR GAS PAIN, Disp: 90 tablet, Rfl: 1 sulfamethoxazole-trimethoprim (Bactrim DS) 800-160 MG tablet, Take 1 tablet by mouth 2 times daily for 5 days., Disp: 10 tablet, Rfl: 0 SUMAtriptan (Imitrex) 50 MG tablet, Take 1 tablet by mouth if needed. Take 1 tablet by oral route after onset of migraine; may repeat after 2 hours if headache returns, not to exceed 200 mg in 24 hours, Disp: , Rfl: zolpidem (Ambien) 10 MG tablet, TAKE 1 TABLET BY MOUTH AT BEDTIME IF NEEDED FOR SLEEP, Disp: 30 tablet, Rfl: 0 documented in this encounter Miscellaneous Notes * Assessment & Plan Note - Anum Mckinley NP - 04/03/2025 3:15 PM EDTAssociated Problem(s): Urinary incontinence Orders: Culture, Urine, Routine; Future POCT Glucose POCT Urinalysis * Assessment & Plan Note - Anum Mckinley NP - 04/03/2025 3:15 PM EDTAssociated Problem(s): Full incontinence of feces Orders: Stool culture; Future Comprehensive Metabolic Panel; Future CBC auto differential; Future Sed Rate by Modified Westergren; Future C-reactive Protein; Future * Assessment & Plan Note - Anum Mckinley NP - 04/03/2025 3:15 PM EDTAssociated Problem(s): Diarrhea of presumed infectious origin Orders: Stool culture; Future Fecal Globin By Immunochemistry; Future Clostridium difficile Toxin B, Qualitative, Real-Time PCR; Future Comprehensive Metabolic Panel; Future CBC auto differential; Future Sed Rate by Modified Westergren; Future C-reactive Protein; Future * Assessment & Plan Note - Anum Mckinley NP - 04/03/2025 3:15 PM EDTAssociated Problem(s): Urinary incontinence documented in this encounter Plan of Treatment Upcoming Encounters Date Type Department Care Team (Late st Contact Info) Description 05/15/2025 2:30 PM EST Office Visit [facility] [address] [place] [phone] Name, MD Teofilo [address] [place] [phone] 05/28/2025 8:30 AM EST Clinical Support [facility] [address] [place] [phone] Aurora Sabillon RN 07/31/2025 10:15 AM EST Office Visit [facility] [address] [place] [phone] Kadi Heaton [address] [place] [address] Scheduled Orders Name Type Priority Associated Diagnoses Orde r Schedule Culture, Urine, Routine Microbiology Routine Urinary incontinence, unspecified type Expected: 04/03/2025 (Approximate), Expires: 04/03/2026 Stool culture Microbiology Routine Full incontinence of feces Diarrhea of presumed infectious origin Expected: 04/03/2025 (Approximate), Expires: 04/03/2026 Fecal Globin By Immunochemistry Lab Routine Diarrhea of presumed infectious origin Expected: 04/03/2025 (Approximate), Expires: 04/03/2026 Clostridium difficile Toxin B, Qualitative, Real-Time PCR Lab Routine Diarrhea of presumed infectious origin Expected: 04/03/2025 (Approximate), Expires: 04/03/2026 Comprehensive Metabolic Panel Lab Routine Full incontinence of feces Diarrhea of presumed infectious origin Expected: 04/03/2025 (Approximate), Expires: 04/03/2026 CBC auto differential Lab Routine Full incontinence of feces Diarrhea of presumed infectious origin Expected: 04/03/2025 (Approximate), Expires: 04/03/2026 Sed Rate by Modified Westergren Lab Routine Full incontinence of feces Diarrhea of presumed infectious origin Expected: 04/03/2025, Expires: 04/03/2026 C-reactive Protein Lab Routine Full incontinence of feces Diarrhea of presumed infectious origin Expected: 04/03/2025 (Approximate), Expires: 04/03/2026 documented as of this encounter Procedures Procedure Name Priority Date/Time Associated Diagnosis Comments POCT URINALYSIS DIPSTICK Routine 04/03/2025 3:38 PM EDT Urinary incontinence, unspecified type POCT GLUCOSE Routine 04/03/2025 3:27 PM EDT Urinary incontinence, unspecified type documented in this encounter Results * (ABNORMAL) POCT Urinalysis (04/03/2025 3:38 PM EDT) Color, UA Yellow Clarity, UA Clear Glucose, UA Trace Comment:500mg/dL Bilirubin, UA Negative Ketones, UA Negative Spec Grav, UA 1.025 Blood, UA Positive(A) Negative, None Detected Comment:trace-lysed pH, UA 5.5 Protein, UA Negative Urobilinogen, UA 0.2 Leukocytes, UA Negative Negative, Rare, Trace Nitrite, UA Negative Negative, None Detected Appearance, UA clear QC Media Lot # [id number] Lot# Expiration Date 33126 Urine (Urine, Random) 04/03/2025 3:38 PM EDT Anum Mckinley EDUCATIONAL ADVISER POINT OF CARE TEST ENTER/EDIT OR DERABLES Final Result * POCT Glucose (04/03/2025 3:27 PM EDT) Glucose Blood, POC 109 60 - 200 mg/dL QC Media Lot # [id number] Lot# Expiration Date 31126 Blood Capillary blood specimen / Unknown 04/03/2025 3:27 PM EDT Anum Mckinley EDUCATIONAL ADVISER POINT OF CARE TEST ENTER/EDIT OR DERABLES Final Result documented in this encounter Visit Diagnoses Diagnosis Urinary incontinence, unspecified type- Primary Full incontinence of feces Diarrhea of presumed infectious origin Mixed stress and urge urinary incontinence Mixed incontinence urge and stress (male)(female) documented in this encounter Additional Health Concerns Assessment Noted Time PHQ-9 Depression Total Score: 13 025 3:44 PM EDT documented as of this encounter Care Teams Ice House Supervisor Relationship Specialty Start Date End Date Name, MD Teofilo [address] [place] [phone] PCP - General Family Medicine 08/19/15 documented as of this encounter
--- OUTSIDE RECORDS SUMMARY | 2025-04-03 21:09 | XMS_ITS | Encounter Summary ---
Author Organization [employer] Address [address] [facility] 7 [place] [address] Care Team Providers Care Product Support Technician Name Role Phone Name, Teofilo WHALEN Primary Care Provider [phone] Reason for Visit * Reason Onset Date Comments Med Refill 04/03/2024 Encounter Details Date Type Department Care Team ([facility] st Contact Info) Description 04/03/2024 Refill [facility] [address] [place] [address] Name, MD Teofilo [address] [place] [address] Social History Tobacco Use Types Packs/Day Years [...] the past 12 months, has t he [employer] gas, oil or water company threatened to [...] PM EST Office Visit [facility] [address] [place] [phone] NameTeofilo MD [address] [place] [phone] 05/28/2025 8:30 AM EST Clinical Support [facility] [address] [place] [phone] Aurora Sabillon RN 07/31/2025 10:15 AM EST Office Visit [facility] [address] [place] [phone] Kadi Heaton [address] [place] [address] documented as of this encounter Visit Diagnoses Not on filedocumented in this encounter Additional Health Concerns Assessment Noted Time PHQ-9 Depression Total Score: 12 024 9:22 AM EDT documented as of this encounter Care Teams Product Support Technician Relationship Specialty Start Date End Date Name, MD Teofilo [address] [place] [phone] PCP - General Family Medicine 08/19/15 documented as of this encounter
--- OUTSIDE RECORDS SUMMARY | 2025-04-03 21:09 | XMS_ITS | Encounter Summary ---
Author Organization [employer] Address [address] [facility] [address] [place] [address] Care Team Providers Care Retail Field Supervisor Name Role Phone Name, Teofilo WHALEN Primary Care Provider [phone] Reason for Visit * Reason Onset Date Comments Durable Medical Equipment 03/29/2025 Encounter Details Date Type Department Care Team ([facility] st Contact Info) Description 03/29/2025 Telephone [facility] [address] [place] [address] Name, MD Teofilo [address] [place] [address] Durable Medical Equipment Social History Tobacco Use Types Packs/Day Years [...] problems with any of the following? Lead [place] [employer] 07/06/2024 Food Insecurity Answer Date [...] encounter Miscellaneous Notes * Telephone Encounter - Meeta Villagomez RN - 04/02/2025 10:27 AM EDT T/C to pt via [employer] Judith #[id number]. Pt c/o urinary incontinence x 2 weeks. Reports increased urinary frequency, urinary urgency and slight dysuria. Pt c/o slight back pain, denies fever. Reports that she is barely able to make it to the bathroom. Pt declines to come to [facility] today. Agrees to appointment with Blue team provider tomorrow for evaluation. Recommended that pt return call if symptoms worsen. Pt reports agreement with plan. * Telephone Encounter - Dory Alvares - 03/30/2025 1:35 PM EDT No supporting documentation found to support the need for incontience dme. Pt will need to be seen to evaluate for incontinence. Thank you * Telephone Encounter - Beth Lloyd Escalante - 03/29/2025 9:29 AM EDT Tc from pt with Hannah Miller (pillowcase turner) requesting a new scrip for DME - Pull ups size M ( 3 x daily) - Gloves - Wipes documented in this encounter Plan of Treatment Upcoming Encounters Date Type Department Care Team (Late st Contact Info) Description 05/15/2025 2:30 PM EST Office Visit [facility] [address] [place] [address] Name, MD Teofilo [address] [place] [address] 05/28/2025 8:30 AM EST Clinical Support [facility] [address] [place] [address] Aurora Sabillon, RN 07/31/2025 10:15 AM EST Office Visit [facility] [address] [place] [address] Kadi Heaton [address] [place] [address] documented as of this encounter Visit Diagnoses Not on filedocumented in this encounter Additional Health Concerns Assessment Noted Time PHQ-9 Depression Total Score: 9 08/10/19 25 10:01 AM EST documented as of this encounter Care Teams Retail Field Supervisor Relationship Specialty Start Date End Date Name, MD Teofilo [address] [place] [phone] PCP - General Family Medicine 08/19/15 documented as of this encounter
--- OUTSIDE RECORDS SUMMARY | 2025-04-03 21:09 | XMS_ITS | Clinical Summary ---
Author Organization [employer] Address [address] [facility] 7t [place] [address] Care Team Providers Care Grain Trimmer Name Role Phone Name, Teofilo WHALEN Primary Care Provider [phone] Allergies Active Allergy Reactions Criticality Noted Date [...] lancetsIndication s:Type 2 diabetes mellitus with hyperglycemia (HCC) CHECK BG 3-4 TIMES A DAY DIRECTED 100 each 5 023 Active Acetaminophen Extra Strength 500 MG tabletIndications :Benign hypertension TOME OVIDIO TABLETA CADA SEIS HORAS CUANDO SEA NECESARIO 60 tablet 1 023 Active naloxone (Narcan) 4 mg/0.1 mL nasal sprayIndications: Chronic pain syndrome Administer 1 spray (4 mg) into affected nostril(s) if needed for opioid reversal. [place] 0.1 mL by intranasal route in 1 [...] in the morning. Dr Dewitt 025 Active glucose blood (FREESTYLE LITE) test stripIndications: Elevated blood sugar Check blood sugar 3 to 4 times a day as directed 100 strip 5 025 Active levothyroxine (Synthroid, Levoxyl) 50 MCG tabletIndications :Benign hypertension TAKE 1 TABLET BY MOUTH EVERY DAY 90 tablet 025 Active DULoxetine (Cymbalta) 60 MG capsuleIndication s:Fibromyositis TAKE 1 CAPSULE BY MOUTH [...] MORNING AND AT BEDTIME 100 g 3 Active zolpidem (Ambien) 10 MG tablet TAKE 1 TABLET BY MOUTH AT BEDTIME IF NEEDED FOR SLEEP 30 tablet Active oxyCODONE-acetami nophen (Percocet) 5-325 MG tabletIndications :Chronic pain syndrome Take 1 tablet by mouth every 8 (eight) hours if needed for severe pain for up to 28 days. Do not start before March 18, 2025. 84 tablet 025 2024 Active sulfamethoxazole- trimethoprim (Bactrim DS) 800-160 MG tablet Take 1 tablet by mouth 2 times daily for 5 days. 10 tablet 025 2024 Active fluconazole (Diflucan) 150 MG tablet Take 1 tablet (150 mg) by mouth 1 (one) time per week for 14 days. 2 tablet 025 2024 Active oxyCODONE-acetami nophen (Percocet) 5-325 MG tabletIndications :Chronic pain syndrome Take 1 tablet by mouth every 8 (eight) hours if needed for severe pain for up to 28 days. Do not start before February 18, 2025. 84 tablet 025 2024 Discontinued(R eorder (will not trigger notification to Pharmacy)) Active Problems Problem Noted Date Diagnosed Date Urinary incontinence 04/03/2025 Assessment & Plan (04/03/2025 4:38 PM EDT): Assessment & Plan (04/03/2025 4:38 PM EDT): Orders: Culture, Urine, Routine; Future POCT Glucose POCT Urinalysis Full incontinence of feces 04/03/2025 Assessment & Plan (04/03/2025 4:38 PM EDT): Orders: Stool culture; Future Comprehensive Metabolic Panel; Future CBC auto differential; Future Sed Rate by Modified Westergren; Future C-reactive Protein; Future Diarrhea of presumed infectious origin Assessment & Plan (04/03/2025 4:38 PM EDT): Orders: Stool culture; Future Fecal Globin By Immunochemistry; Future Clostridium difficile Toxin B, Qualitative, Real-Time PCR; Future Comprehensive Metabolic Panel; Future CBC auto differential; Future Sed Rate by Modified Westergren; Future C-reactive Protein; Future Follow-up exam 03/05/2025 Long-term current use of opiate analgesic 2024 Ill-fitting dentures 10/25/2024 Oral frictional keratosis 08/09/2024 Missing teeth, acquired 05/20/2023 Type 2 diabetes mellitus, [facility] long-term current use of insulin 04/14/2023 Dental [...] Overview (08/19/2022): Last bone density test at [facility] 05/2022 Essential hypertension 05/27/2022 Adenomatous polyp of colon 05/18/2022 Cardiomyopathy 05/18/2022 Hemorrhoids 05/18/2022 Obstructive sleep apnea syndrome 05/18/2022 Stage 3 chronic kidney disease (CMS/HCC) 022 Vertigo 05/18/2022 Trigeminal neuralgia 09/17/2017 Injury of [...] Encounters Date Type Department Care Team Description 04/03/2025 3:15 PM EDT Office Visit [address] [address] Anum Mckinley NP Urinary incontinence, unspecified type (Primary Dx); Full incontinence of feces; Diarrhea of presumed infectious origin; Mixed stress and urge urinary incontinence 04/03/2025 Travel 04/02/[address] [address] Teofilo Dave MD CHARTPREP 03/29/[address] [address] Teofilo Dave MD Durable Medical Equipment 03/16/[address] [address] Teofilo Dave MD Chronic pain syndrome 03/05/2025 9:00 AM EDT Office Visit [address] [address] Jackelin Day FNP Follow-up exam (Primary Dx); Type 2 diabetes mellitus with other specified complication, without long-term current use of insulin ([facility]); Benign hypertension 03/05/2025 Travel 03/02/2025 Refill [facility] [address] [place] [address] Teofilo Dave MD 02/27/[address] [address] Debby Anguiano [place] CHART PREP 02/23/[address] [address] Teofilo Dave MD ER Follow-up 02/15/2025 Refill [facility] [address] [place] [address] Teofilo Dave MD Chronic pain syndrome 02/10/2025 Refill [facility] [address] [place] [address] Teofilo Dave MD Left lower quadrant abdominal pain; Osteoarthritis of right knee, unspecified osteoarthritis type 02/08/2025 Refill [facility] [address] [place] [address] Teofilo Dave MD 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 Orders Only [facility] [address] [place] [address] Teofilo Dave MD 01/26/2025 Refill [facility] [address] [place] [address] Teofilo Dave MD Benign hypertension 01/23/2025 3:00 PM EDT Office Visit [facility] [address] [place] [address] Florina, Kadi Missing teeth, acquired (Primary Dx); Dental plaque; Dental calculus 01/19/2025 Refill [facility] [address] [place] [address] Teofilo Dave MD Chronic pain syndrome 01/19/2025 Refill [facility] [address] [place] [address] Teofilo Dave MD Elevated blood sugar 01/01/2025 Refill [facility] [address] [place] [address] NameTeofilo MD from Last 3 Months Immunizations Immunization Administration [...] with any of the following? Lead [place] or [place] 07/06/2024 Food Insecurity Answer Date [...] Mass Index 24.2 04/03/2025 3:11 PM EDT Plan of Treatment Upcoming Encounters Date Type Department Care Team (Late st Contact Info) Description 05/15/2025 2:30 PM EST Office Visit [facility] [address] [place] [address] Name, MD Teofilo [address] [place] [address] 05/28/2025 8:30 AM EST Clinical Support [facility] [address] [place] [address] Aurora Sabillon, ALICIA 07/31/2025 10:15 AM EST Office Visit [facility] [address] [place] [address] Kadi Heaton [address] [place] [address] Health Maintenance Due Date Last Done Comments CT Colonography 1955 FIT DNA/Cologuard 1955 FIT 1955 FOBT 1955 Sigmoidoscopy 1955 Colonoscopy 06/03/2023 06/03/2018 Colorectal Cancer Screening 06/03/2023 Dental Oral Exam 02/07/2025 08/09/2024, 11/25/2022 COVID-19 Vaccine ( season) 2025 04/21/2021, 10/29/2020, 10/08/2020 Influenza Vaccine (#1) 2025 , 04/14/2023, 05/27/2022, Additional history exists SDOH Screening 07/06/2025 07/06/2024 Diabetes: Foot Exam 07/17/2025 07/17/2024, 07/17/2024, 07/17/2024, Additional history exists Diabetes: Urine Protein Screening 07/17/2025 07/17/2024, 01/04/2023, 12/17/2021, Additional history exists Lipid Panel 07/17/2025 07/17/2024, 030 01/2023, 12/17/2021, Additional history exists Dental Prophylaxis 07/27/2025 01/23/2025, 11/25/2022 Dental X-Ray: Bitewings 08/10/2025 08/09/19 25, 11/25/2022, 09/16/2022 Diabetes: Hemoglobin A1C 09/02/2025 025, 07/17/2024, 03/06/2024, Additional history exists Depression Monitoring 10/02/2025 04/03/2025, 025 Alcohol/Substance Use Screening 03/05/2026 03/05/2025 Tobacco Screening 03/05/2026 03/05/2025 Eye Exam 09/20/2026 09/20/2024, 040 02/2025, 09/20/2024, [...] 3:27 PM EDT Urinary incontinence, unspecified type POCT GLYCATED HEMOGLOBIN, TOTAL Routine 03/05/2025 9:21 AM EDT Type 2 diabetes mellitus with other specified complication, without long-term current use of insulin ([facility]) POCT GLUCOSE Routine 03/05/2025 9:20 AM EDT Type 2 diabetes mellitus with other specified complication, without long-term current use of insulin ([facility]) BI MAMMOGRAM SCREENING TOMOSYNTHESIS BILATERAL Routine 01/31/2025 [...] Missing teeth, acquired Dental plaque Dental calculus INTRAORAL - COMPLETE SERIES OF RADIOGRAPHIC IMAGES [...] osteoarthritis type High cholesterol Hypothyroidism, unspecified type HEPATITIS C AB W/REFL TO HCV RNA, QN, PCR Routine 11/12/2023 10:40 AM EDT Situational anxiety Possible exposure to STD HM COLONOSCOPY Routine 06/03/2018 from Last 3 Months or Most Recently Relevant to Health Maintenance Results * (ABNORMAL) POCT Urinalysis (04/03/2025 3:38 [...] Media Lot # [id number] Lot# Expiration Date 33,126 Urine (Urine, Random) 04/03/2025 3:38 PM EDT Anum Mckinley NP POINT OF CARE TEST ENTER/EDIT OR DERABLES Final Result * POCT Glucose (04/03/2025 3:27 PM EDT) Only the most recent of2 resultswithin the time period is included. Glucose Blood, POC 109 60 - 200 mg/dL QC Media Lot # [id number] Lot# Expiration Date 31,126 Blood Capillary blood specimen / Unknown 04/03/2025 3:27 PM EDT Anum Mckinley MOLDED GOODS INSPECTOR TRIMMER POINT OF CARE TEST ENTER/EDIT OR DERABLES Final Result * (ABNORMAL) POCT Hgb A1c (03/05/2025 9:21 AM EDT) Hemoglobin A1C 6.0(A) 4.0 - 5.7 % QC Media Lot # [id number] Lot# Expiration Date 242,027 Blood 03/05/2025 9:21 AM EDT Jackelin Day GRAVITY PROSPECTING OPERATOR POINT OF CARE TEST ENTER/EDIT ORDERABLES Final Result * BI Mammogram Screening Tomosynthesis Bilateral (01/31/2025 11:10 AM EDT) Anatomical Region Laterality Modality Breast Bilateral Mammography 01/31/2025 11:1 0 AM EDT Narrative 02/01/2025 4:59 PM EDT [facility] [address] [place] [address] Mammography Report Signed Patient: Beatriz Talbot MR#: [id number] : 1955 Acct:[id number] Age/Sex: 69 / F ADM Date: 01/31/25 Loc: HO.MAMMO Attending Dr: Teofilo Dave MD Ordering Physician: Teofilo Dave MD Results: 2Benign ndings Date of Service: 01/31/25 Follow Up: 1 Year From Orig inal Mammogram Procedure(s): MM tomosynthesis screening BI Accession Number(s): [id number] cc: Teofilo Dave MD EXAMINATION: MM SCREENING [...] Ernestina Lewis DO 02/01/2025 04:55 PM EDT RP Dictated By: Ernestina Lewis DO Signed By: <Electronically signed by Ernestina Lewis DO in OV> 02/01/25 1655 DD/ 1110 TD/TT: 01/31/25 1128 Boxer Operator: Procedure Note Donotuseinterpreter, Image - [facility] [address] [place] [address] Mammography Report Signed Patient: Harsha TalbotILStephanie#: [id number] : 7Acct:[id number] Age/Sex: 69 / FADM Date: 01/31/25 Loc: [place] Attending Dr: Teofilo Dave MD Ordering Physician: Teofilo Dave MDResults: 2Benign Fi ndings Date of Service: 01/31/25Follow Up: 1 Year From Orig inal Mammogram Procedure(s): MM tomosynthesis screening BI Accession Number(s): [id number] cc: Teofilo Dave MD EXAMINATION: MM SCREENING [...] Ernestina Lewis DO 02/01/2025 04:55 PM EDT RP Dictated By: Ernestina Lewis DO Signed By: <Electronically signed by Ernestina Lewis DO in OV> 02/01/25 1655 DD/ 1110 TD/TT: 01/31/25 1128 Boxer Operator: us Teofilo Dave MD IMG BI PROCEDURES Final Result * Albumin, Random Urine W/Creatinine (07/17/2024 11:20 AM EST) Creatinine, Urine 218.42 mg/dL [facility] Microalbumin Urine 20.0 mg/L [facility] Microalbum Creatinine Ratio Ur 9.1 <30 ug/mg cr [facility] Comment:Albumin/Creatinine R atio Reference Ranges: Normal: < 30 ug/mg creatinine Microalbuminuria: 30 - 300 ug/mg creatinineClinical Albuminuria: > 300 ug/mg creatinine Urine (Urine, Random) 07/17/2024 11:20 AM EST 07/17/2024 1:10 PM EST us Teofilo Dave MD LAB URINE ORDERABLES Final Resul t [facility] [address] [place] [phone] * (ABNORMAL) Lipid Panel, Standard (07/17/2024 11:20 AM EST) Triglycerides 99 <150 mg/dL [facility] Comment:Desirable Triglyceri de: less than 150 mg/dLBorderline High Triglyceride 150-199 mg/dLHigh Triglyceride: 200-499 mg/dLVery High Triglyceride: greater than or equal to 5OO mg/dL Cholesterol 178 <200 mg/dL [facility] Comment:Desirable Cholestero l: less than 200 mg/dLBorderline High Cholesterol: 200-239 mg/dLHigh Cholesterol: greater than 239 mg/dL LDL Cholesterol Calculated 102(H) <100 mg/dL [facility] Comment:Desirable LDL: less than 100 mg/dLNear Optimal/Above Optimal LDL: 110- 129 mg/dLBorderline High LDL: 130-159 mg/dLHigh LDL: 160-189 mg/dLVery High LDL: greater than or equal to 190 mg/dL HDL Cholesterol 57 >40 mg/dL [facility] Comment:Desirable HDL: great er than 40 mg/dL Note: This HDL assay may give artificially low results in patients with liver disease. Blood Venous blood specimen / Unknown 07/17/2024 11:20 AM EST 07/17/2024 1:10 PM EST us Teofilo Name LAB BLOOD ORDERABLES Final Resul t [facility] [address] [place] [phone] * Hepatitis C Antibody with Reflex to HCV, RNA, Quantitative, Real-Time PCR (11/12/2023 10:40 AM EDT) Hepatitis C Antibody Nonreactive Nonreactive [facility] Comment:Antibodies to HCV no t detected; does not exclude early acuteHCV infection. Blood Venous blood specimen / Unknown 11/12/2023 10:40 AM EDT 11/12/2023 11:12 AM EDT us Teofilo Name LAB BLOOD ORDERABLES Final Resul t [facility] [address] [place] [phone] * Colonoscopy (06/03/2018) Colonoscopy performed Historical Provider HEALTH MAINTENANCE Final Result from Last 3 Months or Most Recently Relevant to Health Maintenance [facility] Care Teams Grain Trimmer Relationship Specialty Start Date End Date Name, MD Teofilo [address] [place], [place] [phone] PCP - General Family Medicine 08/19/15
--- OUTSIDE RECORDS SUMMARY | 2025-04-03 21:09 | XMS_ITS | Encounter Summary ---
Author Organization [employer] Address [address] [facility] [address] 7t [place] [address] Care Team Providers Care Woods Rider Name Role Phone NameTeofilo MD Primary Care Provider [phone] Reason for Visit * Reason Comments Med Change Request Encounter Details Date Type Department Care Team ([facility] st Contact Info) Description 06/05/2023 Refill [facility] [address] [place], [place] [phone] Name, MD Teofilo [address] [place] [address] Left lower quadrant abdominal pain Social History [...] Description 05/15/2025 2:30 PM EST Office Visit [facility] [address] [place] [address] Name, MD Teofilo [address] [place] [address] 05/28/2025 8:30 AM EST Clinical Support [facility] [address] [place] [address] Aurora Sabillon RN 07/31/2025 10:15 AM EST Office Visit [facility] [address] [place] [address] Kadi Heaton [address] [place] [address] documented as of this encounter Visit Diagnoses Diagnosis Left lower quadrant abdominal pain documented in this encounter Additional Health Concerns Assessment Noted Time PHQ-9 Depression Total Score: 0 05/27/20 22 10:40 AM EST documented as of this encounter Care Teams Woods Rider Relationship Specialty Start Date End Date Name, MD Teofilo [address] [place] [address] PCP - General Family Medicine 08/19/15 documented as of this encounter
--- OUTSIDE RECORDS SUMMARY | 2025-04-03 21:09 | XMS_ITS | Encounter Summary ---
Author Organization [employer] Address [address] [facility] 7t [place] [address] Care Team Providers Care Probation And Patrol Agent Name Role Phone Name, Teofilo WHALEN Primary Care Provider Reason for Visit * Reason Comments Med Refill Encounter Details Date Type Department Care Team (Late st Contact Info) Description 03/19/2023 Refill [facility] [address] [place] [address] Susan Brown, ROSELYN [address] [place] [address] Chronic pain syndrome Social History Tobacco Use [...] EST Office Visit [facility] [address] [place] [address] Name, MD Teofilo [address] [place] [address] 05/28/2025 8:30 AM EST Clinical Support [facility] [address] [place] [address] Aurora Sabillon RN 07/31/2025 10:15 AM EST Office Visit [facility] [address] [place] [address] Kadi Heaton [address] [place] [address] documented as of this encounter Visit Diagnoses Diagnosis Chronic pain syndrome documented in this encounter Additional Health Concerns Assessment Noted Time PHQ-9 Depression Total Score: 0 05/27/20 22 10:40 AM EST documented as of this encounter Care Teams Probation And Patrol Agent Relationship Specialty Start Date End Date Name, MD Teofilo [address] [place] [address] PCP - General Family Medicine 08/19/15 documented as of this encounter
--- OUTSIDE RECORDS SUMMARY | 2025-04-03 21:09 | XMS_ITS | Encounter Summary ---
Author Organization [employer] Address [address] [facility] [address] [place] [address] Care Team Providers Care Frame Wirer Name Role Phone Name, Teofilo WHALEN Primary Care Provider [phone] Reason for Visit * Reason Onset Date Comments Med Refill 06/10/2023 Encounter Details Date Type Department Care Team ([facility] [place] st Contact Info) Description 06/10/2023 Telephone [facility] [address] [place], [place] [phone] Name, MD Teofilo [address] [place] [address] Med Refill Social History Tobacco Use Types [...] on 05/17/2023 for 28 days supply at [facility]. [place]. Please review. * Telephone Encounter - Lori Palomino - 06/10/2023 9:34 AM EST TC from pt requesting medication refill. Medications needing refill : oxyCODONE-acetaminophen (Percocet) 5-325 MG tablet To be sent to: [facility]/pharmacy #[id number] - [place], [place] - [address] [place] [address] documented in this encounter Plan of Treatment Upcoming Encounters Date Type Department Care Team (Late st Contact Info) Description 05/15/2025 2:30 PM EST Office Visit [address] [address] Name, MD Teofilo [address] [place] [address] 05/28/2025 8:30 AM EST Clinical Support [facility] [address] [place] [address] Aurora Sabillon RN 07/31/2025 10:15 AM EST Office Visit [facility] [address] [place] [address] FlorinaKadi [address] [place] [address] documented as of this encounter Visit Diagnoses Not on filedocumented in this encounter Additional Health Concerns Assessment Noted Time PHQ-9 Depression Total Score: 0 05/27/20 22 10:40 AM EST documented as of this encounter Care Teams Frame Wirer Relationship Specialty Start Date End Date Name, MD Teofilo [address] [place] [address] PCP - General Family Medicine 08/19/15 documented as of this encounter
--- OUTSIDE RECORDS SUMMARY | 2025-04-03 21:09 | XMS_ITS | Encounter Summary ---
Author Organization [employer] Address [address] [facility] 7t [place] [address] Care Team Providers Care Savings Counselor Name Role Phone Name, Teofilo WHALEN Primary Care Provider [phone] Encounter Details Date Type Department Care Team (Late st Contact Info) Description 11/25/[address] [facility] [address] [place] [address] Name, MD Teofilo [address] [place] [address] Social History Tobacco Use Types Packs/Day Years [...] Description 05/15/2025 2:30 PM EST Office Visit [facility] [address] [place] [address] Name, MD Teofilo [facility] [address] 05/28/2025 8:30 AM EST Clinical Support [facility] [address] [place] [address] Aurora Sabillon RN 07/31/2025 10:15 AM EST Office Visit [facility] [address] [place] [address] Kadi Heaton [address] [place] [address] documented as of this encounter Visit Diagnoses Not on filedocumented in this encounter Additional Health Concerns Assessment Noted Time PHQ-9 Depression Total Score: 0 05/27/20 10:40 AM EST documented as of this encounter Care Teams Savings Counselor Relationship Specialty Start Date End Date Name, MD Teofilo [facility] [address] PCP - General Family Medicine 08/19/15 documented as of this encounter
--- OUTSIDE RECORDS SUMMARY | 2025-04-03 21:09 | XMS_ITS | Encounter Summary ---
Author Organization [employer] Address [address] [facility] [address] [address] Care Team Providers Care Air Traffic Controller Center Name Role Phone Name, Teofilo WHALEN Primary Care Provider [phone] Reason for Visit * Reason Comments Med Refill Encounter Details Date Type Department Care Team (Late st Contact Info) Description 02/22/2023 Refill [facility] [address] [place] [phone] Name, MD Teofilo [address] [place] [phone] Chronic pain syndrome Social History Tobacco Use [...] Description 05/15/2025 2:30 PM EST Office Visit [facility] [address] [place] [phone] Name, MD Teofilo [address] [place] [address] 05/28/2025 8:30 AM EST Clinical Support [facility] [address] [place] [address] Aurora Sabillon, RN 07/31/2025 10:15 AM EST Office Visit [facility] [address] [place] [address] Kadi Heaton [address] [place] [address] documented as of this encounter Visit Diagnoses Diagnosis Chronic pain syndrome documented in this encounter Additional Health Concerns Assessment Noted Time PHQ-9 Depression Total Score: 0 05/27/20 22 10:40 AM EST documented as of this encounter Care Teams Air Traffic Controller Center Relationship Specialty Start Date End Date Name, MD Teofilo [address] [place] [phone] PCP - General Family Medicine 08/19/15 documented as of this encounter
--- OUTSIDE RECORDS SUMMARY | 2025-04-03 21:09 | XMS_ITS | Encounter Summary ---
Author Organization [employer] Address [address] [facility] [address] 7t [place] [address] Care Team Providers Care Knot Saw Operator Name Role Phone Name, Teofilo WHALEN Primary Care Provider [phone] Encounter Details Date Type Department Care Team ([facility] st Contact Info) Description 01/21/2024 Telephone [facility] [address] [place], [place] [phone] Name, MD Teofilo [address] [place] [address] Social History Tobacco Use Types Packs/Day Years [...] Description 05/15/2025 2:30 PM EST Office Visit [facility] [address] [place] [phone] Name, MD Teofilo [address] [place] [address] 05/28/2025 8:30 AM EST Clinical Support [facility] [address] [place] [address] Aurora Sabillon RN 07/31/2025 10:15 AM EST Office Visit [facility] [address] [place] [address] Kadi Heaton [address] [place] [address] documented as of this encounter Visit Diagnoses Not on filedocumented in this encounter Additional Health Concerns Assessment Noted Time PHQ-9 Depression Total Score: 12 024 9:22 AM EDT documented as of this encounter Care Teams Knot Saw Operator Relationship Specialty Start Date End Date Name, MD Teofilo [address] [place] [address] PCP - General Family Medicine 08/19/15 documented as of this encounter
--- OUTSIDE RECORDS SUMMARY | 2025-04-03 21:09 | XMS_ITS | Encounter Summary ---
Author Organization [employer] Address 75 [facility] 7[address] [place] [address] Care Team Providers Care Food And Beverage Intern Name Role Phone Name, Teofilo WHALEN Primary Care Provider [phone] Reason for Visit * Reason Onset Date Comments Med Refill 12/21/2024 Encounter Details Date Type Department Care Team ([facility] st Contact Info) Description 12/21/2024 Telephone [facility] MEDICINE [address] [place] [address] Name, MD Teofilo 230 [place] [address] Med Refill Social History Tobacco Use Types [...] with any of the following? Lead [place] or Pipes 07/06/2024 Food Insecurity Answer Date [...] Dietrich LPN - 12/21/2024 9:44 AM EDT TRIM SAWYER checked on 12/21/24 Ambien last sold on 12/01/24 #30 to soon for refill. * Telephone Encounter - Teofilo Francis - 12/21/2024 9:27 AM EDT TC from pt requesting medication refill. Medications needing refill : zolpidem (Ambien) 10 MG tablet To be sent to: [facility]/pharmacy #[id number] [place], [place] - [address] [place] [address] documented in this encounter Plan of Treatment Upcoming Encounters Date Type Department Care Team (Late st Contact Info) Description 05/15/2025 2:30 PM EST Office Visit [facility] MEDICINE [address] [place] [address] Name, MD Teofilo [address] [place] [address] 05/28/2025 8:30 AM EST Clinical Support [facility] MEDICINE [address] [place] [address] Aurora Sabillon, RN 07/31/2025 10:15 AM EST Office Visit [facility] ADULT DENTAL [address] [place] [address] Kadi Heaton [address] [place] [address] documented as of this encounter Visit Diagnoses Not on filedocumented in this encounter Additional Health Concerns Assessment Noted Time PHQ-9 Depression Total Score: 9 08/10/19 25 10:01 AM EST documented as of this encounter Care Teams Food And Beverage Intern Relationship Specialty Start Date End Date Name, MD Teofilo [address] [place] [address] PCP - General Family Medicine 08/19/15 documented as of this encounter
--- OUTSIDE RECORDS SUMMARY | 2025-04-03 21:09 | XMS_ITS | Encounter Summary ---
Author Organization [employer] Address 75 [facility] 7[place] [address] Care Team Providers Care Fisher Eel Spear Name Role Phone NameTeofilo MD Primary Care Provider [phone] Reason for Visit * Reason Comments Med Refill Encounter Details Date Type Department Care Team (Late st Contact Info) Description 11/20/2022 Refill [facility] MEDICINE [address] [place] [address] Teofilo Dave MD [address] [place] [address] Fibromyositis Social History Tobacco Use Types Packs/Day [...] 2:30 PM EST Office Visit [facility] MEDICINE [address] [place] [address] [phone] Teofilo Dave MD [address] [place] [address] 05/28/2025 8:30 AM EST Clinical Support [facility] MEDICINE 230 [place] [address] Aurora Sabillon, RN 07/31/2025 10:15 AM EST Office Visit [facility] ADULT DENTAL [address] [place] [address] Kadi Heaton 230 [place] [address] documented as of this encounter Visit Diagnoses Diagnosis Fibromyositis Unspecified myalgia and myositis documented in this encounter Additional Health Concerns Assessment Noted Time PHQ-9 Depression Total Score: 0 05/27/20 10:40 AM EST documented as of this encounter Care Teams Fisher Eel Spear Relationship Specialty Start Date End Date Name, MD Teofilo [address] [place] [address] PCP - General Family Medicine 08/19/15 documented as of this encounter
--- OUTSIDE RECORDS SUMMARY | 2025-04-03 21:09 | XMS_ITS | Encounter Summary ---
Author Organization [employer] Address 75 [facility] 7[place] [address] Care Team Providers Care Flight Operations Dispatch Clerk Name Role Phone Name, Teofilo WHALEN Primary Care Provider [phone] Reason for Visit * Reason Comments Med Refill Encounter Details Date Type Department Care Team ([facility] st Contact Info) Description 10/29/2024 Refill [facility] MEDICINE [address] [place], [place] [phone] Name, MD Teofilo 230 [place] [address] Fibromyositis Social History Tobacco Use Types Packs/Day [...] problems with any of the following? Lead [place] or Pipes 07/06/2024 Food Insecurity Answer Date [...] the past 12 months, has t he [employer], gas, oil or water company threatened to [...] Description 05/15/2025 2:30 PM EST Office Visit [facility] MEDICINE [address] [place] [address] Name, MD Teofilo [address] [place] [address] 05/28/2025 8:30 AM EST Clinical Support [facility] MEDICINE [address] [place] [address] Aurora Sabillon RN 07/31/2025 10:15 AM EST Office Visit [facility] ADULT DENTAL [address] [place] [address] Kaid Heaton [address] [place] [address] documented as of this encounter Visit Diagnoses Diagnosis Fibromyositis Unspecified myalgia and myositis documented in this encounter Additional Health Concerns Assessment Noted Time PHQ-9 Depression Total Score: 9 08/10/19 25 10:01 AM EST documented as of this encounter Care Teams Flight Operations Dispatch Clerk Relationship Specialty Start Date End Date Name, MD Teofilo 230 [place] [address] PCP - General Family Medicine 08/19/15 documented as of this encounter
--- OUTSIDE RECORDS SUMMARY | 2025-04-03 21:09 | XMS_ITS | Encounter Summary ---
Author Organization [employer] Address 75 [facility] 7 [place] [address] Care Team Providers Care Transmission Tester Name Role Phone Name, Teofilo WHALEN Primary Care Provider [phone] Reason for Visit * Reason Comments Med Refill Encounter Details Date Type Department Care Team ([facility] st Contact Info) Description 06/12/2022 Refill [facility] [address] [place] [address] Name, MD Teofilo 230 [place] [address] Chronic pain syndrome Social History Tobacco Use [...] Description 05/15/2025 2:30 PM EST Office Visit [facility] MEDICINE [address] [place] [address] Name, MD Teofilo [address] [place] [address] 05/28/2025 8:30 AM EST Clinical Support [facility] MEDICINE [address] [place] [address] Aurora Sabillon, ALICIA 07/31/2025 10:15 AM EST Office Visit [facility] ADULT DENTAL [address] [place] [address] FlorinaKadi [address] [place] [address] documented as of this encounter Visit Diagnoses Diagnosis Chronic pain syndrome documented in this encounter Additional Health Concerns Assessment Noted Time PHQ-9 Depression Total Score: 0 05/27/20 22 10:40 AM EST documented as of this encounter Care Teams Transmission Tester Relationship Specialty Start Date End Date Name, MD Teofilo [address] [place] [address] PCP - General Family Medicine 08/19/15 documented as of this encounter
--- OUTSIDE RECORDS SUMMARY | 2025-04-03 21:09 | XMS_ITS | Encounter Summary ---
Author Organization [employer] Address [address] [facility] [address] 7t [place] [address] Care Team Providers Care Auctioneer Tobacco Name Role Phone Name, Teofilo WHALEN Primary Care Provider [phone] Encounter Details Date Type Department Care Team (Latest Contact Info) Description 04/03/2025 Travel Social History Tobacco Use Types Packs/Day [...] problems with any of the following? Lead [place] or Pipes 07/06/2024 Food Insecurity Answer Date [...] AM EDT documented as of this encounter Functional Status [...] Author Not at all 04/03/2025 3:44 PM SHAQUILLET Mery Madden [place] * Patient Health Questionnaire-9 Score Answer Date of Assessment Author 13 04/03/2025 3:44 PM SHAQUILLET Mery Madden [place] * How difficult have [...] annoyed or irritable 2 04/03/2025 3:45 PM SHAQUILLET Mery Madden [place] Feeling afraid as if somethi ng awful might happen 3 04/03/2025 3:45 PM EDT Mery Madden MA YOVANI-7 Total Score 18 04/03/2025 3:45 PM EDT Mery Madden [place] documented as of this encounter Plan of Treatment Upcoming Encounters Date Type Department Care Team (Late st Contact Info) Description 05/15/2025 2:30 PM EST [facility] [address] [place] [address] Name, MD Teofilo [address] [place] [address] 05/28/2025 8:30 AM EST Clinical Support [facility] [address] [place] [address] Aurora Sabillon RN 07/31/2025 10:15 AM EST Office Visit [facility] ADULT DENTAL [address] [place] [address] Kadi Heaton 230 [place] [address] documented as of this encounter Visit Diagnoses Not on filedocumented in this encounter Additional Health Concerns Assessment Noted Time PHQ-9 Depression Total Score: 13 025 3:44 PM EDT documented as of this encounter Care Teams Auctioneer Tobacco Relationship Specialty Start Date End Date NameTeofilo MD [address] [place] [address] PCP - General Family Medicine 08/19/15 documented as of this encounter
--- OUTSIDE RECORDS SUMMARY | 2025-04-03 21:09 | XMS_ITS | Encounter Summary ---
Author Organization [employer] Address 75 [facility] 7[address] [place] [address] Care Team Providers Care Unpaid Intern Name Role Phone Name, Teofilo WHALEN Primary Care Provider [phone] Reason for Visit * Reason Onset Date Comments Med Refill 05/10/2024 Encounter Details Date Type Department Care Team ([facility] st Contact Info) Description 05/10/2024 Telephone [facility] MEDICINE 230 [place] [address] Name, MD Teofilo 230 [place] [address] Med Refill Social History Tobacco Use Types [...] the past 12 months, has t he [employer], gas, oil or water company threatened to [...] 5-325 MG tablet To be sent to: [facility]/pharmacy #[id number] documented in this encounter Plan of Treatment Upcoming Encounters Date Type Department Care Team (Late st Contact Info) Description 05/15/2025 2:30 PM EST Office Visit [facility] MEDICINE [address] [place] [address] Name, MD Teofilo [address] [place] [address] 05/28/2025 8:30 AM EST Clinical Support [facility] MEDICINE [address] [place] [address] Aurora Sabillon RN 07/31/2025 10:15 AM EST Office Visit [facility] ADULT DENTAL [address] [place] [address] Kadi Heaton 230 [place] [address] documented as of this encounter Visit Diagnoses Not on filedocumented in this encounter Additional Health Concerns Assessment Noted Time PHQ-9 Depression Total Score: 12 024 9:22 AM EDT documented as of this encounter Care Teams Unpaid Intern Relationship Specialty Start Date End Date Name, MD Teofilo 230 [place] [address] PCP - General Family Medicine 08/19/15 documented as of this encounter
--- OUTSIDE RECORDS SUMMARY | 2025-04-03 21:09 | XMS_ITS | Encounter Summary ---
Author Organization [employer] Address 75 [facility] 7t [place] [address] Care Team Providers Care Weapons Specialist Name Role Phone Name, Teofilo WHALEN Primary Care Provider [phone] Reason for Visit * Reason Comments Med Refill Encounter Details Date Type Department Care Team ([facility] st Contact Info) Description 03/19/2023 Refill [facility] 230 [place] [address] Zuri Thacker MD 230 [place] [address] Social History Tobacco Use Types Packs/Day Years [...] Description 05/15/2025 2:30 PM EST Office Visit [facility] MEDICINE [address] [place] [address] Name, MD Teofilo [address] [place] [address] 05/28/2025 8:30 AM EST Clinical Support [facility] MEDICINE [address] [place] [address] Aurora Sabillon RN 07/31/2025 10:15 AM EST Office Visit [facility] ADULT DENTAL [address] [place] [address] Kadi Heaton 230 [place] [address] documented as of this encounter Visit Diagnoses Not on filedocumented in this encounter Additional Health Concerns Assessment Noted Time PHQ-9 Depression Total Score: 0 05/27/20 22 10:40 AM EST documented as of this encounter Care Teams Weapons Specialist Relationship Specialty Start Date End Date Name, MD Teofilo [address] [place] [address] PCP - General Family Medicine 08/19/15 documented as of this encounter
--- OUTSIDE RECORDS SUMMARY | 2025-04-03 21:09 | XMS_ITS | Encounter Summary ---
Author Organization [employer] Address 75 [facility] 7[address] [place] [address] Care Team Providers Care Java User Interface Developer Name Role Phone Name, Teofilo WHALEN Primary Care Provider [phone] Reason for Visit * Reason Onset Date Comments CHARTPREP 04/02/2025 Encounter Details Date Type Department Care Team ([facility] st Contact Info) Description 04/02/2025 Telephone [facility] MEDICINE [address] [place] [address] Name, MD Teofilo 230 [place] [address] CHARTPREP Social History Tobacco Use Types Packs/Day Years [...] problems with any of the following? Lead [facility] or Pipes 07/06/2024 Food Insecurity Answer Date [...] the past 12 months, has t he [employer], gas, oil or water company threatened to [...] encounter Miscellaneous Notes * Telephone Encounter - Mery Madden MA - 04/02/2025 1:05 PM EDT Chart Prep Labs: done Images: done Referrals: no show Vaccines due: Covid and Flu Screenings: colonoscopy Overdue care gaps: PHQ-9 and YOVANI-7 documented in this encounter Plan of Treatment Upcoming Encounters Date Type Department Care Team (Late st Contact Info) Description 05/15/2025 2:30 PM EST Office Visit [address] [address] Name, [place] [address] 05/28/2025 8:30 AM EST Clinical Support [address] [address] Aurora Sabillon RN 07/31/2025 10:15 AM EST Office Visit [facility] ADULT DENTAL [address] [place] [address] Kadi Heaton [address] [place] [address] documented as of this encounter Visit Diagnoses Not on filedocumented in this encounter Additional Health Concerns Assessment Noted Time PHQ-9 Depression Total Score: 9 08/10/19 25 10:01 AM EST documented as of this encounter Care Teams Java User Interface Developer Relationship Specialty Start Date End Date Name, MD Teofilo 230 [place] [address] PCP - General Family Medicine 08/19/15 documented as of this encounter
--- OUTSIDE RECORDS SUMMARY | 2025-04-03 21:09 | XMS_ITS | Encounter Summary ---
Author Organization [employer] Address 75 [facility] 7t [place] [address] Care Team Providers Care Land Clearer Name Role Phone Name, Teofilo WHALEN Primary Care Provider [phone] Reason for Visit * Reason Comments Med Refill Encounter Details Date Type Department Care Team ([facility] st Contact Info) Description 11/28/2023 Refill [facility] MEDICINE 230 [place], [place] [phone] Name, MD Teofilo [address] [place] [address] Fibromyositis Social History Tobacco Use Types Packs/Day [...] the past 12 months, has t he [employer], gas, oil or water company threatened to [...] Description 05/15/2025 2:30 PM EST Office Visit [facility] MEDICINE [address] [place] [address] Teofilo Dave MD [address] [place] [address] 05/28/2025 8:30 AM EST Clinical Support [facility] MEDICINE [address] [place] [address] Aurora Sabillon RN 07/31/2025 10:15 AM EST Office Visit [facility] ADULT DENTAL [address] [place] [address] Kadi Heaton 230 [place] [address] documented as of this encounter Visit Diagnoses Diagnosis Fibromyositis Unspecified myalgia and myositis documented in this encounter Additional Health Concerns Assessment Noted Time PHQ-9 Depression Total Score: 12 024 9:22 AM EDT documented as of this encounter Care Teams Land Clearer Relationship Specialty Start Date End Date Teofilo Dave MD [address] [place] [address] PCP - General Family Medicine 08/19/15 documented as of this encounter
--- OUTSIDE RECORDS SUMMARY | 2025-04-03 21:10 | XMS_ITS | Encounter Summary ---
Author Organization [employer] Address 75 [facility] 7 [place] [address] Care Team Providers Care Data Abstractor Name Role Phone NameTeofilo MD Primary Care Provider [phone] Reason for Visit * Reason Onset Date Comments requesting call 08/18/2022 Encounter Details Date Type Department Care Team ([facility] st Contact Info) Description 08/18/2022 Telephone [facility] MEDICINE 230 [place], [place] [phone] Name, MD Teofilo 230 [place] [address] requesting call Social History Tobacco Use Types [...] - 08/18/2022 10:00 AM EST Tc [facility] requesting a call back regarding pt CPAP machine. Janneth explained that she got in contact with pt insurance and the insurance informed that pt already had an authorization for a CPAP machine from a different provider since May to September. Please contact Janneth at [phone] Ext: [phone] documented in this encounter Plan of Treatment Upcoming Encounters Date Type Department Care Team (Late st Contact Info) Description 05/15/2025 2:30 PM EST Office Visit [facility] MEDICINE [address] [place] [address] Name, MD Teofilo 230 [place] [address] 05/28/2025 8:30 AM EST Clinical Support [facility] MEDICINE [address] [place] [address] Aurora Sabillon, ALICIA 07/31/2025 10:15 AM EST Office Visit [facility] ADULT DENTAL [address] [place] [address] Kadi Heaton 230 [place] [address] documented as of this encounter Visit Diagnoses Not on filedocumented in this encounter Additional Health Concerns Assessment Noted Time PHQ-9 Depression Total Score: 0 05/27/20 22 10:40 AM EST documented as of this encounter Care Teams Data Abstractor Relationship Specialty Start Date End Date Name, MD Teofilo 230 [place] [address] PCP - General Family Medicine 08/19/15 documented as of this encounter
--- OUTSIDE RECORDS SUMMARY | 2025-04-03 21:10 | XMS_ITS | Encounter Summary ---
Author Organization [employer] Address 75 [facility] 7 [place] [address] Care Team Providers Care Child And Adolescent Psychologist Name Role Phone Name, Teofilo WHALEN Primary Care Provider [phone] Reason for Visit * Reason Onset Date Comments new Apnea machine 07/31/2022 Encounter Details Date Type Department Care Team ([facility] st Contact Info) Description 07/31/2022 Telephone [facility] MEDICINE 230 [place] [address] Name, MD Teofilo 230 [place] [address] new Apnea machine Social History Tobacco Use [...] 12:21 PM EST Tc from Griselda from [facility] requesting a new apnea machine. States pt old one broke . Best contact # [phone] documented in this encounter Plan of Treatment Upcoming Encounters Date Type Department Care Team (Late st Contact Info) Description 05/15/2025 2:30 PM EST Office Visit [facility] MEDICINE 230 [place] [address] Name, MD Teofilo 230 [place] [address] 05/28/2025 8:30 AM EST Clinical Support [facility] MEDICINE 230 [place] [address] Aurora Sabillon, ALICIA 07/31/2025 10:15 AM EST Office Visit [facility] ADULT DENTAL 230 [place] [address] Kadi Heaton [address] [place] [address] documented as of this encounter Visit Diagnoses Not on filedocumented in this encounter Additional Health Concerns Assessment Noted Time PHQ-9 Depression Total Score: 0 05/27/20 22 10:40 AM EST documented as of this encounter Care Teams Child And Adolescent Psychologist Relationship Specialty Start Date End Date Name, [place] [address] PCP - General Family Medicine 08/19/15 documented as of this encounter
--- OUTSIDE RECORDS SUMMARY | 2025-04-03 21:10 | XMS_ITS | Encounter Summary ---
Author Organization [employer] Address 75 [facility] 7 [place] [address] Care Team Providers Care Racquet Maker Name Role Phone Name, Teofilo WHALEN Primary Care Provider [phone] Reason for Visit * Reason Onset Date Comments new script 08/21/2022 Encounter Details Date Type Department Care Team ([facility] st Contact Info) Description 08/21/2022 Telephone [facility] MEDICINE 230 [place] [address] Name, MD Teofilo [address] [place] [address] new script Social History Tobacco Use Types [...] alternatemed and please to be sent to [facility] Pharmacy. PCP Dr. Dave documented in this encounter Plan of Treatment Upcoming Encounters Date Type Department Care Team (Late st Contact Info) Description 05/15/2025 2:30 PM EST Office Visit [facility] MEDICINE [address] [place] [address] Name, MD Teofilo [address] [place] [address] 05/28/2025 8:30 AM EST Clinical Support [facility] MEDICINE [address] [place], [place] [phone] Aurora Sabillon, ALICIA 07/31/2025 10:15 AM EST Office Visit [facility] ADULT DENTAL [address] [place] [address] Kadi Heaton [address] [place] [address] documented as of this encounter Visit Diagnoses Not on filedocumented in this encounter Additional Health Concerns Assessment Noted Time PHQ-9 Depression Total Score: 0 05/27/20 22 10:40 AM EST documented as of this encounter Care Teams Racquet Maker Relationship Specialty Start Date End Date Teofilo Dave MD [address] [place] [address] PCP - General Family Medicine 08/19/15 documented as of this encounter
--- OUTSIDE RECORDS SUMMARY | 2025-04-03 21:10 | XMS_ITS | Encounter Summary ---
Author Organization [employer] Address 75 [facility] [address], [place] [address] Care Team Providers Care Script Manager Name Role Phone NameTeofilo MD Primary Care Provider [phone] Encounter Details Date Type Department Care Team (Latest Contact Info) Description 04/25/2021 Abstract [facility] CONVERSIONS Dental, Provider, DDS Social History [...] Description 05/15/2025 2:30 PM EST Office Visit [facility] MEDICINE [address] [place] [address] Name, MD Teofilo 230 [place] [address] 05/28/2025 8:30 AM EST Clinical Support [facility] MEDICINE [address] [place] [address] Aurora Sabillon RN 07/31/2025 10:15 AM EST Office Visit [facility] ADULT DENTAL [address] [place] [address] Kadi Heaton 230 [place] [address] documented as of this encounter Visit Diagnoses Not on filedocumented in this encounter Care Teams Script Manager Relationship Specialty Start Date End Date Name, MD Teofilo 230 [place] [address] PCP - General Family Medicine 08/19/15 documented as of this encounter
--- OUTSIDE RECORDS SUMMARY | 2025-04-03 21:10 | XMS_ITS | Encounter Summary ---
Author Organization [employer] Address 75 [facility] 7t [place] [address] Care Team Providers Care Marketing Consultant Name Role Phone Name, Teofilo WHALEN Primary Care Provider [phone] Reason for Visit * Reason Comments Med Refill Encounter Details Date Type Department Care Team ([facility] st Contact Info) Description 09/03/2024 Refill [facility] [address] [place] [address] Emily Elizalde MD 230 [place] [address] Benign hypertension Social History Tobacco Use Types [...] problems with any of the following? Lead [place] [employer] 07/06/2024 Food Insecurity Answer Date [...] the past 12 months, has t he [employer], gas, oil or water company threatened to [...] Description 05/15/2025 2:30 PM EST Office Visit [facility] [address] [place] [address] Teofilo Dave MD 230 [place] [address] 05/28/2025 8:30 AM EST Clinical Support [facility] [address] [place] [address] Aurora Sabillon RN 07/31/2025 10:15 AM EST Office Visit [facility] ADULT DENTAL [address] [place] [address] Kadi Heaton 230 [place] [address] documented as of this encounter Visit Diagnoses Diagnosis Benign hypertension Essential hypertension, benign documented in this encounter Additional Health Concerns Assessment Noted Time PHQ-9 Depression Total Score: 9 08/10/19 25 10:01 AM EST documented as of this encounter Care Teams Marketing Consultant Relationship Specialty Start Date End Date Teofilo Dave MD 230 [place] [address] PCP - General Family Medicine 08/19/15 documented as of this encounter
--- OUTSIDE RECORDS SUMMARY | 2025-04-03 21:10 | XMS_ITS | Encounter Summary ---
Author Organization [employer] Address 75 [facility] 7t [place] [address] Care Team Providers Care Dray Driver Name Role Phone Name, Teofilo WHALEN Primary Care Provider [phone] Reason for Visit * Reason Onset Date Comments Back Pain 05/18/2022 Encounter Details Date Type Department Care Team ([facility] st Contact Info) Description 05/18/2022 Telephone [facility] [address] [place] [address] Name, MD Teofilo 230 [place] [address] Back Pain Social History Tobacco Use Types [...] caller accepted this outcome Please contact in Croatian at [phone] * Telephone Encounter - Inge Hernandez - 05/18/2022 9:32 AM EST Tc from pt request med refill on medication Ambien and Percocet . documented in this encounter Plan of Treatment Upcoming Encounters Date Type Department Care Team (Late st Contact Info) Description 05/15/2025 2:30 PM EST Office Visit [facility] [address] [place] [address] Name, MD Teofilo [address] [place] [address] 05/28/2025 8:30 AM EST Clinical Support [facility] [address] [place] [address] Aurora Sabillon RN 07/31/2025 10:15 AM EST Office Visit [facility] ADULT DENTAL [address] [place] [address] Kadi Heaton 230 [place] [address] documented as of this encounter Visit Diagnoses Not on filedocumented in this encounter Care Teams Dray Driver Relationship Specialty Start Date End Date Name, MD Teofilo 230 [place] [address] PCP - General Family Medicine 08/19/15 documented as of this encounter
--- OUTSIDE RECORDS SUMMARY | 2025-04-03 21:10 | XMS_ITS | Encounter Summary ---
Author Organization [employer] Address 75 [facility] 7t [place] [address] Care Team Providers Care Lost Charge Card Clerk Name Role Phone Name, Teofilo WHALEN Primary Care Provider [phone] Encounter Details Date Type Department Care Team ([facility] st Contact Info) Description 07/16/2023 Abstract [facility] [address] [place], [place] [phone] Name, MD Teofilo 230 [place] [address] Social History Tobacco Use Types Packs/Day Years [...] Description 05/15/2025 2:30 PM EST Office Visit [facility] [address] [place] [address] Name, MD Teofilo [address] [place] [address] 05/28/2025 8:30 AM EST Clinical Support [facility] [address] [place] [address] Aurora Sabillon, ALICIA 07/31/2025 10:15 AM EST Office Visit [facility] ADULT DENTAL [address] [place] [address] Kadi Heaton 230 [place] [address] documented as of this encounter Visit Diagnoses Not on filedocumented in this encounter Additional Health Concerns Assessment Noted Time PHQ-9 Depression Total Score: 0 05/27/20 22 10:40 AM EST documented as of this encounter Care Teams Lost Charge Card Clerk Relationship Specialty Start Date End Date Name, MD Teofilo [address] [place] [address] PCP - General Family Medicine 08/19/15 documented as of this encounter
[2025-04-05 11:53] LABS: CDiff Gene PCR NEGATIVE (Negative)
== END 2025-04-03 16:49 | disposition home or self-care (01) ==
LOC: HO.HHCLNP 16:48
PROVIDERS: Visit Provider Nurse Practitioner Family
DX: R19.7 Diarrhea, unspecified (principal); R15.9 Full incontinence of feces; R32 Unspecified urinary incontinence
CPT/HCPCS: 87086; 87493

== ENCOUNTER 2025-04-05 10:10 | Outpatient (REF) | payer OTHER, SELFPAY ==
--- OUTSIDE RECORDS SUMMARY | 2025-04-03 15:15 | XMS_ITS | Encounter Summary ---
Author Organization [employer] Address [address] [facility] 7[address] [place] [address] Care Team Providers Care Alarm Security Or Surveillance Monitor Name Role Phone Name, Teofilo WHALEN Primary Care Provider [phone] Reason for Visit * Reason Comments Follow-up Encounter Details Date Type Department Care Team ([facility] st Contact Info) Description 04/03/2025 3:15 PM EDT Office Visit [facility] [address] [place] [address] Anum Mckinley NP [address] [place] [address] Urinary incontinence, unspecified type (Primary Dx); Full [...] problems with any of the following? Lead [place] or [employer]ipes 07/06/2024 Food Insecurity Answer Date [...] half the days 04/03/2025 3:44 PM EDT Meyr Crocker [place] * Moving or speaking so [...] 04/03/2025 3:45 PM EDT Mery Madden MA YVOANI-7 Total Score 18 04/03/2025 3:45 PM EDT [...] of this technology: Yes Visit Conducted in: Slovenian Translation by: Patient is bilingual and declines [...] syndrome Stage 3 chronic kidney disease (CMS/HCC) ([facility]) Swelling of lower limb Vitamin D deficiency Vertigo Trigeminal neuralgia Essential hypertension Osteopenia Dermatitis Dental calculus Minimal localized gingival recession Type 2 diabetes mellitus, without long-term current use of insulin ([facility]) Missing teeth, acquired Oral frictional [...] affected nostril(s) if needed for opioid reversal. [place] 0.1 mL by intranasal route in 1 [...] Description 05/15/2025 2:30 PM EST Office Visit [facility] [address] [place] [phone] Name, MD Teofilo [address] [place] [phone] 05/28/2025 8:30 AM EST Clinical Support [facility] [address] [place] [phone] Aurora Sabillon RN 07/31/2025 10:15 AM EST Office Visit [facility] [address] [place] [phone] Kadi Heaton [address] [place] [address] Scheduled Orders Name Type Priority Associated Diagnoses Orde r Schedule Stool culture Microbiology Routine Full incontinence of [...] presumed infectious origin Expected: 04/03/2025, Expires: 04/03/2026 documented as of this encounter Procedures Procedure Name Priority Date/Time Associated Diagnosis Comments CBC WITH AUTO DIFFERENTIAL Routine 04/05/2025 10:24 AM EDT Full incontinence of feces Diarrhea of presumed infectious origin C-REACTIVE PROTEIN Routine 04/05/2025 10 :24 AM EDT Full incontinence of feces Diarrhea of presumed infectious origin COMPREHENSIVE METABOLIC PANEL Routine 04/05/2025 10:24 AM EDT Full incontinence of feces Diarrhea of presumed infectious origin POCT URINALYSIS DIPSTICK Routine 04/03/2025 3:38 PM EDT Urinary incontinence, unspecified type POCT GLUCOSE Routine 04/03/2025 3:27 PM EDT Urinary incontinence, unspecified type CULTURE, URINE, ROUTINE Routine 04/03/2025 3:27 PM EDT Urinary incontinence, unspecified type documented in this encounter Results * C-reactive Protein (04/05/2025 10:24 AM EDT) C Reactive Protein 0.18 < or = 0.50 mg/dL [facility] Blood Venous blood specimen / Unknown 04/05/2025 10:24 AM EDT 04/05/2025 11:21 AM EDT us Anum Mckinley NP LAB BLOOD ORDERABLES Final Resul t [facility] [address] [place], [place] [phone] * (ABNORMAL) CBC auto differential (04/05/2025 10:24 AM EDT) White Blood Count 4.3(L) 4.8 - 10.8 X10*3/uL [facility] Red Blood Count 4.02(L) 4.20 - 5.50 X10*6/uL [facility] Hemoglobin 13.1 12.0 - 16.0 g/dl [facility] Hematocrit 39.9 37.0 - 47.0 % [facility] Mean Corpuscular Volume 99.3(H) 80.0 - 98.0 fL [facility] Mean Corpuscular Hemoglobin 32.6 27.0 - 33.0 pg [facility] Mean Corpuscular HGB Conc 32.8 31.0 - 35.0 g/dl [facility] Red Cell Distribution Width 13.6 11.0 - 16.0 % [facility] Platelet Count 226 160 - 400 X10*3/uL [facility] Mean Platelet Volume 11.1 9.4 - 12.3 fL [facility] Neutrophils Percent Auto 57.9 45 - 73 % [facility] Imm Gran Pct Auto 0.2 0.0 - 0.4 % [facility] Lymphocytes Percent Auto 29.0 20 - 40 % [facility] Monocytes Percent Auto 11.0 2 - 11 % [facility] Eosinophils Percent Auto 1.4 0 - 4 % [facility] Basophils Percent Auto 0.5 0 - 2 % [facility] NRBC Pct Auto 0.0 0.0 - 0.2 /100WBC [facility] Neutrophils Absolute Auto 2.5 2.0 - 8.3 x10*3/uL [facility] Imm Gran Abs Auto 0.01 0.00 - 0.03 X10*3/uL [facility] Lymphocytes Absolute Auto 1.2 1.2 - 4.9 X10*3/uL [facility] Monocytes Absolute Auto 0.5 0.1 - 1.2 X10*3/uL [facility] Eosinophils Absolute Auto 0.1 0.0 - 0.4 X10*3/uL [facility] Basophils Absolute Auto 0.0 0.0 - 0.2 X10*3/uL [facility] NRBC Abs Auto 0.000 0.0 - 0.012 X10*3/uL [facility] Blood Venous blood specimen / Unknown 04/05/2025 10:24 AM EDT 04/05/2025 11:21 AM EDT us Anum Mckinley NP LAB BLOOD ORDERABLES Final Resul t [facility] [address] [place] [phone] * (ABNORMAL) Comprehensive Metabolic Panel (04/05/2025 10:24 AM EDT) Sodium 148(H) 135 - 145 mmol/L [facility] Potassium 4.1 3.3 - 5.1 mmol/L [facility] Chloride 110(H) 96 - 108 mmol/L [facility] Carbon Dioxide 31(H) 22 - 29 mmol/L [facility] Anion Gap 11(L) 12 - 20 [facility] Urea Nitrogen (BUN) 17(H) 9 - 16 mg/dL [facility] Creatinine, Serum 0.96 0.5 - 1.4 mg/dL [facility] Estimated Glomerular Filt Rate 58 [facility] Comment:Chronic Kidney Disea se: Estimated GFR < 60 mL/min/[id number] Kidney Disease: Estimated GFR < 15 mL/min/1.73m2 Glucose 143(H) 60 - 115 mg/dL [facility] Calcium 9.7 8.4 - 10.2 mg/dL [facility] Bilirubin, Total 0.4 0.0 - 1.0 mg/dL [facility] Aspartate Amino Transferase 47(H) 5 - 31 U/L [facility] Alanine Aminotransferase 15 0 - 31 U/L [facility] Total Protein 7.1 6.5 - 8.0 g/dL [facility] Albumin Level 4.6 3.5 - 5.0 g/dL [facility] Alkaline Phosphatase 58 39 - 117 U/L [facility] Blood Venous blood specimen / Unknown 04/05/2025 10:24 AM EDT 04/05/2025 11:21 AM EDT Result [facility] Anum Mckinley SALES RECORD CLERK LAB BLOOD ORDERABLES Final Resul t [facility] [address] [place] [phone] * (ABNORMAL) POCT Urinalysis (04/03/2025 3:38 PM [...] Media Lot # [id number] Lot# Expiration Date Urine (Urine, Random) 04/03/2025 3:38 PM EDT Result [facility] Anum Mckinley SALES RECORD CLERK POINT OF CARE TEST ENTER/EDIT OR DERABLES Final Result * POCT Glucose (04/03/2025 3:27 PM EDT) Glucose Blood, POC 109 60 - 200 mg/dL QC Media Lot # [id number] Lot# Expiration Date Blood Capillary blood specimen / Unknown 04/03/2025 3:27 PM EDT Result [facility] Anum Mckinley SALES RECORD CLERK POINT OF CARE TEST ENTER/EDIT OR DERABLES Final Result * Culture, Urine, Routine (04/03/2025 3:27 PM EDT) Urine Urine specimen obtained by clean catch procedure / Unknown 04/03/2025 3:27 PM EDT 04/03/2025 4:48 PM EDT Comment:[facility] Narrative [facility] - 04/05/2025 10:32 AM EDT Urine Culture Report Result Urine Culture 10,000 to 50,000 cfu/ml Urine Culture Mixed bacterial luz maria characteristic of Urine Culture urogenital contamination. Specimen Source: Urine clean catch us Anum Mckinley SALES RECORD CLERK LAB MICROBIOLOGY - GENERAL ORDER EVIN Final Result [facility] [address] [place] [phone] documented in this encounter Visit Diagnoses Diagnosis Urinary incontinence, unspecified type- Primary Full incontinence of feces Diarrhea of presumed infectious origin Mixed stress and urge urinary incontinence Mixed incontinence urge and stress (male)(female) documented in this encounter Additional Health Concerns Assessment Noted Time PHQ-9 Depression Total Score: 13 025 3:44 PM EDT documented as of this encounter Care Teams Alarm Security Or Surveillance Monitor Relationship Specialty Start Date End Date Name, MD Teofilo [address] [place] [phone] PCP - General Family Medicine 08/19/15 documented as of this encounter
[2025-04-05 11:31] LABS: MANUAL DIFF FLAG NO
[2025-04-05 11:47] LABS: Hematocrit 39.9 % (37.0-47.0); Hemoglobin 13.1 g/dl (12.0-16.0); Imm Gran Abs Auto 0.01 X10*3/uL (0.00-0.03); Imm Gran Pct Auto 0.2 % (0.0-0.4); Lymphocytes Absolute Auto 1.2 X10*3/uL (1.2-4.9); Mean Corpuscular HGB Conc 32.8 g/dl (31.0-35.0); Mean Corpuscular Hemoglobin 32.6 pg (27.0-33.0); Mean Corpuscular Volume 99.3 fL (80.0-98.0); NRBC Abs Auto 0.000 X10*3/uL (0.0-0.012); NRBC Pct Auto 0.0 /100WBC (0.0-0.2); Platelet Count 226 X10*3/uL (160-400); Red Blood Count 4.02 X10*6/uL (4.20-5.50); White Blood Count 4.3 X10*3/uL (4.8-10.8)
[2025-04-05 11:58] LABS: Alanine Aminotransferase 15 U/L (0-31); Albumin Level 4.6 g/dL (3.5-5.0); Alkaline Phosphatase 58 U/L (39-117); Anion Gap 11 (12-20); Aspartate Amino Transferase 47 U/L (5-31); Blood Urea Nitrogen 17 mg/dL (9-16); Calcium 9.7 mg/dL (8.4-10.2); Carbon Dioxide 31 mmol/L (22-29); Chloride 110 mmol/L (96-108); Estimated Glomerular Filt Rate 58; Potassium 4.1 mmol/L (3.3-5.1); Sodium 148 mmol/L (135-145); Total Protein 7.1 g/dL (6.5-8.0)
--- OUTSIDE RECORDS SUMMARY | 2025-04-05 12:01 | XMS_ITS | Encounter Summary ---
Author Organization [employer] Address [address] [facility] [address] 7t [place] [address] Care Team Providers Care Refinery Operator Helper Name Role Phone NameTeofilo MD Primary Care Provider [phone] Reason for Visit * Reason Comments Med Change Request Encounter Details Date Type Department Care Team ([facility] st Contact Info) Description 06/05/2023 Refill [facility] 230 [place], [place] [phone] Name, MD Teofilo 230 [place] [address] Left lower quadrant abdominal pain Social History [...] Description 05/15/2025 2:30 PM EST Office Visit [facility] [address] [place] [address] Name, MD Teofilo 230 [place] [address] 05/28/2025 8:30 AM EST Clinical Support [facility] [address] [place] [address] Aurora Sabillon RN 07/31/2025 10:15 AM EST Office Visit [facility] 230 [place] [address] Kadi Heaton 230 [place] [address] documented as of this encounter Visit Diagnoses Diagnosis Left lower quadrant abdominal pain documented in this encounter Additional Health Concerns Assessment Noted Time PHQ-9 Depression Total Score: 0 05/27/20 22 10:40 AM EST documented as of this encounter Care Teams Refinery Operator Helper Relationship Specialty Start Date End Date Name, MD Teofilo [address] [place] [address] PCP - General Family Medicine 08/19/15 documented as of this encounter
--- OUTSIDE RECORDS SUMMARY | 2025-04-05 12:01 | XMS_ITS | Encounter Summary ---
Author Organization [employer] Address 75 [facility] 7t [place] [address] Care Team Providers Care Car Wash Attendant Automatic Name Role Phone Name, Teofilo WHALEN Primary Care Provider [phone] Reason for Visit * Reason Comments Med Refill Encounter Details Date Type Department Care Team ([facility] st Contact Info) Description 03/19/2023 Refill [facility] 230 [place] [address] Zuri Thacker MD 230 [place] [address] Social History Tobacco Use Types Packs/Day Years [...] your housing situation today? I have joaquim murguai 03/22/[address] you li [...] Description 05/15/2025 2:30 PM EST Office Visit [facility] [address] [place] [address] Name, MD Teofilo [address] [place] [address] 05/28/2025 8:30 AM EST Clinical Support [facility] [address] [place] [address] Aurora Sabillon RN 07/31/2025 10:15 AM EST Office Visit [facility] ADULT DENT[facility] [address] [place] [address] Kadi Heaton 230 [place] [address] documented as of this encounter Visit Diagnoses Not on filedocumented in this encounter Additional Health Concerns Assessment Noted Time PHQ-9 Depression Total Score: 0 05/27/20 22 10:40 AM EST documented as of this encounter Care Teams Car Wash Attendant Automatic Relationship Specialty Start Date End Date Name, MD Teofilo [address] [place] [address] PCP - General Family Medicine 08/19/15 documented as of this encounter
--- OUTSIDE RECORDS SUMMARY | 2025-04-05 12:01 | XMS_ITS | Encounter Summary ---
Author Organization [employer] Address 75 [facility] 7t [place] [address] Care Team Providers Care Supervisor Ticket Sales Name Role Phone Name, Teofilo WHALEN Primary Care Provider [phone] Reason for Visit * Reason Onset Date Comments Med Refill 06/10/2023 Encounter Details Date Type Department Care Team ([facility] st Contact Info) Description 06/10/2023 Telephone [facility] 230 [place], [place] [phone] Name, MD Teofilo 230 [place] [address] Med Refill Social History Tobacco Use Types [...] on 05/17/2023 for 28 days supply at [facility]. [place]. Please review. * Telephone Encounter - Lori Palomino - 06/10/2023 9:34 AM EST TC from pt requesting medication refill. Medications needing refill : oxyCODONE-acetaminophen (Percocet) 5-325 MG tablet To be sent to: [facility]/pharmacy #[id number] - [place], [place] - [address] [place] [address] documented in this encounter Plan of Treatment Upcoming Encounters Date Type Department Care Team (Late st Contact Info) Description 05/15/2025 2:30 PM EST Office Visit [address] [address] Name, MD Teofilo [address] [place] [address] 05/28/2025 8:30 AM EST Clinical Support [facility] 230 [place] [address] Aurora Sabillon RN 07/31/2025 10:15 AM EST Office Visit [facility] ADULT DENTAL 230 [place] [address] FlorinaKadi [address] [place] [address] documented as of this encounter Visit Diagnoses Not on filedocumented in this encounter Additional Health Concerns Assessment Noted Time PHQ-9 Depression Total Score: 0 05/27/20 22 10:40 AM EST documented as of this encounter Care Teams Supervisor Ticket Sales Relationship Specialty Start Date End Date Name, MD Teofilo 230 [place] [address] PCP - General Family Medicine 08/19/15 documented as of this encounter
--- OUTSIDE RECORDS SUMMARY | 2025-04-05 12:01 | XMS_ITS | Encounter Summary ---
Author Organization [employer] Address 75 [facility] 7t [place] [address] Care Team Providers Care Blanket Folder Name Role Phone Name, Teofilo WHALEN Primary Care Provider [phone] Reason for Visit * Reason Comments Med Refill Encounter Details Date Type Department Care Team (Late st Contact Info) Description 03/19/2023 Refill [facility] MED[facility]INE 230 [place] [address] Susan Brown, ROSELYN [address] [place] [address] Chronic pain syndrome Social History Tobacco Use [...] Description 05/15/2025 2:30 PM EST Office Visit [facility] MEDICINE [address] [place] [address] Name, MD Teofilo [address] [place] [address] 05/28/2025 8:30 AM EST Clinical Support [facility] MED[facility]INE [address] [place] [address] Aurora Sabillon RN 07/31/2025 10:15 AM EST Office Visit [facility] ADULT DENTAL [address] [place] [address] Kadi Heaton 230 [place] [address] documented as of this encounter Visit Diagnoses Diagnosis Chronic pain syndrome documented in this encounter Additional Health Concerns Assessment Noted Time PHQ-9 Depression Total Score: 0 05/27/20 22 10:40 AM EST documented as of this encounter Care Teams Blanket Folder Relationship Specialty Start Date End Date Name, MD Teofilo [address] [place] [address] PCP - General Family Medicine 08/19/15 documented as of this encounter
--- OUTSIDE RECORDS SUMMARY | 2025-04-05 12:02 | XMS_ITS | Encounter Summary ---
Author Organization [employer] Address 75 [facility] 7t [place] [address] Care Team Providers Care Recruitment And Outreach Assistant Name Role Phone Name, Teofilo WHALEN Primary Care Provider [phone] Reason for Visit * Reason Comments Med Refill Encounter Details Date Type Department Care Team ([facility] st Contact Info) Description 09/03/2024 Refill [facility] 230 [place] [address] Emily Elizalde MD 230 [place], [place] [phone] Benign hypertension Social History Tobacco Use Types [...] problems with any of the following? Lead [place] or Pipes 07/06/2024 Food Insecurity Answer Date [...] the past 12 months, has t he [employer], gas, oil or water company threatened to [...] Description 05/15/2025 2:30 PM EST Office Visit [facility]INE [address] [place] [address] Teofilo Dave MD 230 [place] [address] 05/28/2025 8:30 AM EST Clinical Support [facility] [address] [place] [address] Aurora Sabillon RN 07/31/2025 10:15 AM EST Office Visit [facility] ADULT DENTAL [address] [place] [address] Kadi Heaton 230 [place] [address] documented as of this encounter Visit Diagnoses Diagnosis Benign hypertension Essential hypertension, benign documented in this encounter Additional Health Concerns Assessment Noted Time PHQ-9 Depression Total Score: 9 08/10/19 25 10:01 AM EST documented as of this encounter Care Teams Recruitment And Outreach Assistant Relationship Specialty Start Date End Date Teofilo Dave MD 230 [place] [address] PCP - General Family Medicine 08/19/15 documented as of this encounter
--- OUTSIDE RECORDS SUMMARY | 2025-04-05 12:02 | XMS_ITS | Encounter Summary ---
Author Organization [employer] Address 75 [facility] 7t [place] [address] Care Team Providers Care Public Records Officer Name Role Phone Name, Teofilo WHALEN Primary Care Provider [phone] Reason for Visit * Reason Comments Med Refill Encounter Details Date Type Department Care Team ([facility] st Contact Info) Description 10/29/2024 Refill [facility] 230 [place], [place] [phone] Name, MD Teofilo 230 [place] [address] Fibromyositis Social History Tobacco Use Types Packs/Day [...] problems with any of the following? Lead [place] or Pipes 07/06/2024 Food Insecurity Answer Date [...] the past 12 months, has t he [employer], gas, oil or water company threatened to [...] Description 05/15/2025 2:30 PM EST Office Visit [facility] MED[facility] [address] [place] [address] Name, MD Teofilo [address] [place] [address] 05/28/2025 8:30 AM EST Clinical Support [facility] [address] [place] [address] Aurora Sabillon RN 07/31/2025 10:15 AM EST Office Visit [facility] ADULT DENTAL [address] [place] [address] Kadi Heaton 230 [place] [address] documented as of this encounter Visit Diagnoses Diagnosis Fibromyositis Unspecified myalgia and myositis documented in this encounter Additional Health Concerns Assessment Noted Time PHQ-9 Depression Total Score: 9 08/10/19 25 10:01 AM EST documented as of this encounter Care Teams Public Records Officer Relationship Specialty Start Date End Date Name, MD Teofilo 230 [place] [address] PCP - General Family Medicine 08/19/15 documented as of this encounter
--- OUTSIDE RECORDS SUMMARY | 2025-04-05 12:02 | XMS_ITS | Encounter Summary ---
Author Organization [employer] Address 75 [facility] 7t [place] [address] Care Team Providers Care Greenhouse Assistant Name Role Phone Name, Teofilo WHALEN Primary Care Provider [phone] Reason for Visit * Reason Onset Date Comments Med Refill 05/10/2024 Encounter Details Date Type Department Care Team ([facility] st Contact Info) Description 05/10/2024 Telephone [facility] MED[facility] 230 [place] [address] Name, MD Teofilo 230 [place] [address] Med Refill Social History Tobacco Use Types [...] the past 12 months, has t he [employer], gas, oil or water company threatened to [...] 5-325 MG tablet To be sent to: [facility]/pharmacy #[id number] documented in this encounter Plan of Treatment Upcoming Encounters Date Type Department Care Team (Late st Contact Info) Description 05/15/2025 2:30 PM EST Office Visit [facility] MED[facility] [address] [place] [address] Name, MD Teofilo [address] [place] [address] 05/28/2025 8:30 AM EST Clinical Support [facility] MED[facility]INE [address] [place] [address] Aurora Sabillon RN 07/31/2025 10:15 AM EST Office Visit [facility] ADULT DENTAL [address] [place] [address] Kadi Heaton 230 [place] [address] documented as of this encounter Visit Diagnoses Not on filedocumented in this encounter Additional Health Concerns Assessment Noted Time PHQ-9 Depression Total Score: 12 024 9:22 AM EDT documented as of this encounter Care Teams Greenhouse Assistant Relationship Specialty Start Date End Date Name, MD Teofilo 230 [place] [address] PCP - General Family Medicine 08/19/15 documented as of this encounter
--- OUTSIDE RECORDS SUMMARY | 2025-04-05 12:02 | XMS_ITS | Encounter Summary ---
Author Organization [employer] Address 75 [facility] [address] [address] Care Team Providers Care Network Engineering Advisor Name Role Phone Name, Teofilo WHALEN Primary Care Provider [phone] Reason for Visit * Reason Comments Med Refill Encounter Details Date Type Department Care Team (Late st Contact Info) Description 02/22/2023 Refill [facility] MEDICINE [address] [place] [address] Name, MD Teofilo [address] [place] [address] Chronic pain syndrome Social History Tobacco Use [...] Encounters Date Type Department Care Team (Late Contact Info) Description 05/15/2025 2:30 PM EST Office Visit [facility] MEDICINE [address] [place] [address] Name, MD Teofilo [address] [place] [address] 05/28/2025 8:30 AM EST Clinical Support [facility] MEDICINE [address] [place] [address] Aurora Sabillon, RN 07/31/2025 10:15 AM EST Office Visit [facility] ADULT DENTAL [address] [place] [address] Kadi Heaton 230 [place] [address] documented as of this encounter Visit Diagnoses Diagnosis Chronic pain syndrome documented in this encounter Additional Health Concerns Assessment Noted Time PHQ-9 Depression Total Score: 0 05/27/20 22 10:40 AM EST documented as of this encounter Care Teams Network Engineering Advisor Relationship Specialty Start Date End Date Name, MD Teofilo [address] [place] [address] PCP - General Family Medicine 08/19/15 documented as of this encounter
--- OUTSIDE RECORDS SUMMARY | 2025-04-05 12:02 | XMS_ITS | Encounter Summary ---
Author Organization [employer] Address 75 [facility] 7 [place] [address] Care Team Providers Care Pickling Drum Operator Name Role Phone Name, Teofilo WHALEN Primary Care Provider [phone] Reason for Visit * Reason Comments Med Refill Encounter Details Date Type Department Care Team ([facility] st Contact Info) Description 06/12/2022 Refill [facility] 230 [place] [address] Name, MD Teofilo [address] [place] [address] Chronic pain syndrome Social History Tobacco Use [...] Description 05/15/2025 2:30 PM EST Office Visit [facility] MED[facility] [address] [place] [address] Name, MD Teofilo [address] [place] [address] 05/28/2025 8:30 AM EST Clinical Support [facility] [address] [place] [address] Aurora Sabillon, ALICIA 07/31/2025 10:15 AM EST Office Visit [facility] ADULT DENTAL [address] [place] [address] FlorinaKadi 230 [place] [address] documented as of this encounter Visit Diagnoses Diagnosis Chronic pain syndrome documented in this encounter Additional Health Concerns Assessment Noted Time PHQ-9 Depression Total Score: 0 05/27/20 22 10:40 AM EST documented as of this encounter Care Teams Pickling Drum Operator Relationship Specialty Start Date End Date Name, MD Teofilo [address] [place] [address] PCP - General Family Medicine 08/19/15 documented as of this encounter
--- OUTSIDE RECORDS SUMMARY | 2025-04-05 12:02 | XMS_ITS | Encounter Summary ---
Author Organization [employer] Address 75 [facility] 7t [place] [address] Care Team Providers Care Winder Contort Operator Name Role Phone Name, Teofilo WHALEN Primary Care Provider [phone] Reason for Visit * Reason Onset Date Comments CHARTPREP 04/02/2025 Encounter Details Date Type Department Care Team ([facility] st Contact Info) Description 04/02/2025 Telephone [facility] MEDICINE 230 [place] [address] Name, MD Teofilo 230 [place] [address] CHARTPREP Social History Tobacco Use Types Packs/Day [...] problems with any of the following? Lead [place] or Pipes 07/06/2024 Food Insecurity Answer Date [...] the past 12 months, has t he [employer], gas, oil or water company threatened to [...] Description 05/15/2025 2:30 PM EST Office Visit [address] [address] Name, [place] [address] 05/28/2025 8:30 AM EST Clinical Support [address] [address] Aurora Sabillon RN 07/31/2025 10:15 AM EST Office Visit [facility] ADULT DENTAL 230 [place] [address] Kadi Heaton [address] [place] [address] documented as of this encounter Visit Diagnoses Not on filedocumented in this encounter Additional Health Concerns Assessment Noted Time PHQ-9 Depression Total Score: 9 08/10/19 25 10:01 AM EST documented as of this encounter Care Teams Winder Contort Operator Relationship Specialty Start Date End Date Name, MD Teofilo 230 [place] [address] PCP - General Family Medicine 08/19/15 documented as of this encounter
--- OUTSIDE RECORDS SUMMARY | 2025-04-05 12:02 | XMS_ITS | Encounter Summary ---
Author Organization [employer] Address [address] [facility] [address] 7t [place] [address] Care Team Providers Care Engine Test Cell Technician Name Role Phone Name, Teofilo WHALEN Primary Care Provider [phone] Encounter Details Date Type Department Care Team ([facility] st Contact Info) Description 01/21/2024 Telephone [facility] 230 [place], [place] [phone] Name, MD Teofilo [address] [place] [address] Social History Tobacco Use Types Packs/Day Years [...] EST Office Visit [facility] [address] [place] [address] Name, MD Teofilo [address] [place] [address] 05/28/2025 8:30 AM EST Clinical Support [facility] [address] [place] [address] Aurora Sabillon RN 07/31/2025 10:15 AM EST Office Visit [facility] ADULT D[facility] [address] [place] [address] Kadi Heaton [address] [place] [address] documented as of this encounter Visit Diagnoses Not on filedocumented in this encounter Additional Health Concerns Assessment Noted Time PHQ-9 Depression Total Score: 12 024 9:22 AM EDT documented as of this encounter Care Teams Engine Test Cell Technician Relationship Specialty Start Date End Date Name, MD Teofilo [address] [place] [address] PCP - General Family Medicine 08/19/15 documented as of this encounter
--- OUTSIDE RECORDS SUMMARY | 2025-04-05 12:02 | XMS_ITS | Encounter Summary ---
Author Organization [employer] Address 75 [facility] 7[address] [place] [address] Care Team Providers Care Business Administration Professor Name Role Phone Name, Teofilo WHALEN Primary Care Provider [phone] Reason for Visit * Reason Onset Date Comments Durable Medical Equipment 03/29/2025 Encounter Details Date Type Department Care Team ([facility] st Contact Info) Description 03/29/2025 Telephone [facility] MEDICINE [address] [place] [address] Name, MD Teofilo [address] [place] [address] Durable Medical Equipment Social History Tobacco Use [...] problems with any of the following? Lead [place] or Pipes 07/06/2024 Food Insecurity Answer Date [...] AM EDT T/C to pt via S Improvement Advisor Judith #[id number]. Pt c/o urinary incontinence x 2 weeks. Reports increased urinary frequency, urinary urgency and slight dysuria. Pt c/o slight back pain, denies fever. Reports that she is barely able to make it to the bathroom. Pt declines to come to [facility] today. Agrees to appointment with [facility] [...] EDT Tc from pt with Hannah Miller (machine adjuster leader case trim) requesting a new scrip for DME - Pull ups size M ( 3 x daily) - Gloves - Wipes documented in this encounter Plan of Treatment Upcoming Encounters Date Type Department Care Team (Late st Contact Info) Description 05/15/2025 2:30 PM EST Office Visit [facility] MEDICINE [address] [place] [address] Name, MD Teofilo [address] [place] [address] 05/28/2025 8:30 AM EST Clinical Support [facility] MEDICINE [address] [place] [address] Aurora Sabillon, RN 07/31/2025 10:15 AM EST Office Visit [facility] ADULT DENTAL [address] [place] [address] Kadi Heaton [address] [place] [address] documented as of this encounter Visit Diagnoses Not on filedocumented in this encounter Additional Health Concerns Assessment Noted Time PHQ-9 Depression Total Score: 9 08/10/19 25 10:01 AM EST documented as of this encounter Care Teams Business Administration Professor Relationship Specialty Start Date End Date Name, MD Teofilo [address] [place] [address] PCP - General Family Medicine 08/19/15 documented as of this encounter
--- OUTSIDE RECORDS SUMMARY | 2025-04-05 12:02 | XMS_ITS | Encounter Summary ---
Author Organization [employer] Address 75 [facility] 7 [place] [address] Care Team Providers Care Operating Table Assembler Name Role Phone Name, Teofilo WHALEN Primary Care Provider [phone] Reason for Visit * Reason Onset Date Comments Med Refill 04/03/2024 Encounter Details Date Type Department Care Team ([facility] st Contact Info) Description 04/03/2024 Refill [facility] MEDICINE [address] [place] [address] Name, MD Teofilo [address] [place] [address] Social History Tobacco Use Types Packs/Day Years [...] the past 12 months, has t he [email or web address] gas, oil or water company threatened to [...] Description 05/15/2025 2:30 PM EST Office Visit [facility] MEDICINE [address] [place] [address] NameTeofilo MD [address] [place] [address] 05/28/2025 8:30 AM EST Clinical Support [facility] [address] [place] [address] Aurora Sabillon RN 07/31/2025 10:15 AM EST Office Visit [facility] ADULT DENTAL [address] [place] [address] Kadi Heaton [address] [place] [address] documented as of this encounter Visit Diagnoses Not on filedocumented in this encounter Additional Health Concerns Assessment Noted Time PHQ-9 Depression Total Score: 12 024 9:22 AM EDT documented as of this encounter Care Teams Operating Table Assembler Relationship Specialty Start Date End Date Name, MD Teofilo [address] [place] [address] PCP - General Family Medicine 08/19/15 documented as of this encounter
--- OUTSIDE RECORDS SUMMARY | 2025-04-05 12:02 | XMS_ITS | Encounter Summary ---
Author Organization [employer] Address 75 [facility] 7[address] [place] [address] Care Team Providers Care Dormitory Keeper Name Role Phone Name, Teofilo WHALEN Primary Care Provider Reason for Visit * Reason Onset Date Comments Med Refill 12/21/2024 Encounter Details Date Type Department Care Team ([facility] st Contact Info) Description 12/21/2024 Telephone [facility] MEDICINE 230 [place] [address] Name, MD Teofilo 230 [place] [address] Med Refill Social History Tobacco Use Types [...] problems with any of the following? Lead [place] or Pipes 07/06/2024 Food Insecurity Answer Date [...] Dietrich LPN - 12/21/2024 9:44 AM EDT MIXER FOAM RUBBER checked on 12/21/24 Ambien last sold on 12/01/24 #30 to soon for refill. * Telephone Encounter - Teofilo Francis - 12/21/2024 9:27 AM EDT TC from pt requesting medication refill. Medications needing refill : zolpidem (Ambien) 10 MG tablet To be sent to: [facility]/pharmacy #[id number] [place], [place] - [address] [place] [address] documented in this encounter Plan of Treatment Upcoming Encounters Date Type Department Care Team (Late st Contact Info) Description 05/15/2025 2:30 PM EST Office Visit [facility] MEDICINE [address] [place] [address] Name, MD Teofilo [address] [place] [address] 05/28/2025 8:30 AM EST Clinical Support [facility] MEDICINE [address] [place] [address] Aurora Sabillon, RN 07/31/2025 10:15 AM EST Office Visit [facility] ADULT DENTAL [address] [place] [address] Kadi Heaton [address] [place] [address] documented as of this encounter Visit Diagnoses Not on filedocumented in this encounter Additional Health Concerns Assessment Noted Time PHQ-9 Depression Total Score: 9 08/10/19 25 10:01 AM EST documented as of this encounter Care Teams Dormitory Keeper Relationship Specialty Start Date End Date Name, MD Teofilo [address] [place] [address] PCP - General Family Medicine 08/19/15 documented as of this encounter
--- OUTSIDE RECORDS SUMMARY | 2025-04-05 12:02 | XMS_ITS | Encounter Summary ---
Author Organization [employer] Address 75 [facility] 7 [place] [address] Care Team Providers Care Greenskeeper Laborer Name Role Phone NameTeofilo MD Primary Care Provider [phone] Reason for Visit * Reason Onset Date Comments requesting call 08/18/2022 Encounter Details Date Type Department Care Team ([facility] st Contact Info) Description 08/18/2022 Telephone [facility] MEDICINE [address] [place], [place] [phone] Name, MD Teofilo [address] [place] [address] requesting call Social History Tobacco Use Types [...] - 08/18/2022 10:00 AM EST [facility] call back regarding pt CPAP machine. Janneth explained that she got in contact with pt insurance and the insurance informed that pt already had an authorization for a CPAP machine from a different provider since May to September. Please contact Janneth at [phone] Ext: [phone] documented in this encounter Plan of Treatment Upcoming Encounters Date Type Department Care Team (Late st Contact Info) Description 05/15/2025 2:30 PM EST Office Visit [facility] MEDICINE [address] [place] [address] Name, MD Teofilo [address] [place] [address] 05/28/2025 8:30 AM EST Clinical Support [facility] MEDICINE [address] [place] [address] Aurora Sabillon, ALICIA 07/31/2025 10:15 AM EST Office Visit [facility] ADULT DENTAL [address] [place] [address] Kadi Heaton [address] [place] [address] documented as of this encounter Visit Diagnoses Not on filedocumented in this encounter Additional Health Concerns Assessment Noted Time PHQ-9 Depression Total Score: 0 05/27/20 22 10:40 AM EST documented as of this encounter Care Teams Greenskeeper Laborer Relationship Specialty Start Date End Date Name, MD Teofilo 230 [place] [address] PCP - General Family Medicine 08/19/15 documented as of this encounter
--- OUTSIDE RECORDS SUMMARY | 2025-04-05 12:02 | XMS_ITS | Encounter Summary ---
Author Organization [employer] Address 75 [facility] 7t [place] [address] Care Team Providers Care Apple Picker Name Role Phone Name, Teofilo WHALEN Primary Care Provider [phone] Encounter Details Date Type Department Care Team ([facility] st Contact Info) Description 07/16/2023 Abstract [facility] MEDICINE [address] [place], [place] [phone] Name, MD Teofilo 230 [place] [address] Social History Tobacco Use Types Packs/Day Years [...] Description 05/15/2025 2:30 PM EST Office Visit [facility] MEDICINE [address] [place] [address] Name, MD Teofilo 230 [place] [address] 05/28/2025 8:30 AM EST Clinical Support [facility] MEDICINE [address] [place] [address] Aurora Sabillon, ALICIA 07/31/2025 10:15 AM EST Office Visit [facility] ADULT DENTAL [address] [place] [address] Kadi Heaton [address] [place] [address] documented as of this encounter Visit Diagnoses Not on filedocumented in this encounter Additional Health Concerns Assessment Noted Time PHQ-9 Depression Total Score: 0 05/27/20 22 10:40 AM EST documented as of this encounter Care Teams Apple Picker Relationship Specialty Start Date End Date Name, MD Teofilo [address] [place] [address] PCP - General Family Medicine 08/19/15 documented as of this encounter
--- OUTSIDE RECORDS SUMMARY | 2025-04-05 12:02 | XMS_ITS | Encounter Summary ---
Author Organization [employer] Address [address] [facility] 7t [place] [address] Care Team Providers Care Machinist Helper Marine Name Role Phone Name, Teofilo WHALEN Primary Care Provider [phone] Encounter Details Date Type Department Care Team ([facility] Contact Info) Description 04/03/2025 Orders Only [facility]INE [address] [place] [address] Anum Mckinley, MYRON 230 [place] [address] Social History Tobacco Use Types Packs/Day Years [...] problems with any of the following? Lead [place] or Pipes 07/06/2024 Food Insecurity Answer Date [...] to sit still 3 04/03/2025 3:45 PM SHAQUILLET Mery Madden [place] Becoming easily annoyed or [...] 2:30 PM EST Office Visit [facility] [address] [place] [address] Name, MD Teofilo [address] [place] [address] 05/28/2025 8:30 AM EST Clinical Support [facility] [address] [place] [address] Aurora Sabillon RN 07/31/2025 10:15 AM EST Office Visit [facility] ADULT DENTAL [address] [place] [address] Kadi Heaton [address] [place] [address] documented as of this encounter Procedures Procedure Name Priority Date/Time Associated Diagnosis Comments CDIFF GENE PCR Routine 04/03/2025 8:00 PM EDT documented in this encounter Results * CDiff Gene PCR (04/03/2025 8:00 PM EDT) CDiff Gene PCR NEGATIVE Negative [facility] Comment:If C. difficile stro ngly suspected despite one negativetest, a second test may be sent vs. empiric treatment forC. difficile infection. 04/03/2025 8:00 PM EDT 04/04/2025 11:53 AM EDT us Anum Mckinley HEAD [facility] BODY FLUIDS AND STOOLS ORDER EVIN Final Result [facility] [address] [place] [address] [phone] documented in this encounter Visit Diagnoses Not on filedocumented in this encounter Additional Health Concerns Assessment Noted Time PHQ-9 Depression Total Score: 13 025 3:44 PM EDT documented as of this encounter Care Teams Machinist Helper Marine Relationship Specialty Start Date End Date Name, MD Teofilo 230 [place] [address] PCP - General Family Medicine 08/19/15 documented as of this encounter
--- OUTSIDE RECORDS SUMMARY | 2025-04-05 12:02 | XMS_ITS | Encounter Summary ---
Author Organization [employer] Address 75 [facility] 7t [place] [address] Care Team Providers Care Head Swamper Name Role Phone Name, Teofilo WHALEN Primary Care Provider [phone] Reason for Visit * Reason Onset Date Comments Back Pain 05/18/2022 Encounter Details Date Type Department Care Team ([facility] st Contact Info) Description 05/18/2022 Telephone [facility] MED[facility]INE [address] [place] [address] Name, MD Teofilo [address] [place] [address] Back Pain Social History Tobacco Use Types [...] this outcome Please contact in Croatian at [phone] * Telephone Encounter - Inge Hernandez - 05/18/2022 9:32 AM EST Tc from pt request med refill on medication Ambien and Percocet . documented in this encounter Plan of Treatment Upcoming Encounters Date Type Department Care Team (Late st Contact Info) Description 05/15/2025 2:30 PM EST Office Visit [facility] MEDICINE [address] [place] [address] Name, MD Teofilo [address] [place] [address] 05/28/2025 8:30 AM EST Clinical Support [facility] MEDICINE [address] [place] [address] Aurora Sabillon RN 07/31/2025 10:15 AM EST Office Visit [facility] ADULT DENTAL [address] [place] [address] Kadi Heaton [address] [place] [address] documented as of this encounter Visit Diagnoses Not on filedocumented in this encounter Care Teams Head Swamper Relationship Specialty Start Date End Date Name, MD Teofilo [address] [place] [address] PCP - General Family Medicine 08/19/15 documented as of this encounter
--- OUTSIDE RECORDS SUMMARY | 2025-04-05 12:02 | XMS_ITS | Encounter Summary ---
Author Organization [employer] Address 75 [facility] 7 [place] [address] Care Team Providers Care Application Systems Administrator Name Role Phone Name, Teofilo WHALEN Primary Care Provider [phone] Reason for Visit * Reason Onset Date Comments new Apnea machine 07/31/2022 Encounter Details Date Type Department Care Team ([facility] st Contact Info) Description 07/31/2022 Telephone [facility] MEDICINE [address] [place] [address] Name, MD Teofilo 230 [place] [address] new Apnea machine Social History Tobacco Use [...] 12:21 PM EST Tc from Griselda from [facility] requesting a new apnea machine. States pt old one broke . Best contact # [phone] documented in this encounter Plan of Treatment Upcoming Encounters Date Type Department Care Team (Late st Contact Info) Description 05/15/2025 2:30 PM EST Office Visit [facility] MEDICINE [address] [place] [address] Name, MD Teofilo [address] [place] [address] 05/28/2025 8:30 AM EST Clinical Support [facility] MEDICINE [address] [place] [address] Aurora Sabillon, ALICIA 07/31/2025 10:15 AM EST Office Visit [facility] ADULT DENTAL [address] [place] [address] Kadi Heaton [address] [place] [address] documented as of this encounter Visit Diagnoses Not on filedocumented in this encounter Additional Health Concerns Assessment Noted Time PHQ-9 Depression Total Score: 0 05/27/20 22 10:40 AM EST documented as of this encounter Care Teams Application Systems Administrator Relationship Specialty Start Date End Date Name, [place] [address] PCP - General Family Medicine 08/19/15 documented as of this encounter
--- OUTSIDE RECORDS SUMMARY | 2025-04-05 12:02 | XMS_ITS | Encounter Summary ---
Author Organization [employer] Address 75 [facility] [address], [place] [address] Care Team Providers Care Clinical Quality Analyst Name Role Phone NameTeofilo MD Primary Care Provider [phone] Reason for Visit * Reason Comments Med Refill Encounter Details Date Type Department Care Team (Late st Contact Info) Description 11/20/2022 Refill [facility] MEDICINE [address] [place] [address] Teofilo Dave MD [address] [place] [address] Fibromyositis Social History Tobacco Use Types Packs/Day [...] Description 05/15/2025 2:30 PM EST Office Visit [facility] MEDICINE [address] [place] [phone] Teofilo Dave MD [address] [place] [address] 05/28/2025 8:30 AM EST Clinical Support [facility] MEDICINE [address] [place] [address] Aurora Sabillon, RN 07/31/2025 10:15 AM EST Office Visit [facility] ADULT DENTAL [address] [place] [address] Kadi Heaton [address] [place] [address] documented as of this encounter Visit Diagnoses Diagnosis Fibromyositis Unspecified myalgia and myositis documented in this encounter Additional Health Concerns Assessment Noted Time PHQ-9 Depression Total Score: 0 05/27/20 10:40 AM EST documented as of this encounter Care Teams Clinical Quality Analyst Relationship Specialty Start Date End Date Name, MD Teofilo [address] [place] [address] PCP - General Family Medicine 08/19/15 documented as of this encounter
--- OUTSIDE RECORDS SUMMARY | 2025-04-05 12:02 | XMS_ITS | Encounter Summary ---
Author Organization [employer] Address 75 [facility] 7 [place] [address] Care Team Providers Care Portfolio Administrator Name Role Phone Name, Teofilo WHALEN Primary Care Provider Reason for Visit * Reason Onset Date Comments new script 08/21/2022 Encounter Details Date Type Department Care Team ([facility] st Contact Info) Description 08/21/2022 Telephone [facility] MEDICINE [address] [place] [address] Name, MD Teofilo [address] [place] [address] new script Social History Tobacco Use Types [...] alternatemed and please to be sent to [facility] Pharmacy. PCP Dr. Dave documented in this encounter Plan of Treatment Upcoming Encounters Date Type Department Care Team (Late st Contact Info) Description 05/15/2025 2:30 PM EST Office Visit [facility] MEDICINE [address] [place] [address] Name, MD Teofilo [address] [place] [address] 05/28/2025 8:30 AM EST Clinical Support [facility] MEDICINE [address] [place], [place] [phone] Aurora Sabillon, ALICIA 07/31/2025 10:15 AM EST Office Visit [facility] ADULT DENTAL [address] [place] [address] Kadi Heaton [address] [place] [address] documented as of this encounter Visit Diagnoses Not on filedocumented in this encounter Additional Health Concerns Assessment Noted Time PHQ-9 Depression Total Score: 0 05/27/20 22 10:40 AM EST documented as of this encounter Care Teams Portfolio Administrator Relationship Specialty Start Date End Date Teofilo Dave MD [address] [place] [address] PCP - General Family Medicine 08/19/15 documented as of this encounter
--- OUTSIDE RECORDS SUMMARY | 2025-04-05 12:02 | XMS_ITS | Encounter Summary ---
Author Organization [employer] Address 75 [facility] 7t [place] [address] Care Team Providers Care Traditional Maori Health Practitioner Name Role Phone Name, Teofilo WHALEN Primary Care Provider [phone] Reason for Visit * Reason Onset Date Comments Med Refill 04/04/2025 Encounter Details Date Type Department Care Team ([facility] st Contact Info) Description 04/04/2025 Refill [facility]INE [address] [place] [address] Name, MD Teofilo [address] [place] [address] Social History Tobacco Use Types Packs/Day Years [...] problems with any of the following? Lead [place] or Pipes 07/06/2024 Food Insecurity Answer Date [...] Description 05/15/2025 2:30 PM EST Office Visit [facility] [address] [place] [address] Name, MD Teofilo [address] [place] [address] 05/28/2025 8:30 AM EST Clinical Support [facility] [address] [place] [address] Aurora Sabillon, ALICIA 07/31/2025 10:15 AM EST Office Visit [facility] ADULT DENTAL [address] [place] [address] Kadi Heaton [address] [place] [address] documented as of this encounter Visit Diagnoses Not on filedocumented in this encounter Additional Health Concerns Assessment Noted Time PHQ-9 Depression Total Score: 13 025 3:44 PM EDT documented as of this encounter Care Teams Traditional Maori Health Practitioner Relationship Specialty Start Date End Date Name, MD Teofilo [address] [place] [address] PCP - General Family Medicine 08/19/15 documented as of this encounter
--- OUTSIDE RECORDS SUMMARY | 2025-04-05 12:02 | XMS_ITS | Clinical Summary ---
Author Organization [employer] Address [address] [facility] 7t [place] [address] Care Team Providers Care Rating Officer Name Role Phone Name, Teofilo WHALEN Primary Care Provider [phone] Allergies Active Allergy Reactions Criticality Noted Date [...] affected nostril(s) if needed for opioid reversal. [place] 0.1 mL by intranasal route in 1 [...] teeth, acquired 05/20/2023 Type 2 diabetes mellitus, [facility] long-term current use of insulin 04/14/2023 [...] Overview (08/19/2022): Last bone density test at [facility] [place]/2022 Essential hypertension 05/27/2022 Adenomatous polyp of [...] Encounters Date Type Department Care Team Description 04/04/2025 Refill [facility] [place] [address] Teofilo Dave MD 04/03/2025 3:15 PM EDT Office Visit [facility] [place] [address] Anum Mckinley, MYRON Urinary incontinence, unspecified type (Primary Dx); Full incontinence of feces; Diarrhea of presumed infectious origin; Mixed stress and urge urinary incontinence 04/03/2025 Orders Only [facility] [place] [address] Anum Mckinley, MYRON 04/03/2025 Travel 04/02/2025 Telephone [facility] [place] [address] Teofilo Dave MD CHARTPREP 03/29/2025 Telephone [facility] [place] [address] Teofilo Dave MD Durable Medical Equipment 03/16/2025 Refill [facility] [place] [address] Teofilo Dave MD Chronic pain syndrome 03/05/2025 9:00 AM EDT Office Visit [facility] [place] [address] Jackelin Day FNP Follow-up exam (Primary Dx); Type 2 diabetes mellitus with other specified complication, without long-term current use of insulin ([facility]); Benign hypertension 03/05/2025 Travel 03/02/2025 Refill [facility] [place] [address] Teofilo Dave MD 02/27/2025 Telephone [facility] [address] [place] [address] Debby Anguiano MA CHART PREP 02/23/2025 Telephone [facility] [address] [place] [address] NameTeofilo MD ER Follow-up 02/15/2025 Refill [facility] [address] [place] [address] NameTeofilo MD Chronic pain syndrome 02/10/2025 Refill [facility] [address] [place] [address] NameTeofilo MD Left lower quadrant abdominal pain; Osteoarthritis of right knee, unspecified osteoarthritis type 02/08/2025 Refill [facility] [address] [place] [address] NameTeofilo MD 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 Orders Only [facility] [address] [place] [phone] NameTeofilo MD 01/26/2025 Refill [facility] [address] [place] [address] NameTeofilo MD Benign hypertension 01/23/2025 3:00 PM EDT Office Visit [facility] ADULT DENTAL [address] [place] [address] Florina, Kadi Missing teeth, acquired (Primary Dx); Dental plaque; Dental calculus 01/19/2025 Refill [facility] [address] [place] [address] Teofilo Dave MD Chronic pain syndrome 01/19/2025 Refill [facility] [address] [place] [address] Teofilo Dave MD Elevated blood sugar from Last 3 Months Immunizations Immunization Administration [...] problems with any of the following? Lead [place] or Pipes 07/06/2024 Food Insecurity Answer Date [...] Description 05/15/2025 2:30 PM EST Office Visit [address] [address] Name, MD Teofilo [address] [place] [address] 05/28/2025 8:30 AM EST Clinical Support [facility] [address] [place] [address] Aurora Sabillon, RN 07/31/2025 10:15 AM EST Office Visit [facility] ADULT DENTAL [address] [place] [address] Kadi Heaton [address] [place] [address] Health Maintenance Due Date Last Done Comments [...] Screening 03/05/2026 03/05/2025 Eye Exam 09/20/2026 09/20/2024, 04/0 02/2025, 09/20/2024, Additional history exists Mammogram 01/31/2027 [...] Procedure Name Priority Date/Time Associated Diagnosis Comments C-REACTIVE PROTEIN Routine 04/05/2025 10 :24 AM EDT Full incontinence of feces Diarrhea of presumed infectious origin CBC WITH AUTO DIFFERENTIAL Routine 04/05/2025 10:24 AM EDT Full incontinence of feces Diarrhea of presumed infectious origin COMPREHENSIVE METABOLIC PANEL Routine 04/05/2025 10:24 AM EDT Full incontinence of feces Diarrhea of presumed infectious origin CDIFF GENE PCR Routine 04/03/2025 8:00 PM EDT POCT URINALYSIS DIPSTICK Routine 04/03/2025 3:38 PM EDT Urinary incontinence, unspecified type POCT GLUCOSE Routine 04/03/2025 3:27 PM EDT Urinary incontinence, unspecified type CULTURE, URINE, ROUTINE Routine 04/03/2025 3:27 PM EDT Urinary incontinence, unspecified type POCT GLYCATED HEMOGLOBIN, TOTAL Routine 03/05/2025 9:21 AM EDT Type 2 diabetes mellitus with other specified complication, without long-term current use of insulin (CMS/HCC) POCT GLUCOSE Routine 03/05/2025 9:20 AM EDT Type 2 diabetes mellitus with other specified complication, without long-term current use of insulin (CMS/HCC) BI MAMMOGRAM SCREENING TOMOSYNTHESIS BILATERAL Routine 01/31/2025 [...] Relevant to Health Maintenance Results * (ABNORMAL) CBC auto differential (04/05/2025 10:24 AM EDT) White Blood Count 4.3(L) 4.8 - 10.8 X10*3/uL [facility] Red Blood Count 4.02(L) 4.20 - 5.50 X10*6/uL [facility] Hemoglobin 13.1 12.0 - 16.0 g/dl [facility] Hematocrit 39.9 37.0 - 47.0 % [facility] Mean Corpuscular Volume 99.3(H) 80.0 - 98.0 fL [facility] Mean Corpuscular Hemoglobin 32.6 27.0 - 33.0 pg [facility] Mean Corpuscular HGB Conc 32.8 31.0 - 35.0 g/dl [facility] Red Cell Distribution Width 13.6 11.0 - 16.0 % [facility] Platelet Count 226 160 - 400 X10*3/uL [facility] Mean Platelet Volume 11.1 9.4 - 12.3 fL [facility] Neutrophils Percent Auto 57.9 45 - 73 % [facility] Imm Gran Pct Auto 0.2 0.0 - 0.4 % [facility] Lymphocytes Percent Auto 29.0 20 - 40 % [facility] Monocytes Percent Auto 11.0 2 - 11 % [facility] Eosinophils Percent Auto 1.4 0 - 4 % [facility] Basophils Percent Auto 0.5 0 - 2 % [facility] NRBC Pct Auto 0.0 0.0 - 0.2 /100WBC [facility] Neutrophils Absolute Auto 2.5 2.0 - 8.3 x10*3/uL [facility] Imm Gran Abs Auto 0.01 0.00 - 0.03 X10*3/uL [facility] Lymphocytes Absolute Auto 1.2 1.2 - 4.9 X10*3/uL [facility] Monocytes Absolute Auto 0.5 0.1 - 1.2 X10*3/uL [facility] Eosinophils Absolute Auto 0.1 0.0 - 0.4 X10*3/uL [facility] Basophils Absolute Auto 0.0 0.0 - 0.2 X10*3/uL [facility] NRBC Abs Auto 0.000 0.0 - 0.012 X10*3/uL [facility] Blood Venous blood specimen / Unknown 04/05/2025 10:24 AM EDT 04/05/2025 11:21 AM EDT us Anum Mckinley CUPOLA MELTER HELPER LAB BLOOD ORDERABLES Final Resul t Performing Organization Address [facility] Co de Phone Number [facility] [address] [place] [phone] * C-reactive Protein (04/05/2025 10:24 AM EDT) Pathologist [facility] C Reactive Protein 0.18 < or = 0.50 mg/dL [facility] Blood Venous blood specimen / Unknown 04/05/2025 10:24 AM EDT 04/05/2025 11:21 AM EDT us Anum Mckinley CUPOLA MELTER HELPER LAB BLOOD ORDERABLES Final Resul t Performing Organization Address [facility] de Phone Number [facility] [address] [place] [phone] * (ABNORMAL) Comprehensive Metabolic Panel (04/05/2025 10:24 AM EDT) Sodium 148(H) 135 - 145 mmol/L [facility] Potassium 4.1 3.3 - 5.1 mmol/L [facility] Chloride 110(H) 96 - 108 mmol/L [facility] Carbon Dioxide 31(H) 22 - 29 mmol/L [facility] Anion Gap 11(L) 12 - 20 [facility] Urea Nitrogen (BUN) 17(H) 9 - 16 mg/dL [facility] Creatinine, Serum 0.96 0.5 - 1.4 mg/dL [facility] Estimated Glomerular Filt Rate 58 [facility] Comment:Chronic Kidney Disea se: Estimated GFR < 60 mL/min/1.83h1Opgtjx Kidney Disease: Estimated GFR < 15 mL/min/1.73m2 Glucose 143(H) 60 - 115 mg/dL [facility] Calcium 9.7 8.4 - 10.2 mg/dL [facility] Bilirubin, Total 0.4 0.0 - 1.0 mg/dL [facility] Aspartate Amino Transferase 47(H) 5 - 31 U/L [facility] Alanine Aminotransferase 15 0 - 31 U/L [facility] Total Protein 7.1 6.5 - 8.0 g/dL [facility] Albumin Level 4.6 3.5 - 5.0 g/dL [facility] Alkaline Phosphatase 58 39 - 117 U/L [facility] Blood Venous blood specimen / Unknown 04/05/2025 10:24 AM EDT 04/05/2025 11:21 AM EDT Anum Mckinley [employer]A [employer] HEL[employer] LAB BLOOD ORDERABLES Final Resul t Performing Organization Address City/[facility]/ZIP Co de Phone Number [facility] [address] [place] [phone] * CDiff Gene PCR (04/03/2025 8:00 PM EDT) CDiff Gene PCR NEGATIVE Negative [facility] Comment:If C. difficile stro ngly suspected despite one negativetest, a second test may be sent vs. empiric treatment forC. difficile infection. 04/03/2025 8:00 PM EDT 04/04/2025 11:53 AM EDT Anum Mckinley CUPOLA [employer]EL[employer] HELPER LAB BODY FLUIDS AND STOOLS ORDER EVIN Final Result Performing Organization Address City/[facility] Co de Phone Number [facility] [address] [place] [phone] * (ABNORMAL) POCT Urinalysis (04/03/2025 3:38 PM [...] Media Lot # [id number] Lot# Expiration Date 33 Urine (Urine, Random) 04/03/2025 3:38 PM EDT Result [facility] Anum Mckinley NP POINT OF CARE TEST ENTER/EDIT OR DERABLES Final Result * POCT Glucose (04/03/2025 3:27 PM EDT) Only the most recent of2 resultswithin the time period is included. Glucose Blood, POC 109 60 - 200 mg/dL QC Media Lot # [id number] Lot# Expiration Date Blood Capillary blood specimen / Unknown 04/03/2025 3:27 PM EDT Result [facility] Anum Mckinley NP POINT OF CARE TEST ENTER/EDIT OR DERABLES Final Result * Culture, Urine, Routine (04/03/2025 3:27 PM EDT) Urine Urine specimen obtained by clean catch procedure / Unknown 04/03/2025 3:27 PM EDT 04/03/2025 4:48 PM EDT Comment:UACC Narrative [facility] - 04/05/2025 10:32 AM EDT Urine Culture Report Result Urine Culture 10,000 to 50,000 cfu/ml Urine Culture Mixed bacterial luz maria characteristic of Urine Culture urogenital contamination. Specimen Source: Urine clean catch Anum Mckinley NP LAB MICROBIOLOGY - GENERAL ORDER EVIN Final Result [facility] [address] [place] [phone] * (ABNORMAL) POCT Hgb A1c (03/05/2025 9:21 AM EDT) Hemoglobin A1C 6.0(A) 4.0 - 5.7 % QC Media Lot # [id number] Lot# Expiration Date [id number] Blood 03/05/2025 9:21 AM EDT Jackelinraul Day MECHANICAL APPLICATIONS ENGINEER POINT OF CARE TEST ENTER/EDIT ORDERABLES Final Result * BI Mammogram Screening Tomosynthesis Bilateral (01/31/2025 11:10 AM EDT) Anatomical Region Laterality Modality Breast Bilateral Mammography 01/31/2025 11:1 0 AM EDT Narrative 02/01/2025 4:59 PM EDT [facility] [place] [address] Mammography Report Signed Patient: Beatriz Talbot MR#: [id number] : 1955 Acct:[id number] Age/Sex: 69 / F ADM Date: 01/31/25 Loc: BryMAMMO Attending Dr: Teofilo Dave MD Ordering Physician: Teofilo Dave MD Results: 2Benign Fi ndings Date of Service: 01/31/25 Follow Up: 1 Year From [facility] Mammogram Procedure(s): MM tomosynthesis screening BI Accession Number(s): [id number] cc: Teofilo Dave MD EXAMINATION: MM SCREENING [...] 02/01/25 1655 DD/ 1110 TD/TT: 01/31/25 1128 Metalizer: Procedure Note Cristina, Image - [facility] [address] [place], [place] [address] Mammography Report Signed Patient: Harsha TalbotnMStephanie#: [id number] : 1955cct:[id number] Age/Sex: 69 / FADM Date: 01/31/25 Loc: HO.MAMMO Attending Dr: Teofilo Dave MD Ordering Physician: Teofilo Dave MDResults: 2Benign Fi ndings Date of Service: 01/31/25Follow Up: 1 Year From Orig ina Mammogram Procedure(s): MM tomosynthesis screening BI Accession Number(s): [id number] cc: Teofilo Dave MD EXAMINATION: MM SCREENING [...] 02/01/25 1655 DD/ 1110 TD/TT: 01/31/25 1128 Metalizer: us Teofilo Dave MD IMG BI PROCEDURES Final Result * Albumin, Random Urine W/Creatinine (07/17/2024 11:20 AM EST) Creatinine, Urine 218.42 mg/dL [facility] Microalbumin Urine 20.0 mg/L [facility] Microalbum Creatinine Ratio Ur 9.1 <30 ug/mg cr [facility] Comment:Albumin/Creatinine R atio Reference Ranges: Normal: < 30 ug/mg creatinine Microalbuminuria: 30 - 300 ug/mg creatinineClinical Albuminuria: > 300 ug/mg creatinine Urine (Urine, Random) 07/17/2024 11:20 AM EST 07/17/2024 1:10 PM EST us Teofilo Dave MD LAB URINE ORDERABLES Final Resul t [facility] [address] [place] [phone] * (ABNORMAL) Lipid Panel, Standard (07/17/2024 11:20 AM EST) Triglycerides 99 <150 mg/dL [facility] Comment:Desirable Triglyceri de: less than 150 mg/dLBorderline High Triglyceride 150-199 mg/dLHigh Triglyceride: 200-499 mg/dLVery High Triglyceride: greater than or equal to 5OO mg/dL Cholesterol 178 <200 mg/dL [facility] Comment:Desirable Cholestero l: less than 200 mg/dLBorderline High Cholesterol: 200-239 mg/dLHigh Cholesterol: greater than 239 mg/dL LDL Cholesterol Calculated 102(H) <100 mg/dL [facility] Comment:Desirable LDL: less than 100 mg/dLNear Optimal/Above Optimal LDL: 110- 129 mg/dLBorderline High LDL: 130-159 mg/dLHigh LDL: 160-189 mg/dLVery High LDL: greater than or equal to 190 mg/dL HDL Cholesterol 57 >40 mg/dL [facility] Comment:Desirable HDL: great er than 40 mg/dL Note: This HDL assay may give artificially low results in patients with liver disease. Blood Venous blood specimen / Unknown 07/17/2024 11:20 AM EST 07/17/2024 1:10 PM EST us Teofilo Dave MD LAB BLOOD ORDERABLES Final Resul t Performing Organization Address [facility]/ZIP Co de Phone Number [facility] [address] [place] [phone] * Hepatitis C Antibody with Reflex to HCV, RNA, Quantitative, Real-Time PCR (11/12/2023 10:40 AM EDT) Hepatitis C Antibody Nonreactive Nonreactive [facility] Comment:Antibodies to HCV no t detected; does not exclude early acuteHCV infection. Blood Venous blood specimen / Unknown 11/12/2023 10:40 AM EDT 11/12/2023 11:12 AM EDT us Teofilo Dave MD LAB BLOOD ORDERABLES Final Resul t Performing Organization Address City/[facility]/ZIP Co de Phone Number [facility] [address] [place] [phone] * Hm Colonoscopy (06/03/2018) Colonoscopy performed Historical Provider HEALTH MAINTENANCE Final Result from Last 3 Months or Most Recently Relevant to Health Maintenance Insurance [facility] [employer] OPTIONS (O D-SNP) [facility] Care Teams Rating Officer Relationship Specialty Start Date End Date Name, MD Teofilo [address] [place] [address] PCP - General Family Medicine 08/19/15
--- OUTSIDE RECORDS SUMMARY | 2025-04-05 12:02 | XMS_ITS | Encounter Summary ---
Author Organization [employer] Address [address] [facility] [place] [address] Care Team Providers Care Manager Assisted Living Name Role Phone NameTeofilo MD Primary Care Provider [phone] Encounter Details Date Type Department Care Team (Latest Contact Info) Description 04/25/2021 Abstract [facility] CONVERSIONS Dental, Provider, DDS Social History Tobacco [...] Visit [facility] MEDICINE [address] [place] [phone] Name, MD Teofilo [address] [place] [address] 05/28/2025 8:30 AM EST Clinical Support [facility] MEDICINE [address] [place] [address] Aurora Sabillon RN 07/31/2025 10:15 AM EST Office Visit [facility] ADULT DENTAL [address] [place] [address] Kadi Heaton [address] [place] [address] documented as of this encounter Visit Diagnoses Not on filedocumented in this encounter Care Teams Manager Assisted Living Relationship Specialty Start Date End Date Name, MD Teofilo [address] [place] [address] PCP - General Family Medicine 08/19/15 documented as of this encounter
--- OUTSIDE RECORDS SUMMARY | 2025-04-05 12:02 | XMS_ITS | Encounter Summary ---
Author Organization [employer] Address [address] [facility] 7t [place] [address] Care Team Providers Care Heating Worker Name Role Phone Name, Teofilo WHALEN Primary Care Provider [phone] Reason for Visit * Reason Comments Med Refill Encounter Details Date Type Department Care Team ([facility] st Contact Info) Description 11/28/2023 Refill [facility] [address] [place], [place] [phone] Name, MD Teofilo [address] [place] [address] Fibromyositis Social History Tobacco Use Types Packs/Day [...] the past 12 months, has t he [employer], oil or water company threatened to [...] Description 05/15/2025 2:30 PM EST Office Visit [facility] [address] [place] [phone] Teofilo Dave MD [address] [place] [address] 05/28/2025 8:30 AM EST Clinical Support [facility] [address] [place] [address] Aurora Sabillon RN 07/31/2025 10:15 AM EST Office Visit [facility] ADULT DENTAL [address] [place] [address] Kadi Heaton [address] [place] [address] documented as of this encounter Visit Diagnoses Diagnosis Fibromyositis Unspecified myalgia and myositis documented in this encounter Additional Health Concerns Assessment Noted Time PHQ-9 Depression Total Score: 12 024 9:22 AM EDT documented as of this encounter Care Teams Heating Worker Relationship Specialty Start Date End Date Teofilo Dave MD [address] [place] [phone] PCP - General Family Medicine 08/19/15 documented as of this encounter
--- OUTSIDE RECORDS SUMMARY | 2025-04-05 12:02 | XMS_ITS | Encounter Summary ---
Author Organization [employer] Address [address] [facility] [address] [place] [address] Care Team Providers Care Crossword Puzzle Maker Name Role Phone Name, Teofilo WHALEN Primary Care Provider [phone] Encounter Details Date Type Department Care Team [...] problems with any of the following? Lead [place] or Pipes 07/06/2024 Food Insecurity Answer Date [...] Description 05/15/2025 2:30 PM EST Office Visit [facility] MEDICINE [address] [place] [address] Name, MD Teofilo [address] [place] [address] 05/28/2025 8:30 AM EST Clinical Support [facility] MEDICINE [address] [place] [phone] Aurora Sabillon RN 07/31/2025 10:15 AM EST Office Visit [facility] ADULT DENTAL [address] [place] [address] Kadi Heaton [address] [place] [address] documented as of this encounter Visit Diagnoses Not on filedocumented in this encounter Additional Health Concerns Assessment Noted Time PHQ-9 Depression Total Score: 13 025 3:44 PM EDT documented as of this encounter Care Teams Crossword Puzzle Maker Relationship Specialty Start Date End Date NameTeofilo MD [address] [place] [phone] PCP - General Family Medicine 08/19/15 documented as of this encounter
--- OUTSIDE RECORDS SUMMARY | 2025-04-05 12:02 | XMS_ITS | Encounter Summary ---
Author Organization [employer] Address [address] [facility] 7t [place] [address] Care Team Providers Care Bottle Gauger Name Role Phone Name, Teofilo WHALEN Primary Care Provider [phone] Encounter Details Date Type Department Care Team (Late st Contact Info) Description 11/25/2022 Abstract [facility] MEDICINE [address] [place] [address] Name, MD Teofilo [address] [place] [address] Social History Tobacco Use Types Packs/Day Years [...] Description 05/15/2025 2:30 PM EST Office Visit [facility] MEDICINE [address] [place] [address] Name, MD Teofilo [facility] [place] [address] 05/28/2025 8:30 AM EST Clinical Support [facility] MEDICINE [address] [place] [phone] Aurora Sabillon RN 07/31/2025 10:15 AM EST Office Visit [facility] ADULT DENTAL [address] [place] [address] Kadi Heaton [address] [place] [address] documented as of this encounter Visit Diagnoses Not on filedocumented in this encounter Additional Health Concerns Assessment Noted Time PHQ-9 Depression Total Score: 0 05/27/20 10:40 AM EST documented as of this encounter Care Teams Bottle Gauger Relationship Specialty Start Date End Date Name, MD Teofilo Ileana [facility] [place] [address] PCP - General Family Medicine 08/19/15 documented as of this encounter
[2025-04-05 14:33] LABS: CDiff Gene PCR NEGATIVE (Negative)
== END 2025-04-05 10:11 | disposition home or self-care (01) ==
LOC: HO.HHCL 10:10
PROVIDERS: PCP Nurse Practitioner Family; Visit Provider Nurse Practitioner Family
DX: R15.9 Full incontinence of feces (principal); R19.7 Diarrhea, unspecified
CPT/HCPCS: 36415; 80053; 85025; 85652; 86140; 87493

== ENCOUNTER 2025-04-06 12:27 | Outpatient (REF) | payer OTHER, SELFPAY ==
[2025-04-06 13:53] LABS: E. coli EAEC Not Detected (Not Detect.); E. coli EPEC Not Detected (Not Detect.); E. coli ETEC Not Detected (Not Detect.); E. coli STEC Not Detected (Not Detect.); Shigella sp./EIEC Not Detected (Not Detect.)
== END 2025-04-06 12:28 | disposition home or self-care (01) ==
LOC: HO.LNP 12:27
PROVIDERS: Visit Provider Nurse Practitioner Family
DX: R15.9 Full incontinence of feces (principal); R19.7 Diarrhea, unspecified
CPT/HCPCS: 87507